=== PATIENT | female | born 1945 | race Caucasian/White ===

== ENCOUNTER → 2016-08-29 | Outpatient (CLI) | payer OTHER ==
[~2016-08-29] MED LIST: ADVIN10/60 INH; ASPI81TA82 PO; CALC-354 PO; CHOND PO; CLB/200 PO; CYCL5TAB PO; GLUCOSAMIN PO; LEVO50TA6 PO; LOSA1TAB PO; OMEGCAP PO; PRED20TA PO; RIZA10TA18 PO; SIMV20TA2 PO; TRAM-10 PO; TRIA3AER NAE; VENL75CA73 PO; VITAMIN D COMPLEX PO; VITBC PO
== END | disposition home or self-care (01) ==
LOC: C.RDSM 14:45
PROVIDERS: ATTEND Orthopaedic Surgery Sports Medicine
DX: M25.561 Pain in right knee (principal)

== ENCOUNTER → 2016-11-08 | Day surgery (SDC) | payer OTHER ==
[2016-11-02 08:50] VITALS: Ht 180.3 cm; Wt 90.9 kg
[~2016-11-08] VITALS: Ht 180.3 cm; Wt 90.9 kg
[~2016-11-08] MED LIST changes: -ADVIN10/60 INH; -CYCL5TAB PO; +IOPAMIDOL INJ 61% 15 ML VIAL ONE; +LIDOCAINE HCL 1% MPF 5 ML VIAL ONE; -PRED20TA PO; -SIMV20TA2 PO; +SODIUM CHLORIDE 0.9% INJ 10 ML VIAL ONE; -TRAM-10 PO; -TRIA3AER NAE
[2016-11-08 13:28] VITALS: TEMP 36.8
--- NOTE | 2016-11-08 14:25 | History & Physical Bridge - SC ---
H&P Re-Evaluation Bridge Note: I have examined the patient, reviewed the History & Physical and in the interval since the performance of the History & Physical I have noted the following changes of clinical significance: No changes noted
[2016-11-08 14:50] VITALS: BP 117/66; PULSE 84; O2SAT 96
--- NOTE | 2016-11-08 14:53 | Discharge Instructions ---
Discharge Instructions Date of Service Nov 08, 2016. Visit Reason for Visit: Lumbar Radiculopathy Discharge Discharge Diagnosis / Problem: leg pain Discharge Goals Goal(s): Decrease discomfort, Improve function Medications Stopped Medications Name(s): asa 81mg daily, last dose 11/04/16 Activity Recommendations Activity Limitations: resume your previous activity Anesthesia . Post Anesthesia Instructions: If you have had General Anesthesia or IV Sedation: * Do not drive today. * Resume driving when surgeon permits. * Do not make important decisions or sign legal documents today. * Call surgeon for: 1. Temperature elevations greater than 101 degrees F. 2. Uncontrollable pain. 3. Excessive bleeding. 4. Persistent nausea and vomiting. 5. Medication intolerance (nausea, vomiting or rash). * For nausea and vomiting use only clear liquids such as: tea, soda, bouillon until nausea subsides, then gradually increase diet as tolerated. * If you have any concerns or questions, call your surgeon's office. If physician is unavailable and it is an emergency, call 911 or go to the nearest emergency room. . Diet Recommendations Recommended Home Diet: resume previous diet Procedures Procedures Performed: Lumbar Epidural Steroid Injection Pending Studies Studies pending at discharge: no Medical Emergencies . Who to Call and When: Medical Emergencies: If at any time you feel your situation is an emergency, please call 911 immediately. . Non-Emergent Contact Non-Emergency issues call your: Specialist . . "Provider Documentation" section prepared by Bruce Burnett. .
--- NOTE | 2016-11-08 16:23 | [facility] Operative Report ---
Operative Report Date of Service Nov 08, 2016. Operative Report DICTATED BY: Bruce Burnett M.D. DATE OF SURGERY: 11/08/16. DATE OF OPERATION: 11/08/2016 PREOPERATIVE DIAGNOSIS: L3-4 herniated nucleus pulposus with a right L4 radiculopathy. POSTOPERATIVE DIAGNOSIS: Same. PROCEDURE: Right L3-4 paramedian intralaminar epidural steroid injection under fluoroscopic guidance. INDICATIONS: The patient is a 71-year-old white female who presents today for an epidural injection to decrease discomfort and improve function as she has failed conservative physical therapy and medications. She has classic pain radiating down the L4 dermatomal distribution of her right leg. CONSENT: Verbal and written consent was obtained from the patient. Risks and benefits were reviewed. Risks include but are not limited to epidural hematoma, allergic reaction, and dural puncture. The patient wishes to proceed. PROCEDURE: The patient was taken back to the special procedures room of [facility] where she was maintained in a prone position. Backside was cleansed with Betadine x3 and a dry sterile dressing was applied. Fluoroscope was used to identify the L5-S1 intralaminar space and overlying skin was anesthetized with 4 mL of lidocaine 1% with a 25 gauge 1.5-inch needle. A 22-gauge 3-1/2 inch Tuohy needle was then directed down towards the intralaminar space and was advanced under lateral fluoroscopic guidance and loss of resistance was noted and Isovue-300 contrast 1 mL was injected in which demonstrated epidural uptake pattern with spread that was confirmed with both AP and lateral views. She then underwent injection after negative aspiration of 40 mg of Depo-Medrol and 4 mL of preservative free sodium chloride. Injection was well tolerated. DISPOSITION: 1. The patient is taken out into the discharge recovery area where she will be discharged home once discharge criteria have been met. 2. Follow up in the [facility] office in 2-4 weeks. I attest to the content of the Intraoperative Record and any orders documented therein. Any exceptions are noted below. I attest to the content of the Intraoperative Record and any orders documented therein. Any exceptions are noted below.
== END | disposition home or self-care (01) ==
LOC: X.SURG 13:19
PROVIDERS: ATTEND Physical Medicine & Rehabilitation
DX: M51.16 Intervertebral disc disorders with radiculopathy, lumbar region (principal)

== ENCOUNTER → 2016-11-29 | Outpatient (CLI) | payer OTHER ==
[~2016-11-29] MED LIST changes: -IOPAMIDOL INJ 61% 15 ML VIAL ONE; -LIDOCAINE HCL 1% MPF 5 ML VIAL ONE; -SODIUM CHLORIDE 0.9% INJ 10 ML VIAL ONE
--- NOTE | 2016-11-29 09:39 | DIAGNOSTIC IMAGING REPORT ---
MRI OF LUMBAR SPINE WITHOUT IV CONTRAST CLINICAL HISTORY: Chronic low back pain. Right lower extremity radiculopathy. COMPARISON STUDY: MRI of lumbar spine dated 05/18/2015. TECHNIQUE: MRI of lumbar spine is performed utilizing various T1 and T2 weighted sequences in the axial, sagittal, and coronal planes. IV contrast was not administered for this examination. FINDINGS: Lumbar spine: Marrow signal intensity is heterogeneous. Vertebral body height and alignment are maintained throughout the lumbar spine. There is straightening of the lumbar lordosis. Mild dextrocurvature centered at L3. Small anterior osteophytes are seen throughout. The transverse and spinous processes appear intact. There is no evidence of spondylolysis. No destructive bony lesion is seen. Intervertebral discs: There is degenerative disc desiccation seen at all lumbar levels. Moderate to advanced loss of height is present at L4-L5. Moderate loss of height is seen at L1-L2 and L2-L3. Mild loss of height is seen at the remaining lumbar levels. Spinal cord: The visualized spinal cord is normal in morphology and signal intensity. The conus medullaris terminates at the level of L1. The nerve roots of the cauda equina are normal in morphology. L1-L2: There is a small posterior disc bulge. The central canal and neural foramina are patent. L2-L3: There is broad-based posterior disc bulge and annular fissure. This causes mild bilateral subarticular stenosis. The central canal and neural foramina are patent. Facet arthropathy is of no consequence. L3-L4: There is a disc protrusion eccentric to the right with a distracted disc fragment. The disc fragment is best seen on axial image #15 and measures up to 9 mm. This impinges on the transiting right-sided nerve roots. Facet arthropathy causes mild to moderate right neural foraminal stenosis. There is only minimal acquired compromise of the central canal at this level. There is no significant central canal stenosis at this level. L4-L5: There is a posterior disc bulge as well as mild hypertrophy of the ligamentum flavum. There is no significant central canal stenosis. There is bilateral subarticular stenosis, with possible impingement on the exiting right L4 nerve root. Facet arthropathy causes mild bilateral neural foraminal stenosis. L5-S1: Facet arthropathy is of no consequence. The central canal and neural foramina are patent. Sacrum: Visualized sacrum is normal in morphology and signal intensity. Soft tissues: There is fatty atrophy of the paraspinous and iliopsoas musculature. Parapelvic cysts are noted in the left kidney. There is no evidence of retroperitoneal lymphadenopathy. A large cyst is partially imaged in the liver. IMPRESSION: 1. There is a right lateral disc protrusion at L3-L4 with a distracted disc fragment. This impinges on the transiting right-sided nerve roots. 2. There is a posterior disc bulge at L4-L5. This may impinge on the exiting right L4 nerve root. 3. There is no significant acquired compromise of the central canal. 4. Degenerative change and scoliosis at additional levels as above. See discussion for detailed level by level analysis. 5. Marrow signal intensity is heterogeneous. No destructive bony lesion is clearly seen. Dictated: 11/29/2016 9:06 AM Transcribed: 11/29/2016 9:38 AM DAPHNE_Abel Electronically signed by: Jose Varela M.D. 11/29/2016 10:09 AM Dictated Date/Time: 11/29/2016 9:06 AM
== END | disposition home or self-care (01) ==
LOC: C.MRI 08:04
PROVIDERS: ATTEND Physical Medicine & Rehabilitation
DX: M51.16 Intervertebral disc disorders with radiculopathy, lumbar region (principal)

== ENCOUNTER → 2017-06-12 | Outpatient (CLI) | payer OTHER | END | disposition home or self-care (01) | LOC: C.RDSM 17:04 | PROVIDERS: ATTEND Orthopaedic Surgery Sports Medicine | DX: S89.91XA Unspecified injury of right lower leg, initial encounter (principal); X58.XXXA Exposure to other specified factors, initial encounter ==

== ENCOUNTER 2023-06-25 07:22 | Inpatient (IN) ==
--- OUTSIDE RECORDS SUMMARY | 2023-06-25 07:29 | External Medical Summary | Continuity of Care Document ---
Author Name Unknown Organization [place] [address] [address] [place] [address] Address [address] [place] [id number] Care Team Providers Care Community Health Advisor Name Role Phone Kamala Reyes Primary Care Physician [phone] [id number] Date(s): 05/22/23 - 05/22/23 [facility] [address] [facility] [address] [facility] Medicine [address] [address] Encounter Diagnosis Knee pain, left(Discharge Diagnosis) - 05/22/23 Discharge Disposition: Home or Self Care Attending Physician: MD Adelina, Wesley A Allergies, Adverse Reactions, Alerts No Known Allergies Medications amoxicillin 500 mg oral capsule Start: 07/12/22 16:45:00 EDT, 4 cap, PO, As indicated, Disp# 12 cap, Refills: 3, one hour before dental and other procedures as directed, Pharmacy: [facility] Start Date: 07/12/22 Status: Ordered B-Complex 50 oral tablet Start: 10/01/12 8:40:00, 1 tab, PO, Daily Start Date: 10/01/12 Status: Ordered Caltrate 600 + D oral tablet Start: 10/01/12 8:42:00, 1 tab, PO, bid Start Date: 10/01/12 Status: Ordered celecoxib 200 mg oral capsule Start: 08/25/22 11:37:00 EDT, See Instructions, Disp# 90 cap, Refills: 2, TAKE 1 CAPSULE BY MOUTH DAILY NEEDED FOR PAIN, Pharmacy: [facility] ([facility] ) Start Date: 08/25/22 Status: Ordered diclofenac 1% topical gel Start: 10/02/18 14:50:36 EDT, See Instructions, Disp# 100 g, Refills: 0, APPLY TOPICALLY 4 TIMES DAILY NEEDED FOR PAIN. NOT TO EXCEED 16 GRAMS DAILY ON A SINGLE JOINT OF LOWER EXTREMITIES. NOT TO EXCEED 32 GRAM, Pharmacy: [facility] Start Date: 10/02/18 Status: Ordered Effexor 75 mg oral tablet Start: 10/01/12 8:41:00, 0.5 tab, PO, bid Start Date: 10/01/12 Status: Ordered Euflexxa 10 mg/mL intra-articular solution Start: 09/04/19 13:24:00 EDT, 20 mg =, intra-articular, q7days, Disp# 2 mL, Refills: 0, Left knee OA Start Date: 09/04/19 Status: Ordered glucosamine-chondroitin oral kit Start: 10/01/12 8:40:00 Start Date: 10/01/12 Status: Ordered Levothroid 50 mcg (0.05 mg) oral tablet Start: 10/01/12 8:42:00, 1 tab, PO, Daily Start Date: 10/01/12 Status: Ordered losartan 25 mg oral tablet Start: 10/01/12 8:40:00, 1 tab, PO, Daily Start Date: 10/01/12 Status: Ordered PreserVision Start: 03/12/18 11:03:00 EST Start Date: 03/12/18 Status: Ordered Mental Status 05/22/23 Barriers to Learning one year None evide nt Mandatory Health Literacy Documentation Yes Health Literacy Communication Barriers N ever Primary Language Gambian Problem List Condition Confirmation Course Effective Dates Status H ealth Status Informant Anemia Confirmed Active Pes anserine bursitis Confirmed Active Occipital neuralgia Confirmed Active Herniated nucleus pulposus, L3-4 right Confirmed Active Effusion of olecranon bursa Confirmed Active Foot pain, right Confirmed Active Foot pain, left Confirmed Active Gastroparesis Confirmed Active Right hand pain Confirmed Active Hiatal hernia Confirmed Active S/P total knee replacement Confirmed Active Intervertebral disc disorder Confirmed Active Knee pain, left Confirmed Active Knee pain, right Confirmed Active Lumbar pain Confirmed Active Strain of lumbar paraspinous muscle Confirmed Active Right lumbar radiculopathy Confirmed Active Neck pain Confirmed Active Neck pain Confirmed Active Osteoarthritis of knee Confirmed Active 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 Weight monitoring Confirmed Active Wrist injury 1 Confirmed Active 1left Diagnosis Diagnosis Type Effective Dates Health Status Cl inical Service Informant Knee pain, left Discharge Diagnosis 05/22/23 Procedures Procedure Date Related Diagnosis Body Site Status knee surgery 02/15/09 Completed Discectomy 1999 Completed hand surgery 1997 Completed Hysterectomy 1979 Completed Tonsillectomy 1956 Completed Social History Social History Type Response Smoking Status Never smoked cigaret jaime Sex Female Ortho Outpt Note * MD Adelina, Wesley A: MODIFY MD Adelina, Wesley A: MODIFY Event Display: Ortho Outpt Note Authored Date: [id number] Name:RAJIV HALL Patient Number:[id number] :1945 Date of Service:05/22/2023 CHIEF COMPLAINT: Left knee pain HPI: [id number] Mark presents today forevaluation of left knee pain. She completed her most recent round ofEuflexxa in August 2019 with the round before that completed in 2014. She had significant relief from Euflexxa with return of pain within the last 2-3 months. She is interested in cortisone injection today. She is also s/p right TKA completed April 02, 2018 and doing well. PHYSICAL EXAM: Focusing on the patient'sleftlower extremity: 2+ DP pulse, bilaterally Sensation to light touch is intact, bilaterally Motor to the gastroc soleus, tibialis anterior, and EHL is 5/5, bilaterally Able to perform straight leg raise, bilaterally -joint line tenderness. -Valdez's Ligamentous examination exhibits: Stable Guille 0 mm anterior translation and firm endpoint Posterior drawer stable Varus stress at 0 and 30 stable Valgus stresshas pseudolaxity at0 and 30 less than 1 mm -Effusion Right knee Range of motion 0 to 125 Leftknee Range of motionfew degrees of hyperextension to 125 +Tenderness to palpation Medial patellar facet DIAGNOSTIC REVIEW: I obtained and personally interpreted OA series including bilateral hips to ankles, bilateral AP standing, Bilateral 45 degree flexion PA views, andleftknee lateral and sunrise views which showprogression of medial joint space narrowing, sclerosis bone on bone,and marginal osteophytes.Pat ient has2 alignment on left. Incidental finding of cemented right total knee components IMPRESSION: Left knee OA Chronic PLAN: After a lengthy discussion with the patient today regarding my above clinical findings, I am pleased with how well they are doing. - RICE. - They may use anti-inflammatories alternating with Tylenol as needed for pain. - In addition due to their significant amount of pain today, they were offered a cortisone injection. The risks of the injections were discussed and included but not limited to: Inflection, bleeding,nerve damage, continued pain, possible need for repeat injections, altered glucose levels, and permanent skin changes at the site of injection. They would like to proceed. They will keep track of howmuch pain relief they obtain and for how long. They will ice tonight and over the next several daysand understands it may be more painful tomorrow due to a steroid flare. - Discussed she is eligible for repeat MONGE injections given her positive response. She would like toproceed with MONGE injections after insurance approval. - Follow-up for MONGE injections after insurance approval. The patient understood all my instructions and explanations; all their questions were satisfactorily addressed. PROCEDURE: After obtaining verbal consent, performing a time-out, identifying theleftknee as the correct knee for intra-articular cortisone injection, the anterolateral portal area was palpated and marked. Kali Hicks, my nurse was present to verify the procedure and site.This area was prepped with Betadine, followed by ethyl chloride spray and alcohol wipe. Then, a combination of 2 mL o f 1% lidocaine plain plus4 mL of 0.25%Bupivacaine plain plus 1mL of 40 mg of Depo-Medrol wereeasily injected. The patient noted immediate pain relief. The area was cleaned and dried and a Band-Aid was placed on the top. The patient will follow all of my above-noted instructions. ATTESTATION: I, Rita Mcpherson, scribing forand in the presence of, Wesley Sahu, on this date,05/22/2023 11:36:26. I, Dr. Sahu, saw and examined the patient with Rita Mcpherson acting as my scribe. I reviewed the note and agree with the documented findings and the plan of care I developed. Electronic Signature on File Electronically Reviewed/Signed by: Rita Mcpherson Author Signature Dt/Tm:05/22/2023 11:57 AM Electronically Reviewed/Signed by: Wesley Sahu MD Cosigner Signature Dt/Tm: 05/22/2023 01:09 PM [facility] Measurement Psychologist Department of Orthopaedics and Rehabilitation [facility] [address], [place] [address] [place] Patient Care team information Care Team Personnel Name: MD Eric, Kamala Olivia Position: Referring DIRECT Member Role: Primary Care Provider Address: Address: [address] [place] [address] [place] Care Team Related Persons Name: ENIO YEPEZ Address: home [address], [place] [phone] Name: NADJA YEPEZ Address: [place], [place] [phone]
--- OUTSIDE RECORDS SUMMARY | 2023-06-25 07:29 | External Medical Summary | Continuity of Care Document ---
Author Name Unknown Organization [facility] [address] [address] Address [address] [place] [phone] Care Team Providers Care Inspector Floor Sub Assembly Name Role Phone Kamala Reyes Corwin Primary Care Physician [phone] [id number] Date(s): 06/06/23 - 06/06/23 [facility] 0 [address] [facility] [address] [facility] [address] [id number] Encounter Diagnosis Left knee DJD(Discharge Diagnosis) - 06/06/23 Discharge Disposition: Home or Self Care Attending Physician: JUAN C Zavala [place] Allergies, Adverse Reactions, Alerts No Known Allergies Assessment and Plan Extracted from: Title:Clinical Document Author:JUAN C Zavala, Simeon son Date:06/06/23 OUTPATIENT NOTE Name: RAJIV HALL Patient Number:[id number] : 1945 Date of Service: 06/06/2023 CHIEF COMPLAINT: Euflexxa 1 of 3 HISTORY OF PRESENT ILLNESS: Patient is here today for left knee gel injection. She has received these before. She had her right knee replaced by Dr. Sahu in 2018. She had a great outcome from that. She gets good relief from the Euflexxa injections. She did have a cortisone injection 05/22/2023. They have no major questions or concerns today. They are ready to proceed with their injection. ROS: Denies swelling, erythema, warmth PHYSICAL EXAM: General: Pt is well nourished, seated on the exam table AA&O, in NAD, calm and cooperative during exam Knee Exam: Pt ambulates without assisted device with a non-antalgic gait Skin is intact with no effusion, erythema, ecchymosis or warmth Motor function grossly in tact No signs of lymphatic or vascular insufficiency IMPRESSION/ PLAN: Left knee osteoarthritis, 1 of 3 Euflexxa injection The patient received their gel injection today. They tolerated the procedure well. Pt was encouraged to ice, rest, and use OTC anti-inflammatories as needed for her pain. They were instructed to keep their knee moving today to avoid stiffness. They will follow up in 1 week. All of their questions and concerns were answered today. PROCEDURE: After explaining the risks and benefits of the procedure, verbal consent was obtained and the patient was placed in the seated position. The injection site was confirmed by Kali Hicks LPN. After performing a time-out, identifying the left knee as the correct knee for intra-articular gel injection, the anterolateral portal area was palpated and marked. This area was prepped with Betadine, followed by ethyl chloride spray and alcohol wipe. Then, a 2 mL prepackaged syringe of Euflexxa was easily injected. The area was cleaned and dried and a Band-Aid was placed on the top. The patient will follow all my above-noted instructions. Medications amoxicillin 500 mg oral capsule Start: 07/12/22 16:45:00 EDT, 4 cap, PO, As indicated, Disp# 12 cap, Refills: 3, one hour before dental and other procedures as directed, Pharmacy: [facility] Start Date: 07/12/22 Status: Ordered B-Complex [...] BY MOUTH DAILY NEEDED FOR PAIN, Pharmacy: [facility] ([facility] ) Start Date: 08/25/22 Status: Ordered diclofenac 1% topical gel Start: 10/02/18 14:50:36 EDT, See Instructions, Disp# 100 g, Refills: 0, APPLY TOPICALLY 4 TIMES DAILY NEEDED FOR PAIN. NOT TO EXCEED 16 GRAMS DAILY ON A SINGLE JOINT OF LOWER EXTREMITIES. NOT TO EXCEED 32 GRAM, Pharmacy: [facility] Start Date: 10/02/18 Status: Ordered Effexor [...] Start Date: 03/12/18 Status: Ordered Mental Status 06/06/23 Barriers to Learning one year None evide nt Mandatory Health Literacy Documentation Yes Health Literacy Communication Barriers N ever Primary Language Tuvaluan Problem List Condition Confirmation Course Effective Dates [...] Dates Health Status Cl inical Service Informant Left knee DJD Discharge Diagnosis 06/06/23 Procedures Procedure Date Related Diagnosis Body Site Status knee surgery 02/15/09 Completed Discectomy 1999 Completed hand surgery 1997 Completed Hysterectomy 1979 Completed Tonsillectomy 1956 Completed Social History Social History Type Response Smoking Status Never smoked cigaret jaime Sex Female Outpatient Note * JUAN C Zavala, Montse: PERFORM Event Display: .Outpt Note Authored Date: [id number] OUTPATIENT NOTE Name: RAJIV HALL Patient Number:[id number] : 1945 Date of Service: 06/06/2023 CHIEF COMPLAINT: Euflexxa 1 of 3 HISTORY OF PRESENT ILLNESS: Patient is here today for left knee gel injection. She has received these before. She had her right knee replaced by Dr. Sahu in 2018. She had a great outcome from that. She gets good relief from the Euflexxa injections. She did have a cortisone injection 05/22/2023. They have no major questions or concerns today. They are ready to proceed with their injection. ROS: Denies swelling, erythema, warmth PHYSICAL EXAM: General: Pt is well nourished, seated on the exam table AA&O, in NAD, calm and cooperative during exam Knee Exam: Pt ambulates without assisted device with a non-antalgic gait Skin is intact with no effusion, erythema, ecchymosis or warmth Motor function grossly in tact No signs of lymphatic or vascular insufficiency IMPRESSION/ PLAN: Left knee osteoarthritis, 1 of 3 Euflexxa injection The patient received their gel injection today. They tolerated the procedure well. Pt was encouraged to ice, rest, and use OTC anti-inflammatories as needed for her pain. They were instructed to keeptheir knee moving today to avoid stiffness. They will follow up in 1 week. All of their questions and concerns were answered today. PROCEDURE: After explaining the risks and benefits of the procedure, verbal consent was obtained and the patient was placed in the seated position. The injection site was confirmed by Kali Hicks LPN. After performing a time- out, identifying the left knee as the correct knee for intra-articular gel injection, the anterolateral portal area was palpated and marked. This area was prepped with Betadine, followed by ethyl chloride spray and alcohol wipe. Then, a 2 mL prepackaged syringe of Euflexxa was easily injected. The area was cleaned and dried and a Band-Aid was placed on the top. The patient will follow all my above-noted instructions. Electronic Signature on File Electronically Reviewed/Signed by: Montse Zavala PA-C Author Signature Dt/Tm:06/06/2023 10:34 AM Physician Scenic Artist, Dept. of Orthopaedics and Sports Medicine [facility] - [address], [address] [place] [address] Electronically Reviewed/Signed by: Wesley Sahu MD Cosigner Signature Dt/Tm: 06/06/2023 06:01 PM [facility] Reed Fixer Department of Orthopaedics and Rehabilitation [facility] [address], [place] [address] [place] Patient Care team information Care Team Personnel Name: MD Eric, Kamala Olivia Position: Referring DIRECT Member Role: Primary Care Provider Address: Address: [address] [place] [address] [place] Care Team Related Persons Name: ENIO YEPEZ Address: home [address] [place], [place] [phone] Name: NADJA YEPEZ Address: [place], [place] [phone]
--- OUTSIDE RECORDS SUMMARY | 2023-06-25 07:29 | External Medical Summary | Continuity of Care Document ---
Author Name Unknown Organization [facility] [address] [id number] Address [address] [place] [id number] Care Team Providers Care Chief Scientist Name Role Phone Kamala Reyes Corwin Primary Care Physician [phone] Encounter [facility] [id number] Date(s): 06/14/23 - 06/14/[address] [facility] [address] [facility] [address] [facility] Sports Medicine [address] [id number] Encounter Diagnosis Left knee DJD(Discharge Diagnosis) - 06/14/23 Discharge Disposition: Home or Self Care Attending Physician: JUAN C Zavala [place] Allergies, Adverse Reactions, Alerts No Known Allergies Assessment and Plan Extracted from: Title:Clinical Document Author:JUAN C Zavala, Simeon son Date:06/14/23 OUTPATIENT NOTE Name: RAJIV HALL Patient Number:1 [id number] : 1945 Date of Service: 06/14/2023 CHIEF COMPLAINT: Euflexxa 2 of 3 HISTORY OF PRESENT ILLNESS: Patient is here today for left knee gel injection. She has received these before. She had her right knee replaced by Dr. Sahu in 2018. She had a great outcome from that. She gets good relief from the Euflexxa injections. She has gotten some minor relief after her first injection. They have no major questions or concerns [...] vascular insufficiency IMPRESSION/ PLAN: Left knee osteoarthritis, 2of 3 Euflexxa injection The patient received their [...] dental and other procedures as directed, Pharmacy: [facility] Start Date: 07/12/22 Status: Ordered B-Complex [...] BY MOUTH DAILY NEEDED FOR PAIN, Pharmacy: [facility] ([facility] ) Start Date: 08/25/22 Status: Ordered diclofenac 1% topical gel Start: 10/02/18 14:50:36 EDT, See Instructions, Disp# 100 g, Refills: 0, APPLY TOPICALLY 4 TIMES DAILY NEEDED FOR PAIN. NOT TO EXCEED 16 GRAMS DAILY ON A SINGLE JOINT OF LOWER EXTREMITIES. NOT TO EXCEED 32 GRAM, Pharmacy: [facility] Start Date: 10/02/18 Status: Ordered [...] Start Date: 03/12/18 Status: Ordered Mental Status 06/14/23 Barriers to Learning one year None evide nt Mandatory Health Literacy Documentation Yes Health Literacy Communication Barriers N ever Primary Language Korean Problem List Condition Confirmation Course Effective Dates [...] Service Informant Left knee DJD Discharge Diagnosis 06/14/23 Procedures Procedure Date Related Diagnosis Body Site Status knee surgery 02/15/09 Completed Discectomy 1999 Completed hand surgery 1997 Completed Hysterectomy 1979 Completed Tonsillectomy 1956 Completed Social History Social History Type Response Smoking Status Never smoked cigaret jaime Sex Female Outpatient Note * JUAN C Zavala, Montse: PERFORM Event Display: .Outpt Note Authored Date: [id number] OUTPATIENT NOTE Name: RAJIV HALL Patient Number:[id number] : 1945 Date of Service: 06/14/2023 CHIEF COMPLAINT: Euflexxa 2 of 3 HISTORY OF PRESENT ILLNESS: Patient is here today for left knee gel injection. She has received these before. She had her right knee replaced by Dr. Sahu in 2018. She had a great outcome from that. She gets good relief from the Euflexxa injections. She has gotten some minor relief after her first injection. They have no major questions or concerns [...] vascular insufficiency IMPRESSION/ PLAN: Left knee osteoarthritis, 2of 3 Euflexxa injection The patient received their [...] Reviewed/Signed by: Montse Zavala PA-C Author Signature Dt/Tm:06/14/2023 02:53 PM Physician Production Sanitizer, Dept. of Orthopaedics and Sports Medicine [facility] - [address], [address] [place] [address] Electronically Reviewed/Signed by: MD Kassidy Maravillaigner Signature Dt/Tm: 06/14/2023 03:02 PM [facility] Grants Administrator Department of Orthopaedics and Rehabilitation [facility] [address], [place] [address] MK Patient Care team information Care Team Personnel Name: MD Reyes Manisha N Position: Referring DIRECT Member Role: Primary Care Provider Address: Address: [address] [place] [address] [place] Care Team Related Persons Name: ENIO YEPEZ Address: home [address] [place], [place] [phone] Name: NADJA YEPEZ Address: [place], [place] [phone]
--- OUTSIDE RECORDS SUMMARY | 2023-06-25 07:29 | External Medical Summary | Continuity of Care Document ---
Author Name Unknown Organization [facility] [address] [address] Address [address] [place] [id number] Care Team Providers Care Extension Edger Name Role Phone Kamala Reyes Corwin Primary Care Physician [phone] [facility] [id number] Date(s): 06/20/23 - 06/20/23 [facility] [address] [facility] [address] [facility] Sports Medicine [address] [id number] Encounter Diagnosis Left knee DJD(Discharge Diagnosis) - 06/20/23 Discharge Disposition: Home or Self Care Attending Physician: JUAN C Zavala [place] Allergies, Adverse Reactions, Alerts No Known Allergies Assessment and Plan Extracted from: Title:Clinical Document Author:JUAN C Zavala, Simeon son Date:06/20/23 OUTPATIENT NOTE Name: RAJIV HALL Patient Number:1 [id number] : 1945 Date of Service: 06/20/2023 CHIEF COMPLAINT: Euflexxa 3 of 3 HISTORY OF PRESENT ILLNESS: Patient is here today for left knee gel injection. She has received these before. She had her right knee replaced by Dr. Sahu in 2018. She had a great outcome from that. She gets good relief from the Euflexxa injections. She has gotten great relief after her last two injections. Says she has 0/10 pain. They have no major questions or concerns [...] vascular insufficiency IMPRESSION/ PLAN: Left knee osteoarthritis, 3 of 3 Euflexxa injection The patient received their gel injection today. They tolerated the procedure well. Pt was encouraged to ice, rest, and use OTC anti-inflammatories as needed for her pain. They were instructed to keep their knee moving today to avoid stiffness. They will follow up PRN. All of their questions and concerns were [...] BY MOUTH DAILY NEEDED FOR PAIN, Pharmacy: [facility] ([facility] ) Start Date: 08/25/22 Status: Ordered diclofenac 1% topical gel Start: 10/02/18 14:50:36 EDT, See Instructions, Disp# 100 g, Refills: 0, APPLY TOPICALLY 4 TIMES DAILY NEEDED FOR PAIN. NOT TO EXCEED 16 GRAMS DAILY ON A SINGLE JOINT OF LOWER EXTREMITIES. NOT TO EXCEED 32 GRAM, Pharmacy: [facility] Start Date: 10/02/18 Status: Ordered [...] Start Date: 03/12/18 Status: Ordered Mental Status 06/20/23 Barriers to Learning one year None evide nt Mandatory Health Literacy Documentation Yes Health Literacy Communication Barriers N ever Primary Language Tajik Problem List Condition Confirmation Course Effective Dates [...] Service Informant Left knee DJD Discharge Diagnosis 06/20/23 Procedures Procedure Date Related Diagnosis Body Site Status knee surgery 02/15/09 Completed Discectomy 1999 Completed hand surgery 1997 Completed Hysterectomy 1979 Completed Tonsillectomy 1956 Completed Social History Social History Type Response Smoking Status Never smoked cigaret jaime Sex Female Outpatient Note * JUAN C Zavala Madison: PERFORM Event Display: .Outpt Note Authored Date: [id number] OUTPATIENT NOTE Name: RAJIV HALL Patient Number:1 [id number] : 1945 Date of Service: 06/20/2023 CHIEF COMPLAINT: Euflexxa 3 of 3 HISTORY OF PRESENT ILLNESS: Patient is here today for left knee gel injection. She has received these before. She had her right knee replaced by Dr. Sahu in 2018. She had a great outcome from that. She gets good relief from the Euflexxa injections. She has gotten great relief after her last two injections. Says she has 0/10 pain. They have no major questions or concerns [...] vascular insufficiency IMPRESSION/ PLAN: Left knee osteoarthritis, 3 of 3 Euflexxa injection The patient received their gel injection today. They tolerated the procedure well. Pt was encouraged to ice, rest, and use OTC anti-inflammatories as needed for her pain. They were instructed to keeptheir knee moving today to avoid stiffness. They will follow up PRN. All of their questions and concerns were [...] Reviewed/Signed by: Montse Zavala PA-C Author Signature Dt/Tm:06/20/2023 10:34 AM Physician Casing Inspector, Dept. of Orthopaedics and Sports Medicine [facility] [id number] [facility], [address] [place] [address] Electronically Reviewed/Signed by: Wesley Sahu MD Cosigner Signature Dt/Tm: 06/20/2023 04:47 PM [facility] Liability Claims Adjuster Department of Orthopaedics and Rehabilitation [facility] [address], [place] [address] MK Patient Care team information Care Team Personnel Name: MD Eric, Kamala Olivia Position: Referring DIRECT Member Role: Primary Care Provider Address: Address: [address] [place] [address] [place] Care Team Related Persons Name: ENIO YEPEZ Address: home [address] [place], [place] [phone] Name: NADJA YEPEZ Address: [place], [place] [id number]
[2023-06-25] MEDS: ONDANSETRON INJ 2 MG/ML 2 ML VIAL IV STA (07:46)
[2023-06-25] MEDS: FAMOTIDINE 20MG IV PUSH 20 MG/5 ML SYR IV STA (07:46)
--- NOTE | 2023-06-25 07:46 | Emergency Department Note ---
Impression & Plan Acute upper abdominal pain, Nausea, SBO (small bowel obstruction), Abdominal distension, Hypomagnesemia, Tachycardia ED Provider Note NAME: RAJIV HALL AGE: 78 SEX: F : 1945 ARRIVES VIA: Walk-In INFORMANT: [Patient] ED PROVIDER(S): [Jose Xiong MD] CHIEF COMPLAINT: Abdominal pain HISTORY OF PRESENT ILLNESS: The patient is a 78-year-old female who states that she has had about 7-1/2 hours of symptoms. Around midnight, she began having epigastric abdominal pain with nausea. She has had diarrhea. She feels bloated. There has been no fever, no cough or congestion. No urinary complaints. No blood in the stool. Patient has had a hiatal hernia surgery and she states as a result, she cannot vomit. She feels like she would feel better if she could vomit. The patient felt fine yesterday. She has never had symptoms like this before. She was never told that she had pancreatitis or gallstones. PMHx/PSHx/Social Hx: See Below PHYSICAL EXAM: GENERAL: Patient is in no acute distress. HEENT: No acute trauma, normocephalic atraumatic, mucous membranes moist, no nasal congestion. NECK: No stridor, no adenopathy, no meningismus, trachea is midline. LUNGS: Clear to auscultation bilaterally when listening anterior, no wheeze, no rhonchi, breath sounds equal. HEART: Mildly tachycardic, regular rhythm, no murmurs. ABDOMEN: Soft, nontender, no peritonitis. There was some tympany with percussion and some mild abdominal distention. EXTREMITIES: No cyanosis, full range of motion of all the joints without pain or difficulty. Mild bilateral pedal edema. NEUROLOGIC: Oriented x 3, no acute motor or sensory deficits, no focal weakness. SKIN: No jaundice, no diaphoresis. DIFFERENTIAL DIAGNOSIS: Bowel obstruction, pancreatitis, biliary colic, gastritis, ulcer, diverticulitis, viral or foodborne illness, dehydration, among others. EMERGENCY DEPARTMENT PROCEDURES: MEDICAL DECISION MAKING: There is no leukocytosis or concerning anemia. There is a normal platelet count. No renal failure. Magnesium low at 1.6. No concerning liver enzyme elevation. No evidence for pancreatitis. ECG shows a sinus tachycardia, no ischemia or dysrhythmia. Cardiac enzyme testing x 1 is not consistent with acute cardiac injury. Urinalysis does not show findings of infection. Chest film did not show pneumonia or free air. Abdominal and pelvis CT shows some bowel distention and a potential partial small bowel obstruction. No acute surgical process by CT imaging. On exam, patient was tachycardic. She did not have peritonitis. She was not febrile. Patient received 1.5 L of IV saline for hydration. She was given IV Zofran for nausea, IV morphine for pain. She received IV magnesium for the lower magnesium value. She was given IV Pepcid. The patient would be best served with a hospitalization. She certainly may have an early partial small bowel obstruction as the cause for her presentation. Further observation/care is indicated. I spoke with the patient and case management, the on-call hospitalist was consulted. Prior/Outside records/notes reviewed: None ECG per my interpretation: Indication was abdominal pain. The ECG shows a sinus tachycardia with a rate of 113. There is no ST elevation, no PVCs. The QTc is 452. Continuous Cardiac Monitoring per my interpretation: An order was placed for continuous cardiac monitoring. The monitor shows a rate of 132 with sinus tachycardia. Imaging/x-ray results per my interpretation: Chest x-ray does not show mediastinal widening, pneumonia or free air. Chronic Medical/Social conditions affecting care: Advanced age. Care/Management discussed with: Case management, the on-call hospitalist. Level of care consideration(s): After review of the information above and other included data: --I feel the patient can be managed safely as an outpatient DISPOSITION: Admission Past Med/Surg History Medical History IBS (irritable bowel syndrome) History of IBS UNDER CONTROL Asthma MILD-NO INHALERS GERD (gastroesophageal reflux disease) UNDER CONTROL Anxiety and depression Migraine headache HX Hypothyroidism HTN (hypertension) Esophageal hernia hx of Swallowing difficulty POST OP ESOPHAGEAL HERNIA REPAIR ESOPHAGEAL SWELLING-NO REASON GIVEN PT Chronic back pain LUMBAR AREA Osteoarthritis Anemia HX Surgical History History of hysterectomy History of appendectomy History of thyroid surgery partial removal of thyroid lobe - 1977 History of arthroscopy of right knee Hx of hand surgery LEFT REPAIR TENDONS Hx of esophageal hernia repair Intubated with glidescope on 2nd attempt. 7.0 ETT at 18cm. History of back surgery THORACIC FUSION Family History Brother Family history of diabetes mellitus Social History Smoking Status: Never smoker Second Hand Exposure: No; Do You Dip or Chew Tobacco: No; Hx Alcohol Use: No Hx Substance Use: No Preferred Language: [place] Communication Ability: Effective Visual Impairment: No Limitations Can Striper Required: No Beliefs That Will Affect Care: None Current Living Situation: Alone current occupational status: retired Feels Safe at Home: Yes Assistive Devices: Contacts Allergies Allergies Allergy/AdvReac Type Severity Reaction Status Date / Time No Known Drug Allergies Allergy Unknown NONE Verified 06/25/23 10:02 Home Meds Home Medications Medication Instructions Recorded Confirmed acetaminophen 500 mg tablet 500 mg PO Q6H PRN Pain 03/05/18 06/25/23 (Tylenol Extra Strength) calcium carbonate 600 mg-vitamin 1 tab PO BID 03/05/18 06/25/23 D3 5 mcg (200 unit) capsule (Calcium 600 + D(3)) [id number] C-Mn 500 2 tab PO BID 03/05/18 06/25/23 mg-400 mg capsule (Glucosamine Chondroitin Maximum Strength) losartan 50 mg tablet 50 mg PO QAM 03/05/18 06/25/23 magnesium 250 mg tablet 250 mg PO QAM 03/05/18 06/25/23 multivitamin 1 tab PO QAM 03/05/18 06/25/23 rizatriptan 10 mg tablet 10 mg PO UD PRN Migraine Headache 03/05/18 06/25/23 vitamin B complex 1 cap PO QAM 03/05/18 06/25/23 vitamins A,C,O-urlc-vvxjky 2,148 1 tab PO QAM 03/05/18 06/25/23 mcg-113 mg-45 mg-17.4 mg tablet (PreserVision AREDS) cholecalciferol (vitamin D3) 25 25 mcg PO QAM 05/09/21 06/25/23 mcg (1,000 unit) tablet (Vitamin D3) lactobacillus combination no.4 3 3,000 mmu cells PO QAM 05/09/21 06/25/23 billion cell capsule (Probiotic) celecoxib 200 mg capsule 200 mg PO QAM PRN Pain 06/25/23 06/25/23 levothyroxine 25 mcg tablet 25 mcg PO QAM 06/25/23 06/25/23 rosuvastatin 5 mg tablet 5 mg PO HS 06/25/23 06/25/23 venlafaxine 75 mg capsule,extended 75 mg PO QAM 06/25/23 06/25/23 release 24 hr Previous Rx's Medication Instructions Recorded ascorbic acid (vitamin C) 250 mg 250 mg PO BID #28 tabs 04/04/18 tablet (Vitamin C) Results & Data (ED) Vital Signs Vital Signs - 24 hr 06/25/23 07:23 06/25/23 07:42 06/25/23 08:13 Temperature 36.3 C L Temperature Source Temporal Artery Scan Pulse Rate 132 H 113 H 107 H Pulse Rate from SpO2 Sensor Pulse Rhythm Regular Respiratory Rate 22 22 Respiratory Effort / Characteristics Non-Labored Spontaneous Respiratory Depth Normal Respiratory Pattern Regular Blood Pressure 132/77 Blood Pressure Mean 95 Pulse Oximetry 97 99 Oxygen Delivery Method Room Air Room Air Sepsis Recent Fever Within 48 Hours No Sepsis New/Unexplained Change in Mental Status N/A Sepsis Action Taken by Nursing No Action Required 06/25/23 08:30 06/25/23 09:00 06/25/23 09:30 Temperature Temperature Source Pulse Rate 116 H 114 H 113 H Pulse Rate from SpO2 Sensor 116 H 114 H 104 H Pulse Rhythm Respiratory Rate 24 20 29 H Respiratory Effort / Characteristics Respiratory Depth Respiratory Pattern Blood Pressure 147/83 H 122/75 147/86 H Blood Pressure Mean 104 90 106 Pulse Oximetry 95 99 97 Oxygen Delivery Method Sepsis Recent Fever Within 48 Hours Sepsis New/Unexplained Change in Mental Status Sepsis Action Taken by Nursing 06/25/23 10:00 06/25/23 10:30 Temperature Temperature Source Pulse Rate 119 H 111 H Pulse Rate from SpO2 Sensor 119 H 110 H Pulse Rhythm Respiratory Rate 22 19 Respiratory Effort / Characteristics Respiratory Depth Respiratory Pattern Blood Pressure 171/77 H 107/70 Blood Pressure Mean 108 82 Pulse Oximetry 98 96 Oxygen Delivery Method Sepsis Recent Fever Within 48 Hours Sepsis New/Unexplained Change in Mental Status Sepsis Action Taken by Long Term Medications Current Medication List: was personally reviewed by me Laboratory Data Attestation: I reviewed the patient's lab results. 06/25/23 07:42 06/25/23 07:42 Lab Results 06/25/23 06/25/23 Range/Units 07:42 09:20 WBC 7.66 (4.8-10.8) K/ul RBC 5.05 (4.20-5.40) M/uL Hgb 14.7 (12.0-16.0) g/dl Hct 44.8 (37.0-47.0) % MCV 88.7 (80.0-100.0) fL MCH 29.1 (25.0-34.0) pg MCHC 32.8 (32.0-36.0) g/dL RDW Std Deviation 44.3 (36.4-46.3) fL RDW Coeff of Pito 13.7 (11.5-14.5) % Plt Count 188 (130-400) K/uL MPV 10.7 (9.4-12.4) fL Immature Gran % (Auto) 0.3 % Neut % (Auto) 92.1 % Lymph % (Auto) 2.2 % [place] % (Auto) 4.4 % Eos % (Auto) 0.7 % Baso % (Auto) 0.3 % Neut # (Auto) 7.06 H (1.40-6.50) K/uL Lymph # (Auto) 0.17 L (1.20-3.40) K/uL [place] # (Auto) 0.34 (0.11-0.59) K/uL Eos # (Auto) 0.05 (0.00-0.50) K/uL Baso # (Auto) 0.02 (0.00-0.20) K/uL Immature Gran # (Auto) 0.02 (0.01-0.20) K/uL RBC Morphology Unremarkable Sodium 140 (136-145) mmol/L Potassium 3.8 (3.5-5.1) mmol/L Chloride 107 (98-107) mmol/L Carbon Dioxide 24 (21-32) mmol/L Anion Gap 9 (3-11) BUN 33 H (6-23) mg/dl Creatinine 0.96 (0.6-1.2) mg/dl Est Cr Clr Drug Dosing 64.0 ml/min Est GFR ( Amer) 66.1 ml/min Est GFR (Non-Af Amer) 57.0 ml/min BUN/Creatinine Ratio 34.4 H (10-20) Glucose 179 H (70-99(Fasting)) mg/dl Calcium 8.9 (8.6-10.3) mg/dl Magnesium 1.6 L (1.7-2.4) mg/dl Total Bilirubin 0.6 (0.2-1.0) mg/dl AST 26 (13-39) U/L ALT 21 (7-52) U/L Alkaline Phosphatase 59 (34-104) U/L Troponin I High Sens 4.4 (0-14) pg/ml Total Protein 7.1 (6.0-8.3) gm/dl Albumin 4.3 (3.4-5.0) gm/dl Globulin 2.8 (2.5-4.0) gm/dl Albumin/Globulin Ratio 1.5 (0.9-2) Lipase 19 (11-82) U/L Urine Color Yellow Urine Appearance Clear (Clear) Urine pH 5.0 (4.5-7.5) Ur Specific [place] 1.034 H (1.000-1.030) Urine Protein Negative (Negative) Urine Glucose (UA) Negative (Negative) Urine Ketones Negative (Negative) Urine Blood Negative (Negative) Urine Nitrite Negative (Negative) Urine Bilirubin Negative (Negative) Urine Urobilinogen Negative (Negative) Ur Leukocyte Esterase Trace H (Negative) Urine WBC (Auto) 1-5 (0-5) /hpf Urine RBC (Auto) 0-4 (0-4) /hpf U Hyaline Cast (Auto) 0 (0-5) /lpf U Epithel Cells (Auto) 20-30 H (0-5) /lpf Urine Bacteria (Auto) Negative (Negative) Administered Medications Discontinued Medications Sodium Chloride (Nss) 500 mls @ 999 mls/hr IV .Q31M STA Stop: 06/25/23 08:04 Last Infusion: 06/25/23 08:23 Dose: Infused Documented By: Admin: 06/25/23 07:49 Dose: 999 mls/hr Documented By: ASAEL Famotidine (Pepcid 20mg Iv Push) 20 mg in 5 mls @ 2.5 mls/min IV NOW STA Stop: 06/25/23 07:42 Last Admin: 06/25/23 07:46 Dose: 2.5 mls/min Documented By: ASAEL Magnesium Sulfate/Dextrose (Magnesium Sulfate / D5w) 1 gm in 100 mls @ 100 mls/hr IV NOW STA Stop: 06/25/23 09:58 Last Infusion: 06/25/23 10:45 Dose: Infused Documented By: Admin: 06/25/23 09:17 Dose: 100 mls/hr Documented By: MED Sodium Chloride (Nss) 1,000 mls @ 999 mls/hr IV .Q1H1M ONE Stop: 06/25/23 10:01 Last Infusion: 06/25/23 10:45 Dose: Infused Documented By: Admin: 06/25/23 09:17 Dose: 999 mls/hr Documented By: MED Ioversol (Optiray 320 500ml) 94 ml IV ONCE ONE Stop: 06/25/23 09:06 Last Admin: 06/25/23 09:06 Dose: 94 ml Documented By: DOMONIQUE Morphine Sulfate (Morphine Sulfate 4 Mg/Ml 1 Ml Carp\Vial) 4 mg IV NOW STA Stop: 06/25/23 07:35 Last Admin: 06/25/23 09:17 Dose: Not Given Documented By: MED Ondansetron HCl (Ondansetron Inj 2 Mg/Ml 2 Ml Vial) 4 mg IV NOW STA Stop: 06/25/23 07:35 Last Admin: 06/25/23 07:46 Dose: 4 mg Documented By: ASAEL Imaging Data Radiologist's Impression: Abdomen/Pelvis CT 06/25/23 07:34 CT OF THE ABDOMEN AND PELVIS WITH CONTRAST CLINICAL HISTORY: Epigastric pain. COMPARISON STUDY: CT of the abdomen and pelvis October 28, 2012.] On ultrasound March 01, 2016. TECHNIQUE: Following IV administration of 94 mL of Optiray, axial images of the abdomen and pelvis were obtained from the lung bases to the proximal femurs. Images were reviewed in the axial, sagittal, and coronal planes. IV contrast was administered without complication. Automated exposure control was utilized for the study. A dose lowering technique was utilized adhering to the principles of ALARA. CT DOSE: 1298.52 mGy.cm FINDINGS: Lung bases are unremarkable. No pneumatosis, free air or portal venous gas is present. A moderate sized hiatal hernia is noted. Gastric cardia is above the diaphragm. There are postoperative findings suggestive of a Efraín wrap which is likely at or just above the diaphragm. Moderate ingested contents within the stomach are present. 7.5 cm hepatic cyst is present. Spleen, adrenal glands and kidneys are unremarkable. Nodularity of the left adrenal gland is unchanged. There are left renal parapelvic cysts. There is no hydronephrosis. Extensive sigmoid diverticulosis is present without evidence for acute diverticulitis. The appendix is not visualized. Major vasculature is patent. The proximal to mid small bowel is mildly dilated fluid-filled. No transition point is identified. Right colon is mildly fluid-filled. IMPRESSION: 1. Moderate sized hiatal hernia. Postoperative findings suggestive of fundoplication. The wrap appears to be at or just above the diaphragm. Moderate ingested contents within the stomach. 2. Mildly dilated fluid-filled proximal to mid small bowel without transition point. The findings may reflect an enteritis. A partial small bowel obstruction is considered less likely but could appear similar. 3. Extensive sigmoid diverticulosis. No evidence for acute diverticulitis. ACT 112: Negative or not required by law. Electronically signed by: Delvis Downs M.D. 06/25/2023 9:31 AM Chest X-Ray 06/25/23 07:34 SINGLE VIEW CHEST CLINICAL HISTORY: Generalized abdominal pain FINDINGS: An AP, portable, upright chest radiograph is compared to chest x-ray and chest CT dated 01/18/2012. The heart is mildly enlarged noting atherosclerotic calcification of the thoracic aorta. The pulmonary vasculature is noncongested. Chronic interstitial thickening is similar to previous. There is bibasilar scarring/atelectasis. The lungs and pleural spaces are otherwise clear. No pneumothorax is seen. The skeletal structures are osteopenic. The bony thorax is grossly intact. Fusion hardware is seen in the lower cervical spine. IMPRESSION: No active disease in the chest. ACT 112: Negative or not required by law. Electronically signed by: Jose Varela M.D. 06/25/2023 8:11 AM Discharge Plan Visit Data Chief Complaint: Abdominal Pain Stated Complaint: SICK TO STOMACH,NAUSEA ED Provider: Jose Xiong Discharge Problem: Acute upper abdominal pain, Nausea, SBO (small bowel obstruction), Abdominal distension, Hypomagnesemia, Tachycardia Patient Disposition: Admitted As Inpatient Condition: Fair Discharge Instructions Interventions: ED Discharge Assessment Last Done: 06/25/23 11:34
[2023-06-25] MEDS: SODIUM CHLORIDE 0.9% 500 ML IV STA (07:49)
--- NOTE | 2023-06-25 08:12 | XRay Report ---
SINGLE VIEW CHEST CLINICAL HISTORY: Generalized abdominal pain FINDINGS: An AP, portable, upright chest radiograph is compared to chest x-ray and chest CT dated 12/30. The heart is mildly enlarged noting atherosclerotic calcification of the thoracic aorta. The pulmonary vasculature is noncongested. Chronic interstitial thickening is similar to previous. There is bibasilar scarring/atelectasis. The lungs and pleural spaces are otherwise clear. No pneumothorax is seen. The skeletal structures are osteopenic. The bony thorax is grossly intact. Fusion hardware i s seen in the lower cervical spine. IMPRESSION: No active disease in the chest. ACT 112: Negative or not required by law. Electronically signed by: Jose Varela M.D. 06/25/2023 8:11 AM
[2023-06-25 08:23] LABS: Hematocrit (blood only) 44.8 % (37.0-47.0); Hemoglobin 14.7 g/dl (12.0-16.0); Mean Corpuscular Hemoglobin 29.1 pg (25.0-34.0); Mean Corpuscular Hgb Conc 32.8 g/dL (32.0-36.0); Mean Corpuscular Volume 88.7 fL (80.0-100.0); Mean Platelet Volume 10.7 fL (9.4-12.4); Platelet Count 188 K/uL (130-400); RDW Coefficient of Variation 13.7 % (11.5-14.5); RDW Standard Deviation 44.3 fL (36.4-46.3); Red Blood Count 5.05 M/uL (4.20-5.40); White Blood Count 7.66 K/ul (4.8-10.8)
[2023-06-25 08:35] LABS: Albumin Level 4.3 gm/dl (3.4-5.0); Bilirubin,Total 0.6 mg/dl (0.2-1.0); Calcium 8.9 mg/dl (8.6-10.3); Magnesium 1.6 mg/dl (1.7-2.4); Potassium 3.8 mmol/L (3.5-5.1)
[2023-06-25 08:42] LABS: Albumin Globulin Ratio 1.5 (0.9-2); BUN Creatinine Ratio 34.4 (10-20); Est GFR (African American) 66.1 ml/min; Globulin 2.8 gm/dl (2.5-4.0); Total Protein 7.1 gm/dl (6.0-8.3)
[2023-06-25 08:47] LABS: Troponin I High Sensitivity 4.4 pg/ml (0-14)
[2023-06-25 08:50] LABS: Basophils # (auto) 0.02 K/uL (0.00-0.20); Basophils % (auto) 0.3 %; Eosinophils # (auto) 0.05 K/uL (0.00-0.50); Eosinophils % (auto) 0.7 %; Immature Granulocytes # (auto) 0.02 K/uL (0.01-0.20); Immature Granulocytes % (auto) 0.3 %; Lymphocytes # (auto) 0.17 K/uL (1.20-3.40); Lymphocytes % (auto) 2.2 %; Monocytes # (auto) 0.34 K/uL (0.11-0.59); Monocytes % (auto) 4.4 %; Neutrophils # (auto) 7.06 K/uL (1.40-6.50); Neutrophils % (auto) 92.1 %; RBC Morphology Unremarkable
[2023-06-25] MEDS: OPTIRAY 320 500ml IV ONE (09:06)
[2023-06-25] MEDS: MoRPHine SULFATE 4 MG/ML 1 ML CARP\\VIAL IV STA (09:17)
[2023-06-25] MEDS: MAGNESIUM SULFATE / D5W 1 GM/100 ML BAG IV STA (09:17)
[2023-06-25] MEDS: SODIUM CHLORIDE 0.9% 1,000 ML IV ONE (09:17)
--- NOTE | 2023-06-25 09:32 | CT Scan Report ---
CT OF THE ABDOMEN AND PELVIS WITH CONTRAST CLINICAL HISTORY: Epigastric pain. COMPARISON STUDY: CT of the abdomen and pelvis October 28, 2012.] On ultrasound March 01, 2016. TECHNIQUE: Following IV administration of 94 mL of Optiray, axial images of the abdomen and pelvis we re obtained from the lung bases to the proximal femurs. Images were reviewed in the axial, sagittal, and coronal planes. IV contrast was administered without complication. Automated exposure control wa s utilized for the study. A dose lowering technique was utilized adhering to the principles of ALARA . CT DOSE: 1298.52 mGy.cm FINDINGS: Lung bases are unremarkable. No pneumatosis, free air or portal venous gas is present. A mo derate sized hiatal hernia is noted. Gastric cardia is above the diaphragm. There are postoperative f indings suggestive of a Efraín wrap which is likely at or just above the diaphragm. Moderate ingested contents within the stomach are present. 7.5 cm hepatic cyst is present. Spleen, adrenal glands and kidneys are unremarkable. Nodularity of the left adrenal gland is unchanged. There are left renal par apelvic cysts. There is no hydronephrosis. Extensive sigmoid diverticulosis is present without eviden ce for acute diverticulitis. The appendix is not visualized. Major vasculature is patent. The proxima l to mid small bowel is mildly dilated fluid-filled. No transition point is identified. Right colon i s mildly fluid-filled. IMPRESSION: 1. Moderate sized hiatal hernia. Postoperative findings suggestive of fundoplication. The wrap appear s to be at or just above the diaphragm. Moderate ingested contents within the stomach. 2. Mildly dilated fluid-filled proximal to mid small bowel without transition point. The findings may reflect an enteritis. A partial small bowel obstruction is considered less likely but could appear s imilar. 3. Extensive sigmoid diverticulosis. No evidence for acute diverticulitis. ACT 112: Negative or not required by law. Electronically signed by: Delvis Downs M.D. 06/25/2023 9:31 AM
[2023-06-25 10:17] LABS: Appearance Urine Clear (Clear); Bacteria Urine Automated Negative (Negative); Bilirubin Urine Negative (Negative); Blood Urine Negative (Negative); Cast Urine Automated 0 /lpf (0-5); Color Urine Yellow; Epithelial Cell Urine Auto 20-30 /lpf (0-5); Glucose Urine UA Negative (Negative); Ketones Urine Negative (Negative); Leukocyte Esterase Urine Trace (Negative); Nitrite Urine Negative (Negative); Protein Urine Negative (Negative); RBC Urine Automated 0-4 /hpf (0-4); Specific Gravity Urine 1.034 (1.000-1.030); Urobilinogen Urine Negative (Negative)
--- NOTE | 2023-06-25 10:26 | History & Physical Report ---
Date of Service June 25, 2023 Assessment & Plan (1) Abdominal pain: (2) Nausea: (3) Dehydration: (4) HTN (hypertension): (5) IBS (irritable bowel syndrome): (6) Hx of esophageal hernia repair: (7) Obesity (BMI 30.0-34.9): Plan This is a 78-year-old female who has a significant past medical history of HTN, hyperlipidemia, hypothyroidism, IBS, depression, history of paraesophageal hernia status post Efraín fundoplication, history of migraine who presents to ED secondary to abdominal pain and nausea x 12 hours. Abdominal pain Nausea admit to med tele 2/2 tachycardia abd pain possibly 2/2 partial SBO vs enteritis consult general surgery for consideration for partial SBO, discussed with Saad, no indication for NGT at this time, they will eval patient obtain stool studies if able to r/o norovirus vs other enteritis keep NPO for now, may add chips depending on surgical eval IVF LR @ 100 cc/hr prn zofran, IV tylenol pt wishes to avoid narcotics at this time, if pain becomes to severe will re address repeat KUB in a.m, obtain lactic acid Sinus tachycardia pt reports HR typically runs elevated Epic reviewed appears 80s-90s, possibly secondary to pain vs dehydration she does not meet criteria for SIRS/Sepsis but will continue to monitor on tele continue IVF Dehydration Hypomagnesemia continue IVF, replace lytes Hyperglycemia bsg 178 on admission, no prior hx of t2dm obtain a1c in a.m. will repeat accucheck, no indication for insulin at this time HTN chronic, stable hold losartan for now as BP on softer side HLD chronic stable on crestor as OP, will hold for now Hx of paraesophageal hernia s/p shirley by Dr. Harrington Obesity bmi 30.8 DVT ppx: SQ Lovenox Dispo: med tele FULL CODE PCP: Kamala Reyes Pt was seen and examined in collaboration with Dr. Pizarro, please see addendum A total of 63 minutes was spent coordinating, documenting, and providing care for this patient excluding time spent in the performance of separately billed services. This included personally viewing all current laboratories and imaging studies, medication reconciliation, outpatient chart review, and discussion with specialists. History of Present Illness Chief Complaint: Abdominal pain and nausea x 12 hours. Primary Care Provider: Kamala Reyes MD This is a 78-year-old female who has a significant past medical history of HTN, hyperlipidemia, hypothyroidism, IBS, depression, history of paraesophageal hernia status post Efraín fundoplication, history of migraine who presents to ED secondary to abdominal pain and nausea x 12 hours. She was in her normal state of health yesterday. She does have history of IBS mixed with constipation and diarrhea. She states that she felt like she was having a flare over the last couple days. At midnight she abruptly developed abdominal pain located in the epigastric and left upper quadrant and right upper quadrant regions. Pain was constant and continued to get more severe. It was also associated with nausea, but she was unable to vomit due to history of Shirley fundoplication. She denied any chills, sweats and denies any documented fever. She also admits to a few episodes of loose diarrhea. She states this is not uncommon for her given her IBS. She denies any sick contacts. She denies any change in diet or possible food contamination. She denies any lightheadedness, dizziness, chest pain, shortness breath, cough, URI symptoms, melena, hematochezia, dysuria, increased urgency or frequency with urination. She did not take any of her medications this morning. She denies feeling similar symptoms in the past. She does have prior history of 3 abdominal surgeries including a partial hysterectomy, appendectomy and a shirley fundoplication. In ED patient remained hemodynamically stable although she was tachycardic. Her CBC and CMP was generally unremarkable except for mild dehydration and elevated glucose at 176. Her magnesium was also mildly low at 1.6 she did receive IV fluids, IV Zofran and IV magnesium supplementation. She was offered IV morphine, but declined this as, "I do not want to put more things in my body." CT scan of abdomen pelvis was performed which revealed moderate ingested contents within the stomach, mildly dilated fluid-filled proximal to mid small bowel without transition point which may reflect an enteritis versus partial small bowel obstruction. Allergies Allergy/AdvReac Type Severity Reaction Status Date / Time No Known Drug Allergies Allergy Unknown NONE Verified 06/25/23 10:02 Home Medications Medication Instructions Recorded Confirmed Type acetaminophen 500 mg tablet 500 mg PO Q6H PRN Pain 03/05/18 06/25/23 History (Tylenol Extra Strength) calcium carbonate 600 mg-vitamin 1 tab PO BID 03/05/18 06/25/23 History D3 5 mcg (200 unit) capsule (Calcium 600 + D(3)) [id number] C-Mn 500 2 tab PO BID 03/05/18 06/25/23 History mg-400 mg capsule (Glucosamine Chondroitin Maximum Strength) losartan 50 mg tablet 50 mg PO QAM 03/05/18 06/25/23 History magnesium 250 mg tablet 250 mg PO QAM 03/05/18 06/25/23 History multivitamin 1 tab PO QAM 03/05/18 06/25/23 History rizatriptan 10 mg tablet 10 mg PO UD PRN Migraine Headache 03/05/18 06/25/23 History vitamin B complex 1 cap PO QAM 03/05/18 06/25/23 History vitamins A,C,M-xlto-sezwvn 2,148 1 tab PO QAM 03/05/18 06/25/23 History mcg-113 mg-45 mg-17.4 mg tablet (PreserVision AREDS) ascorbic acid (vitamin C) 250 mg 250 mg PO BID #28 tabs 04/04/18 06/25/23 Rx tablet (Vitamin C) cholecalciferol (vitamin D3) 25 25 mcg PO QAM 05/09/21 06/25/23 History mcg (1,000 unit) tablet (Vitamin D3) lactobacillus combination no.4 3 3,000 mmu cells PO QAM 05/09/21 06/25/23 History billion cell capsule (Probiotic) celecoxib 200 mg capsule 200 mg PO QAM PRN Pain 06/25/23 06/25/23 History levothyroxine 25 mcg tablet 25 mcg PO QAM 06/25/23 06/25/23 History rosuvastatin 5 mg tablet 5 mg PO HS 06/25/23 06/25/23 History venlafaxine 75 mg capsule,extended 75 mg PO QAM 06/25/23 06/25/23 History release 24 hr Past Med/Surg History Medical History IBS (irritable bowel syndrome) History of IBS UNDER CONTROL Asthma MILD-NO INHALERS GERD (gastroesophageal reflux disease) UNDER CONTROL Anxiety and depression Migraine headache HX Hypothyroidism HTN (hypertension) Esophageal hernia hx of Swallowing difficulty POST OP ESOPHAGEAL HERNIA REPAIR ESOPHAGEAL SWELLING-NO REASON GIVEN PT Chronic back pain LUMBAR AREA Osteoarthritis Anemia HX Surgical History History of hysterectomy History of appendectomy History of thyroid surgery partial removal of thyroid lobe - 1977 History of arthroscopy of right knee Hx of hand surgery LEFT REPAIR TENDONS Hx of esophageal hernia repair Intubated with glidescope on 2nd attempt. 7.0 ETT at 18cm. History of back surgery THORACIC FUSION Family History Brother Family history of diabetes mellitus Social History Smoking Status: Never smoker Second Hand Exposure: No; Do You Dip or Chew Tobacco: No; Hx Alcohol Use: No Hx Substance Use: No Preferred Language: [place] Islander Communication Ability: Effective Visual Impairment: No Limitations Operations Architect Required: No Beliefs That Will Affect Care: None Current Living Situation: Other current occupational status: retired Other Information That Helps Us Care for You: No Feels Safe at Home: Yes Safety Concerns: Feels Safe At This Time Assistive Devices: Glasses Review of Systems Review of Systems: All systems reviewed & are unremarkable except as noted in HPI & below Physical Exam Physical Exam: Constitutional: WD/WN, vitals as above, NAD, sitting up in bed, pleasant, conversing easily Head: Normocephalic, Atraumatic Eyes: PERRL, conjunctivae normal, anicteric sclerae ENMT: external ear and nose normal, oropharynx normal Neck: trachea midline, no thyromegaly normal visual inspection Respiratory: normal respiratory effort, lungs clear to auscultation, no wheeze, rales, rhonchi. Normal insp/exp effort, no accessory muscle use Cardiovascular: Tachycardic rate, regular rhythm, trace pretibial edema, no murmur vessels: no JVD or carotid bruit Chest: normal inspection of chest Abdomen: Distended abdomen, hypoactive to absent bowel sounds, soft, nontender to palpation Musculoskeletal: no cyanosis or clubbing, extremities motor strength 5/5 Skin: no rashes, warm and dry normal turgor Neurologic: PERRL, EOMI, accommodation nl, no face palsy, no dysarthria CN's II-XI intact bilaterally and moves all extremities Psychiatric: A+Ox3, euthymic affect Lymphatic: no cervical or axillary lymphadenopathy : deferred Results & Data Results & Data Vital Signs (Past 12 Hours) Vital Signs Temp Pulse Resp BP Pulse Ox O2 Del Method 06/25/23 09:30 113 H 29 H 147/86 H 97 06/25/23 09:00 114 H 20 122/75 99 06/25/23 08:30 116 H 24 147/83 H 95 06/25/23 08:13 107 H 06/25/23 07:42 113 H 22 99 Room Air 06/25/23 07:23 36.3 C L 132 H 22 132/77 97 Room Air Laboratory Results I have independently reviewed and interpreted patient's admitting labs including CBC, CMP, lipase, mag and troponin. Diagnostic Findings Abdomen/Pelvis CT 06/25/23 07:34 CT OF THE ABDOMEN AND PELVIS WITH CONTRAST CLINICAL HISTORY: Epigastric pain. COMPARISON STUDY: CT of the abdomen and pelvis October 28, 2012.] On ultrasound March 01, 2016. TECHNIQUE: Following IV administration of 94 mL of Optiray, axial images of the abdomen and pelvis were obtained from the lung bases to the proximal femurs. Images were reviewed in the axial, sagittal, and coronal planes. IV contrast was administered without complication. Automated exposure control was utilized for the study. A dose lowering technique was utilized adhering to the principles of ALARA. CT DOSE: 1298.52 mGy.cm FINDINGS: Lung bases are unremarkable. No pneumatosis, free air or portal venous gas is present. A moderate sized hiatal hernia is noted. Gastric cardia is above the diaphragm. There are postoperative findings suggestive of a Efraín wrap which is likely at or just above the diaphragm. Moderate ingested contents within the stomach are present. 7.5 cm hepatic cyst is present. Spleen, adrenal glands and kidneys are unremarkable. Nodularity of the left adrenal gland is unchanged. There are left renal parapelvic cysts. There is no hydronephrosis. Extensive sigmoid diverticulosis is present without evidence for acute diverticulitis. The appendix is not visualized. Major vasculature is patent. The proximal to mid small bowel is mildly dilated fluid-filled. No transition point is identified. Right colon is mildly fluid-filled. IMPRESSION: 1. Moderate sized hiatal hernia. Postoperative findings suggestive of fundoplication. The wrap appears to be at or just above the diaphragm. Moderate ingested contents within the stomach. 2. Mildly dilated fluid-filled proximal to mid small bowel without transition point. The findings may reflect an enteritis. A partial small bowel obstruction is considered less likely but could appear similar. 3. Extensive sigmoid diverticulosis. No evidence for acute diverticulitis. ACT 112: Negative or not required by law. Electronically signed by: Delvis Downs M.D. 06/25/2023 9:31 AM Chest X-Ray 06/25/23 07:34 SINGLE VIEW CHEST CLINICAL HISTORY: Generalized abdominal pain FINDINGS: An AP, portable, upright chest radiograph is compared to chest x-ray and chest CT dated 01/18/2012. The heart is mildly enlarged noting atherosclerotic calcification of the thoracic aorta. The pulmonary vasculature is noncongested. Chronic interstitial thickening is similar to previous. There is bibasilar scarring/atelectasis. The lungs and pleural spaces are otherwise clear. No pneumothorax is seen. The skeletal structures are osteopenic. The bony thorax is grossly intact. Fusion hardware is seen in the lower cervical spine. IMPRESSION: No active disease in the chest. ACT 112: Negative or not required by law. Electronically signed by: Jose Varela M.D. 06/25/2023 8:11 AM Medications Administered Medication List Discontinued Medications Sodium Chloride (Nss) 500 mls @ 999 mls/hr IV .Q31M STA Stop: 06/25/23 08:04 Last Infusion: 06/25/23 08:23 Dose: Infused Documented By: Admin: 06/25/23 07:49 Dose: 999 mls/hr Documented By: ASAEL Famotidine (Pepcid 20mg Iv Push) 20 mg in 5 mls @ 2.5 mls/min IV NOW STA Stop: 06/25/23 07:42 Last Admin: 06/25/23 07:46 Dose: 2.5 mls/min Documented By: ASAEL Magnesium Sulfate/Dextrose (Magnesium Sulfate / D5w) 1 gm in 100 mls @ 100 mls/hr IV NOW STA Stop: 06/25/23 09:58 Last Admin: 06/25/23 09:17 Dose: 100 mls/hr Documented By: MED Sodium Chloride (Nss) 1,000 mls @ 999 mls/hr IV .Q1H1M ONE Stop: 06/25/23 10:01 Last Admin: 06/25/23 09:17 Dose: 999 mls/hr Documented By: MED Ioversol (Optiray 320 500ml) 94 ml IV ONCE ONE Stop: 06/25/23 09:06 Last Admin: 06/25/23 09:06 Dose: 94 ml Documented By: DOMONIQUE Morphine Sulfate (Morphine Sulfate 4 Mg/Ml 1 Ml Carp\\Vial) 4 mg IV NOW STA Stop: 06/25/23 07:35 Last Admin: 06/25/23 09:17 Dose: Not Given Documented By: MDE Ondansetron HCl (Ondansetron Inj 2 Mg/Ml 2 Ml Vial) 4 mg IV NOW STA Stop: 06/25/23 07:35 Last Admin: 06/25/23 07:46 Dose: 4 mg Documented By: ASAEL ECG Rate (beats per minute): 113 Rhythm: sinus tachycardia Additional Comments: I have independently reviewed and interpreted patient's admitting EKG which revealed: Sinus tachycardia, 113 bpm, QTc 452 MS, no ST or T wave change COVID-19 Results Results COVID-19 Adm Lab Results: RBC 5.05 M/uL (4.20-5.40) 06/25/23 WBC 7.66 K/ul (4.8-10.8) 06/25/23 Hgb 14.7 g/dl (12.0-16.0) 06/25/23 Hct 44.8 % (37.0-47.0) 06/25/23 Plt Count 188 K/uL (130-400) 06/25/23 Neutrophils (%) (Auto) 92.1 % 06/25/23 Lymphocytes (%) (Auto) 2.2 % 06/25/23 Monocytes # (Auto) 0.34 K/uL (0.11-0.59) 06/25/23 Eosinophils # (Auto) 0.05 K/uL (0.00-0.50) 06/25/23 Immature Granulocyte % (Auto) 0.3 % 06/25/23 Neutrophils # (Auto) 7.06 K/uL (1.40-6.50) H 06/25/23 Lymphocytes # (Auto) 0.17 K/uL (1.20-3.40) L 06/25/23 Monocytes # (Auto) 0.34 K/uL (0.11-0.59) 06/25/23 Eosinophils # (Auto) 0.05 K/uL (0.00-0.50) 06/25/23 Basophils # (Auto) 0.02 K/uL (0.00-0.20) 06/25/23 Immature Granulocyte # (Auto) 0.02 K/uL (0.01-0.20) 4 Red Blood Cell Morphology Unremarkable 06/25/23 K 3.8 mmol/L (3.5-5.1) 06/25/23 Cl 107 mmol/L (98-107) 06/25/23 CO2 24 mmol/L (21-32) 06/25/23 Anion Gap 9 (3-11) 06/25/23 BUN 33 mg/dl (6-23) H 06/25/23 Creatinine 0.96 mg/dl (0.6-1.2) 06/25/23 BUN/Creatinine Ratio 34.4 (10-20) H 06/25/23 Glucose Level 179 mg/dl (70-99(Fasting)) H 06/25/23 Ca 8.9 mg/dl (8.6-10.3) 06/25/23 Total Bilirubin 0.6 mg/dl (0.2-1.0) 06/25/23 AST/SGOT 26 U/L (13-39) 06/25/23 ALT/SGPT 21 U/L (7-52) 06/25/23 Alkaline Phosphatase 59 U/L (34-104) 06/25/23 Total Protein 7.1 gm/dl (6.0-8.3) 06/25/23 Albumin 4.3 gm/dl (3.4-5.0) 06/25/23 Globulin 2.8 gm/dl (2.5-4.0) 06/25/23 Albumin/Globulin Ratio 1.5 (0.9-2) 06/25/23 Chest X-Ray 06/25/23 Code Status & VTE Plan Code Status FULL CODE Supervising Physician Co-Signing Physician Notes 78-year-old lady with past medical history of hysterectomy, HTN, HLD, IBS, paraesophageal hernia status post Efraín fundoplication, migraine presented to the ED secondary to acute abdominal pain associated with nausea and dry heaves. Denies any febrile illness or viral illness or headache or dizziness. Denies any pain or burning with passing urine. Has normal bowel or gas since abdominal pain has a started yesterday. At presentation, imaging revealed small bowel obstruction. Lipase WNL, troponin WNL, EKG with sinus tachycardia likely secondary to acute distress. SBO: General surgery consult, n.p.o., IV fluid, monitor replete electrolytes, NG tube if with vomiting. Continue other home medications as able. Patient is n.p.o. now due to acute SBO. Patient does report improving abdominal pain at bedside exam. On examination: GENERAL: Alert and oriented x3. NAD, on RA. HEENT: No pallor, no icterus. Pupils equal, round and reactive to light. Oral mucosa moist. NECK: No JVD, no neck masses. HEART: S1 and S2 heard. Regular rate and rhythm. Tachycardia No murmur, no gallop. RESPIRATORY SYSTEM: Normal AP diameter. No accessory muscle use. No wheezing, no crackles. ABDOMEN: Soft, bowel sounds present, nontender, + distention. lower belly discomfort on deep palpation. CENTRAL NERVOUS SYSTEM: No facial droop. Speech is clear. Obeys simple c ommands. Moves extremities. EXTREMITIES: trace ble edema, no erythema seen. I have seen and examined the patient and have discussed the case with the provider above. I agree with the assessment and plan as stated.
[2023-06-25] MEDS: LACTATED RINGER'S 1,000 ML IV SCH (12:25)
[2023-06-25] MEDS: ONDANSETRON INJ 2 MG/ML 2 ML VIAL IV PRN (12:28)
--- NOTE | 2023-06-25 13:45 | Electrocardiogram Report ---
Test Reason : Blood Pressure : / mmHG Vent. Rate : 113 BPM Atrial Rate : 113 BPM P-R Int : 154 ms QRS Dur : 090 ms QT Int : 330 ms P-R-T Axes : 024 033 074 degrees QTc Int : 452 ms Sinus tachycardia Otherwise normal ECG When compared with ECG of 06-NOV-2011 07:54, T wave amplitude has decreased in Lateral leads Confirmed by Heriberto Diane ([id number]) on 06/25/2023 1:44:34 PM Referred By: REFERRED SELF Confirmed By:Heriberto Diane
[2023-06-25] MEDS: ACETAMINOPHEN 1,000 MG/100 ML VIAL IV PRN (14:06)
--- NOTE | 2023-06-25 14:48 | Surgery Consultation ---
Date of Consultation June 25, 2023 Assessment & Plan (1) Nausea vomiting and diarrhea: Patient is a pleasant 78 yo female with PMH of HTN, Hypothyroidism, osteoarthritis , anemia , asthma , IBS, GERD, anxiety, depression, back pain, that presented to the [facility] ER today with complaint of abdominal , pain, nausea, diarrhea, dry heaves, and chills that started yesterday evening. She reports an abdominal surgical history of appendectomy, hysterectomy and hiatal hernia repair which prevents her from vomiting. She was at a neighbors [employer] yesterday and thinks that she ate more food than she usually does at one sitting and afterwards began having symptoms shortly after. She denies blood thinners and last ate around 1600 yesterday. On exam patient is resting in bed, in no acute distress, abdomen is soft , TTP , non rigid. Pt reports she has been having diarrhea and last had BM 20minutes ago. CT scan is showing: Enteritis vs, SBO IMPRESSION: 1. Moderate sized hiatal hernia. Postoperative findings suggestive of fundoplication. The wrap appears to be at or just above the diaphragm. Moderate ingested contents within the stomach. 2. Mildly dilated fluid-filled proximal to mid small bowel without transition point. The findings may reflect an enteritis. A partial small bowel obstruction is considered less likely but could appear similar. 3. Extensive sigmoid diverticulosis. No evidence for acute diverticulitis. Keep NPO for now Do not feel a NG tube is necessary at this time IV Fluids for hydration IV antiemetic PRN IV analgesic PRN Patient is admitted to medicine , general surgery will continue to follow along while in house. Pt seen and examined with Dr. Morton Supervising Physician Co-Signing Physician Notes Pnt seen and examined, labs and imaging personally reviewed, agree with above. Presented with nausea, diarrhea, and abd pain. Can't vomit due to prior efraín. Started yesterday, got worse. Still having diarrhea, but nausea and pain improving somewhat. No sick contacts, was at [employer] and ate more than normal. AF, tachy but normotensive, no distress. abd soft, nt, mildly distended, multiple scars, no hernia. labs unremarkable. CT personally reviewed and interpreted, dilated stomach and portions of small bowel, air and stool in colon. No transition point. Likely gastroenteririts, unlikely sbo surgery will follow, no surgery indicated, likely can advance diet tomorrow if improving. If further concern would recommend repeat CT w/ oral and iv contrast. History of Present Illness Reason for Consultation: PSBO vs enteritis Attending Physician: Robina Pizarro MD History of Present Illness Patient is a pleasant 78 yo female with PMH of HTN, Hypothyroidism, osteoarthritis , anemia , asthma , IBS, GERD, anxiety, depression, back pain, that presented to the [facility] ER today with complaint of abdominal , pain, nausea, diarrhea, dry heaves, and chills that started yesterday evening. She reports an abdominal surgical history of appendectomy, hysterectomy and hiatal hernia repair which prevents her from vomiting. She was at a neighbors [employer] yesterday and thinks that she ate more food than she usually does at one sitting and afterwards began having symptoms shortly after. She denies blood thinners and last ate around 1600 yesterday. Allergies Allergy/AdvReac Type Severity Reaction Status Date / Time No Known Drug Allergies Allergy Unknown NONE Verified 06/25/23 10:02 Home Medications Medication Instructions Recorded Confirmed Type acetaminophen 500 mg tablet 500 mg PO Q6H PRN Pain 03/05/18 06/25/23 History (Tylenol Extra Strength) calcium carbonate 600 mg-vitamin 1 tab PO BID 03/05/18 06/25/23 History D3 5 mcg (200 unit) capsule (Calcium 600 + D(3)) aihpnrhoiuz-kniroktjp-jov C-Mn 500 2 tab PO BID 03/05/18 06/25/23 History mg-400 mg capsule (Glucosamine Chondroitin Maximum Strength) losartan 50 mg tablet 50 mg PO QAM 03/05/18 06/25/23 History magnesium 250 mg tablet 250 mg PO QAM 03/05/18 06/25/23 History multivitamin 1 tab PO QAM 03/05/18 06/25/23 History rizatriptan 10 mg tablet 10 mg PO UD PRN Migraine Headache 03/05/18 06/25/23 History vitamin B complex 1 cap PO QAM 03/05/18 06/25/23 History vitamins A,C,Q-gawn-czszet 2,148 1 tab PO QAM 03/05/18 06/25/23 History mcg-113 mg-45 mg-17.4 mg tablet (PreserVision AREDS) ascorbic acid (vitamin C) 250 mg 250 mg PO BID #28 tabs 04/04/18 06/25/23 Rx tablet (Vitamin C) cholecalciferol (vitamin D3) 25 25 mcg PO QAM 05/09/21 06/25/23 History mcg (1,000 unit) tablet (Vitamin D3) lactobacillus combination no.4 3 3,000 mmu cells PO QAM 05/09/21 06/25/23 History billion cell capsule (Probiotic) celecoxib 200 mg capsule 200 mg PO QAM PRN Pain 06/25/23 06/25/23 History levothyroxine 25 mcg tablet 25 mcg PO QAM 06/25/23 06/25/23 History rosuvastatin 5 mg tablet 5 mg PO HS 06/25/23 06/25/23 History venlafaxine 75 mg capsule,extended 75 mg PO QAM 06/25/23 06/25/23 History release 24 hr Patient History Medical History (Updated 06/25/23 @ 15:13 by Deangelo Morton DO, FACS) Nausea vomiting and diarrhea IBS (irritable bowel syndrome) History of IBS UNDER CONTROL Asthma MILD-NO INHALERS GERD (gastroesophageal reflux disease) UNDER CONTROL Anxiety and depression Migraine headache HX Hypothyroidism HTN (hypertension) Esophageal hernia hx of Swallowing difficulty POST OP ESOPHAGEAL HERNIA REPAIR ESOPHAGEAL SWELLING-NO REASON GIVEN PT Chronic back pain LUMBAR AREA Osteoarthritis Anemia HX Surgical History History of hysterectomy History of appendectomy History of thyroid surgery partial removal of thyroid lobe - 1977 History of arthroscopy of right knee Hx of hand surgery LEFT REPAIR TENDONS Hx of esophageal hernia repair Intubated with glidescope on 2nd attempt. 7.0 ETT at 18cm. 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 Beliefs That Will Affect Care: None Current Living Situation: Other current occupational status: retired Other Information That Helps Us Care for You: No Feels Safe at Home: Yes Safety Concerns: Feels Safe At This Time Assistive Devices: Glasses Review of Systems Constitutional: + chills; no fever Respiratory: no dyspnea Cardiovascular: no chest pain Gastrointestinal: + abdominal pain, + bloating, + nausea a nd + diarrhea/loose stools; no vomiting Integumentary: no rash Neurologic: no memory loss Physical Exam Physical Exam: alert oriented Constitutional: cooperative and comfortable; no acute distress Respiratory: normal respiratory effort and able to speak in complete sentences; no respiratory distress Cardiovascular: Rate/Rhythm: + tachycardic Gastrointestinal (Abdomen): Percussion/Palpation: + abdomen tender and abdomen soft; abdomen not rigid Musculoskeletal: no cyanosis or clubbing, extremities motor strength 5/5 Skin: no rashes, warm and dry Neurologic: awake; not confused Results & Data Vital Signs (Past 12 Hours) Vital Signs Temp Pulse Pulse Resp BP BP Pulse Ox 06/25/23 13:51 119 H 16 132/72 97 06/25/23 12:13 117 H 06/25/23 10:30 111 H 19 107/70 96 06/25/23 10:00 119 H 22 171/77 H 98 06/25/23 09:30 113 H 29 H 147/86 H 97 06/25/23 09:00 114 H 20 122/75 99 06/25/23 08:30 116 H 24 147/83 H 95 06/25/23 08:13 107 H 06/25/23 07:42 113 H 22 99 06/25/23 07:23 97.3 F L 132 H 22 132/77 97 O2 Del Method 06/25/23 13:51 Room Air 06/25/23 12:13 06/25/23 10:30 06/25/23 10:00 06/25/23 09:30 06/25/23 09:00 06/25/23 08:30 06/25/23 08:13 06/25/23 07:42 Room Air 06/25/23 07:23 Room Air Diagnostic Findings [place], [place] [phone] CT Scan Report Patient: RAJIV HALL Admit Date: 06/25/23 MR#: [id number] Address1: [address] [place] [address] Acct ID:[id number] Address2: [address] Date: 1945 [facility] Zip: [place] [address] Age: 78 Location: ED Sex: F Room/Bed: Att Phy: Diagnosis: SICK TO STOMACH,NAUSEA Tia Phy: Kamala Reyes MD Service Date: 06/25/23 [facility] Phy: Interpreting Phy: Delvis Downs MDAdmit Phy: Ordering Phy: Jose Xiong M.D. cc: ~ CT OF THE ABDOMEN AND PELVIS WITH CONTRAST CLINICAL HISTORY: Epigastric pain. COMPARISON STUDY: CT of the abdomen and pelvis October 28, 2012.] On ultrasound March 01, 2016. TECHNIQUE: Following IV administration of 94 mL of Optiray, axial images of the abdomen and pelvis were obtained from the lung bases to the proximal femurs. Images were reviewed in the axial, sagittal, and coronal planes. IV contrast was administered without complication. Automated exposure control was utilized for the study. A dose lowering technique was utilized adhering to the principles of ALARA. CT DOSE: 1298.52 mGy.cm FINDINGS: Lung bases are unremarkable. No pneumatosis, free air or portal venous gas is present. A moderate sized hiatal hernia is noted. Gastric cardia is above the diaphragm. There are postoperative findings suggestive of a Efraín wrap which is likely at or just above the diaphragm. Moderate ingested contents within the stomach are present. 7.5 cm hepatic cyst is present. Spleen, adrenal glands and kidneys are unremarkable. Nodularity of the left adrenal gland is unchanged. There are left renal parapelvic cysts. There is no hydronephrosis. Extensive sigmoid diverticulosis is present without evidence for acute diverticulitis. The appendix is not visualized. Major vasculature is patent. The proximal to mid small bowel is mildly dilated fluid-filled. No transition point is identified. Right colon is mildly fluid-filled. IMPRESSION: 1. Moderate sized hiatal hernia. Postoperative findings suggestive of fundoplication. The wrap appears to be at or just above the diaphragm. Moderate ingested contents within the stomach. 2. Mildly dilated fluid-filled proximal to mid small bowel without transition point. The findings may reflect an enteritis. A partial small bowel obstruction is considered less likely but could appear similar. 3. Extensive sigmoid diverticulosis. No evidence for acute diverticulitis. ACT 112: Negative or not required by law. Electronically signed by: Delvis Downs M.D. 06/25/2023 9:31 AM Dictated: 06/25/23 0918 Transcribed: 06/25/23923 Results Complete Blood Count Results: RBC 5.05 M/uL (4.20-5.40) 06/25/23 WBC 7.66 K/ul (4.8-10.8) 06/25/23 Hgb 14.7 g/dl (12.0-16.0) 06/25/23 Hct 44.8 % (37.0-47.0) 06/25/23 Plt Count 188 K/uL (130-400) 06/25/23 Results BMP Results: Sodium 140 mmol/L (136-145) 06/25/23 Potassium 3.8 mmol/L (3.5-5.1) 06/25/23 Chloride 107 mmol/L (98-107) 06/25/23 Carbon Dioxide 24 mmol/L (21-32) 06/25/23 Anion Gap 9 (3-11) 06/25/23 BUN 33 mg/dl (6-23) H 06/25/23 Creatinine 0.96 mg/dl (0.6-1.2) 06/25/23 Glucose 179 mg/dl (70-99(Fasting)) H 06/25/23 PG Care Time/CCT Total # of Minutes Spent Total Time Spent with Patient: Total time spent is greater than 50% in coordination of care (as documented) at patient's floor/unit and/or counseling patient: Coding Level of Care Code 08527 INT INP/OBS CARE 1/40MIN Diagnoses Nausea vomiting and diarrhea R11.2; R19.7
[2023-06-25 15:13] LABS: Adenovirus F 40/41 PCR Not Detected (NotDetected); Astrovirus PCR Not Detected (NotDetected); Campylobacter PCR Not Detected (NotDetected); Cryptosporidium PCR Not Detected (NotDetected); Cyclospora cayetanensis PCR Not Detected (NotDetected); Entamoeba histolytica PCR Not Detected (NotDetected); Enteroaggregative E.coli(EAEC) Not Detected (NotDetected); Enteropathogenic E.coli (EPEC) Not Detected (NotDetected); Enterotoxigenic E.coli (ETEC) Not Detected (NotDetected); Giardia lamblia PCR Not Detected (NotDetected); Plesiomonas shigelloides PCR Not Detected (NotDetected); Rotavirus A PCR Not Detected (NotDetected); Salmonella PCR Not Detected (NotDetected); Sapovirus PCR Not Detected (NotDetected); Shiga-like Toxin E.coli (STEC) Not Detected (NotDetected); Shigella/Enteroinvasive E.coli Not Detected (NotDetected); Vibrio cholerae PCR Not Detected (NotDetected); Vibrio species PCR Not Detected (NotDetected); Yersinia enterocolitica PCR Not Detected (NotDetected)
[2023-06-25 15:29] LABS: Norovirus GI/GII PCR DETECTED (NotDetected)
[2023-06-25] MEDS: MAGNESIUM SULFATE / D5W 1 GM/100 ML BAG IV ONE (15:53)
[2023-06-25] MEDS: POTASSIUM CHLORIDE / WTR 10 MEQ/100 ML PLCT IV SCH (15:53)
[2023-06-25] MEDS: ENOXAPARIN INJ 40 MG/0.4 ML SYR SQ SCH (20:03)
[2023-06-26 04:11] LABS: Albumin Globulin Ratio 1.5 (0.9-2); Albumin Level 3.7 gm/dl (3.4-5.0); BUN Creatinine Ratio 20.2 (10-20); Basophils # (auto) 0.01 K/uL (0.00-0.20); Basophils % (auto) 0.2 %; Bilirubin,Total 0.5 mg/dl (0.2-1.0); Calcium 8.3 mg/dl (8.6-10.3); Creatinine Clr Calc Pharmacy 65.4 ml/min; Eosinophils # (auto) 0.01 K/uL (0.00-0.50); Eosinophils % (auto) 0.2 %; Est GFR (African American) 67.8 ml/min; Est GFR (Non-African American) 58.5 ml/min; Globulin 2.5 gm/dl (2.5-4.0); Hematocrit (blood only) 38.2 % (37.0-47.0); Hemoglobin 12.9 g/dl (12.0-16.0); Immature Granulocytes # (auto) 0.02 K/uL (0.01-0.20); Immature Granulocytes % (auto) 0.4 %; Lymphocytes # (auto) 0.45 K/uL (1.20-3.40); Lymphocytes % (auto) 9.3 %; Magnesium 1.9 mg/dl (1.7-2.4); Mean Corpuscular Hemoglobin 29.7 pg (25.0-34.0); Mean Corpuscular Hgb Conc 33.8 g/dL (32.0-36.0); Mean Corpuscular Volume 87.8 fL (80.0-100.0); Mean Platelet Volume 10.7 fL (9.4-12.4); Monocytes # (auto) 0.33 K/uL (0.11-0.59); Monocytes % (auto) 6.8 %; Neutrophils # (auto) 4.03 K/uL (1.40-6.50); Neutrophils % (auto) 83.1 %; Platelet Count 158 K/uL (130-400); Potassium 3.3 mmol/L (3.5-5.1); RDW Coefficient of Variation 14.1 % (11.5-14.5); RDW Standard Deviation 45.6 fL (36.4-46.3); Red Blood Count 4.35 M/uL (4.20-5.40); Total Protein 6.2 gm/dl (6.0-8.3); White Blood Count 4.85 K/ul (4.8-10.8)
[2023-06-26 07:03] LABS: Estimated Average Glucose 120 mg/dl; Hemoglobin A1C 5.8 % (4.5-5.6)
[2023-06-26] MEDS: VENLAFAXINE HCL XR 75 MG CAPXR PO SCH (08:25)
[2023-06-26] MEDS: POTASSIUM CHLORIDE CRTAB 20 MEQ TABCR PO ONE (08:29)
[2023-06-26] MEDS: NSS + 20MEQ KCL 20 MEQ/1,000 ML BAG IV SCH (08:32)
[2023-06-26] MEDS: LOSARTAN POTASSIUM 50 MG TAB PO SCH (09:40)
[2023-06-26] MEDS: ADVANCED PROBIOTIC 650 MG CAPSULE PO SCH (09:40)
--- NOTE | 2023-06-26 10:37 | XRay Report ---
KUB CLINICAL HISTORY: Partial small bowel obstruction. COMPARISON STUDY: CT of the pelvis June 25, 2023. FINDINGS: Several loops of mildly dilated small bowel measure up to 4.2 cm in caliber. Small bowel di latation dictation is similar to prior CT. No urinary calculi are identified. No evidence for free ai r and supine exam. IMPRESSION: No significant change in mild small bowel dilatation. This may reflect a partial small b owel obstruction. ACT 112: Negative or not required by law. Electronically signed by: Delvis Downs M.D. 06/26/2023 10:35 AM
[2023-06-26] MEDS: MULTIVITAMIN TAB PO SCH (10:56)
--- NOTE | 2023-06-26 12:16 | Hospitalist Progress Note ---
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 She is being managed for the following: Abdominal pain Nausea Likely norovirus related enteritis Patient was tachycardic/with abdominal pain/nausea and no bowel movement for several hours prior to presentation. Admitting CTAP suggestive of mild small bowel obstruction. Later on patient had multiple loose stool, norovirus came back positive in the stool PCR, patient was updated. Now patient with no abdominal pain, moving bowels, no the loose stool is forming up per patient. Clinically patient is not SBO. Advance diet as tolerated. Nausea control. Can DC IV fluid today. Sinus tachycardia: Likely secondary to acute distress at presentation. Now improving. Continue telemetry. Electrolyte abnormalities: Monitor and replete. Prediabetes: A1c of 5.8, lifestyle modification encouraged. Repeat A1c in 3 months. No prior history of diabetes. Hypertension: Chronic, stable. Continue home losartan. HLD: Continue home Crestor. History of paraesophageal hernia: Status post Efraín fundoplication. Obesity: BMI above 30, lifestyle modification encouraged DVT ppx: SQ Lovenox Dispo: med tele FULL CODE PCP: Kamala Reyes Admission and Anticipated Discharge Date Admission Date: June 25, 2023 Subjective Patient was seen and examined at bedside. Patient was lying in bed, on room air, NAD, resting comfortably. Patient reports several loose bowel movements yesterday, 2 so far today which are now forming up. Patient reports significant improvement in her abdominal pain, will start clear liquid diet and advance as tolerated. Patient denies any febrile episodes or headache or dizziness. Physical Exam Physical Exam: GENERAL: Alert and oriented x3. NAD, on RA. HEENT: No pallor, no icterus. Pupils equal, round and reactive to light. Oral mucosa moist. NECK: No JVD, no neck masses. HEART: S1 and S2 heard. Regular rate and rhythm. Tachycardia No murmur, no gallop. RESPIRATORY SYSTEM: Normal AP diameter. No accessory muscle use. No wheezing, no crackles. ABDOMEN: Soft, bowel sounds present, nontender, no distention. lower belly discomfort on deep palpation - none today. CENTRAL NERVOUS SYSTEM: No facial droop. Speech is clear. Obeys simple commands. Moves extremities. EXTREMITIES: trace ble edema, no erythema seen. Results & Data Results & Data Vital Signs (Past 12 Hours) Vital Signs Temp Pulse Pulse Resp BP Pulse Ox O2 Del Method 06/26/23 11:40 36.7 C 90 18 144/73 H 96 Room Air 06/26/23 08:02 36.8 C 95 H 18 153/80 H 95 Room Air 06/26/23 08:00 Room Air 06/26/23 06:57 82 06/26/23 02:38 36.9 C 95 H 16 137/69 96 Room Air 06/26/23 02:18 125 H
[2023-06-26] MEDS: CHOLECALCIFEROL 25 MCG (1000 UNITS) TAB PO SCH (12:34)
[2023-06-26] MEDS: ALUMINUM/MAGNESIUM SUSP 30 ML UDC PO PRN (19:38)
[2023-06-26] MEDS: ROSUVASTATIN CALCIUM 5 MG TAB PO SCH (19:40)
[2023-06-27 04:37] LABS: BUN Creatinine Ratio 14.1 (10-20); Calcium 8.2 mg/dl (8.6-10.3); Creatinine Clr Calc Pharmacy 78.9 ml/min; Est GFR (Non-African American) 73.3 ml/min; Magnesium 1.8 mg/dl (1.7-2.4); Phosphorus 2.4 mg/dl (2.5-4.9); Potassium 3.6 mmol/L (3.5-5.1)
[2023-06-27] MEDS: LEVOTHYROXINE SODIUM 25 MCG TABLET PO SCH (06:02)
[2023-06-27] MEDS: POT PHOSPHATE MONOBASIC W/ SOD TAB PO SCH (08:59)
[2023-06-27] MEDS: SIMETHICONE 80 MG CHEW PO PRN (11:02)
--- NOTE | 2023-06-27 11:54 | Hospitalist Progress Note ---
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 She is being managed for the following: Abdominal pain Nausea Likely norovirus related enteritis Patient was tachycardic/with abdominal pain/nausea and no bowel movement for several hours prior to presentation. Admitting CTAP suggestive of mild small bowel obstruction. Later on patient had multiple loose stool, norovirus came back positive in the stool PCR, patient was updated. Patient with episode of abdominal pain and explosive loose stool last evening. She is having excessive belching. Will try simethicone as needed. She is tolerating diet. Clinically patient is not SBO. Patient is going to eat lunch, possible discharge later this afternoon or tomorrow. Sinus tachycardia: Likely secondary to acute distress at presentation. Now improving. Continue telemetry. Electrolyte abnormalities with hypokalemia and hypophosphatemia: Monitor and replete. Prediabetes: A1c of 5.8, lifestyle modification encouraged. Repeat A1c in 3 months. No prior history of diabetes. Hypertension: Chronic, stable. Continue home losartan. HLD: Continue home Crestor. History of paraesophageal hernia: Status post Efraín fundoplication. Obesity: BMI above 30, lifestyle modification encouraged DVT ppx: SQ Lovenox Dispo: med tele FULL CODE PCP: Kamala Reyes Patient was seen and examined in collaboration with, Dr. Pizarro, please see addendum. A total of 45 minutes was spent coordinating, documenting, and providing care for this patient excluding time spent in the performance of separately billed services. This included personally viewing all current laboratories and imaging studies, medication reconciliation, outpatient chart review, and discussion with specialists. Admission and Anticipated Discharge Date Admission Date: June 25, 2023 Supervising Physician Co-Signing Physician Notes Patient was seen and examined at bedside as a follow-up of likely norovirus related enteritis. Patient reports resolution of her belly pain, has been tolerating advancement of diet, moving bowels okay now. Patient denies any new complaints, and would like to go home today. On examination: No abdominal pain, on room air, NAD, heart and lungs exam WNL. I have seen and examined the patient and have discussed the case with the provider above. I agree with the assessment and plan as stated. Subjective Patient was seen and examined at bedside in room 250. She tolerated a low fiber breakfast. She was doing really well yesterday until late last evening when she had a, "explosive episode of diarrhea." This caused her to experience some cramping. She does have history of IBS. Her nurse discussed with her about possibility of IBS flaring in setting of norovirus and she provided her with educational handout. Patient states that she feels a 75% better. She would like to see how she tolerates lunch before deciding if she feels able to be discharged home today. She denies fever, chills, sweats, lightheadedness, dizziness, chest pain, shortness breath, nausea, vomiting. She is having excessive belching. Review of Systems Review of Systems: All systems reviewed & are unremarkable except as noted in HPI & below Physical Exam Physical Exam: Gen: WD/WN, NAD, A&O x3 HEENT: Normocephalic, atraumatic, conjunctivae moist, sclerae anicteric, mucous membranes moist. Lung: Clear to Auscultation bilaterally, no wheezes/rales/rhonchi Heart: Regular rate, regular rhythm, no murmurs, rubs, or gallops Abdomen: Soft, NT, ND +BS x 4 Extremities: No edema Skin: Warm, no rash, negative turgor. Results & Data Results & Data Vital Signs (Past 12 Hours) Vital Signs Temp Pulse Pulse Resp BP Pulse Ox O2 Del Method 06/27/23 11:06 36.9 C 100 H 18 155/76 H 94 Room Air 06/27/23 08:00 Room Air 06/27/23 07:32 36.7 C 84 18 142/64 H 94 Room Air 06/27/23 07:00 100 H Laboratory Results [facility] 06/27/23 03:34 Sodium 140 Potassium 3.6 Chloride 111 H Carbon Dioxide 24 BUN 11 Creatinine 0.78 Glucose 96 Calcium 8.2 L Medications Administered Current Inpatient Medications Al Hydrox/Mg Hydrox/Simethicone (Aluminum/Magnesium Susp 30 Ml Udc) 15 ml PO Q4H PRN PRN Reason: Dyspepsia Stop: 07/25/23 11:32 Last Admin: 06/26/23 19:38 Dose: 15 ml Enoxaparin Sodium (Enoxaparin Inj 40 Mg/0.4 Ml Syr) 40 mg SQ HS [facility] Stop: 07/25/23 20:59 Last Admin: 06/26/23 19:39 Dose: 40 mg Acetaminophen (Ofirmev) 1,000 mg in 100 mls @ 400 mls/hr IV Q8H PRN PRN Reason: Pain or Fever Stop: 06/28/23 11:32 Last Infusion: 06/25/23 20:26 Dose: Infused Lactobacillus Acidophilus (Advanced Probiotic 1250 Mg Capsule) 2 cap PO QAM [facility] Stop: 07/26/23 08:59 Last Admin: 06/27/23 08:00 Dose: 2 cap Levothyroxine Sodium (Levothyroxine Sodium 25 Mcg Tablet) [facility] Stop: 07/27/23 06:29 Last Admin: 06/27/23 06:02 Dose: 25 mcg Losartan Potassium (Losartan Potassium 50 Mg Tab) [facility] [place]: 07/26/23 08:59 Last Admin: 06/27/23 08:00 Dose: 50 mg Multivitamins (Multivitamin Tab) 1 tab PO QAM [facility] Stop: 07/26/23 08:59 Last Admin: 06/27/23 08:00 Dose: 1 tab Ondansetron HCl (Ondansetron Inj 2 Mg/Ml 2 Ml Vial) 4 mg IV Q6H PRN PRN Reason: Nausea Stop: 07/25/23 11:32 Last Admin: 06/26/23 19:39 Dose: 4 mg Potassium Phosphate (Pot Phosphate Monobasic W/ Sod Tab) 2 tab PO QID [facility] Stop: 06/28/23 13:01 Last Admin: 06/27/23 08:59 Dose: 2 tab Rosuvastatin Calcium (Rosuvastatin Calcium 5 Mg Tab) 5 mg PO HS [facility] Stop: 07/26/23 20:59 Last Admin: 06/26/23 19:40 Dose: 5 mg Simethicone (Simethicone 80 Mg Chew) 80 mg PO Q6H PRN PRN Reason: Flatulence Stop: 07/27/23 09:38 Last Admin: 06/27/23 11:02 Dose: 80 mg Venlafaxine HCl (Venlafaxine Hcl Xr 75 Mg Capxr) 75 mg PO [facility] Stop: 07/26/23 08:59 Last Admin: 06/27/23 08:00 Dose: 75 mg Vitamin D (Cholecalciferol 25 Mcg (1000 Units) Tab) 25 [facility]cg [facility] [place]: 07/26/23 08:59 Last Admin: 06/27/23 08:00 Dose: 25 mcg
--- NOTE | 2023-06-27 14:19 | Discharge Summary ---
Discharge Summary Date of Service June 27, 2023 Notes For Next Care Provider Pt admitted to hospital for nausea, abdominal pain and diarrhea. Initial concern was for partial SBO; however stool studies returned and pt found to have norovirus. Treated conservatively, with IV Hydration, bowel rest. She did require potassium supplementation. Pt dx with PRE DM on admission, a1c 5.8. Recommend outpatient follow up. Medication Changes From Visit Simethicone 80mg every 6 hours as needed for gas or belching. Continue all other medications as prescribed. Admission HPI Per Admitting Provider This is a 78-year-old female who has a significant past medical history of HTN, hyperlipidemia, hypothyroidism, IBS, depression, history of paraesophageal abi ia status post Efraín fundoplication, history of migraine who presents to ED secondary to abdominal pain and nausea x 12 hours. She was in her normal state of health yesterday. She does have history of IBS mixed with constipation and diarrhea. She states that she felt like she was having a flare over the last couple days. At midnight she abruptly developed abdominal pain located in the epigastric and left upper quadrant and right upper quadrant regions. Pain was constant and continued to get more severe. It was also associated with nausea, but she was unable to vomit due to history of Shirley fundoplication. She denied any chills, sweats and denies any documented fever. She also admits to a few episodes of loose diarrhea. She states this is not uncommon for her given her IBS. She denies any sick contacts. She denies any change in diet or possible food contamination. She denies any lightheadedness, dizziness, chest pain, shortness breath, cough, URI symptoms, melena, hematochezia, dysuria, increased urgency or frequency with urination. She did not take any of her medications this morning. She denies feeling similar symptoms in the past. She does have prior history of 3 abdominal surgeries including a partial hysterectomy, appendectomy and a shirley fundoplication. In ED patient remained hemodynamically stable although she was tachycardic. Her CBC and CMP was gener ally unremarkable except for mild dehydration and elevated glucose at 176. Her magnesium was also mildly low at 1.6 she did receive IV fluids, IV Zofran and IV magnesium supplementation. She was offered IV morphine, but declined this as, "I do not want to put more things in my body." CT scan of abdomen pelvis was performed which revealed moderate ingested contents within the stomach, mildly dilated fluid-filled proximal to mid small bowel without transition point which may reflect an enteritis versus partial small bowel obstruction. Admission Exam Per Admitting Provider Constitutional: WD/WN, vitals as above, NAD, sitting up in bed, pleasant, conversing easily Head: Normocephalic, Atraumatic Eyes: PERRL, conjunctivae normal, anicteric sclerae ENMT: external ear and nose normal, oropharynx normal Neck: trachea midline, no thyromegaly normal visual inspection Respiratory: normal respiratory effort, lungs clear to auscultation, no wheeze, rales, rhonchi. Normal insp/exp effort, no accessory muscle use Cardiovascular: Tachycardic rate, regular rhythm, trace pretibial edema, no mur mur vessels: no JVD or carotid bruit Chest: normal inspection of chest Abdomen: Distended abdomen, hypoactive to absent bowel sounds, soft, nontender to palpation Musculoskeletal: no cyanosis or clubbing, extremities motor strength 5/5 Skin: no rashes, warm and dry normal turgor Neurologic: PERRL, EOMI, accommodation nl, no face palsy, no dysarthria CN's II-XI intact bilaterally and moves all extremities Psychiatric: A+Ox3, euthymic affect Lymphatic: no cervical or axillary lymphadenopathy : deferred Principal Dx & Hospital Course #1 = Principal Diagnosis (1) Abdominal pain: (2) Nausea: (3) Dehydration: (4) HTN (hypertension): (5) IBS (irritable bowel syndrome): (6) Hx of esophageal hernia repair: (7) Obesity (BMI 30.0-34.9): Plan This is a 78-year-old female who has a significant past medical history of HTN, hyperlipidemia, hypothyroidism, IBS, depression, history of paraesophageal hernia status post Efraín fundoplication, history of migraine who 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 She is being managed for the following: Abdominal pain Nausea Likely norovirus related enteritis Patient was tachycardic/with abdominal pain/nausea and no bowel movement for several hours prior to presentation. Admitting CTAP suggestive of mild small bowel obstruction. Later on patient had multiple loose stool, norovirus came back positive in the stool PCR, patient was updated. Patient with episode of abdominal pain and explosive loose stool last evening. She is having excessive belching. Will try simethicone as needed. She is tolerating diet. Clinically patient is not SBO. Pt tolerating diet, utilizing simethicone prn with relief, medically stable for d/c this afternoon Sinus tachycardia: Likely secondary to acute distress at presentation. Now improving. Continue telemetry. Electrolyte abnormalities with hypokalemia and hypophosphatemia: Monitor and replete. Prediabetes: A1c of 5.8, lifestyle modification encouraged. Repeat A1c in 3 months. No prior history of diabetes. Hypertension: Chronic, stable. Continue home losartan. HLD: Continue home Crestor. History of paraesophageal hernia: Status post Efraín fundoplication. Obesity: BMI above 30, lifestyle modification encouraged DVT ppx: SQ Lovenox Dispo: med tele FULL CODE PCP: Kamala Reyes Patient was seen and examined in collaboration with, Dr. Pizarro, please see addendum. A total of 45 minutes was spent coordinating, documenting, and providing care for this patient excluding time spent in the performance of separately billed services. This included personally viewing all current laboratories and imaging studies, medication reconciliation, outpatient chart review, and discussion with specialists. Discharge Exam Gen: WD/WN, NAD, A&O x3 HEENT: Normocephalic, atraumatic, conjunctivae moist, sclerae anicteric, mucous membranes moist. Lung: Clear to Auscultation bilaterally, no wheezes/rales/rhonchi Heart: Regular rate, regular rhythm, no murmurs, rubs, or gallops Abdomen: Soft, NT, ND +BS x 4 Extremities: No edema Skin: Warm, no rash, negative turgor. Updated Medication List Medication Instructions Recorded Confirmed Type acetaminophen 500 mg tablet 500 mg PO Q6H PRN Pain 03/05/18 06/25/23 History (Tylenol Extra Strength) calcium carbonate 600 mg-vitamin 1 tab PO BID 03/05/18 06/25/23 History D3 5 mcg (200 unit) capsule (Calcium 600 + D(3)) [id number] C-Mn 500 2 tab PO BID 03/05/18 06/25/23 History mg-400 mg capsule (Glucosamine Chondroitin Maximum Strength) losartan 50 mg tablet 50 mg PO QAM 03/05/18 06/25/23 History magnesium 250 mg tablet 250 mg PO QAM 03/05/18 06/25/23 History multivitamin 1 tab PO QAM 03/05/18 06/25/23 History rizatriptan 10 mg tablet 10 mg PO UD PRN Migraine Headache 03/05/18 06/25/23 History vitamin B complex 1 cap PO QAM 03/05/18 06/25/23 History vitamins A,C,Y-oixy-btuahy 2,148 1 tab PO QAM 03/05/18 06/25/23 History mcg-113 mg-45 mg-17.4 mg tablet (PreserVision AREDS) ascorbic acid (vitamin C) 250 mg 250 mg PO BID #28 tabs 04/04/18 06/25/23 Rx tablet (Vitamin C) cholecalciferol (vitamin D3) 25 25 mcg PO QAM 05/09/21 06/25/23 History mcg (1,000 unit) tablet (Vitamin D3) lactobacillus combination no.4 3 3,000 mmu cells PO QAM 05/09/21 06/25/23 History billion cell capsule (Probiotic) celecoxib 200 mg capsule 200 mg PO QAM PRN Pain 06/25/23 06/25/23 History levothyroxine 25 mcg tablet 25 mcg PO QAM 06/25/23 06/25/23 History rosuvastatin 5 mg tablet 5 mg PO HS 06/25/23 06/25/23 History venlafaxine 75 mg capsule,extended 75 mg PO QAM 06/25/23 06/25/23 History release 24 hr simethicone 80 mg chewable tablet 80 mg PO Q6H PRN abdominal 06/27/23 Rx (Gas Relief (simethicone)) distention #14 tabs Hospital Stay Data Consultations 06/25/23 10:29 ED Decision to Admit Stat 06/25/23 10:45 Consult General Surgery Routine Diagnostic Imagining Performed Abdomen/Pelvis CT 06/25/23 07:34 CT OF THE ABDOMEN AND PELVIS WITH CONTRAST CLINICAL HISTORY: Epigastric pain. COMPARISON STUDY: CT of the abdomen and pelvis October 28, 2012.] On ultrasound March 01, 2016. TECHNIQUE: Following IV administration of 94 mL of Optiray, axial images of the abdomen and pelvis were obtained from the lung bases to the proximal femurs. Images were reviewed in the axial, sagittal, and coronal planes. IV contrast was administered without complication. Automated exposure control was utilized for the study. A dose lowering technique was utilized adhering to the principles of ALARA. CT DOSE: 1298.52 mGy.cm FINDINGS: Lung bases are unremarkable. No pneumatosis, free air or portal venous gas is present. A moderate sized hiatal hernia is noted. Gastric cardia is above the diaphragm. There are postoperative findings suggestive of a Efraín wrap which is likely at or just above the diaphragm. Moderate ingested contents within the stomach are present. 7.5 cm hepatic cyst is present. Spleen, adrenal glands and kidneys are unremarkable. Nodularity of the left adrenal gland is unchanged. There are left renal parapelvic cysts. There is no hydronephrosis. Extensive sigmoid diverticulosis is present without evidence for acute diverticulitis. The appendix is not visualized. Major vasculature is patent. The proximal to mid small bowel is mildly dilated fluid-filled. No transition point is identified. Right colon is mildly fluid-filled. IMPRESSION: 1. Moderate sized hiatal hernia. Postoperative findings suggestive of fundo plication. The wrap appears to be at or just above the diaphragm. Moderate ingested contents within the stomach. 2. Mildly dilated fluid-filled proximal to mid small bowel without transition point. The findings may reflect an enteritis. A partial small bowel obstruction is considered less likely but could appear similar. 3. Extensive sigmoid diverticulosis. No evidence for acute diverticulitis. ACT 112: Negative or not required by law. Electronically signed by: Delvis Downs M.D. 06/25/2023 9:31 AM Chest X-Ray 06/25/23 07:34 SINGLE VIEW CHEST CLINICAL HISTORY: Generalized abdominal pain FINDINGS: An AP, portable, upright chest radiograph is compared to chest x-ray and chest CT dated 01/18/2012. The heart is mildly enlarged noting atheroscl erotic calcification of the thoracic aorta. The pulmonary vasculature is noncongested. Chronic interstitial thickening is similar to previous. There is bibasilar scarring/atelectasis. The lungs and pleural spaces are otherwise clear. No pneumothorax is seen. The skeletal structures are osteopenic. The bony thorax is grossly intact. Fusion hardware is seen in the lower cervical spine. IMPRESSION: No active disease in the chest. ACT 112: Negative or not required by law. Electronically signed by: Jose Varela M.D. 06/25/2023 8:11 AM KUB X-Ray 06/26/23 07:00 KUB CLINICAL HISTORY: Partial small bowel obstruction. COMPARISON STUDY: CT of the pelvis June 25, 2023. FINDINGS: Several loops of mildly dilated small bowel measure up to 4.2 cm in caliber. Small bowel dilatation dictation is similar to prior CT. No urinary calculi are identified. No evidence for free air and supine exam. IMPRESSION: No significant change in mild small bowel dilatation. This may reflect a partial small bowel obstruction. ACT 112: Negative or not required by law. Electronically signed by: Delvis Downs M.D. 06/26/2023 10:35 AM Pending Results Patient Have Any Pending Studies at Discharge: No Discharge Instructions Given to Patient (Per Discharging Provider) MEDICATION CHANGES: Simethicone (Mylicon) 80mg every 6 hours as needed for gas or belching. Continue all other medications as prescribed. SUMMARY OF TEST RESULTS: You were admitted to hospital secondary to nausea and abdominal pain. You were found to have norovirus. You were treated conservatively with bowel rest and IV fluids. PENDING TEST RESULTS: None RECOMMENDATIONS FOR FOLLOW-UP: Please follow up with Primary Care Provider as scheduled. Continue to advance diet slowly as tolerated. Stay well hydrated. Continue all other medications. Please practice good hand hygiene with soap and water. Norovirus is not eliminated by disinfectant, cleaning agents or Alcohol. You should disinfect contaminated services with a diluted bleach solution. OTHER INSTRUCTIONS: Seek medical attention if you have: * temperature above 101 * chest pain or trouble breathing * abdominal pain, nausea, vomiting * diarrhea, dark stools or bloody stools * any unanswered questions or concerns Call 911 if symptoms are severe. Please take good care of yourself. It has been a pleasure taking care of you. Please take care of yourself. If you have any questions regarding your recent hospitalization please contact [facility] and request [email or web address] Erazo @ [phone]. Cora Segura PA-C Total Time Total Time Spent Total Time Spent (In Minutes): 45 minutes Supervising Physician Co-Signing Physician Notes Patient was seen and examined at bedside as a follow-up of likely norovirus related enteritis. Patient reports resolution of her belly pain, has been tolerating advancement of diet, moving bowels okay now. Patient denies any new complaints, and would like to go home today. On examination: No abdominal pain, on room air, NAD, heart and lungs exam WNL. I have seen and examined the patient and have discussed the case with the provider above. I agree with the assessment and plan as stated.
== END 2023-06-27 14:48 | disposition home or self-care (01) | DRG 392 ==
LOC: ED 07:22 → EDINP 10:31 → 2N 11:34 → 2W 18:46

== ENCOUNTER 2023-10-27 07:11 | Inpatient (IN) ==
--- OUTSIDE RECORDS SUMMARY | 2023-10-27 07:18 | External Medical Summary | Summary of Care ---
Author Name Unknown Organization [facility] Address [address] [place] [address] Phone [phone] Care Team Providers Care Crew Caller Name Role Phone Kamala Reyes MD Primary Care Provider + Reason for Visit * Reason Comments Follow Up Encounter Details Date Type Department Care Team (Late st Contact Info) Description 09/06/2023 10:20 AM EDT Office Visit Gastroenterology, [facility] [address] [place] [id number] Harshal Watkins MD [address] [facility] [place] [address] Chronic constipation* Allergies Active Allergy Reactions Criticality Noted Date Comments Dust Mite Extract 05/11/2021 Other Reaction(s): sneezing Solidago (Michele Abdullahi) 01/09/2022 Sneezing,clear nose running, itchy eyes documented as of this encounter (statuses as of 09/06/2023) Medications Medication Sig Dispensed Refills Start Date End Date Status OMEGA III EPA+DHA 1000 MG PO CAPS Take by mouth . 0 Active VITAMIN B COMPLEX PO TABS 1 tab by mouth daily 0 Active CALTRATE 600+D 600-400 MG-UNIT PO TABS 1 tablet by mouth twice daily 0 04/12/2011 Active Ascorbic Acid 250 MG TABS Take 1 Tablet by mouth in the morning and 1 Tablet before bedtime. 0 Active Multiple Vitamins-Minerals (EYE VITAMINS) Capsule Take 1 Cap by mouth daily. 0 08/12/2018 Active Probiotic Product (PROBIOTIC ACIDOPHILUS BIOBEADS) Capsule Take 1 Cap by mouth 2 times a day. 0 Active Vitamin D3 (CHOLECALCIFEROL) 400 UNIT Tablet Take 1 Tablet by mouth in the morning. 0 Active Diclofenac Sodium 1 % gelIndications:Gener alized OA Apply 2 g topically to affected area 4 times a day. As needed 100 g 1 07/21/2019 Active Zoster Vac Recomb Adjuvanted 50 MCG/0.5ML Intramuscular Suspension Reconstituted (SHINGRIX)Indication s:Need for shingles vaccine Inject 0.5 mL into a large muscle now and repeat dose in 60 to 180 days 1 Each 1 01/29/2020 Active Additional Information Patient not taking.Reported on 07/03/2023 Rizatriptan Benzoate 10 MG Oral Tablet Disintegrating (Maxalt-JEWELRY CASTING MODEL MAKER)Indicati ons:Migraine Place one pill on tongue and let dissolve at onset of headache, may repeat every 2 hours up to 2 times Up to 3 pills in 24 hours 20 Tab 3 11/02/2020 Active Multivitamin Adult Oral Tablet Take by mouth . 0 Active Magnesium 100 MG Oral Tablet Take 1 Tablet by mouth in the morning. 0 Active Celecoxib 100 MG Oral Capsule (CeleBREX)Indication s:Neck pain Take 1 Capsule by mouth in the morning. for pain. 30 Capsule 5 09/14/2022 Active Rosuvastatin Calcium 5 MG Oral Tablet (Crestor)Indications :Hyperlipidemia with target LDL less than 100 TAKE 1 TABLET BY MOUTH IN THE MORNING 90 Tablet 3 10/18/2022 Active Levothyroxine Sodium 25 MCG Oral Tablet (Levoxyl)Indications :Hypothyroidism TAKE 1 TABLET BY MOUTH DAILY AT LEAST 1/2 HOUR BEFORE BREAKFAST OR OTHER MEDS 90 Tablet 3 11/20/2022 Active Celecoxib 200 MG Oral Capsule (CeleBREX) Start: 08/25/22 11:37:00 EDT, See Instructions, Disp# 90 cap, Refills: 2, TAKE 1 CAPSULE BY MOUTH DAILY NEEDED FOR PAIN, [facility]acy: [facility] ([facility] 0 11/15/2021 Active Losartan Potassium 50 MG Oral Tablet (Cozaar)Indications: HTN, goal below 130/80 Take 1 Tablet by mouth in the morning. 90 Tablet 3 02/02/2023 Active buPROPion HCl ER (XL) 150 MG Oral Tablet Extended Release 24 Hour (Wellbutrin XL)Indications:Major depressive disorder with single episode, in partial remission (HCC) Take 1 Tablet by mouth in the morning. 30 Tablet 5 07/03/2023 Active Additional Information Patient not taking.Reported on 09/06/2023 Venlafaxine HCl ER 75 MG Oral Capsule Extended Release 24 Hour (Effexor XR)Indications:Anxie ty,Recurrent major depressive disorder, in partial remission (HCC) TAKE 1 CAPSULE BY MOUTH DAILY 90 Capsule 3 09/06/2023 Active Motegrity 2 MG Oral Tablet (Prucalopride Succinate) Take 1 Tablet by mouth in the morning. 90 Tablet 0 09/06/2023 4 Active Linzess 290 MCG Oral Capsule (linaCLOtide) Take 1 Capsule by mouth daily before breakfast. 90 Capsule 0 09/06/2023 4 Active documented as of this encounter (statuses as of 09/06/2023) Active Problems Problem Noted Date Diagnosed Date Melanoma in situ of left shoulder 07/03/2023 Hx of melanoma of skin 08/06/2022 Overview: Melanoma History: Location: Left shoulder Year: 01/2022 Depth: in situ Treatment: WLE Staging: Stage 0 - [id number] - Melanoma in situ Recurrent major depressive disorder, in partial remission 01/29/2020 Irritable bowel syndrome with constipation 10/15 Hypothyroidism due to acquired atrophy of thyroi d 02/04/2019 PUD (peptic ulcer disease) 10/21/2018 Motility disorder of intestine 01/25/2012 ADVANCE DIRECTIVE INFORMATION 01/11/2012 Overview: Yes, patient instructed to provide copy of Advance Directive for provider to review and to be scanned into Electronic Medical Record Hernia, paraesophageal 01/11/2012 Iron deficiency anemia 11/10/2011 Overview: ICD-10 update of inactive term Hypertrophy of nasal turbinates 04/13/2006 Overview: Dr. Romero Deviated nasal septum 04/13/2006 Overview: Dr. Romero Reflux esophagitis Anemia HTN, goal below 140/90 documented as of this encounter (statuses as of 09/06/2023) Resolved Problems Problem Noted Date Diagnosed Date Resolved Date Hypertensive kidney disease with stage 3a chronic kidney disease 08/09/2020 09/13/2021 Overview: Per CKD protocol Stage 3a chronic kidney disease 08/03/2020 09/13/2021 Hypertensive kidney disease with chronic kidney disease stage III 09/12/2018 08/12/2020 Overview: Per CKD protocol Kidney disease, chronic, sta ge III (GFR 30-59 ml/min) 04/08/2018 10/09/2018 Overview: Per CKD protocol #1 HTN, goal below 130/80 01/25/201207/07 Other diseases of nasal cavi ty and sinuses(478.19) 04/13/2006 02/04/2019 Overview: Dr. Romero snoring 04/13/2006 02/04/2019 Overview: Dr. Romero Allergic rhinitis 04/13/2006 02/04/2019 Overview: Dr. Romero Hypothyroidism 09/26/2016 documented as of this encounter (statuses as of 09/06/2023) Immunizations Name Administration Dates Next Due COVID-19 mRNA, LNP-s, No Pre serve, 2-Dose Series (Moderna) 07/03/2020,06/01/2020 COVID-19, MRNA-LNP, 23-24, P F, 50 MCG/0.5 mL, 12 YRS AND ABOVE, IM (MODERNA-Spikevax) 04/18/2023 COVID-19, mRNA, LNP-s, PF, B ooster, 100mcg/0.5mg (Moderna) 08/26/2021,02/24/2021 Covid-19, Mrna, Lnp-s, Pf, B ivalent, 50 Mcg, IM, 12 yrs and above (Moderna) 03/15/2022 Pneumococcal Conjugate Vacc, 13 Valent (Prevnar) 03/16/2015 Pneumococcal Polysaccharide PPV23 (Pneumovax) 03/20/2011,09/28/2004 Season Influenza, Quad, PF, Adjuvanted, 65+ Yrs, IM (FLUAD) 03/21/2023,03/17/2022,02/11/2020 Seasonal Influenza, PF, 6 M & above, IM , (FluLaval or Fluzone) 03/01/2018,03/21/2017 Seasonal Influenza, Quadriva lent Hd (Fluzone Hd) 02/15/2021 Seasonal Influenza, Quadriva lent, No Preserve, IM 02/24/2016,02/05/2015 02/06/2016 Seasonal Influenza, Split, I IV3, With Preserve, Inj 02/25/2014,01/24/2013,01/25/2012,06/2010,01/14/2010 Seasonal Influenza, Trivalen t, Adjuvanted, 65+ yrs 02/04/2019 TDAP (age 10 and older)(Boostrix) 07/07/2013 TDAP (age 11 and older)(Adacel) 04/04/2003 Varicella Zoster Vaccine (Adult) 03/21/2013 Zoster Vaccine Recombinant (Shingrix) 01/28/2021 ,08/04/2020 documented as of this encounter Social History Tobacco Use Types Packs/Day Years Used Date Smoking Tobacco: Never Smokeless Tobacco: Never Alcohol Use Standard Drinks/Week Comments No 0 (1 standard drink = 0.6 oz pur e alcohol) PHQ-2 Answer Date Recorded PHQ Adult Total Score 0 09/14/2022 Hunger Vital Sign Answer Date Recorded Within the past 12 months, y ou worried that your food would run out before you got the money to buy more. Never true 09/15/19 23 Within the past 12 months, t he food you bought just didn't last and you didn't have money to get more. Never true 09/14/2022 Sex and Gender Information Value Date Recorded Sex Assigned at Female 08/12/2018 1:08 PM EDT Gender Identity Not on file Sexual Orientation Not on file Job Start Date Occupation Industry Not on file Not on file Not on file documented as of this encounter Last Filed Vital Signs Vital Sign Reading Time Taken Comments Blood Pressure 139/62 09/06/2023 10:46 AM EDT Pulse 46 09/06/2023 10:46 AM EDT Temperature 36.5 C (97.7 F) 09/06/2023 10:46 AM E DT Respiratory Rate - - Oxygen Saturation - - Inhaled Oxygen Concentration - - Weight 95.5 kg (210 lb 8 oz) 09/06/2023 10:46 AM EDT Height - - Body Mass Index 30.2 07/03/2023 11:01 AM EST documented in this encounter Progress Notes * Harshal Watkins MD - 09/06/2023 11:10 AM EDT DATE OF SERVICE: 09/06/2023 REFERRING PHYSICIAN: Kamala Reyes MD CC: Follow up post Norovirus infection HPI: 78 year old female patient with below medical comorbids, referred to the GI clinic for follow up. Recently was admitted with Norovirus enteritis, CT showed ?partial SBO however I think this is just related to her enteritis. Currently she has severe constipation requiring Miralax TID and Colace. Shepreviously tried Amitiza and Linzess without good response. Prior Endoscopic work up: reviewed, colonoscopy recently with few small polyps and diverticulosis. Past Medical History: Diagnosis Date Acute appendicitis 04/30/2006 Allergic rhinitis 04/13/2006 Dr. 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 Romero Endometriosis of other specified sites lg cyst hysterectomy partial Fractured rib 05/2021 right HTN, goal below 140/90 Hypertrophy of nasal turbinates 04/13/2006 Dr. Romero Hypertrophy of tonsils and adenoids removed as a child Hypothyroidism Migraine Other diseases of nasal cavity and sinuses(478.19) 04/13/2006 Dr. Romero Recurrent major depressive disorder, in partial remission (HCC) 01/29/2020 Reflux esophagitis snoring 04/13/2006 Dr. Romero Stage 3a chronic kidney disease (HCC) 08/03/2020 Family History Problem Relation Age of Onset Musculo-skeletal Disorder Mother back pain fall Genitourinary Disorder Mother renal failure No Past Hx Father Heart Disorder Father SD Lung Disorder Father smoker copd No Past Hx Brother Diabetes Brother Other (htn) Brother Other (mac deg) Brother Breast Cancer No significant family history Past Surgical History: Procedure Laterality Date CERV DISC ARTHROPLAST,REMOVE,ADDL INTERSPCE 2001 [facility] COLONOSCOPY, DIAGNOSTIC (RECTUM) 02/15/2011 diverticulosis COLONOSCOPY, DIAGNOSTIC (RECTUM) 09/04/2018 serrated adenomatous polyp, diverticulosis, melanosis, repeat 2 yrs/COLONOSCOPY FLEXIBLE PROXIMAL DIAGNOSTIC performed by Harshal Watkins MD at END[facility]COPY [facility] COLONOSCOPY, DIAGNOSTIC (RECTUM) 06/12/2022 serrated adenomatous polyps, diverticulosis, repeat 2 yrs / COLONOSCOPY FLEXIBLE PROXIMAL DIAGNOSTIC performed by Harshal Watkins MD at ENDOSCOPY [facility] EGD, FLEXIBLE, DIAGNOSTIC 07/10/2014 prior fundoplication, tortuous esophagus/ESOPHAGOGASTRODUODENOSCOPY (EGD), FLEXIBLE, TRANSORAL, DIAGNOSTIC performed by Meme Andrea MD at ENDOSCOPY [facility] EGD, FLEXIBLE, DIAGNOSTIC 09/04/2018 gastric irritation & ulceration, repeat 2 mo/ESOPHAGOGASTRODUODENOSCOPY (EGD), FLEXIBLE, TRANSORAL, DIAGNOSTIC performed by Harshal Watkins MD at ENDOSCOPY [facility] EGD, FLEXIBLE, DIAGNOSTIC 12/04/2018 normal/ESOPHAGOGASTRODUODENOSCOPY (EGD), FLEXIBLE, TRANSORAL, DIAGNOSTIC performed by Harshal Watkins MD at ENDOSCOPY [facility] EGD, FLEXIBLE, W/BIOPSY 07/18/2010 bxs show no inflammation ESOPHAGOGASTRIC FUNDOPLASTY 01/17/2012 Laparoscopic Efraín fundoplication repair of paraesophageal 01/17/12 Dr. Harrington at [facility] INFORMATION 05/13/2010 excision of lesion right eye: Dr. Alvarez KNEE ARTHROSCOPY/ARTHROPLASTY 2009 rt knee PARTIAL REMOVAL OF THYROID LOBE 1978 REMOVAL OF APPENDIX 2007 REMOVAL OF PELVIC STRUCTURES partial hyster THROAT SURGERY PROCEDURE NEC as a child TOTAL ABD HYSTERECTOMY W/WO REMOVAL OF TUBE(S) partial hysterectomy at age 41 TRAUMA AVF EXTREMITIES left hand severe injury nerve/ tendon Social History Tobacco Use Smoking status: Never Smokeless tobacco: Never Vaping Use Vaping Use: Never used Substance Use Topics Alcohol use: No Drug use: No Review of patient's allergies indicates: Allergen Reactions Dust Mite Extract Other Reaction(s): sneezing Solidago (Michele Abdullahi) Sneezing,clear nose running, itchy eyes Current Outpatient Medications Medication Sig Dispense Refill OMEGA III EPA+DHA 1000 MG PO CAPS Take by mouth . VITAMIN B COMPLEX PO TABS 1 tab by mouth daily CALTRATE 600+D 600-400 MG-UNIT PO TABS 1 tablet by mouth twice daily Ascorbic Acid 250 MG TABS Take 1 Tablet by mouth in the morning and 1 Tablet before bedtime. Multiple Vitamins-Minerals (EYE VITAMINS) Capsule Take 1 Cap by mouth daily. Probiotic Product (PROBIOTIC ACIDOPHILUS BIOBEADS) Capsule Take 1 Cap by mouth 2 times a day. Vitamin D3 (CHOLECALCIFEROL) 400 UNIT Tablet Take 1 Tablet by mouth in the morning. Diclofenac Sodium 1 % gel Apply 2 g topically to affected area 4 times a day. As needed 100 g 1 Rizatriptan Benzoate 10 MG Oral Tablet Disintegrating (Maxalt-JEWELRY CASTING MODEL MAKER) Place one pill on tongue and letdissolve at onset of headache, may repeat every 2 hours up to 2 times Up to 3 pills in 24 hours 20 Tab 3 Multivitamin Adult Oral Tablet Take by mouth . Magnesium 100 MG Oral Tablet Take 1 Tablet by mouth in the morning. Rosuvastatin Calcium 5 MG Oral Tablet (Crestor) TAKE 1 TABLET BY MOUTH IN THE MORNING 90 Tablet 3 Levothyroxine Sodium 25 MCG Oral Tablet (Levoxyl) TAKE 1 TABLET BY MOUTH DAILY AT LEAST 1/2 HOUR BEFORE BREAKFAST OR OTHER MEDS 90 Tablet 3 Losartan Potassium 50 MG Oral Tablet (Cozaar) Take 1 Tablet by mouth in the morning. 90 Tablet 3 Venlafaxine HCl ER 75 MG Oral Capsule Extended Release 24 Hour (Effexor XR) TAKE 1 CAPSULE BY MOUTHDAILY 90 Capsule 3 Motegrity 2 MG Oral Tablet (Prucalopride Succinate) Take 1 Tablet by mouth in the morning. 90 Tablet 0 Linzess 290 MCG Oral Capsule (linaCLOtide) Take 1 Capsule by mouth daily before breakfast. 90 Capsule 0 Zoster Vac Recomb Adjuvanted 50 MCG/0.5ML Intramuscular Suspension Reconstituted (SHINGRIX) Inject 0.5 mL into a large muscle now and repeat dose in 60 to 180 days (Patient not taking: Reported on 07/03/2023) 1 Each 1 Celecoxib 100 MG Oral Capsule (CeleBREX) Take 1 Capsule by mouth in the morning. for pain. (Patientnot taking: Reported on 09/06/2023) 30 Capsule 5 Celecoxib 200 MG Oral Capsule (CeleBREX) Start: 08/25/22 11:37:00 EDT, See Instructions, Disp# 90 cap, Refills: 2, TAKE 1 CAPSULE BY MOUTH DAILY NEEDED FOR PAIN, Pharmacy: [facility] ([facility] ) (Patient not taking: Reported on 09/06/2023) buPROPion HCl ER (XL) 150 MG Oral Tablet Extended Release 24 Hour (Wellbutrin XL) Take 1 Tablet by mouth in the morning. (Patient not taking: Reported on 09/06/2023) 30 Tablet 5 No current facility-administered medications for this visit. REVIEW OF SYSTEMS: GENERAL: No fever, chills or fatigue. SKIN: No new skin rashe or itching. Eyes: No changes in vision, no redness. ENT: No sore throat or hoarseness of voice, no tinnitus. CARDIO: No chest pain, shortness of breath or palpitations. RESP: No cough, sputum, hemoptysis or exertional dyspnea. GI: Refer to HPI EXAM: BP 139/62 (BP Site: Right Arm, BP Position: Sitting, BP Cuff Size: Regular) | Pulse 46 | Temp 36.5 C (97.7 F) | Wt 95.5 kg (210 lb 8 oz) | BMI 30.20 kg/m | BSA 2.17 m GENERAL: No acute distress. SKIN: Warm, intact, no rash, or spider angiomata. HEART: Regular rate & rhythm, no murmurs and no gallops. LUNGS: Clear to auscultation bilaterally, no respiratory distress, no wheeze. ABDOMEN: Normal bowel sounds, non distended, soft, nontender, no rebound or guarding, EXTREMITIES: No cyanosis, clubbing or edema, no palmar erythema. NEURO: A&Ox 3. Sensory/Motor grossly normal. No localized deficit. DIAGNOSTIC TEST (Labs and Imaging): reviewed ASSESSMENT AND PLAN: Chronic constipation (Primary) Other orders - Motegrity 2 MG Oral Tablet (Prucalopride Succinate); Take 1 Tablet by mouth in the morning. - Linzess 290 MCG Oral Capsule (linaCLOtide); Take 1 Capsule by mouth daily before breakfast. RTC in 6 months. I spent a total of 30 min on 09/06/23 in review of patient's record and previously obtained information, in person and appropriate medical visit, discussion and education of plan with patient and/or caregiver, placing of orders for tests/referrals/procedures as medically necessary, and documentation of pertinent clinical information in the patient's medical records for their visit today. Harshal Watkins M.D Attending Physician [facility] Gastroenterology documented in this encounter Nursing Notes * Cathie Martinez LPN - 09/06/2023 10:48 AM EDT Chief Complaint Patient presents with Follow Up documented in this encounter Plan of Treatment Upcoming Encounters Date Type Department Care Team (Late st Contact Info) Description 10/30/2023 8:40 AM EDT Office Visit General Internal Medicine [facility] [address] [place] [id number] Kamala Reyes MD [address] [place] [id number] 12/27/2023 10:00 AM EDT Office Visit Gastroenterology, [facility] [address] [address] Harshal Watkins MD [address] [place] [id number] 01/10/2024 10:00 AM EDT Office Visit Gastroenterology, [facility] [address] [address] Harshal Watkins MD [address] [place] [id number] 01/14/2024 9:00 AM EDT Office Visit Dermatology [facility] [address] [place] [address] Joey Andres MD [address] [place] [id number] Scheduled Procedures Name Priority Associated Diagnoses Date/Ti me COLONOSCOPY FLEXIBLE PROXIMAL DIAGNOSTIC Recall History of colon polyps Health Maintenance Due Date Last Done Comments DTaP,Tdap,and Td Vaccines (3 - Td or Tdap) 07/08/2023 07/07/2013, 04/04/2003 TSH 09/15/2023 09/14/2022, 08/28, 01/27/2020, Additional history exists Colonoscopy 06/12/2024 06/12/2022, 05/31, 09/04/2018, Additional history exists GFR 07/02/2024 07/03/2023, 08/28, 09/09/2021, Additional history exists DXA Scan 10/30/2024 10/30/2022, 06/2022, 09/09/2018, Additional history exists Albumin/Creatinine Ratio 09/14/2025 09/14/2022, 11/2014 Pneumococcal Vaccine: 65+ Years Completed 03/16/2015, 03/20/2011, 09/28/2004 Zoster Vaccines Completed 01/28/2021, 10/2020, 03/21/2013 RETIRED - COLONOSCOPY-EVERY 2 YRS AGES 18-100 Discontinued 06/12/2022, 06/12/2022, 09/04/2018, Additional history exists Influenza Vaccine (FLU shot) Completed 03/21/2023, 03/17/2022, 02/15/2021, Additional history exists COVID-19 Vaccine Completed 04/18/2023, , 08/26/2021, Additional history exists GARDASIL-HPV IMMUNIZATION SERIES Aged Out No longer eligible based on patient's age to complete this topic Hepatitis B Aged Out No longer eligi ble based on patient's age to complete this topic MENINGOCOCCAL (MENACTRA/MENVEO) Aged Out No longer eligible based on patient's age to complete this topic documented as of this encounter Medical Devices Not on filedocumented as of this encounter Visit Diagnoses Diagnosis Chronic constipation- Primary Unspecified constipation documented in this encounter Care Teams Crew Caller Relationship Specialty Start Date End Date Kamala Reyes MD [address] [place] [address] PCP - General 08/11/09 documented as of this encounter"
--- OUTSIDE RECORDS SUMMARY | 2023-10-27 07:18 | External Medical Summary | Continuity of Care Document ---
Author Name Unknown Organization [facility] [address] [id number] Address [address] [place] [id number] Care Team Providers Care Throat Cutter Name Role Phone Kamala Reyes Primary Care Physician [phone] Encounter [facility] [id number] Date(s): 08/22/23 - 08/22/23 [facility] [address] [facility] Sports Medicine [address] [place], [place] [id number] Encounter Diagnosis Right foot pain(Discharge Diagnosis) - 08/22/23 Hammertoe of right foot(Discharge Diagnosis) - 08/22/23 Discharge Disposition: Home or Self Care Attending Physician: NORAH Granda Christina L Referring Physician: MD Reyes Manisha N Allergies, Adverse Reactions, Alerts No Known Allergies Assessment and Plan Extracted from: Title:Orthopaedics Office Visit Note Author:America Rothman DPM, Christina L Date:08/22/23 1.Right foot pain Discussed x-ray findings with patient and diagnosis of hammertoe deformity. Discussed conservative treatment of the right foot which would consist of use of a Budin splint for the right second toe and continued use of supportive shoe gearand custom orthotics. If this does not improve patient's discomfort can considerhammertoe repair by arthrodesis of proximal interphalangeal joint with percutaneous K wire fixation,second metatarsal shortening osteotomy with fixation. Defer surgical intervention at this time per patient request. She wants to try the Budin splint and is very excited by this. Additionally recommend continued self-care of debridement of callus by skyler shore and connie pierce. Patient had no further questions or concerns. Follow-up in 3 to 4 months. 25-minute initial visit, 5-minute chart review,6-minute x-ray review,14 minutes [id number] 2.Hammertoe of right foot Medications amoxicillin 500 mg oral capsule Start: 07/12/22 16:45:00 EDT, 4 cap, PO, As indicated, Disp# 12 cap, Refills: 3, one hour before dental and other procedures as directed, Pharmacy: [facility] Start Date: 07/12/22 Status: Ordered B-Complex 50 [...] NEEDED FOR PAIN, [facility] Start Date: 08/25/22 Status: Ordered diclofenac 1% topical gel Start: 10/02/18 14:50:36 EDT, See Instructions, Disp# 100 g, Refills: 0, APPLY TOPICALLY 4 TIMES DAILY NEEDED FOR PAIN. NOT TO EXCEED 16 GRAMS DAILY ON A SINGLE JOINT OF LOWER EXTREMITIES. NOT TO EXCEED 32 GRAM, Pharmacy: [facility] Start Date: 10/02/18 Status: Ordered Effexor [...] Start Date: 03/12/18 Status: Ordered Mental Status 08/22/23 Barriers to Learning one year None evide nt Mandatory Health Literacy Documentation Yes Health Literacy Communication Barriers N ever Primary Language Croatian Problem List Condition Confirmation Course Effective Dates Status H ealth Status Informant Anemia Confirmed Active Pes anserine bursitis Confirmed Active Occipital neuralgia Confirmed Active Herniated nucleus pulposus, L3-4 right Confirmed Active Effusion of olecranon bursa Confirmed Active Foot pain, right Confirmed Active Right foot pain Confirmed Active Foot pain, left Confirmed Active Gastroparesis Confirmed Active Hammertoe of right foot Confirmed Active Right hand pain Confirmed Active [...] Dates Health Status Cl inical Service Informant Right foot pain Discharge Diagnosis 08/22/23 Hammertoe of right foot Discharge Diagnosis 08/22/23 Procedures Procedure Date Related Diagnosis Body Site Status knee surgery 02/15/09 Completed Discectomy 1999 Completed hand surgery 1997 Completed Hysterectomy 1979 Completed Tonsillectomy 1956 Completed Social History Social History Type Response Smoking Status Never smoked cigaret jaime Sex Female Ortho Outpt Note * NORAH Granda, Peg Dillon: PERFORM Event Display: Ortho Outpt Note Authored Date: [id number] Primary Care Provider MD Eric, Kamala Olivia Chief Complaint right foot hammertoe pain, can only wear sneakers History of Present Illness Patient is a very pleasant 78-year-old female presenting todayfor an initial evaluationof a hammertoe of the right foot. Patient notes she can only wear sneakers. The pain indiscomfort of the hammertoe has been ongoing for several weeksand is pushing on the shoe and the toe will feel discomfort. Bare feet improves the pain shoes will worsen the pain. 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 PCPDr. Kamala Reyes Past medical historyhypothyroidismhypertension Medicationsreviewed Allergiesnone Past surgical historyright total knee arthroplasty Social historyno pertinent positives Family historyno pertinent positives Review of Systems No pertinent positives Physical Exam Problem focused right foot: Dorsalis pedis pulse palpable2 out of 4, posterior tibial pulse palpable 1 out of 4,capillary refill time less than 3 seconds,skin turgor is good to all digits of the right foot pedal hair is present. Gross sensation is intact all digits of the right foot. Right second digitwith semirigid hammertoe deformitycontracture present at proximal interphalangeal joint,there is a callus present on the dorsal aspect of the jointthat patient self treats with pumice stone/emery board use and as well as gel protective toe cap. There is some tenderness at the plantar aspect of the second metatarsal head but not severe in naturemajority of pain is pres ent at the contracture at the proximal interphalangeal joint. Very mildarthritic change of the right great toe almost none presentpatient has no pain of right great toe. X-ray dictation 3 views right foot: 3 views of the right footshow mild arthritic change at right first metatarsal phalangeal joint. Mild arthritic change right second metatarsal phalangeal joint. Moderate arthritic change at right second proximal interphalangeal joint. Lateral view of the right foot shows moderate midfoot arthritismost significant at navicular cuneiform jointobliterated sinus tarsi and inferior calcaneal heel spur. I personally performed the interpretation of 3 views of the right foot. Problem focused left foot: Pedal pulses intact sensation intact. 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 Also wears custom orthotics from [facility]. Assessment/Plan 1.Right foot pain Discussed x-ray findings with patient and diagnosis of hammertoe deformity. Discussed conservative treatment of the right foot which would consist of use of a Budin splint for the right second toe and continued use of supportive shoe gearand custom orthotics. If this does not improve patient's discomfort can considerhammertoe repair by arthrodesis of proximal interphalangeal joint with percutaneous K wire fixation,second metatarsal shortening osteotomy with fixation. Defer surgical intervention at this time per patient request. She wants to try the Budin splint and is very excited by this. Additionally recommend continued self-care of debridement of callus by skyler shore and connie pierce. Patient had no further questions or concerns. Follow-up in 3 to 4 months. 25-minute initial visit, 5-minute chart review,6-minute x-ray review,14 minutes [id number] 2.Hammertoe of right foot Problem List/Past Medical History Ongoing Anemia Effusion of olecranon bursa Foot pain, left Foot pain, right Gastroparesis Shwetha's deformity of right heel. Hammertoe of right foot Herniated nucleus pulposus, L3-4 right Hiatal hernia Intervertebral disc disorder Knee pain, left Knee pain, right Lumbar pain Lumbar spinal stenosis Neck pain Neck pain Neuritis of right sural nerve Occipital neuralgia Osteoarthritis of knee Pes anserine bursitis Right foot pain Right hand pain Right lumbar radiculopathy Rotator cuff strain S/P orthopedic surgery, follow-up exam| Status: Inactive S/P total knee replacement Strain of left trapezius muscle Strain of lumbar paraspinous muscle Strain of rhomboid muscle Weight monitoring Wrist injury Historical Right knee DJD Procedure/Surgical History knee surgery| Service Date: 02/15/2009Discectomy| Service Date: 1999hand surgery| Service Date: 1997Hysterectomy| Service Date: 1979Tonsillectomy| Service Date: 1956 Medications amoxicillin(amoxicillin 500 mg oral capsule), 2000 mg= 4 cap, PO, As indicated, 3 refills calcium and vitamin D combination(Caltrate 600 + D oral tablet), 1 tab, PO, bid celecoxib(celecoxib 200 mg oral capsule), See Instructions, 2 refills chondroitin-glucosamine(glucosamine-chondroitin oral kit) diclofenac topical(diclofenac 1% topical gel), See Instructions levothyroxine(Levothroid 50 mcg (0.05 mg) oral tablet), 50 mcg= 1 tab, PO, Daily losartan(losartan 25 mg oral tablet), 25 mg= 1 tab, PO, Daily multivitamin(B-Complex 50 oral tablet), 1 tab, PO, Daily multivitamin with minerals(PreserVision) sodium hyaluronate(Euflexxa 10 mg/mL intra-articular solution), 20 mg, intra- articular, q7days venlafaxine(Effexor 75 mg oral tablet), 0.5 tab, PO, bid Allergies NKA Social History Smoking Status Never smoked cigarettes Family History Heart disease: Father. Stroke: Mother. Health Status Family Member(s) Recommendations Health Maintenance Pending(in the next year) OverDue Adult Influenza Vaccine due10/27/22and every 1year Due Body Mass Index due08/11/23and every 366day Adult COVID-19 Vaccination due08/22/23Unknown Frequency Adult Social Determinants of Health Screening due08/22/23Unknown Frequency Adult Tdap/Td Vaccine due08/22/23Unknown Frequency Hepatitis C Screening due08/22/23One-time only Medicare Annual Wellness Visit due08/22/23and every 1year Pneumococcal Vaccine Older Adults due08/22/23One-time only Shingles Vaccine due08/22/23One-time only Satisfied(in the past 1 year) There are no satisfied recommendations within the defined date range Electronic Signature on File CC: Kamala Reyes MD [address] [place] [address] * Electronically Reviewed/Signed by: Peg Granda DPM Author Signature Dt/Tm:08/22/2023 09:27 AM Division of Sports Medicine CLR Patient Care team information Care Team Personnel Name: MD Eric, Kamala Olivia Position: Referring DIRECT Member Role: Primary Care Provider Address: Address: [address] [place] [address] [place] Care Team Related Persons Name: ENIO YEPEZ Address: home [address] [place] [phone] Name: NADJA YEPEZ Address: [place], [place] [id number]"
--- OUTSIDE RECORDS SUMMARY | 2023-10-27 07:18 | External Medical Summary | Summary of Care ---
Author Name Unknown Organization [facility] Address [address] [place] [address] Phone [phone] Care Team Providers Care Field Sales Representative Name Role Phone Kamala Reyes MD Primary Care Provider + Encounter Details Date Type Department Care Team (Late st Contact Info) Description 10/22/2023 Orders Only Outcomes Research Department [address] [place], [place] [id number] Sherry Wick CHRA [employer] [facility] Other*[id number] Allergies Active Allergy Reactions Criticality Noted Date Comments Dust Mite Extract 05/11/2021 Other Reaction(s): sneezing Solidago (Michele Abdullahi) 01/09/2022 Sneezing,clear nose running, itchy eyes documented as of this encounter (statuses as of 10/22/2023) Medications Medication Sig Dispensed Refills Start Date End Date Status OMEGA III EPA+DHA 1000 MG PO CAPS Take by mouth . Active VITAMIN B COMPLEX PO TABS 1 tab by mouth daily Active CALTRATE 600+D 600-400 MG-UNIT PO TABS 1 tablet by mouth twice daily 04/12/2011 Active Ascorbic Acid 250 MG TABS Take 1 Tablet by mouth in the morning and 1 Tablet before bedtime. Active Multiple Vitamins-Minerals (EYE VITAMINS) Capsule Take 1 Cap by mouth daily. 08/12/2018 Active Probiotic Product (PROBIOTIC ACIDOPHILUS BIOBEADS) Capsule Take 1 Cap by mouth 2 times a day. Active Vitamin D3 (CHOLECALCIFEROL) 400 UNIT Tablet Take 1 Tablet by mouth in the morning. Active Diclofenac Sodium 1 % gelIndications:Gener alized [...] Rizatriptan Benzoate 10 MG Oral Tablet Disintegrating (Maxalt-DIRECTOR OF EVENT SALES)Indicati ons:Migraine Place one pill on tongue and let dissolve at onset of headache, may repeat every 2 hours up to 2 times Up to 3 pills in 24 hours 20 Tab 3 11/02/2020 Active Multivitamin Adult Oral Tablet Take by mouth . Active Magnesium 100 MG Oral Tablet Take 1 Tablet by mouth in the morning. Active Celecoxib 100 MG Oral Capsule (CeleBREX)Indication [...] NEEDED FOR PAIN, [facility] 11/15/2021 Active Losartan Potassium 50 MG Oral [...] by mouth in the morning. 90 Tablet 09/06/2023 4 Active Linzess 290 MCG Oral Capsule (linaCLOtide) Take 1 Capsule by mouth daily before breakfast. 90 Capsule 09/06/2023 4 Active Lactulose 10 GM/15ML Oral Solution (Constulose) Take 30 mL by mouth in the morning and 30 mL before bedtime. 5400 mL 09/14/2023 4 Active documented as of this encounter (statuses as of 10/22/2023) Active Problems Problem Noted Date Diagnosed Date Melanoma in situ of left shoulder 07/03/2023 Hx of melanoma of skin 08/06/2022 Overview: Melanoma History: Location: Left shoulder Year: 01/2022 Depth: in situ Treatment: WLE Staging: Stage 0 - [id number] - Melanoma in situ Recurrent major depressive [...] as of this encounter (statuses as of 10/22/2023) Resolved Problems Problem Noted Date Diagnosed Date [...] as of this encounter (statuses as of 10/22/2023) Immunizations Name Administration Dates Next Due COVID-19 [...] Influenza, Split, I IV3, With Preserve, Inj 02/25/2014,01/24/2013,01/25/2012,10/0 06/2010,01/14/2010 Seasonal Influenza, Trivalen t, Adjuvanted, 65+ yrs 02/04/2019 TDAP (age 10 and older)(Boostrix) 07/07/2013 TDAP, Age 7 and older, IM (Adacel) 04/04/2003 Varicella Zoster Vaccine (Adult) 03/21/2013 Zoster [...] Information Value Date Recorded Sex Assigned at Not on file Gender Identity Not on file Sexual Orientation Not on file Job Start Date Occupation Industry Not on file Not on file Not on file documented as of this encounter Plan of Treatment Upcoming Encounters Date Type Department Care Team (Late st Contact Info) Description 10/30/2023 8:40 AM EDT Office Visit General Internal Medicine [facility] [address] [place], [place] [address] Kamala Reyes MD [address] [place], [place] [address] 01/10/2024 10:00 AM EDT Office Visit Gastroenterology, [facility] [address] [place] [address] Harshal Watkins MD [address] [place] [address] 01/14/2024 9:00 AM EDT Office Visit Dermatology [facility] [address] [facility] [place] [address] Joey Andres MD [address] [facility] [place] [address] Scheduled Orders Name Type Priority Associated Diagnoses Orde r Schedule MYCODE SUBSEQUENT ADULT Lab Routine [employer] Research Other*[id number] Every 6 Months for 2 Occurrences starting 10/22/2023 until 11/10/2024 Scheduled Procedures Name Priority Associated Diagnoses Date/Ti me COLONOSCOPY FLEXIBLE PROXIMAL DIAGNOSTIC Recall History of colon polyps Health Maintenance Due Date Last Done Comments DTaP,Tdap,and Td Vaccines (3 - Td or Tdap) 07/08/2023 07/07/2013, 04/04/2003 COVID-19 Vaccine ( season) 2023 04/18/2023, 03/15/2022, 08/26/2021, Additional history exists Depression Monitoring 09/15/2023 09/14/2022 TSH 09/15/2023 09/14/2022, 08/28, 01/27/2020, Additional history [...] Influenza Vaccine (FLU shot) Completed 03/21/2023, 03/17/2022, 02/21/2022, Additional history exists GARDASIL-HPV IMMUNIZATION SERIES Aged [...] as of this encounter Visit Diagnoses Diagnosis [employer] Research Other*[id number] documented in this encounter Care Teams Field Sales Representative Relationship Specialty Start Date End Date Kamala Reyes MD [address] [place] [address] PCP - General 08/11/09 documented as of this encounter
--- OUTSIDE RECORDS SUMMARY | 2023-10-27 07:18 | External Medical Summary | Summary of Care ---
Author Name Unknown Organization [facility] Address [address] [place] [address] Phone [phone] Care Team Providers Care Deputy Brand Inspector Name Role Phone Kamala Reyes MD Primary Care Provider + Reason for Visit * Reason Onset Date Comments Medication Refill 10/22/2023 Encounter Details Date Type Department Care Team (Late st Contact Info) Description 10/22/2023 Refill General Internal Medicine [facility] [place] [address] [facility] [place] [address] Kamala Reyes MD [address] [place] [address] Anxiety; Recurrent major depressive disorder, in partial remission (HCC) Allergies Active Allergy Reactions Criticality Noted Date [...] the morning. Active Diclofenac Sodium 1 % gelIndications:Gene ralized OA Apply 2 g topically to affected area 4 times a day. As needed 100 g 1 07/21/2019 Active Zoster Vac Recomb Adjuvanted 50 MCG/0.5ML Intramuscular Suspension Reconstituted (SHINGRIX)Indicatio ns:Need for shingles vaccine Inject 0.5 mL into a large muscle now and repeat dose in 60 to 180 days 1 Each 1 01/29/2020 Active Additional Information Patient not taking.Reported on 07/03/2023 Rizatriptan Benzoate 10 MG Oral Tablet Disintegrating (Maxalt-DOOR PERSON)Indicat ions:Migraine Place one pill on tongue and let dissolve at onset of headache, may repeat every 2 hours up to 2 times Up to 3 pills in 24 hours 20 Tab 3 11/02/2020 Active Multivitamin Adult Oral Tablet Take by mouth . Active Magnesium 100 MG Oral Tablet Take 1 Tablet by mouth in the morning. Active Celecoxib 100 MG Oral Capsule (CeleBREX)Indicatio ns:Neck pain Take 1 Capsule by mouth in the morning. for pain. 30 Capsule 5 09/14/2022 Active Rosuvastatin Calcium 5 MG Oral Tablet (Crestor)Indication s:Hyperlipidemia with target LDL less than 100 TAKE 1 TABLET BY MOUTH IN THE MORNING 90 Tablet 3 10/18/2022 Active Levothyroxine Sodium 25 MCG Oral Tablet (Levoxyl)Indication s:Hypothyroidism TAKE 1 TABLET BY MOUTH DAILY AT LEAST 1/2 HOUR BEFORE BREAKFAST OR OTHER MEDS 90 Tablet 3 11/20/2022 Active Celecoxib 200 MG Oral Capsule (CeleBREX) Start: 08/25/22 11:37:00 EDT, See Instructions, Disp# 90 cap, Refills: 2, TAKE 1 CAPSULE BY MOUTH DAILY NEEDED FOR PAIN, [facility] 11/15/2021 Active Losartan Potassium 50 MG Oral Tablet (Cozaar)Indications :HTN, goal below 130/80 Take 1 Tablet by mouth in the morning. 90 Tablet 3 02/02/2023 Active buPROPion HCl ER (XL) 150 MG Oral Tablet Extended Release 24 Hour (Wellbutrin XL)Indications:Tala r depressive disorder with single episode, in partial remission (HCC) Take 1 Tablet by mouth in the morning. 30 Tablet 5 07/03/2023 Active Additional Information Patient not taking.Reported on 09/06/2023 Venlafaxine HCl ER 75 MG Oral Capsule Extended Release 24 Hour (Effexor XR)Indications:Anxi ety,Recurrent major depressive disorder, in partial remission (HCC) [...] before bedtime. 5400 mL 09/14/2023 4 Active Venlafaxine HCl ER 75 MG Oral Capsule Extended Release 24 Hour (Effexor XR)Indications:Anxi ety,Recurrent major depressive disorder, in partial remission (HCC) Take 1 Capsule by mouth in the morning. 10 Capsule 10/22/2023 4 Discontinu ed(Medicat ion List Clean Up) documented as of this encounter (statuses as of 10/22/2023) Active Problems Problem Noted Date Diagnosed Date Melanoma in situ of left shoulder 07/03/2023 Hx of melanoma of skin 08/06/2022 Overview: Melanoma History: Location: Left shoulder Year: 01/2022 Depth: in situ Treatment: WLE Staging: Stage 0 - [id number] - Melanoma in situ Recurrent major depressive [...] on file documented as of this encounter Miscellaneous Notes * Telephone Encounter - Roro Lewis [facility] - 10/22/2023 2:18 PM EDTNo prescriptions requested or ordered in this encounter * Telephone Encounter - Roro Lewis [facility] - 10/22/2023 2:06 PM EDT Short supply sent to [address] as requested to hold patient until Mail Order is received. Removed short supply order from med list once verified rx was sent/received at the pharmacy to not have duplicates on med list. Thanks, Roro Lewis, PharmD Clinical Pharmacist [facility] ([facility] [phone] 10/22/2023 2:06 PM * Telephone Encounter - Ana Jimenes [facility] - 10/22/2023 10:04 AM EDT Pt out of medication. Pt calling to request short supply for Venlafaxine HCl ER 75 MG Oral Capsule Extended Release 24 Hour until mail order arrives. Please review and approve if appropriate. Pending Prescriptions: Disp Refills Venlafaxine HCl ER 75 MG Oral Capsule Ext*90 Cap*3 Sig: Take 1 Capsule by mouth in the morning. Last Visit: 07/03/2023 (in office), Visit date not found (telemedicine) 10/30/2023 Thank you, Ana Jimenes CPhT Ict Developer II [facility] ([facility]) 10/22/2023,10:05 AM documented in this encounter Plan of Treatment Upcoming Encounters Date Type Department Care Team (Late st Contact Info) Description 10/30/2023 8:40 AM EDT Office Visit General Internal Medicine [facility] [address] [facility] [place] [address] Kamala Reyes MD [address] [facility] [place] [address] 01/10/2024 10:00 AM EDT Office Visit Gastroenterology, [facility] [address] [place] [address] Harshal Watkins MD [address] [facility] [place] [address] 01/14/2024 9:00 AM EDT Office Visit Dermatology [facility] [address] [facility] [place] [address] Joey Andres MD [address] [facility] [place] [address] Scheduled Procedures Name Priority Associated Diagnoses Date/Ti [...] as of this encounter Visit Diagnoses Diagnosis Anxiety Anxiety state, unspecified Recurrent major depressive disorder, in partial remission (HCC) documented in this encounter Care Teams Deputy Brand Inspector Relationship Specialty Start Date End Date Kamala Reyes MD [address] [place] [address] PCP - General 08/11/09 documented as of this encounter
--- OUTSIDE RECORDS SUMMARY | 2023-10-27 07:18 | External Medical Summary | Summary of Care ---
Author Name Unknown Organization [facility] Address [address] [place] [address] Phone [phone] Care Team Providers Care Lead Machinist Name Role Phone Kamala Reyes MD Primary Care Provider + Reason for Visit * Reason Onset Date Comments Advice 09/28/2023 Encounter Details Date Type Department Care Team (Late st Contact Info) Description 09/28/2023 [facility] [address] Leanne Odonnell CRNP [address] [place] [address] Advice Allergies Active Allergy Reactions Criticality Noted Date Comments Dust Mite Extract 05/11/2021 Other Reaction(s): sneezing Solidago (Michele Abdullahi) 01/09/2022 Sneezing,clear nose running, itchy eyes documented as of this encounter (statuses as of 10/02/2023) Medications Medication Sig Dispensed Refills Start Date [...] Rizatriptan Benzoate 10 MG Oral Tablet Disintegrating (Maxalt-COMPUTER INSTALLER)Indicati ons:Migraine Place one pill on tongue and [...] NEEDED FOR PAIN, [facility]acy: [facility] ([facility] ) 11/15/2021 Active Losartan Potassium [...] as of this encounter (statuses as of 10/02/2023) Active Problems Problem Noted Date Diagnosed Date Melanoma in situ of left shoulder 07/03/2023 Hx of melanoma of skin 08/06/2022 Overview: Melanoma History: Location: Left shoulder Year: 01/2022 Depth: in situ Treatment: WLE Staging: Stage 0 - [id number] - Melanoma in situ Recurrent major depressive [...] as of this encounter (statuses as of 10/02/2023) Resolved Problems Problem Noted Date Diagnosed Date [...] as of this encounter (statuses as of 10/02/2023) Immunizations Name Administration Dates Next Due COVID-19 [...] encounter Miscellaneous Notes * Telephone Encounter - Faustino Maria OSA - 10/02/2023 9:26 AM EDT LMOM 10/02/23 * Telephone Encounter - Faustino Maria OSA - 10/01/2023 12:55 PM EDT LMOM 10/01/23 * Telephone Encounter - Darius Zuluaga OSA - 09/28/2023 12:01 PM EDT No Appointments Available Patient declined appointments?: No What Visit Type is needed? Acute If Acute Visit Type is needed, were surrounding clinics offered to patient (Yes/No)? Yes Was patient offered appointments with other available providers (Yes/No)? NO- no appointments available. See Call Details? (Yes or No): Yes PT scheduled on [facility] for video visit - pt received a message stating that video was canceled andcould not access this appointment. Attempted to find in person appointment no appointments available. Pt was also told to go to an urgent care near her. * Telephone Encounter - Hyacinth Monaco LPN - 09/28/2023 11:25 AM EDT Patient had telemed visit with [facility]. Resent links to patient. Called patient and phone number continuously rang, no VM. When patient calls back please have them reschedule. documented in this encounter Plan of Treatment Upcoming Encounters Date Type Department Care Team (Late st Contact Info) Description 10/30/2023 8:40 AM EDT Office Visit General Internal Medicine [facility] [address] [place] [address] Kamala Reyes MD [address] [place] [address] 01/10/2024 10:00 AM EDT Office Visit Gastroenterology, [facility] [address] [place] [address] Harshal Watkins MD [address] [place] [address] 01/14/2024 9:00 AM EDT Office Visit [facility]ermatology [facility] [address] [facility] [address] Joey Andres MD [address] [facility] [address] Scheduled Procedures Name Priority Associated Diagnoses Date/Ti me COLONOSCOPY FLEXIBLE PROXIMAL DIAGNOSTIC Recall History of colon polyps Health Maintenance Due Date Last Done Comments DTaP,Tdap,and Td Vaccines (3 - Td or Tdap) 07/08/2023 07/07/2013, 04/04/2003 COVID-19 Vaccine (2022- season) 2023 04/18/2023, 03/15/2022, 08/26/2021, Additional history exists TSH 09/15/2023 09/14/2022, 08/28, 01/27/2020, Additional history exists Colonoscopy 06/12/2024 06/12/2022, 05/31, 09/04/2018, Additional history exists GFR 07/02/2024 07/03/2023, 08/28, 09/09/2021, Additional history exists DXA Scan 10/30/2024 10/30/2022, 06/2022, 09/09/2018, Additional history exists Albumin/Creatinine Ratio 09/14/2025 09/14/2022, 11/2014 Pneumococcal Vaccine: 65+ Years Completed 03/16/2015, 03/20/2011, 09/28/2004 Zoster Vaccines Completed 01/28/2021, 0410/2020, 03/21/2013 RETIRED - COLONOSCOPY-EVERY 2 YRS AGES 18-100 Discontinued 06/12/2022, 06/12/2022, 09/04/2018, Additional history exists Influenza Vaccine (FLU shot) Completed 03/21/2023, 03/17/2022, 02/15/2021, Additional history exists GARDASIL-HPV IMMUNIZATION SERIES Aged [...] Not on filedocumented as of this encounter Care Teams Lead Machinist Relationship Specialty Start Date End Date Kamala Reyes MD [address] [place] [address] PCP - General 08/11/09 documented as of this encounter
--- OUTSIDE RECORDS SUMMARY | 2023-10-27 07:18 | External Medical Summary | Summary of Care ---
Author Name Unknown Organization [facility] Address [address] [place] [address] Phone [phone] Care Team Providers Care Bulk Coolers Installer Name Role Phone Kamala Reyes MD Primary Care Provider + Reason for Visit * Reason Onset Date Comments Advice 09/28/2023 Encounter Details Date Type Department Care Team (Late st Contact Info) Description [facility] [address] Leanne Odonnell CRNP [address] [place] [address] Advice Allergies Active Allergy Reactions Criticality Noted Date Comments Dust Mite Extract 05/11/2021 Other Reaction(s): sneezing Solidago (Michele Abdullahi) 01/09/2022 Sneezing,clear nose running, itchy eyes documented as of this encounter (statuses as of 10/01/2023) Medications Medication Sig Dispensed Refills Start Date [...] Rizatriptan Benzoate 10 MG Oral Tablet Disintegrating (Maxalt-COMMERCIAL REPRESENTATIVE)Indicati ons:Migraine Place one pill on tongue and [...] NEEDED FOR PAIN, [facility]acy: [facility] ([facility] ) 11/15/2021 Active Losartan Potassium [...] as of this encounter (statuses as of 10/01/2023) Active Problems Problem Noted Date Diagnosed Date Melanoma in situ of left shoulder 07/03/2023 Hx of melanoma of skin 08/06/2022 Overview: Melanoma History: Location: Left shoulder Year: 01/2022 Depth: in situ Treatment: WLE Staging: Stage 0 - [id number] - Melanoma in situ Recurrent major depressive [...] as of this encounter (statuses as of 10/01/2023) Resolved Problems Problem Noted Date Diagnosed Date [...] as of this encounter (statuses as of 10/01/2023) Immunizations Name Administration Dates Next Due COVID-19 [...] (Yes or No): Yes PT scheduled on [facility] [employer] for video visit - pt received a message stating that video was canceled andcould not access this appointment. Attempted to find in person appointment no appointments available. Pt was also told to go to an urgent care near her. * Telephone Encounter - Hyacinth Monaco LPN - 09/28/2023 11:25 AM EDT Patient had telemed visit with [facility]. Resent links to patient. Called patient and phone number continuously rang, no VM. When patient calls back please have them reschedule. documented in this encounter Plan of Treatment Upcoming Encounters Date Type Department Care Team (Late st Contact Info) Description 10/30/2023 8:40 AM EDT Office Visit General Internal Medicine [facility] [address] [place] [address] Kamala Reyes MD [address] [place] [address] 01/10/2024 10:00 AM EDT Office Visit Gastroenterology, [facility] [address] [address] Harshal Watkins MD [address] [address] 01/14/2024 9:00 AM EDT Office Visit Dermatology [facility] [place] [address] [facility] [place] [address] Joey Andres MD [address] [place] [address] Scheduled Procedures Name Priority Associated Diagnoses Date/Ti [...] 03/16/2015, 03/20/2011, 09/28/2004 Zoster Vaccines Completed 01/28/2021, 040 10/2020, 03/21/2013 RETIRED - COLONOSCOPY-EVERY 2 YRS [...] filedocumented as of this encounter Care Teams Bulk Coolers Installer Relationship Specialty Start Date End Date Kamala Reyes MD [address] [place] [address] [place] [address] PCP - General 08/11/09 documented as of this encounter
--- OUTSIDE RECORDS SUMMARY | 2023-10-27 07:18 | External Medical Summary | Summary of Care ---
Author Name Unknown Organization [facility] Address [address] [place] [address] Phone [phone] Care Team Providers Care Metal Treater Name Role Phone Kamala Reyes MD Primary Care Provider + Reason for Visit * Reason Onset Date Comments Advice 09/28/2023 Encounter Details Date Type Department Care Team (Late st Contact Info) Description 09/28/2023 [facility] [place] [address] Leanne Odonnell CRNP [address] [place] [address] Advice Allergies Active Allergy Reactions [...] Rizatriptan Benzoate 10 MG Oral Tablet Disintegrating (Maxalt-SKIN DRIER)Indicati ons:Migraine Place one pill on tongue and [...] NEEDED FOR PAIN, [facility]: [facility] ([facility] ) 11/15/2021 Active Losartan Potassium [...] situ Treatment: WLE Staging: Stage 0 - [id number] - Melanoma in situ Recurrent major depressive [...] Encounter - Faustino Maria OSA - 10/02/2023 3:38 PM EDT 2 contact attempts made - unable to reach - Letter Sent * Telephone Encounter - Faustino Maria OSA [...] (Yes or No): Yes PT scheduled on [facility] for video visit - pt received a message stating that video was canceled andcould not access this appointment. Attempted to find in person appointment no appointments available. Pt was also told to go to an urgent care near her. * Telephone Encounter - Hyacinth Monaco LPN - 09/28/2023 11:25 AM EDT Patient had telemed visit with [facility]. Resent links to patient. Called patient and phone number continuously rang, no VM. When patient calls back please have them reschedule. documented in this encounter Plan of Treatment Upcoming Encounters Date Type Department Care Team (Late st Contact Info) Description 10/30/2023 8:40 AM EDT Office Visit General Internal Medicine [facility] [address] [facility] [place] [address] Kamala Reyes MD [address] [facility] [place] [address] 01/10/2024 10:00 AM EDT Office Visit Gastroenterology, [facility] [address] [place] [address] Harshal Watkins MD [address] [address] 01/14/2024 9:00 AM EDT Office Visit Dermatology [facility] [address] [facility] [place] [address] Joey Andres MD [address] [facility] [place] [address] Scheduled Procedures Name Priority Associated Diagnoses Date/Ti [...] 03/16/2015, 03/20/2011, 09/28/2004 Zoster Vaccines Completed 01/28/2021, 04/0 10/2020, 03/21/2013 RETIRED - COLONOSCOPY-EVERY 2 YRS [...] filedocumented as of this encounter Care Teams Metal Treater Relationship Specialty Start Date End Date Kamala Reyes MD [address] [facility] [place] [address] PCP - General 08/11/09 documented as of this encounter
--- OUTSIDE RECORDS SUMMARY | 2023-10-27 07:18 | External Medical Summary | Summary of Care ---
Author Name Unknown Organization [facility] Address [address] [place] [address] Phone [phone] Care Team Providers Care Linter Drier Operator Name Role Phone Jaya Reyes MD Primary Care Provider + Reason for Visit * Reason Comments eRx-Medication Refill Encounter Details Date Type Department Care Team (Late st Contact Info) Description 09/05/2023 Refill General Internal Medicine [facility] [address] [place] [address] Jaya Reyes MD [address] [place] [address] Anxiety; Recurrent major depressive disorder, in partial [...] 1 tablet by mouth twice daily 0 1 Active Ascorbic Acid 250 MG TABS Take 1 Tablet by mouth in the morning and 1 Tablet before bedtime. 0 Active Multiple Vitamins-Minerals (EYE VITAMINS) Capsule Take 1 Cap by mouth daily. 0 04/15/201 9 Active Probiotic Product (PROBIOTIC ACIDOPHILUS BIOBEADS) Capsule Take 1 Cap by mouth 2 times a day. 0 Active Vitamin D3 (CHOLECALCIFEROL) 400 UNIT Tablet Take 1 Tablet by mouth in the morning. 0 Active Diclofenac Sodium 1 % gelIndications:Gene ralized OA Apply 2 g topically to affected area 4 times a day. As needed 100 g 1 0 Active Zoster Vac Recomb Adjuvanted 50 MCG/0.5ML Intramuscular Suspension Reconstituted (SHINGRIX)Indicatio ns:Need for shingles vaccine Inject 0.5 mL into a large muscle now and repeat dose in 60 to 180 days 1 Each 1 0 Active Additional Information Patient not taking.Reported on 07/03/2023 Rizatriptan Benzoate 10 MG Oral Tablet Disintegrating (Maxalt-HR ADVISOR)Indicat ions:Migraine Place one pill on tongue and let dissolve at onset of headache, may repeat every 2 hours up to 2 times Up to 3 pills in 24 hours 20 Tab 3 1 Active Multivitamin Adult Oral Tablet Take by mouth . 0 Active Magnesium 100 MG Oral Tablet Take 1 Tablet by mouth in the morning. 0 Active Celecoxib 100 MG Oral Capsule (CeleBREX)Indicatio ns:Neck pain Take 1 Capsule by mouth in the morning. for pain. 30 Capsule 5 3 Active Rosuvastatin Calcium 5 MG Oral Tablet (Crestor)Indication s:Hyperlipidemia with target LDL less than 100 TAKE 1 TABLET BY MOUTH IN THE MORNING 90 Tablet 3 3 Active Levothyroxine Sodium 25 MCG Oral Tablet (Levoxyl)Indication s:Hypothyroidism TAKE 1 TABLET BY MOUTH DAILY AT LEAST 1/2 HOUR BEFORE BREAKFAST OR OTHER MEDS 90 Tablet 3 3 Active Celecoxib 200 MG Oral Capsule (CeleBREX) Start: 08/25/22 11:37:00 EDT, See Instructions, Disp# 90 cap, Refills: 2, TAKE 1 CAPSULE BY MOUTH DAILY NEEDED FOR PAIN, [facility]: [facility] ) 0 2 Active Losartan Potassium 50 MG Oral Tablet (Cozaar)Indications :HTN, goal below 130/80 Take 1 Tablet by mouth in the morning. 90 Tablet 3 3 Active buPROPion HCl ER (XL) 150 MG Oral Tablet Extended Release 24 Hour (Wellbutrin XL)Indications:Tala r depressive disorder with single episode, in partial remission (HCC) Take 1 Tablet by mouth in the morning. 30 Tablet 5 4 Active Venlafaxine HCl ER 75 MG Oral Capsule Extended Release 24 Hour (Effexor XR)Indications:Anxi ety,Recurrent major depressive disorder, in partial remission (HCC) TAKE 1 CAPSULE BY MOUTH DAILY 90 Capsule 3 4 Active Venlafaxine HCl ER 75 MG Oral Capsule Extended Release 24 Hour (Effexor XR)Indications:Anxi ety,Recurrent major depressive disorder, in partial remission (HCC) TAKE 1 CAPSULE BY MOUTH DAILY 90 Capsule 2 3 09/06/19 24 Discontinued documented as of this encounter (statuses as of 09/06/2023) Active Problems Problem Noted Date Diagnosed Date Melanoma in situ of left shoulder 07/03/2023 Hx of melanoma of skin 08/06/2022 Overview: Melanoma History: Location: Left shoulder Year: 01/2022 Depth: in situ Treatment: WLE Staging: Stage 0 - [id number] - Melanoma in situ Recurrent major depressive [...] encounter Miscellaneous Notes * Telephone Encounter - Mir Cooper [facility] - 09/06/2023 9:31 AM EDTSigned Prescriptions: Disp Refills Venlafaxine HCl ER 75 MG Oral Capsule Exte*90 Cap*3 Sig: TAKE 1 CAPSULE BY MOUTH DAILYAuthorizing Provider: JAYA REYES User: MIR COOPER-- documented in this encounter Plan of Treatment Upcoming Encounters Date Type Department Care Team (Late st Contact Info) Description 10/30/2023 8:40 AM EDT Office Visit General Internal Medicine [facility] [address] [place] [address] Jaya Reyes MD [address] [facility] [place] [address] 12/27/2023 10:00 AM EDT Office Visit Gastroenterology, [facility] [address] [place] [address] Harshal Watkins MD [address] [facility] [place] [address] 01/14/2024 9:00 AM EDT Office Visit Dermatology [facility] [address] [place] [address] Joey Andres MD [address] [facility] [place] [address] Scheduled Procedures Name Priority Associated Diagnoses Date/Ti [...] (HCC) documented in this encounter Care Teams Linter Drier Operator Relationship Specialty Start Date End Date Jaya Reyes MD [address] [place] [address] PCP - General 08/11/09 documented as of this encounter
[2023-10-27] MEDS: SODIUM CHLORIDE 0.9% 1,000 ML IV STA (07:43)
[2023-10-27] MEDS: ONDANSETRON INJ 2 MG/ML 2 ML VIAL IV STA (07:43)
[2023-10-27] MEDS: HYDROmorphone INJ 0.5 MG/0.5 ML SYR IV PRN (08:05)
[2023-10-27 08:10] LABS: Basophils # (auto) 0.05 K/uL (0.00-0.20); Basophils % (auto) 0.5 %; Eosinophils # (auto) 0.12 K/uL (0.00-0.50); Eosinophils % (auto) 1.3 %; Hematocrit (blood only) 40.5 % (37.0-47.0); Hemoglobin 13.8 g/dl (12.0-16.0); Immature Granulocytes # (auto) 0.02 K/uL (0.01-0.20); Immature Granulocytes % (auto) 0.2 %; Lymphocytes # (auto) 1.62 K/uL (1.20-3.40); Mean Corpuscular Hemoglobin 30.3 pg (25.0-34.0); Mean Corpuscular Hgb Conc 34.1 g/dL (32.0-36.0); Mean Platelet Volume 10.6 fL (9.4-12.4); Monocytes # (auto) 0.66 K/uL (0.11-0.59); Monocytes % (auto) 6.9 %; Neutrophils # (auto) 7.07 K/uL (1.40-6.50); Neutrophils % (auto) 74.1 %; Platelet Count 211 K/uL (130-400); RDW Coefficient of Variation 13.3 % (11.5-14.5); Red Blood Count 4.55 M/uL (4.20-5.40); White Blood Count 9.54 K/ul (4.8-10.8)
--- NOTE | 2023-10-27 08:21 | Emergency Department Note ---
Impression & Plan Abdominal pain, lower, Nausea & vomiting ED Provider Note NAME: RAJIV HALL AGE: 78 SEX: Female INFORMANT: Patient ED PROVIDER(S): Adan Chino MD CHIEF COMPLAINT: Abdominal pain PLAN: Disposition: Admitted Outpatient prescription management: none Referral: None MEDICAL DECISION MAKING: Patient presented because of lower abdominal pain. She noted irregular bowel issues for some time and her last normal bowel movement was the day before yesterday. She was quite uncomfortable. She did feel somewhat better after Zofran. Patient was examined. She was tender in the lower aspect of her abdomen. Patient had blood work obtained. Imaging was ordered. She was treated symptomatically with IV Dilaudid. Patient was doing better on reassessment. She was sent for CT imaging. She has a partial colonic obstruction with diverticulitis. She was treated with IV Cipro and Flagyl. I did discuss the case with GI, Dr. Perez. He recommended conservative management with the antibiotics and MiraLAX. Discussed further management in the hospital with the patient and she was in agreement. Consultation was made with the [facility] service. Patient was evaluated in the ER and medical management. Care/management discussed with: manager technology Level of care consideration(s): After review of the information above and other included data, I feel the patient requires escalation of care to admission Triage Nursing notes: reviewed and agree them. Vital Signs: reviewed and remarkable for no significant abnormalities Additional History obtained from: none Chronic Medical/Social Conditions affecting care: Hypertension, GERD Prior/ Outside/ External records reviewed: none Differential Diagnosis: Obstruction, impaction, constipation, renal colic, UTI, appendicitis, diverticulitis, mesenteric ischemia, aortic pathology, infections, inflammatory bowel disease, PUD, biliary pathology, as well as other pathologies. Diagnostics, independently interpreted by me: ECG: none Cardiac Monitoring: Cardiac monitoring ordered by me: The patient was placed on continuous cardiac monitoring and observed. It revealed a normal sinus rhythm at 90 beats per minute without ectopy or evidence of dysrhythmia. Medical decision rules: none Imaging studies: CT reveals possible colonic obstruction and diverticulitis. I refer you to the EMR for further details. HPI: 78 year old Female arrives for evaluation of lower abdominal pain and constipation. This started last night with regards to the pain. She now notes that a 10 out of 10. It is lower abdomen. No upper abdominal pain. The patient also notes the following associated symptoms, nausea and vomiting. Patient notes having her last bowel movement was somewhat firm 2 days ago. She has had intermittent issues with constipation over the last several months. Last night after her symptoms seem to worsen she tried an enema, manual disimpaction, and MiraLAX without relief.. The patient has found no relieving factors. Current pain is rated as 10/10. Pt denies LOC, headache, fevers, chills, diaphoresis, visual changes, neck pain, chest pain, breathing difficulties, back pain, melena, hematochezia, urinary symptoms, numbness, weakness, lymphadenopathy, rash, or other complaints. . PAST MEDICAL HISTORY: See Below, hypertension PAST SURGICAL HISTORY: See Below, appendectomy SOCIAL HISTORY: See Below, non-smoker HOME MEDICATIONS: See Below ALLERGIES: See Below VITALS: See Below PHYSICAL EXAMINATION: GENERAL: Awake, alert, uncomfortable-appearing, in no distress HENT: Normocephalic, atraumatic. Oropharynx unremarkable. EYES: Normal conjunctiva. Sclera non-icteric. NECK: Inspection normal. Non-tender. Supple. No nuchal rigidity. FROM. No masses. RESPIRATORY: Clear to auscultation. No wheezes. No rales. Normal respiratory effort. CARDIAC: Normal rate. Normal rhythm. No murmurs. No rubs. Extremities warm and well perfused. Pulses equal. No JVD. GI: Soft, mild-distended. Four-quadrant tenderness to palpation. No rebound but mild guarding. No masses. RECTAL: Deferred. MUSCULOSKELETAL: Atraumatic. Chest examination reveals no tenderness. The back is symmetrical on inspection without obvious abnormality. There is no CVA tenderness to palpation. No joint edema. LOWER EXTREMITIES: Calves are equal size bilaterally and non-tender. No edema. No discoloration. NEURO: Normal sensorium. No sensory or motor deficits noted. SKIN: No rash or jaundice noted. PROCEDURES: none CRITICAL CARE: none OBSERVATION NOTE: none Past Med/Surg History Problem List Abdominal pain Constipation Nausea & vomiting (Acute) Abdominal pain, lower (Acute) Obesity (BMI 30.0-34.9) IBS (irritable bowel syndrome) Dehydration Nausea Abdominal pain Lumbar back pain with radiculopathy affecting right lower extremity (Acute) Encounter for pre-operative examination S/P total knee arthroplasty Acute blood loss anemia Osteoarthritis (Chronic) Chronic back pain (Chronic) LUMBAR AREA Esophageal hernia hx of GERD (gastroesophageal reflux disease) (Chronic) UNDER CONTROL Anxiety and depression (Chronic) Migraine headache (Chronic) HX Hypothyroidism (Chronic) HTN (hypertension) (Chronic) Medical History Norovirus Nausea vomiting and diarrhea Tachycardia Hypomagnesemia Abdominal distension SBO (small bowel obstruction) Nausea Acute upper abdominal pain History of IBS UNDER CONTROL Asthma MILD-NO INHALERS Anemia HX Surgical History History of Efraín fundoplication Family History Brother Family history of diabetes mellitus Social History Smoking Status: Never smoker Second Hand Exposure: No; Do You Dip or Chew Tobacco: No; Hx Alcohol Use: No Hx Substance Use: No Preferred Language: Moldovan Communication Ability: Effective Visual Impairment: No Limitations Personal Coach Required: No Beliefs That Will Affect Care: None Current Living Situation: Other current occupational status: retired Feels Safe at Home: Yes Assistive Devices: Glasses Allergies Allergies Allergy/AdvReac Type Severity Reaction Status Date / Time No Known Drug Allergies Allergy Unknown NONE Verified 06/25/23 10:02 Home Meds Home Medications Medication Instructions Recorded Confirmed acetaminophen 500 mg tablet 500 mg PO Q6H PRN Pain 03/05/18 10/27/23 (Tylenol Extra Strength) calcium carbonate 600 mg-vitamin 1 tab PO BID 03/05/18 10/27/23 D3 5 mcg (200 unit) capsule (Calcium 600 + D(3)) [id number] C-Mn 500 2 tab PO BID 03/05/18 10/27/23 mg-400 mg capsule (Glucosamine Chondroitin Maximum Strength) losartan 50 mg tablet 50 mg PO QAM 03/05/18 10/27/23 magnesium 250 mg tablet 250 mg PO QAM 03/05/18 10/27/23 multivitamin 1 tab PO QAM 03/05/18 10/27/23 rizatriptan 10 mg tablet 10 mg PO UD PRN Migraine Headache 03/05/18 10/27/23 vitamin B complex 1 cap PO QAM 03/05/18 10/27/23 vitamins A,C,I-gewe-apgqep 2,148 1 tab PO QAM 03/05/18 10/27/23 mcg-113 mg-45 mg-17.4 mg tablet (PreserVision AREDS) cholecalciferol (vitamin D3) 25 25 mcg PO QAM 05/09/21 10/27/23 mcg (1,000 unit) tablet (Vitamin D3) lactobacillus combination no.4 3 3,000 mmu cells PO QAM 05/09/21 10/27/23 billion cell capsule (Probiotic) celecoxib 200 mg capsule 200 mg PO QAM PRN Pain 06/25/23 10/27/23 levothyroxine 25 mcg tablet 25 mcg PO QAM 06/25/23 10/27/23 rosuvastatin 5 mg tablet 5 mg PO HS 06/25/23 10/27/23 venlafaxine 75 mg capsule,extended 75 mg PO QAM 06/25/23 10/27/23 release 24 hr Previous Rx's Medication Instructions Recorded ascorbic acid (vitamin C) 250 mg 250 mg PO BID #28 tabs 04/04/18 tablet (Vitamin C) simethicone 80 mg chewable tablet 80 mg PO Q6H PRN abdominal 06/27/23 (Gas Relief (simethicone)) distention #14 tabs Results & Data (ED) Vital Signs Vital Signs - 24 hr 10/27/23 07:20 10/27/23 07:26 10/27/23 07:39 Temperature 36.6 C Temperature Source Oral Pulse Rate 87 83 98 H Pulse Rate [Apical] Pulse Rate from SpO2 Sensor Pulse Rhythm Regular Pulse Rhythm [Apical] Pulse Strength [Apical] Respiratory Rate 24 26 H Respiratory Effort / Characteristics Respiratory Depth Respiratory Pattern Blood Pressure 132/91 Blood Pressure [Right Arm] Blood Pressure Mean 104 Blood Pressure Mean [Right Arm] Blood Pressure Position [Right Arm] Pulse Oximetry 97 97 Oxygen Delivery Method Room Air Oxygen Flow Rate Sepsis Recent Fever Within 48 Hours No Sepsis New/Unexplained Change in Mental Status No Sepsis Action Taken by Nursing No Action Required 10/27/23 09:13 10/27/23 11:00 10/27/23 11:00 Temperature Temperature Source Pulse Rate Pulse Rate [Apical] 73 93 H Pulse Rate from SpO2 Sensor Pulse Rhythm Pulse Rhythm [Apical] Pulse Strength [Apical] Respiratory Rate 18 18 Respiratory Effort / Characteristics Non-Labored Non-Labored Respiratory Depth Normal Normal Respiratory Pattern Blood Pressure 151/77 H Blood Pressure [Right Arm] 155/84 H 151/77 H Blood Pressure Mean 95 Blood Pressure Mean [Right Arm] 107 101 Blood Pressure Position [Right Arm] Sitting Pulse Oximetry 97 98 Oxygen Delivery Method Nasal Cannula Room Air Oxygen Flow Rate 2 Sepsis Recent Fever Within 48 Hours Sepsis New/Unexplained Change in Mental Status Sepsis Action Taken by Nursing 10/27/23 11:00 10/27/23 11:00 10/27/23 11:15 Temperature Temperature Source Pulse Rate 99 H Pulse Rate [Apical] Pulse Rate from SpO2 Sensor 99 H Pulse Rhythm Pulse Rhythm [Apical] Pulse Strength [Apical] Respiratory Rate 18 Respiratory Effort / Characteristics Respiratory Depth Respiratory Pattern Blood Pressure 151/77 H 151/77 H Blood Pressure [Right Arm] Blood Pressure Mean 95 95 Blood Pressure Mean [Right Arm] Blood Pressure Position [Right Arm] Pulse Oximetry 97 Oxygen Delivery Method Oxygen Flow Rate Sepsis Recent Fever Within 48 Hours Sepsis New/Unexplained Change in Mental Status Sepsis Action Taken by Nursing 10/27/23 11:30 10/27/23 11:36 10/27/23 11:48 Temperature Temperature Source Pulse Rate 90 88 Pulse Rate [Apical] Pulse Rate from SpO2 Sensor 90 86 Pulse Rhythm Pulse Rhythm [Apical] Pulse Strength [Apical] Respiratory Rate 14 13 Respiratory Effort / Characteristics Respiratory Depth Respiratory Pattern Blood Pressure 157/80 H Blood Pressure [Right Arm] Blood Pressure Mean 113 Blood Pressure Mean [Right Arm] Blood Pressure Position [Right Arm] Pulse Oximetry 97 97 Oxygen Delivery Method Oxygen Flow Rate Sepsis Recent Fever Within 48 Hours Sepsis New/Unexplained Change in Mental Status Sepsis Action Taken by Nursing 10/27/23 12:00 10/27/23 12:00 10/27/23 12:03 Temperature Temperature Source Pulse Rate 95 H Pulse Rate [Apical] Pulse Rate from SpO2 Sensor 95 H Pulse Rhythm Pulse Rhythm [Apical] Pulse Strength [Apical] Respiratory Rate 17 Respiratory Effort / Characteristics Respiratory Depth Respiratory Pattern Blood Pressure 139/80 139/80 Blood Pressure [Right Arm] Blood Pressure Mean 96 96 Blood Pressure Mean [Right Arm] Blood Pressure Position [Right Arm] Pulse Oximetry 95 Oxygen Delivery Method Oxygen Flow Rate Sepsis Recent Fever Within 48 Hours Sepsis New/Unexplained Change in Mental Status Sepsis Action Taken by Nursing 10/27/23 12:09 10/27/23 12:19 10/27/23 12:30 Temperature Temperature Source Pulse Rate 96 H 92 H Pulse Rate [Apical] 93 H Pulse Rate from SpO2 Sensor 92 H Pulse Rhythm Pulse Rhythm [Apical] Pulse Strength [Apical] Respiratory Rate 18 13 Respiratory Effort / Characteristics Non-Labored Respiratory Depth Normal Respiratory Pattern Blood Pressure Blood Pressure [Right Arm] 139/80 Blood Pressure Mean Blood Pressure Mean [Right Arm] 99 Blood Pressure Position [Right Arm] Pulse Oximetry 97 98 Oxygen Delivery Method Nasal Cannula Oxygen Flow Rate 2 Sepsis Recent Fever Within 48 Hours Sepsis New/Unexplained Change in Mental Status Sepsis Action Taken by Nursing 10/27/23 12:30 10/27/23 12:54 10/27/23 13:00 Temperature Temperature Source Pulse Rate 92 H Pulse Rate [Apical] Pulse Rate from SpO2 Sensor 92 H Pulse Rhythm Pulse Rhythm [Apical] Pulse Strength [Apical] Respiratory Rate 19 Respiratory Effort / Characteristics Respiratory Depth Respiratory Pattern Blood Pressure 134/77 132/76 Blood Pressure [Right Arm] Blood Pressure Mean 94 92 Blood Pressure Mean [Right Arm] Blood Pressure Position [Right Arm] Pulse Oximetry 98 Oxygen Delivery Method Oxygen Flow Rate Sepsis Recent Fever Within 48 Hours Sepsis New/Unexplained Change in Mental Status Sepsis Action Taken by Nursing 10/27/23 13:00 10/27/23 13:06 10/27/23 13:27 Temperature Temperature Source Pulse Rate 93 H 82 Pulse Rate [Apical] Pulse Rate from SpO2 Sensor 89 83 Pulse Rhythm Pulse Rhythm [Apical] Pulse Strength [Apical] Respiratory Rate 15 18 Respiratory Effort / Characteristics Respiratory Depth Respiratory Pattern Blood Pressure 132/76 Blood Pressure [Right Arm] Blood Pressure Mean 92 Blood Pressure Mean [Right Arm] Blood Pressure Position [Right Arm] Pulse Oximetry 99 99 Oxygen Delivery Method Oxygen Flow Rate Sepsis Recent Fever Within 48 Hours Sepsis New/Unexplained Change in Mental Status Sepsis Action Taken by Nursing 10/27/23 13:30 10/27/23 13:48 10/27/23 14:00 Temperature Temperature Source Pulse Rate 91 H Pulse Rate [Apical] Pulse Rate from SpO2 Sensor 87 Pulse Rhythm Pulse Rhythm [Apical] Pulse Strength [Apical] Respiratory Rate 16 Respiratory Effort / Characteristics Respiratory Depth Respiratory Pattern Blood Pressure 113/89 134/78 Blood Pressure [Right Arm] Blood Pressure Mean 98 96 Blood Pressure Mean [Right Arm] Blood Pressure Position [Right Arm] Pulse Oximetry 97 Oxygen Delivery Method Oxygen Flow Rate Sepsis Recent Fever Within 48 Hours Sepsis New/Unexplained Change in Mental Status Sepsis Action Taken by Nursing 10/27/23 14:00 10/27/23 14:00 10/27/23 15:01 Temperature Temperature Source Pulse Rate 93 H Pulse Rate [Apical] 97 H 94 H Pulse Rate from SpO2 Sensor 91 H Pulse Rhythm Pulse Rhythm [Apical] Regular Pulse Strength [Apical] Normal Respiratory Rate 13 18 16 Respiratory Effort / Characteristics Non-Labored Spontaneous Respiratory Depth Normal Normal Respiratory Pattern Regular Blood Pressure Blood Pressure [Right Arm] 134/78 106/90 Blood Pressure Mean Blood Pressure Mean [Right Arm] 96 95 Blood Pressure Position [Right Arm] Semi-fowlers Pulse Oximetry 96 99 97 Oxygen Delivery Method Nasal Cannula Room Air Oxygen Flow Rate 2 Sepsis Recent Fever Within 48 Hours Sepsis New/Unexplained Change in Mental Status Sepsis Action Taken by Nursing Laboratory Data 10/27/23 07:30 10/27/23 07:30 Lab Results 10/27/23 10/27/23 Range/Units 07:30 10:00 WBC 9.54 (4.8-10.8) K/ul RBC 4.55 (4.20-5.40) M/uL Hgb 13.8 (12.0-16.0) g/dl Hct 40.5 (37.0-47.0) % MCV 89.0 (80.0-100.0) fL MCH 30.3 (25.0-34.0) pg MCHC 34.1 (32.0-36.0) g/dL RDW Std Deviation 43.0 (36.4-46.3) fL RDW Coeff of Pito 13.3 (11.5-14.5) % Plt Count 211 (130-400) K/uL MPV 10.6 (9.4-12.4) fL Immature Gran % (Auto) 0.2 % Neut % (Auto) 74.1 % Lymph % (Auto) 17.0 % [place] % (Auto) 6.9 % Eos % (Auto) 1.3 % Baso % (Auto) 0.5 % Neut # (Auto) 7.07 H (1.40-6.50) K/uL Lymph # (Auto) 1.62 (1.20-3.40) K/uL [place] # (Auto) 0.66 H (0.11-0.59) K/uL Eos # (Auto) 0.12 (0.00-0.50) K/uL Baso # (Auto) 0.05 (0.00-0.20) K/uL Immature Gran # (Auto) 0.02 (0.01-0.20) K/uL Sodium 140 (136-145) mmol/L Potassium 3.9 (3.5-5.1) mmol/L Chloride 107 (98-107) mmol/L Carbon Dioxide 23 (21-32) mmol/L Anion Gap 10 (3-11) BUN 21 (6-23) mg/dl Creatinine 0.89 (0.6-1.2) mg/dl Est Cr Clr Drug Dosing 67.8 ml/min Est GFR ( Amer) 72.5 ml/min Est GFR (Non-Af Amer) 62.5 ml/min BUN/Creatinine Ratio 23.6 H (10-20) Glucose 155 H (70-99(Fasting)) mg/dl Lactate 1.5 (0.4-2.0) mmol/L Calcium 10.0 (8.6-10.3) mg/dl Total Bilirubin 0.8 (0.2-1.0) mg/dl AST 23 (13-39) U/L ALT 16 (7-52) U/L Alkaline Phosphatase 62 (34-104) U/L Troponin I High Sens 4.3 (0-14) pg/ml Total Protein 7.3 (6.0-8.3) gm/dl Albumin 4.2 (3.4-5.0) gm/dl Globulin 3.1 (2.5-4.0) gm/dl Albumin/Globulin Ratio 1.4 (0.9-2) Lipase 11 (11-82) U/L Urine Color Dark Yellow Urine Appearance Clear (Clear) Urine pH 5.0 (4.5-7.5) Ur Specific [place] 1.018 (1.000-1.030) Urine Protein Trace H (Negative) Urine Glucose (UA) Negative (Negative) Urine Ketones Trace H (Negative) Urine Blood Negative (Negative) Urine Nitrite Positive A (Negative) Urine Bilirubin 1+ H (Negative) Urine Urobilinogen Negative (Negative) Ur Leukocyte Esterase 1+ H (Negative) Urine WBC (Auto) 0-5 (0-5) /hpf Urine RBC (Auto) 0-2 (0-2) /hpf U Hyaline Cast (Auto) 0-2 (0-2) /lpf U Epithel Cells (Auto) 0-2 (0-2) /hpf Urine Bacteria (Auto) None Seen (None Seen) Administered Medications Hydromorphone HCl (Hydromorphone Inj 0.5 Mg/0.5 Ml Syr) 0.5 mg IV Q15M PRN PRN Reason: Pain Stop: 11/10/23 08:00 Last Admin: 10/27/23 11:49 Dose: 0.5 mg Documented By: Admin: 10/27/23 10:12 Dose: 0.5 mg Documented By: Admin: 10/27/23 08:49 Dose: 0.5 mg Documented By: Admin: 10/27/23 08:05 Dose: 0.5 mg Documented By: SANJAY Discontinued Medications Sodium Chloride (Nss) 1,000 mls @ 999 mls/hr IV .Q1H1M STA Stop: 10/27/23 08:36 Last Infusion: 10/27/23 08:45 Dose: Infused Documented By: Admin: 10/27/23 07:43 Dose: 999 mls/hr Documented By: SANJAY Ciprofloxacin (Cipro / D5w) 400 mg in 200 mls @ 100 mls/hr IV NOW STA; Protocol Stop: 10/27/23 11:59 Last Infusion: 10/27/23 12:16 Dose: Infused Documented By: Admin: 10/27/23 10:10 Dose: 100 mls/hr Documented By: SANJAY Metronidazole (Flagyl) 500 mg in 100 mls @ 100 mls/hr IV NOW STA; Protocol Stop: 10/27/23 10:59 Last Infusion: 10/27/23 11:13 Dose: Infused Documented By: Admin: 10/27/23 10:09 Dose: 100 mls/hr Documented By: SANJAY Ondansetron HCl (Ondansetron Inj 2 Mg/Ml 2 Ml Vial) 4 mg IV NOW STA Stop: 10/27/23 07:37 Last Admin: 10/27/23 07:43 Dose: 4 mg Documented By: SANJAY Imaging Data Radiologist's Impression: Abdomen/Pelvis CT 10/27/23 08:01 CT OF THE ABDOMEN AND PELVIS WITHOUT CONTRAST CLINICAL HISTORY: Severe lower abdominal pain and vomiting. COMPARISON STUDY: CT of the abdomen and pelvis June 25, 2023. TECHNIQUE: Axial images of the abdomen and pelvis were obtained without IV contrast. Images were reviewed in the axial, sagittal, and coronal planes. Automated exposure control was utilized for the study. A dose lowering technique was utilized adhering to the principles of ALARA. FINDINGS: Lung bases are unremarkable. There is a small hiatal hernia. No pneumatosis, free air or portal venous gas is present. Evaluation of the abdomen and pelvis is suboptimal on this exam. Water attenuation 7.6 cm right hepatic lobe lesion was shown to represent a cyst on prior CT. The spleen, right adrenal gland and pancreas are unremarkable. Left adrenal nodularity is unchanged. This is likely benign. There is no biliary or pancreatic ductal dilatation. There are left-sided renal parapelvic cysts. There is no hydronephrosis. The appendix is not visualized. The ascending colon and transverse colon are moderately distended and contains a large amount of poorly formed stool. There is extensive colonic diverticulosis. There is mild pericolonic stranding and sigmoid colon. There is no fluid collection is suggest abscess. There is mild circumferential wall thickening within the mid sigmoid colon on image 295. No definitive mucosal lesion is identified although sensitivity is diminished given CT technique. There is no lymphadenopathy. IMPRESSION: 1. Moderately distended ascending colon and transverse colon which contain a large amount of poorly formed stool. Colonic dilatation is likely due to stool however a partial colonic obstruction cannot be excluded. Circumferential wall thickening within the sigmoid colon likely due to underdistention or circular muscular hypertrophy. A nonemergent colonoscopy once symptoms resolved is recommended to exclude the possibility of an underlying mucosal lesion. 2. Extensive left colon diverticulosis with mild stranding adjacent to the descending colon and sigmoid colon. The findings could reflect a nonspecific colitis or diverticulitis. No free air or abscess. 3. No evidence for a small bowel obstruction. 4. Hiatal hernia. ACT 112: Positive. There are findings on this exam that require communication between the performing entity and the patient following Patient Test Result Information Act ([place] Act 112) guidelines. Electronically signed by: Delvis Downs M.D. 10/27/2023 8:50 AM Discharge Plan Visit Data Chief Complaint: Constipation Stated Complaint: FECAL IMPACTION ED Provider: Adan Chino Discharge Problem: Abdominal pain, lower, Nausea & vomiting Patient Disposition: Admitted As Inpatient Discharge Instructions Interventions: ED Discharge Assessment Last Done: 10/27/23 15:30 Forms Stand Alone Forms: [facility] [employer] Prescriptions Prescriptions: No Action losartan 50 mg Tablet 50 mg PO QAM rizatriptan 10 mg Tablet 10 mg PO UD PRN (Reason: Migraine Headache) vitamin B complex Capsule 1 cap PO QAM Rx Instructions: Unable to verify OTC meds at this date/time. [id number] C-Mn [Glucosamine Chondroitin MaxStr] 500-400 mg Capsule 2 tab PO BID Rx Instructions: Unable to verify OTC meds at this date/time. Calcium 600 + D(3) 600 mg calcium- 200 unit Capsule 1 tab PO BID Rx Instructions: Unable to verify OTC meds at this date/time. multivitamin Tablet 1 tab PO QAM Rx Instructions: Unable to verify OTC meds at this date/time. magnesium 250 mg Tablet 250 mg PO QAM Rx Instructions: Unable to verify OTC meds at this date/time. PreserVision AREDS 7,160-113-100 [id number] Tablet 1 tab PO QAM Rx Instructions: Unable to verify OTC meds at this date/time. acetaminophen [Tylenol Extra Strength] 500 mg Tablet 500 mg PO Q6H PRN (Reason: Pain) Rx Instructions: Unable to verify OTC meds at this date/time. ascorbic acid (vitamin C) [Vitamin C] 250 mg tablet 250 mg PO BID Qty: 28 0RF Rx Instructions: Unable to verify OTC meds at this date/time. cholecalciferol (vitamin D3) [Vitamin D3] 25 mcg (1,000 unit) Tablet 25 mcg PO QAM Rx Instructions: Unable to verify OTC meds at this date/time. Probiotic 3 billion cell Capsule 3,000 mmu cells PO QAM Rx Instructions: Unable to verify OTC meds at this date/time. celecoxib 200 mg capsule 200 mg PO QAM PRN (Reason: Pain) venlafaxine 75 mg capsule,extended release 24hr 75 mg PO QAM levothyroxine 25 mcg tablet 25 mcg PO QAM rosuvastatin 5 mg tablet 5 mg PO HS simethicone [Gas Relief (simethicone)] 80 mg Tablet,Chewable 80 mg PO Q6H PRN (Reason: abdominal distention) Qty: 14 0RF Rx Instructions: Unable to verify OTC meds at this date/time. Referrals Referrals: Kamala Reyes MD [Primary Care Provider] - Discharge Problem: Nausea & vomiting Qualifiers: Vomiting type: unspecified Qualified Code(s): R11.2 - Nausea with vomiting, unspecified
[2023-10-27 08:23] LABS: Albumin Globulin Ratio 1.4 (0.9-2); Albumin Level 4.2 gm/dl (3.4-5.0); BUN Creatinine Ratio 23.6 (10-20); Bilirubin,Total 0.8 mg/dl (0.2-1.0); Creatinine Clr Calc Pharmacy 67.8 ml/min; Est GFR (African American) 72.5 ml/min; Est GFR (Non-African American) 62.5 ml/min; Globulin 3.1 gm/dl (2.5-4.0); Potassium 3.9 mmol/L (3.5-5.1); Total Protein 7.3 gm/dl (6.0-8.3)
[2023-10-27 08:28] LABS: Troponin I High Sensitivity 4.3 pg/ml (0-14)
--- NOTE | 2023-10-27 08:52 | CT Scan Report ---
CT OF THE ABDOMEN AND PELVIS WITHOUT CONTRAST CLINICAL HISTORY: Severe lower abdominal pain and vomiting. COMPARISON STUDY: CT of the abdomen and pelvis June 25, 2023. TECHNIQUE: Axial images of the abdomen and pelvis were obtained without IV contrast. Images were revi ewed in the axial, sagittal, and coronal planes. Automated exposure control was utilized for the kevin dy. A dose lowering technique was utilized adhering to the principles of ALARA. FINDINGS: Lung bases are unremarkable. There is a small hiatal hernia. No pneumatosis, free air or po rtal venous gas is present. Evaluation of the abdomen and pelvis is suboptimal on this exam. Water at tenuation 7.6 cm right hepatic lobe lesion was shown to represent a cyst on prior CT. The spleen, rig ht adrenal gland and pancreas are unremarkable. Left adrenal nodularity is unchanged. This is likely benign. There is no biliary or pancreatic ductal dilatation. There are left-sided renal parapelvic cy sts. There is no hydronephrosis. The appendix is not visualized. The ascending colon and transverse c olon are moderately distended and contains a large amount of poorly formed stool. There is extensive colonic diverticulosis. There is mild pericolonic stranding and sigmoid colon. There is no fluid adolph ection is suggest abscess. There is mild circumferential wall thickening within the mid sigmoid colon on image 295. No definitive mucosal lesion is identified although sensitivity is diminished given CT technique. There is no lymphadenopathy. IMPRESSION: 1. Moderately distended ascending colon and transverse colon which contain a large amount of poorly f ormed stool. Colonic dilatation is likely due to stool however a partial colonic obstruction cannot b e excluded. Circumferential wall thickening within the sigmoid colon likely due to underdistention or circular muscular hypertrophy. A nonemergent colonoscopy once symptoms resolved is recommended to ex clude the possibility of an underlying mucosal lesion. 2. Extensive left colon diverticulosis with mild stranding adjacent to the descending colon and sigmo id colon. The findings could reflect a nonspecific colitis or diverticulitis. No free air or abscess. 3. No evidence for a small bowel obstruction. 4. Hiatal hernia. ACT 112: Positive. There are findings on this exam that require communication between the performing entity and the patient following Patient Test Result Information Act ([place] Act 112) guidelines. Electronically signed by: Delvis Downs M.D. 10/27/2023 8:50 AM
[2023-10-27] MEDS: metroNIDAZOLE 500 MG/100 ML BAG IV STA (10:09)
[2023-10-27] MEDS: CIPROFLOXACIN / D5W 400 MG/200 ML BAG IV STA (10:10)
[2023-10-27 10:31] LABS: Appearance Urine Clear (Clear); Bacteria Urine Automated None Seen (None Seen); Bilirubin Urine 1+ (Negative); Blood Urine Negative (Negative); Cast Urine Automated 0-2 /lpf (0-2); Color Urine Dark Yellow; Epithelial Cell Urine Auto 0-2 /hpf (0-2); Glucose Urine UA Negative (Negative); Ketones Urine Trace (Negative); Leukocyte Esterase Urine 1+ (Negative); Nitrite Urine Positive (Negative); Protein Urine Trace (Negative); RBC Urine Automated 0-2 /hpf (0-2); Specific Gravity Urine 1.018 (1.000-1.030); Urobilinogen Urine Negative (Negative); WBC Urine Automated 0-5 /hpf (0-5)
--- NOTE | 2023-10-27 13:27 | History & Physical Report ---
Date of Service October 27, 2023 Assessment & Plan (1) Constipation: (2) Abdominal pain: (3) Nausea & vomiting: Plan Anita Kincaid is a 78y/o F with PMHx of HTN, hyperlipidemia, hypothyroidism, IBS, depression, history of paraesophageal hernia s/p Efraín fundoplication, history of migraines and other problems listed below who presented to the ED for evaluation 2/2 abdominal pain, N/V and constipation. CT A/P 1. Moderately distended ascending colon and transverse colon which contain a large amount of poorly formed stool. Colonic dilatation is likely due to stool however a partial colonic obstruction cannot be excluded. Circumferential wall thickening within the sigmoid colon likely due to underdistention or circular muscular hypertrophy. A nonemergent colonoscopy once symptoms resolved is recommended to exclude the possibility of an underlying mucosal lesion. 2. Extensive left colon diverticulosis with mild stranding adjacent to the descending colon and sigmoid colon. The findings could reflect a nonspecific colitis or diverticulitis. No free air or abscess. 3. No evidence for a small bowel obstruction. 4. Hiatal hernia. Constipation with N/V/abd pain possible mild colitis vs acute left sided diverticulitis- Constipation ongoing issue since norovirus infection in May. States he was denied lubiprostone by insurance despite being recommended by his GI doctor. On multiple laxatives at home including suppository and enema, used last night due to worsening symptoms. Currently abd pain much better after iv dilaudid in ED along with IV zofran. CT A/P with large amount of poorly formed stool in ascending colon and transverse colon, unable to rule out partial colonic obstruction along with possible mild non specific colitis or diverticulitis in descending colon and sigmoid colon, no SBO. Will continue cipro/flagyl given in ED, clear liquid diet, advance as tolerated, iv toradol prn---if that doesn't help, iv dilaudid prn; iv zofran prn. Will start on bowel regimen with lactulose bid along with miralax and senokot- prn milk of magnesia if still no BM. Consider GI eval if still with persistent symptoms despite above treatment. Follows with Roselyn HOLMAN. She will need colonoscopy when acute episode resolves. Last colonoscopy was 3 years ago. HTN- BP stable, continue home losartan Hypothyroid- continue synthroid DVT Prophylaxis: sc lovenox Dispo: Place in observation. Admit to inpatient tomorrow if she is not discharged as she is Medicare. Full code PCP: Kamala Reyes Patient seen in collaboration with Dr. Stephenson. Please see addendum. I spent a total of 60 minutes coordinating, documenting, and providing care for this patient excluding time spent in the performance of separately billed services. This included personally reviewing all current laboratories and ariadna ging studies, medical reconciliation, outpatient chart review and discussion with specialists. This chart was completed in part utilizing Speech Voice Recognition Software. Grammatical errors, random word insertions, pronoun errors, and incomplete sentences are an occasional consequence of this system due to software limitations, ambient noise, and hardware issues. Any formal questions or concern s about the content, text, or information contained within the body of this dictation should be directly addressed to the provider for clarification. History of Present Illness Chief Complaint: Abdominal Pain, N/V & Constipation Primary Care Provider: Kamala Reyes MD Anita Kincaid is a 78y/o F with PMHx of HTN, hyperlipidemia, hypothyroidism, IBS, depression, history of paraesophageal hernia s/p Efraín fundoplication, history of migraines and other problems listed below who presented to the ED for evaluation 2/2 abdominal pain, N/V and constipation. History obtained from the patient and associated chart review. Patient seen at bedside with Dr. Stephenson. Patient mentions issues with bowel movements since she had norovirus back in May. States she has been battling with either constipation or diarrhea since being diagnosed with norovirus, but is now complaining of constipation that has become rather bothersome. Has been attempting to use laxatives, manual disimpaction with a lubricated rubber glove and fleet enemas at home with little to no improvement. She takes daily stool softeners, which haven't worked either. She has also tried Milk of Magnesia and that didn't work. Has not had a recent colonoscopy, has seen Dr. Watkins for these concerns previously. Patient has also seen Dr. Andrea for these concerns. She expresses frustration with not being able to figure out what is exactly causing her GI complaints. Patient has been experiencing some abdominal pain since last evening. Mentions her abdomen feels rather distended, which is not usual for her. No fevers, but does endorse some chills. Has vomited 2x since last night, denies any heartburn. No history of bowel obstructions per patient. States she has been eating just fine, watches her diet closely and hydrates appropriately. Has been trying to avoid foods that are "triggers" for her abdominal issues; currently on a FODMAP diet. Endorsing pain relief s/p administration of IV Dilaudid in the ED. States her abdomen feels like "a hard lump." Was on 2L supplemental oxygen via [place] in the ED 2/2 increased RR as a result of increasing pain. Currently 99% SpO2 on RA, denies any SOB or chest pain at this time. States she has not felt short of breath since being in the ED and does not use any supplement oxygen therapy at home. She has had capsule studies performed in the past, some bleeding was noted but patient could not confirm where the bleeding was found with her intestines. Patient informed that a colonoscopy was not indicated in the past. Allergies Allergy/AdvReac Type Severity Reaction Status Date / Time No Known Drug Allergies Allergy Unknown NONE Verified 06/25/23 10:02 Home Medications Medication Instructions Recorded Confirmed Type acetaminophen 500 mg tablet 500 mg PO Q6H PRN Pain 03/05/18 10/27/23 History (Tylenol Extra Strength) calcium carbonate 600 mg-vitamin 1 tab PO BID 03/05/18 10/27/23 History D3 5 mcg (200 unit) capsule (Calcium 600 + D(3)) [id number] C-Mn 500 2 tab PO BID 03/05/18 10/27/23 History mg-400 mg capsule (Glucosamine Chondroitin Maximum Strength) losartan 50 mg tablet 50 mg PO QAM 03/05/18 10/27/23 History magnesium 250 mg tablet 250 mg PO QAM 03/05/18 10/27/23 History multivitamin 1 tab PO QAM 03/05/18 10/27/23 History rizatriptan 10 mg tablet 10 mg PO UD PRN Migraine Headache 03/05/18 10/27/23 History vitamin B complex 1 cap PO QAM 03/05/18 10/27/23 History vitamins A,C,Q-mijq-costww 2,148 1 tab PO QAM 03/05/18 10/27/23 History mcg-113 mg-45 mg-17.4 mg tablet (PreserVision AREDS) ascorbic acid (vitamin C) 250 mg 250 mg PO BID #28 tabs 04/04/18 10/27/23 Rx tablet (Vitamin C) cholecalciferol (vitamin D3) 25 25 mcg PO QAM 05/09/21 10/27/23 History mcg (1,000 unit) tablet (Vitamin D3) lactobacillus combination no.4 3 3,000 mmu cells PO QAM 05/09/21 10/27/23 History billion cell capsule (Probiotic) celecoxib 200 mg capsule 200 mg PO QAM PRN Pain 06/25/23 10/27/23 History levothyroxine 25 mcg tablet 25 mcg PO QAM 06/25/23 10/27/23 History rosuvastatin 5 mg tablet 5 mg PO HS 06/25/23 10/27/23 History venlafaxine 75 mg capsule,extended 75 mg PO QAM 06/25/23 10/27/23 History release 24 hr simethicone 80 mg chewable tablet 80 mg PO Q6H PRN abdominal 06/27/23 10/27/23 Rx (Gas Relief (simethicone)) distention #14 tabs Past Med/Surg History Problem List Abdominal pain Constipation Nausea & vomiting (Acute) Abdominal pain, lower (Acute) Obesity (BMI 30.0-34.9) IBS (irritable bowel syndrome) Dehydration Nausea Abdominal pain Lumbar back pain with radiculopathy affecting right lower extremity (Acute) Encounter for pre-operative examination S/P total knee arthroplasty Acute blood loss anemia Osteoarthritis (Chronic) Chronic back pain (Chronic) LUMBAR AREA Esophageal hernia hx of GERD (gastroesophageal reflux disease) (Chronic) UNDER CONTROL Anxiety and depression (Chronic) Migraine headache (Chronic) HX Hypothyroidism (Chronic) HTN (hypertension) (Chronic) Medical History Norovirus Nausea vomiting and diarrhea Tachycardia Hypomagnesemia Abdominal distension SBO (small bowel obstruction) Nausea Acute upper abdominal pain History of IBS UNDER CONTROL Asthma MILD-NO INHALERS Anemia HX Surgical History History of Efraín fundoplication Family History Brother Family history of diabetes mellitus Social History Smoking Status: Never smoker Second Hand Exposure: No; Do You Dip or Chew Tobacco: No; Hx Alcohol Use: No Hx Substance Use: No Preferred Language: Welsh Communication Ability: Effective Visual Impairment: No Limitations Director Furniture Required: No Beliefs That Will Affect Care: None Current Living Situation: Other current occupational status: retired Feels Safe at Home: Yes Assistive Devices: Glasses Review of Systems Review of Systems: At least ten systems reviewed and negative, except as noted in the HPI. Physical Exam Physical Exam: General: Lying comfortably in bed, not in acute distress, on room air HEENT: EOMI, KARI, MMM Chest: Clear breath sounds bilaterally, no wheezes or crackles CVS: Regular rate and rhythm, normal heart sounds, no murmur Abdomen: Soft, non tender, distended, normal bowel sounds Neuro: Awake, alert, oriented, conversing well, non focal Extremities: No edema Psych: Calm, cooperative Results & Data Results & Data Vital Signs (Past 12 Hours) Vital Signs Temp Pulse Pulse Resp BP BP Pulse Ox 10/27/23 12:19 93 H 18 139/80 97 10/27/23 12:09 96 H 10/27/23 11:00 93 H 18 151/77 H 98 10/27/23 09:13 73 18 155/84 H 97 10/27/23 07:39 98 H 26 H 97 10/27/23 07:26 83 10/27/23 07:20 36.6 C 87 24 132/91 97 O2 Del Method O2 Flow Rate 10/27/23 12:19 Nasal Cannula 2 10/27/23 12:09 10/27/23 11:00 Room Air 10/27/23 09:13 Nasal Cannula 2 10/27/23 07:39 Room Air 10/27/23 07:26 10/27/23 07:20 Laboratory Results Short CBC 10/27/23 Range/Units 07:30 WBC 9.54 (4.8-10.8) K/ul Hgb 13.8 (12.0-16.0) g/dl Hct 40.5 (37.0-47.0) % Plt Count 211 (130-400) K/uL BMP 10/27/23 07:30 Sodium 140 Potassium 3.9 Chloride 107 Carbon Dioxide 23 BUN 21 Creatinine 0.89 Glucose 155 H Calcium 10.0 Liver Function 10/27/23 Range/Units 07:30 Total Bilirubin 0.8 (0.2-1.0) mg/dl AST 23 (13-39) U/L ALT 16 (7-52) U/L Alkaline Phosphatase 62 (34-104) U/L Albumin 4.2 (3.4-5.0) gm/dl Urine 10/27/23 Range/Units 10:00 Urine Color Dark Yellow Urine Appearance Clear (Clear) Urine pH 5.0 (4.5-7.5) Ur Specific [place] 1.018 (1.000-1.030) Urine Protein Trace H (Negative) Urine Glucose (UA) Negative (Negative) Diagnostic Findings Abdomen/Pelvis CT 10/27/23 08:01 CT OF THE ABDOMEN AND PELVIS WITHOUT CONTRAST CLINICAL HISTORY: Severe lower abdominal pain and vomiting. COMPARISON STUDY: CT of the abdomen and pelvis June 25, 2023. TECHNIQUE: Axial images of the abdomen and pelvis were obtained without IV contrast. Images were reviewed in the axial, sagittal, and coronal planes. Automated exposure control was utilized for the study. A dose lowering technique was utilized adhering to the principles of ALARA. FINDINGS: Lung bases are unremarkable. There is a small hiatal hernia. No pneumatosis, free air or portal venous gas is present. Evaluation of the abdomen and pelvis is suboptimal on this exam. Water attenuation 7.6 cm right hepatic lobe lesion was shown to represent a cyst on prior CT. The spleen, right adrenal gland and pancreas are unremarkable. Left adrenal nodularity is unchanged. This is likely benign. There is no biliary or pancreatic ductal dilatation. There are left-sided renal parapelvic cysts. There is no hydronephrosis. The appendix is not visualized. The ascending colon and transverse colon are moderately distended and contains a large amount of poorly formed stool. There is extensive colonic diverticulosis. There is mild pericolonic stranding and sigmoid colon. There is no fluid collection is suggest abscess. There is mild circumferential wall thickening within the mid sigmoid colon on image 295. No definitive mucosal lesion is identified although sensitivity is diminished given CT technique. There is no lymphadenopathy. IMPRESSION: 1. Moderately distended ascending colon and transverse colon which contain a large amount of poorly formed stool. Colonic dilatation is likely due to stool however a partial colonic obstruction cannot be excluded. Circumferential wall thickening within the sigmoid colon likely due to underdistention or circular muscular hypertrophy. A nonemergent colonoscopy once symptoms resolved is recommended to exclude the possibility of an underlying mucosal lesion. 2. Extensive left colon diverticulosis with mild stranding adjacent to the descending colon and sigmoid colon. The findings could reflect a nonspecific colitis or diverticulitis. No free air or abscess. 3. No evidence for a small bowel obstruction. 4. Hiatal hernia. ACT 112: Positive. There are findings on this exam that require communication between the performing entity and the patient following Patient Test Result Information Act ([place] Act 112) guidelines. Electronically signed by: Delvis Downs M.D. 10/27/2023 8:50 AM Medications Administered Hydromorphone HCl (Hydromorphone Inj 0.5 Mg/0.5 Ml Syr) 0.5 mg IV Q15M PRN PRN Reason: Pain Stop: 11/10/23 08:00 Last Admin: 10/27/23 11:49 Dose: 0.5 mg Documented By: Admin: 10/27/23 10:12 Dose: 0.5 mg Documented By: Admin: 10/27/23 08:49 Dose: 0.5 mg Documented By: Admin: 10/27/23 08:05 Dose: 0.5 mg Documented By: SANJAY Discontinued Medications Sodium Chloride (Nss) 1,000 mls @ 999 mls/hr IV .Q1H1M STA Stop: 10/27/23 08:36 Last Infusion: 10/27/23 08:45 Dose: Infused Documented By: Admin: 10/27/23 07:43 Dose: 999 mls/hr Documented By: SANJAY Ciprofloxacin (Cipro / D5w) 400 mg in 200 mls @ 100 mls/hr IV NOW STA; Protocol Stop: 10/27/23 11:59 Last Infusion: 10/27/23 12:16 Dose: Infused Documented By: Admin: 10/27/23 10:10 Dose: 100 mls/hr Documented By: SANJAY Metronidazole (Flagyl) 500 mg in 100 mls @ 100 mls/hr IV NOW STA; Protocol Stop: 10/27/23 10:59 Last Infusion: 10/27/23 11:13 Dose: Infused Documented By: Admin: 10/27/23 10:09 Dose: 100 mls/hr Documented By: SANJAY Ondansetron HCl (Ondansetron Inj 2 Mg/Ml 2 Ml Vial) 4 mg IV NOW STA Stop: 10/27/23 07:37 Last Admin: 10/27/23 07:43 Dose: 4 mg Documented By: SANJAY Code Status & VTE Plan Code Status FULL CODE Supervising Physician Co-Signing Physician Notes Patient was seen and examined with Roslyn IRIZARRY at bedside. Chart reviewed. Case discussed with Roslyn IRIZARRY and agree with the documentation above and I have made appropriate changes wherever necessary. (1) Constipation Constipation type: unspecified constipation type Qualified Code(s): K59.00 - Constipation, unspecified (2) Abdominal pain Abdominal location: unspecified location Qualified Code(s): R10.9 - Unspecified abdominal pain (3) Nausea & vomiting Vomiting type: unspecified Qualified Code(s): R11.2 - Nausea with vomiting, unspecified
[2023-10-27] MEDS ORDERED: RIZATRIPTAN BENZOATE 10 MG TAB PO PRN (16:15)
[2023-10-27] MEDS ORDERED: ONDANSETRON INJ 2 MG/ML 2 ML VIAL IV PRN (16:15)
[2023-10-27] MEDS ORDERED: KETOROLAC TROMETHAMINE 15 MG/ML VIAL IV PRN (16:15)
[2023-10-27] MEDS ORDERED: HYDROmorphone INJ 0.5 MG/0.5 ML SYR IV PRN (16:15)
[2023-10-27] MEDS ORDERED: ACETAMINOPHEN 325 MG TAB PO PRN (16:15)
[2023-10-27] MEDS ORDERED: MAGNESIUM HYDROXIDE SUSP 30 ML UDC PO PRN (16:15)
[2023-10-27] MEDS ORDERED: SIMETHICONE 80 MG CHEW PO PRN (16:15)
[2023-10-27] MEDS ORDERED: CeleBREX 200 MG CAP PO PRN (16:15)
[2023-10-27] MEDS: ACETAMINOPHEN 325 MG TAB PO STA (16:30)
[2023-10-27] MEDS: MAGNESIUM HYDROXIDE SUSP 30 ML UDC PO ONE (16:48)
[2023-10-27] MEDS: LACTULOSE SYRUP 20 GM/30 ML UDC PO SCH (16:48)
[2023-10-27] MEDS: metroNIDAZOLE 500 MG TAB PO SCH (16:48)
--- NOTE | 2023-10-27 18:14 | Electrocardiogram Report ---
Test Reason : Blood Pressure : / mmHG Vent. Rate : 079 BPM Atrial Rate : 079 BPM P-R Int : 174 ms QRS Dur : 096 ms QT Int : 390 ms P-R-T Axes : 066 037 057 degrees QTc Int : 447 ms Normal sinus rhythm Nonspecific ST abnormality When compared with ECG of 25-JUN-2023 07:34, No significant change was found Confirmed by Himanshu Akers ([id number]) on 10/27/2023 6:14:19 PM Referred By: Confirmed By:Himanshu Akers
[2023-10-27] MEDS: CIPROFLOXACIN 500 MG TAB PO SCH (20:21)
[2023-10-27] MEDS: ROSUVASTATIN CALCIUM 5 MG TAB PO SCH (20:22)
[2023-10-27] MEDS: POLYETHYLENE (MIRALAX) 17 GM PACK PO SCH (20:28)
[2023-10-28] MEDS: LEVOTHYROXINE SODIUM 25 MCG TABLET PO SCH (05:30)
[2023-10-28 07:38] LABS: BUN Creatinine Ratio 19.3 (10-20); Calcium 8.5 mg/dl (8.6-10.3); Creatinine Clr Calc Pharmacy 72.2 ml/min; Est GFR (African American) 78.8 ml/min; Magnesium 1.9 mg/dl (1.7-2.4); Phosphorus 2.6 mg/dl (2.5-4.9); Potassium 3.9 mmol/L (3.5-5.1)
[2023-10-28 07:45] LABS: Hematocrit (blood only) 35.6 % (37.0-47.0); Hemoglobin 11.7 g/dl (12.0-16.0); Mean Corpuscular Hemoglobin 29.5 pg (25.0-34.0); Mean Corpuscular Hgb Conc 32.9 g/dL (32.0-36.0); Mean Corpuscular Volume 89.9 fL (80.0-100.0); Mean Platelet Volume 10.6 fL (9.4-12.4); Platelet Count 162 K/uL (130-400); RDW Coefficient of Variation 13.4 % (11.5-14.5); Red Blood Count 3.96 M/uL (4.20-5.40); White Blood Count 7.27 K/ul (4.8-10.8)
[2023-10-28 08:21] LABS: Thyroid Stimulating Hormone 0.624 uIu/ml (0.300-4.500)
[2023-10-28] MEDS: CEROVITE ADV FORMULA TAB PO SCH (08:27)
[2023-10-28] MEDS: DOCUSATE SODIUM/SENNA 50/8.6MG TAB PO SCH (08:27)
[2023-10-28] MEDS: LOSARTAN POTASSIUM 50 MG TAB PO SCH (08:27)
[2023-10-28] MEDS: VENLAFAXINE HCL XR 75 MG CAPXR PO SCH (08:27)
[2023-10-28] MEDS: ENOXAPARIN INJ 40 MG/0.4 ML SYR SQ SCH (08:28)
--- NOTE | 2023-10-28 08:36 | XRay Report ---
KUB CLINICAL HISTORY: ff up severe constipation, r/o obstruction COMPARISON STUDY: CT of the abdomen and pelvis October 27, 2023. FINDINGS: There is a moderate amount stool within the colon and rectum. Several mildly dilated loops of small bowel are present. No evidence for free air supine exam. IMPRESSION: 1. Moderate amount of stool within the colon and rectum. 2. Several mildly dilated loops of small bowel. Although not strongly suggestive, a partial small bow el obstruction cannot be excluded. ACT 112: Negative or not required by law. Electronically signed by: Delvis Downs M.D. 10/28/2023 8:33 AM
--- NOTE | 2023-10-28 11:12 | Surgery Consultation ---
Date of Consultation October 28, 2023 Assessment & Plan (1) Constipation: (2) Abdominal pain: Plan 78-year-old woman with constipation issues and possible mild diverticulitis. Since starting the bowel regimen in the hospital, she has evacuated a significant amount of stool from her colon. She feels much better. There are no surgical indications at this time. She will require colonoscopy in the outpatient setting. We will sign off. Please call with questions or concerns. History of Present Illness Reason for Consultation: possible partial colon obstruction Requesting Physician: Chad Estevez MD Attending Physician: Chad Estevez MD History of Present Illness 78-year-old woman presents with constipation. She states she has had this since she had norovirus a few months ago. She will go through periods of severe constipation. She has been using MiraLAX, stool softeners, suppositories. She noted significant distention and pain and came to the emergency department. CT scan demonstrates a colon full of stool with diverticulosis and possible mild diverticulitis. There is question of some thickening in the sigmoid colon. Since she has been in the hospital, she has been treated with lactulose and a bowel regimen. She has had multiple stools since that time. She is feeling much better today.. She denies fevers or chills. Her last colonoscopy was 3 years ago. She has had polyps in the past. Allergies Allergy/AdvReac Type Severity Reaction Status Date / Time No Known Drug Allergies Allergy Unknown NONE Verified 06/25/23 10:02 Home Medications Medication Instructions Recorded Confirmed Type acetaminophen 500 mg tablet 500 mg PO Q6H PRN Pain 03/05/18 10/27/23 History (Tylenol Extra Strength) calcium carbonate 600 mg-vitamin 1 tab PO BID 03/05/18 10/27/23 History D3 5 mcg (200 unit) capsule (Calcium 600 + D(3)) [id number] C-Mn 500 2 tab PO BID 03/05/18 10/27/23 History mg-400 mg capsule (Glucosamine Chondroitin Maximum Strength) losartan 50 mg tablet 50 mg PO QAM 03/05/18 10/27/23 History magnesium 250 mg tablet 250 mg PO QAM 03/05/18 10/27/23 History multivitamin 1 tab PO QAM 03/05/18 10/27/23 History rizatriptan 10 mg tablet 10 mg PO UD PRN Migraine Headache 03/05/18 10/27/23 History vitamin B complex 1 cap PO QAM 03/05/18 10/27/23 History vitamins A,C,A-lxsj-sbilsv 2,148 1 tab PO QAM 03/05/18 10/27/23 History mcg-113 mg-45 mg-17.4 mg tablet (PreserVision AREDS) ascorbic acid (vitamin C) 250 mg 250 mg PO BID #28 tabs 04/04/18 10/27/23 Rx tablet (Vitamin C) cholecalciferol (vitamin D3) 25 25 mcg PO QAM 05/09/21 10/27/23 History mcg (1,000 unit) tablet (Vitamin D3) lactobacillus combination no.4 3 3,000 mmu cells PO QAM 05/09/21 10/27/23 History billion cell capsule (Probiotic) celecoxib 200 mg capsule 200 mg PO QAM PRN Pain 06/25/23 10/27/23 History levothyroxine 25 mcg tablet 25 mcg PO QAM 06/25/23 10/27/23 History rosuvastatin 5 mg tablet 5 mg PO HS 06/25/23 10/27/23 History venlafaxine 75 mg capsule,extended 75 mg PO QAM 06/25/23 10/27/23 History release 24 hr simethicone 80 mg chewable tablet 80 mg PO Q6H PRN abdominal 06/27/23 10/27/23 Rx (Gas Relief (simethicone)) distention #14 tabs Patient History Medical History Norovirus Nausea vomiting and diarrhea Tachycardia Hypomagnesemia Abdominal distension SBO (small bowel obstruction) Nausea Acute upper abdominal pain History of IBS UNDER CONTROL Asthma MILD-NO INHALERS Anemia HX Surgical History History of Efraín fundoplication Family History Brother Family history of diabetes mellitus Social History Smoking Status: Never smoker Second Hand Exposure: No; Do You Dip or Chew Tobacco: No; Hx Alcohol Use: No Hx Substance Use: No Preferred Language: Frisian Communication Ability: Effective Visual Impairment: No Limitations 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 Beliefs That Will Affect Care: None Current Living Situation: Other Current Living Situation Comment: roommate/friend, Don current occupational status: retired Other Information That Helps Us Care for You: No Feels Safe at Home: Yes Safety Concerns: Feels Safe At This Time Assistive Devices: Contacts Review of Systems Review of Systems: All systems reviewed & are unremarkable except as noted in HPI & below Physical Exam Constitutional: WD/WN, vitals as above Eyes: PERRL, conjunctivae normal, anicteric sclerae Neck: trachea midline, no thyromegaly Respiratory: normal respiratory effort; no respiratory distress Cardiovascular: Rate/Rhythm: regular rate and regular rhythm Gastrointestinal (Abdomen): Inspection/Auscultation: abdomen normal to inspection; abdomen not distended Percussion/Palpation: abdomen soft; abdomen nontender, no guarding and abdomen not rigid Skin: no rashes, warm and dry Psychiatric: A+Ox3, euthymic affect Results & Data Vital Signs (Past 12 Hours) Vital Signs Temp Resp BP Pulse Ox O2 Del Method 10/28/23 07:31 36.9 C 18 138/73 95 Room Air Laboratory Results 10/28/23 Range/Units 06:38 WBC 7.27 (4.8-10.8) K/ul RBC 3.96 L (4.20-5.40) M/uL Hgb 11.7 L (12.0-16.0) g/dl Hct 35.6 L (37.0-47.0) % MCV 89.9 (80.0-100.0) fL MCH 29.5 (25.0-34.0) pg MCHC 32.9 (32.0-36.0) g/dL RDW Std Deviation 44.0 (36.4-46.3) fL RDW Coeff of Pito 13.4 (11.5-14.5) % Plt Count 162 (130-400) K/uL MPV 10.6 (9.4-12.4) fL Sodium 140 (136-145) mmol/L Potassium 3.9 (3.5-5.1) mmol/L Chloride 107 (98-107) mmol/L Carbon Dioxide 29 (21-32) mmol/L Anion Gap 4 (3-11) BUN 16 (6-23) mg/dl Creatinine 0.83 (0.6-1.2) mg/dl Est Cr Clr Drug Dosing 72.2 ml/min Est GFR ( Amer) 78.8 ml/min Est GFR (Non-Af Amer) 68.0 ml/min BUN/Creatinine Ratio 19.3 (10-20) Glucose 101 H (70-99(Fasting)) mg/dl Calcium 8.5 L (8.6-10.3) mg/dl Phosphorus 2.6 (2.5-4.9) mg/dl Magnesium 1.9 (1.7-2.4) mg/dl TSH 0.624 (0.300-4.500) uIu/ml Diagnostic Findings CT OF THE ABDOMEN AND PELVIS WITHOUT CONTRAST CLINICAL HISTORY: Severe lower abdominal pain and vomiting. COMPARISON STUDY: CT of the abdomen and pelvis June 25, 2023. TECHNIQUE: Axial images of the abdomen and pelvis were obtained without IV contrast. Images were reviewed in the axial, sagittal, and coronal planes. Automated exposure control was utilized for the study. A dose lowering technique was utilized adhering to the principles of ALARA. FINDINGS: Lung bases are unremarkable. There is a small hiatal hernia. No pneumatosis, free air or portal venous gas is present. Evaluation of the abdomen and pelvis is suboptimal on this exam. Water attenuation 7.6 cm right hepatic lobe lesion was shown to represent a cyst on prior CT. The spleen, right adrenal gland and pancreas are unremarkable. Left adrenal nodularity is unchanged. This is likely benign. There is no biliary or pancreatic ductal dilatation. There are left-sided renal parapelvic cysts. There is no hydronephrosis. The appendix is not visualized. The ascending colon and transverse colon are moderately distended and contains a large amount of poorly formed stool. There is extensive colonic diverticulosis. There is mild pericolonic stranding and sigmoid colon. There is no fluid collection is suggest abscess. There is mild circumferential wall thickening within the mid sigmoid colon on image 295. No definitive mucosal lesion is identified although sensitivity is diminished given CT technique. There is no lymphadenopathy. IMPRESSION: 1. Moderately distended ascending colon and transverse colon which contain a large amount of poorly formed stool. Colonic dilatation is likely due to stool however a partial colonic obstruction cannot be excluded. Circumferential wall thickening within the sigmoid colon likely due to underdistention or circular muscular hypertrophy. A nonemergent colonoscopy once symptoms resolved is recommended to exclude the possibility of an underlying mucosal lesion. 2. Extensive left colon diverticulosis with mild stranding adjacent to the descending colon and sigmoid colon. The findings could reflect a nonspecific colitis or diverticulitis. No free air or abscess. 3. No evidence for a small bowel obstruction. 4. Hiatal hernia. ACT 112: Positive. There are findings on this exam that require communication between the performing entity and the patient following Patient Test Result Information Act ([place] Act 112) guidelines. (1) Constipation Constipation type: unspecified constipation type Qualified Code(s): K59.00 - Constipation, unspecified (2) Abdominal pain Abdominal location: unspecified location Qualified Code(s): R10.9 - Unspecified abdominal pain
--- NOTE | 2023-10-28 14:57 | Hospitalist Progress Note ---
Date of Service October 28, 2023 Assessment & Plan (1) Constipation: (2) Abdominal pain: (3) Nausea & vomiting: Plan per admitting service notes with addendum: Anita Kincaid is a 78y/o F with PMHx of HTN, hyperlipidemia, hypothyroidism, IBS, depression, history of paraesophageal hernia s/p Efraín fundoplication, history of migraines and other problems listed below who presented to the ED for evaluation 2/2 abdominal pain, N/V and constipation. CT A/P 1. Moderately distended ascending colon and transverse colon which contain a large amount of poorly formed stool. Colonic dilatation is likely due to stool however a partial colonic obstruction cannot be excluded. Circumferential wall thickening within the sigmoid colon likely due to underdistention or circular muscular hypertrophy. A nonemergent colonoscopy once symptoms resolved is recommended to exclude the possibility of an underlying mucosal lesion. 2. Extensive left colon diverticulosis with mild stranding adjacent to the descending colon and sigmoid colon. The findings could reflect a nonspecific colitis or diverticulitis. No free air or abscess. 3. No evidence for a small bowel obstruction. 4. Hiatal hernia. Constipation with N/V/abd pain possible mild colitis vs acute left sided diverticulitis- Constipation ongoing issue since norovirus infection in May. States he was denied lubiprostone by insurance despite being recommended by his GI doctor. On multiple laxatives at home including suppository and enema, used last night due to worsening symptoms. Currently abd pain much better after iv dilaudid in ED along with IV zofran. CT A/P with large amount of poorly formed stool in ascending colon and transverse colon, unable to rule out partial colonic obstruction along with possible mild non specific colitis or diverticulitis in descending colon and sigmoid colon, no SBO. Will continue cipro/flagyl given in ED, clear liquid diet, advance as tolerated, iv toradol prn---if that doesn't help, iv dilaudid prn; iv zofran prn. Will start on bowel regimen with lactulose bid along with miralax and senokot- prn milk of magnesia if still no BM. Consider GI eval if still with persistent symptoms despite above treatment. Follows with Roselyn HOLMAN. She will need colonoscopy when acute episode resolves. Last colonoscopy was 3 years ago. 10/27 Positive BMs Repeat KUB: Moderate stool burden, possible partial small bowel obstruction Continue lactulose, MiraLAX Advance diet General surgery consulted HTN- BP stable, continue home losartan Hypothyroid- continue synthroid DVT Prophylaxis: sc lovenox Dispo: Place in observation. Admit to inpatient tomorrow if she is not discharged as she is Medicare. Full code PCP: Kamala Reyes plan of care discussed with patient in detail and at length all questions answered she is understanding, agreeable, comfortable with the plan of care Admission and Anticipated Discharge Date Admission Date: October 27, 2023 Subjective Follow-up for constipation, etc. Seen resting in bed side chair, comfortable, not in distress States she feels much better today overall Positive BMs last night No nausea or vomiting today No fevers or chills No other new symptoms Review of Systems Review of Systems: all noted and negative except for above Physical Exam Physical Exam: General- oriented x 3, not in distress, speaks in sentences with no effort or accessory muscle use Eyes- anicteric Neck- no JVD Lungs- clear breath sounds bilaterally, no rales/wheezes Heart- normal rate, regular rhythm; no murmurs Abdomen- normal bowel sounds, nondistended, soft, nontender Extremities- no pretibial edema, no calf tenderness Neuro- alert, oriented x 3; no gross focal neurologic deficits Skin- warm & dry Results & Data Results & Data Vital Signs (Past 12 Hours) Vital Signs Temp Resp BP Pulse Ox O2 Del Method 10/28/23 07:31 36.9 C 18 138/73 95 Room Air all noted and reviewed including below (1) Constipation Constipation type: unspecified constipation type Qualified Code(s): K59.00 - Constipation, unspecified (2) Abdominal pain Abdominal location: unspecified location Qualified Code(s): R10.9 - Unspecified abdominal pain (3) Nausea & vomiting Vomiting type: unspecified Qualified Code(s): R11.2 - Nausea with vomiting, unspecified
[2023-10-29] MEDS: ADVANCED PROBIOTIC 625 MG CAPSULE PO SCH (08:12)
[2023-10-29 08:36] LABS: Basophils # (auto) 0.03 K/uL (0.00-0.20); Basophils % (auto) 0.7 %; Eosinophils # (auto) 0.06 K/uL (0.00-0.50); Eosinophils % (auto) 1.3 %; Hematocrit (blood only) 39.3 % (37.0-47.0); Immature Granulocytes # (auto) 0.01 K/uL (0.01-0.20); Immature Granulocytes % (auto) 0.2 %; Lymphocytes # (auto) 0.98 K/uL (1.20-3.40); Lymphocytes % (auto) 21.4 %; Mean Corpuscular Hgb Conc 33.1 g/dL (32.0-36.0); Mean Corpuscular Volume 90.8 fL (80.0-100.0); Mean Platelet Volume 10.4 fL (9.4-12.4); Monocytes # (auto) 0.38 K/uL (0.11-0.59); Monocytes % (auto) 8.3 %; Neutrophils # (auto) 3.13 K/uL (1.40-6.50); Neutrophils % (auto) 68.1 %; Platelet Count 199 K/uL (130-400); RDW Coefficient of Variation 13.2 % (11.5-14.5); Red Blood Count 4.33 M/uL (4.20-5.40); White Blood Count 4.59 K/ul (4.8-10.8)
[2023-10-29 11:20] LABS: Potassium 4.2 mmol/L (3.5-5.1)
[2023-10-29 11:26] LABS: BUN Creatinine Ratio 12.2 (10-20); Creatinine Clr Calc Pharmacy 66.6 ml/min; Est GFR (African American) 71.5 ml/min; Est GFR (Non-African American) 61.7 ml/min
--- NOTE | 2023-10-29 11:31 | Hospitalist Progress Note ---
Date of Service October 29, 2023 Assessment & Plan (1) Constipation: (2) Abdominal pain: (3) Nausea & vomiting: Plan per admitting service notes with addendum: Anita Kincaid is a 78y/o F with PMHx of HTN, hyperlipidemia, hypothyroidism, IBS, depression, history of paraesophageal hernia s/p Efraín fundoplication, history of migraines and other problems listed below who presented to the ED for evaluation 2/2 abdominal pain, N/V and constipation. Severe constipation Acute diverticulitis Sigmoid Colon wall thickening CT A/P 1. Moderately distended ascending colon and transverse colon which contain a large amount of poorly formed stool. Colonic dilatation is likely due to stool however a partial colonic obstruction cannot be excluded. Circumferential wall thickening within the sigmoid colon likely due to underdistention or circular muscular hypertrophy. A nonemergent colonoscopy once symptoms resolved is recommended to exclude the possibility of an underlying mucosal lesion. 2. Extensive left colon diverticulosis with mild stranding adjacent to the descending colon and sigmoid colon. The findings could reflect a nonspecific colitis or diverticulitis. No free air or abscess. 3. No evidence for a small bowel obstruction. 4. Hiatal hernia. Constipation with N/V/abd pain possible mild colitis vs acute left sided diverticulitis- Constipation ongoing issue since norovirus infection in May. States he was denied lubiprostone by insurance despite being recommended by his GI doctor. On multiple laxatives at home including suppository and enema, used last night due to worsening symptoms. Currently abd pain much better after iv dilaudid in ED along with IV zofran. CT A/P with large amount of poorly formed stool in ascending colon and transverse colon, unable to rule out partial colonic obstruction along with possible mild non specific colitis or diverticulitis in descending colon and sigmoid colon, no SBO. Will continue cipro/flagyl given in ED, clear liquid diet, advance as tolerated, iv toradol prn---if that doesn't help, iv dilaudid prn; iv zofran prn. Will start on bowel regimen with lactulose bid along with miralax and senokot- prn milk of magnesia if still no BM. Consider GI eval if still with persistent symptoms despite above treatment. Follows with Roselyn HOLMAN. She will need colonoscopy when acute episode resolves. Last colonoscopy was 3 years ago. 10/27 Positive BMs Repeat KUB: Moderate stool burden, possible partial small bowel obstruction Continue lactulose, MiraLAX Advance diet General surgery consulted 10/28 Clinically improved overall Abdominal pain resolved Positive good bowel movements, no bleeding Discharge on: Lactulose 20 g daily Ciprofloxacin plus Flagyl p.o. x 8 more days to complete 10-day course Probiotics hold year-round PCP follow-up in 1 week Please refer to GI in 2 weeks to arrange for colonoscopy HTN- BP stable, continue home losartan Hypothyroid- continue synthroid DVT Prophylaxis: sc lovenox Dispo DC home PCP in 1 week GI in 2 weeks Admission and Anticipated Discharge Date Admission Date: October 28, 2023 Subjective Follow-up for constipation, etc. Seen sitting up in bedside chair, comfortable, not in distress, in good spirits States she feels much better overall Having good bowel movements, last 1 twice this morning No abdominal pain, nausea vomiting, fevers or chills No other new symptoms Review of Systems Review of Systems: all noted and negative except for above Physical Exam Physical Exam: General- oriented x 3, not in distress, speaks in sentences with no effort or accessory muscle use Eyes- anicteric Neck- no JVD Lungs- clear breath sounds bilaterally, no rales/wheezes Heart- normal rate, regular rhythm; no murmurs Abdomen- normal bowel sounds, nondistended, soft, nontender Extremities- no pretibial edema, no calf tenderness Neuro- alert, oriented x 3; no gross focal neurologic deficits Skin- warm & dry Results & Data Results & Data Vital Signs (Past 12 Hours) Vital Signs Temp Pulse Resp BP Pulse Ox O2 Del Method 10/29/23 07:12 36.6 C 89 16 153/83 H 94 Room Air all noted and reviewed including below (1) Constipation Constipation type: unspecified constipation type Qualified Code(s): K59.00 - Constipation, unspecified (2) Abdominal pain Abdominal location: unspecified location Qualified Code(s): R10.9 - Unspecified abdominal pain (3) Nausea & vomiting Vomiting type: unspecified Qualified Code(s): R11.2 - Nausea with vomiting, unspecified
--- NOTE | 2023-10-29 11:48 | Discharge Summary ---
Discharge Summary Date of Service October 29, 2023 Principal Dx & Hospital Course #1 = Principal Diagnosis (1) Constipation: (2) Abdominal pain: (3) Nausea & vomiting: Plan per admitting service notes with addendum: Anita Kincaid is a 78y/o F with PMHx of HTN, hyperlipidemia, hypothyroidism, IBS, depression, history of paraesophageal hernia s/p Efraín fundoplication, history of migraines and other problems listed below who presented to the ED for evaluation 2/2 abdominal pain, N/V and constipation. Severe constipation Acute diverticulitis Sigmoid Colon wall thickening CT A/P Lung bases are unremarkable. There is a small hiatal hernia. No pneumatosis, free air or portal venous gas is present. Evaluation of the abdomen and pelvis is suboptimal on this exam. Water attenuation 7.6 cm right hepatic lobe lesion was shown to represent a cyst on prior CT. The spleen, right adrenal gland and pancreas are unremarkable. Left adrenal nodularity is unchanged. This is likely benign. There is no biliary or pancreatic ductal dilatation. There are left- sided renal parapelvic cysts. There is no hydronephrosis. The appendix is not visualized. The ascending colon and transverse colon are moderately distended and contains a large amount of poorly formed stool. There is extensive colonic diverticulosis. There is mild pericolonic stranding and sigmoid colon. There is no fluid collection is suggest abscess. There is mild circumferential wall thickening within the mid sigmoid colon on image 295. No definitive mucosal lesion is identified although sensitivity is diminished given CT technique. There is no lymphadenopathy. 1. Moderately distended ascending colon and transverse colon which contain a large amount of poorly formed stool. Colonic dilatation is likely due to stool however a partial colonic obstruction cannot be excluded. Circumferential wall thickening within the sigmoid colon likely due to underdistention or circular muscular hypertrophy. A nonemergent colonoscopy once symptoms resolved is recommended to exclude the possibility of an underlying mucosal lesion. 2. Extensive left colon diverticulosis with mild stranding adjacent to the descending colon and sigmoid colon. The findings could reflect a nonspecific colitis or diverticulitis. No free air or abscess. 3. No evidence for a small bowel obstruction. 4. Hiatal hernia. 10/27 Positive BMs Repeat KUB: Moderate stool burden, possible partial small bowel obstruction given lactulose, MiraLAX clear liquids General surgery consulted- no surgical intervention 10/28 Clinically improved overall Abdominal pain resolved Positive good bowel movements, no bleeding Discharge on: Lactulose 20 g daily Ciprofloxacin plus Flagyl p.o. x 8 more days to complete 10-day course Probiotics hold year-round PCP follow-up in 1 week Please refer to GI in 2 weeks to arrange for colonoscopy HTN- BP stable, continue home losartan Hypothyroid- continue synthroid DVT Prophylaxis: sc lovenox Dispo DC home PCP in 1 week GI in 2 weeks Notes For Next Care Provider Please refer patient to GI in 1 to 2 weeks to arrange for colonoscopy. Medication Changes From Visit Ciprofloxacin, Flagyl-antibiotics for acute diverticulitis Lactulose-stool softener Senokot S-stool softener Admission HPI Per Admitting Provider Anita Kincaid is a 78y/o F with PMHx of HTN, hyperlipidemia, hypothyroidism, IBS, depression, history of paraesophageal hernia s/p Efraín fundoplication, history of migraines and other problems listed below who presented to the ED for evaluation 2/2 abdominal pain, N/V and constipation. History obtained from the patient and associated chart review. Patient seen at bedside with Dr. Stephenson. Patient mentions issues with bowel movements since she had norovirus back in May. States she has been battling with either constipation or diarrhea since being diagnosed with norovirus, but is now complaining of constipation that has become rather bothersome. Has been attempting to use laxatives, manual disimpaction with a lubricated rubber glove and fleet enemas at home with little to no improvement. She takes daily stool softeners, which haven't worked either. She has also tried Milk of Magnesia and that didn't work. Has not had a recent colonoscopy, has seen Dr. Watkins for these concerns previously. Patient has also seen Dr. Andrea for these concerns. She expresses frustration with not being able to figure out what is exactly causing her GI complaints. Patient has been experiencing some abdominal pain since last evening. Mentions her abdomen feels rather distended, which is not usual for her. No fevers, but does endorse some chills. Has vomited 2x since last night, denies any heartburn. No history of bowel obstructions per patient. States she has been eating just fine, watches her diet closely and hydrates appropriately. Has been trying to avoid foods that are "triggers" for her abdominal issues; currently on a FODMAP diet. Endorsing pain relief s/p administration of IV Dilaudid in the ED. States her abdomen feels like "a hard lump." Was on 2L supplemental oxygen via [place] in the ED 2/2 increased RR as a result of increasing pain. Currently 99% SpO2 on RA, denies any SOB or chest pain at this time. States she has not felt short of breath since being in the ED and does not use any supplement oxygen therapy at home. She has had capsule studies performed in the past, some bleeding was noted but patient could not confirm where the bleeding was found with her intestines. Patient informed that a colonoscopy was not indicated in the past. Admission Exam Per Admitting Provider General: Lying comfortably in bed, not in acute distress, on room air HEENT: EOMI, KARI, MMM Chest: Clear breath sounds bilaterally, no wheezes or crackles CVS: Regular rate and rhythm, normal heart sounds, no murmur Abdomen: Soft, non tender, distended, normal bowel sounds Neuro: Awake, alert, oriented, conversing well, non focal Extremities: No edema Psych: Calm, cooperative Discharge Exam General- oriented x 3, not in distress, speaks in sentences with no effort or accessory muscle use Eyes- anicteric Neck- no JVD Lungs- clear breath sounds bilaterally, no rales/wheezes Heart- normal rate, regular rhythm; no murmurs Abdomen- normal bowel sounds, nondistended, soft, nontender Extremities- no pretibial edema, no calf tenderness Neuro- alert, oriented x 3; no gross focal neurologic deficits Skin- warm & dry Updated Medication List Medication Instructions Recorded Confirmed Type acetaminophen 500 mg tablet 500 mg PO Q6H PRN Pain 03/05/18 10/27/23 History (Tylenol Extra Strength) calcium carbonate 600 mg-vitamin 1 tab PO BID 03/05/18 10/27/23 History D3 5 mcg (200 unit) capsule (Calcium 600 + D(3)) [id number] C-Mn 500 2 tab PO BID 03/05/18 10/27/23 History mg-400 mg capsule (Glucosamine Chondroitin Maximum Strength) losartan 50 mg tablet 50 mg PO QAM 03/05/18 10/27/23 History magnesium 250 mg tablet 250 mg PO QAM 03/05/18 10/27/23 History multivitamin 1 tab PO QAM 03/05/18 10/27/23 History rizatriptan 10 mg tablet 10 mg PO UD PRN Migraine Headache 03/05/18 10/27/23 History vitamin B complex 1 cap PO QAM 03/05/18 10/27/23 History vitamins A,C,G-rxtv-wsimjo 2,148 1 tab PO QAM 03/05/18 10/27/23 History mcg-113 mg-45 mg-17.4 mg tablet (PreserVision AREDS) ascorbic acid (vitamin C) 250 mg 250 mg PO BID #28 tabs 04/04/18 10/27/23 Rx tablet (Vitamin C) cholecalciferol (vitamin D3) 25 25 mcg PO QAM 05/09/21 10/27/23 History mcg (1,000 unit) tablet (Vitamin D3) lactobacillus combination no.4 3 3,000 mmu cells PO QAM 05/09/21 10/27/23 History billion cell capsule (Probiotic) celecoxib 200 mg capsule 200 mg PO QAM PRN Pain 06/25/23 10/27/23 History levothyroxine 25 mcg tablet 25 mcg PO QAM 06/25/23 10/27/23 History rosuvastatin 5 mg tablet 5 mg PO HS 06/25/23 10/27/23 History venlafaxine 75 mg capsule,extended 75 mg PO QAM 06/25/23 10/27/23 History release 24 hr simethicone 80 mg chewable tablet 80 mg PO Q6H PRN abdominal 06/27/23 10/27/23 Rx (Gas Relief (simethicone)) distention #14 tabs ciprofloxacin HCl 500 mg tablet 500 mg PO BID 8 days #16 tabs 10/29/23 Rx lactulose 20 gram/30 mL oral 20 g (30 mL) PO DAILY #1,200 mL 10/29/23 Rx solution metronidazole 500 mg tablet 500 mg PO TID 8 days #24 tabs 10/29/23 Rx sennosides 8.6 mg-docusate sodium 1 tab PO QAM 30 days #30 tabs 10/29/23 Rx 50 mg tablet (Senokot-S) Hospital Stay Data Consultations 10/27/23 13:11 ED Decision to Admit Stat 10/28/23 09:36 Consult General Surgery Routine Diagnostic Imagining Performed Laboratory Results WBC 4.59 K/ul (4.8-10.8) L 10/29/23 08:14 RBC 4.33 M/uL (4.20-5.40) 10/29/23 08:14 Hgb 13.0 g/dl (12.0-16.0) 10/29/23 08:14 Hct 39.3 % (37.0-47.0) 10/29/23 08:14 MCV 90.8 fL (80.0-100.0) 10/29/23 08:14 MCH 30.0 pg (25.0-34.0) 10/29/23 08:14 MCHC 33.1 g/dL (32.0-36.0) 10/29/23 08:14 RDW Std Deviation 44.0 fL (36.4-46.3) 10/29/23 08:14 RDW Coeff of Pito 13.2 % (11.5-14.5) 10/29/23 08:14 Plt Count 199 K/uL (130-400) 10/29/23 08:14 MPV 10.4 fL (9.4-12.4) 10/29/23 08:14 Immature Gran % (Auto) 0.2 % 10/29/23 08:14 Neut % (Auto) 68.1 % 10/29/23 08:14 Lymph % (Auto) 21.4 % 10/29/23 08:14 [place] % (Auto) 8.3 % 10/29/23 08:14 Eos % (Auto) 1.3 % 10/29/23 08:14 Baso % (Auto) 0.7 % 10/29/23 08:14 Neut # (Auto) 3.13 K/uL (1.40-6.50) 10/29/23 08:14 Lymph # (Auto) 0.98 K/uL (1.20-3.40) L 10/29/23 08:14 [place] # (Auto) 0.38 K/uL (0.11-0.59) 10/29/23 08:14 Eos # (Auto) 0.06 K/uL (0.00-0.50) 10/29/23 08:14 Baso # (Auto) 0.03 K/uL (0.00-0.20) 10/29/23 08:14 Immature Gran # (Auto) 0.01 K/uL (0.01-0.20) 10/29/23 08:14 Sodium 140 mmol/L (136-145) 10/29/23 08:14 Potassium 4.2 mmol/L (3.5-5.1) 10/29/23 08:14 Chloride 107 mmol/L (98-107) 10/29/23 08:14 Carbon Dioxide 27 mmol/L (21-32) 10/29/23 08:14 Anion Gap 6 (3-11) 10/29/23 08:14 BUN 11 mg/dl (6-23) 10/29/23 08:14 Creatinine 0.90 mg/dl (0.6-1.2) 10/29/23 08:14 Est Cr Clr Drug Dosing 66.6 ml/min 10/29/23 08:14 Est GFR ( Amer) 71.5 ml/min 10/29/23 08:14 Est GFR (Non-Af Amer) 61.7 ml/min 10/29/23 08:14 BUN/Creatinine Ratio 12.2 (10-20) 10/29/23 08:14 Glucose 185 mg/dl (70-99(Fasting)) H 10/29/23 08:14 Lactate 1.5 mmol/L (0.4-2.0) 10/27/23 07:30 Calcium 9.0 mg/dl (8.6-10.3) 10/29/23 08:14 Phosphorus 2.6 mg/dl (2.5-4.9) 10/28/23 06:38 Magnesium 1.9 mg/dl (1.7-2.4) 10/28/23 06:38 Total Bilirubin 0.8 mg/dl (0.2-1.0) 10/27/23 07:30 AST 23 U/L (13-39) 10/27/23 07:30 ALT 16 U/L (7-52) 10/27/23 07:30 Alkaline Phosphatase 62 U/L (34-104) 10/27/23 07:30 Troponin I High Sens 4.3 pg/ml (0-14) 10/27/23 07:30 Total Protein 7.3 gm/dl (6.0-8.3) 10/27/23 07:30 Albumin 4.2 gm/dl (3.4-5.0) 10/27/23 07:30 Globulin 3.1 gm/dl (2.5-4.0) 10/27/23 07:30 Albumin/Globulin Ratio 1.4 (0.9-2) 10/27/23 07:30 Lipase 11 U/L (11-82) 10/27/23 07:30 TSH 0.624 uIu/ml (0.300-4.500) 10/28/23 06:38 Urine Color Dark Yellow 10/27/23 10:00 Urine Appearance Clear (Clear) 10/27/23 10:00 Urine pH 5.0 (4.5-7.5) 10/27/23 10:00 Ur Specific [place] 1.018 (1.000-1.030) 10/27/23 10:00 Urine Protein Trace (Negative) H 10/27/23 10:00 Urine Glucose (UA) Negative (Negative) 10/27/23 10:00 Urine Ketones Trace (Negative) H 10/27/23 10:00 Urine Blood Negative (Negative) 10/27/23 10:00 Urine Nitrite Positive (Negative) A 10/27/23 10:00 Urine Bilirubin 1+ (Negative) H 10/27/23 10:00 Urine Urobilinogen Negative (Negative) 10/27/23 10:00 Ur Leukocyte Esterase 1+ (Negative) H 10/27/23 10:00 Urine WBC (Auto) 0-5 /hpf (0-5) 10/27/23 10:00 Urine RBC (Auto) 0-2 /hpf (0-2) 10/27/23 10:00 U Hyaline Cast (Auto) 0-2 /lpf (0-2) 10/27/23 10:00 U Epithel Cells (Auto) 0-2 /hpf (0-2) 10/27/23 10:00 Urine Bacteria (Auto) None Seen (None Seen) 10/27/23 10:00 Impressions Abdomen/Pelvis CT 10/27/23 08:01 CT OF THE ABDOMEN AND PELVIS WITHOUT CONTRAST CLINICAL HISTORY: Severe lower abdominal pain and vomiting. COMPARISON STUDY: CT of the abdomen and pelvis June 25, 2023. TECHNIQUE: Axial images of the abdomen and pelvis were obtained without IV contrast. Images were reviewed in the axial, sagittal, and coronal planes. Automated exposure control was utilized for the study. A dose lowering technique was utilized adhering to the principles of ALARA. FINDINGS: Lung bases are unremarkable. There is a small hiatal hernia. No pneumatosis, free air or portal venous gas is present. Evaluation of the abdomen and pelvis is suboptimal on this exam. Water attenuation 7.6 cm right hepatic lobe lesion was shown to represent a cyst on prior CT. The spleen, right adrenal gland and pancreas are unremarkable. Left adrenal nodularity is unchanged. This is likely benign. There is no biliary or pancreatic ductal dilatation. There are left-sided renal parapelvic cysts. There is no hydronephrosis. The appendix is not visualized. The ascending colon and transverse colon are moderately distended and contains a large amount of poorly formed stool. There is extensive colonic diverticulosis. There is mild pericolonic stranding and sigmoid colon. There is no fluid collection is suggest abscess. There is mild circumferential wall thickening within the mid sigmoid colon on image 295. No definitive mucosal lesion is identified although sensitivity is diminished given CT technique. There is no lymphadenopathy. IMPRESSION: 1. Moderately distended ascending colon and transverse colon which contain a large amount of poorly formed stool. Colonic dilatation is likely due to stool however a partial colonic obstruction cannot be excluded. Circumferential wall thickening within the sigmoid colon likely due to underdistention or circular muscular hypertrophy. A nonemergent colonoscopy once symptoms resolved is recommended to exclude the possibility of an underlying mucosal lesion. 2. Extensive left colon diverticulosis with mild stranding adjacent to the descending colon and sigmoid colon. The findings could reflect a nonspecific colitis or diverticulitis. No free air or abscess. 3. No evidence for a small bowel obstruction. 4. Hiatal hernia. ACT 112: Positive. There are findings on this exam that require communication between the performing entity and the patient following Patient Test Result Information Act ([place] Act 112) guidelines. Electronically signed by: Delvis Downs M.D. 10/27/2023 8:50 AM KUB X-Ray 10/28/23 07:47 KUB CLINICAL HISTORY: ff up severe constipation, r/o obstruction COMPARISON STUDY: CT of the abdomen and pelvis October 27, 2023. FINDINGS: There is a moderate amount stool within the colon and rectum. Several mildly dilated loops of small bowel are present. No evidence for free air supine exam. IMPRESSION: 1. Moderate amount of stool within the colon and rectum. 2. Several mildly dilated loops of small bowel. Although not strongly suggestive, a partial small bowel obstruction cannot be excluded. ACT 112: Negative or not required by law. Electronically signed by: Delvis Downs M.D. 10/28/2023 8:33 AM Pending Results Patient Have Any Pending Studies at Discharge: No Discharge Instructions Given to Patient (Per Discharging Provider) PLEASE REFER TO YOUR NEW MEDICATION LIST AND FOLLOW INSTRUCTIONS CAREFULLY. YOUR NEW MEDICATIONS INCLUDE: Ciprofloxacin, Flagyl-antibiotics for acute diverticulitis Lactulose-stool softener Senokot S-stool softener Please take a probiotic daily. Drink plenty of water. PLEASE CALL YOUR PRIMARY CARE PHYSICIAN OR RETURN TO THE ER IF WITH WORSENING OF SYMPTOMS, INCLUDING Abdominal pain, nausea vomiting, constipation, bloody or black stools, Fevers or chills, etc FOLLOW UP WITH PRIMARY CARE PHYSICIAN TOMORROW SCHEDULED. FOLLOW UP WITH GASTROENTEROLOGY IN 1-2 WEEKS. The clinic will be calling you soon for the appointment. Total Time Total Time Spent Total Time Spent (In Minutes): 45 minutes
== END 2023-10-29 12:32 | disposition home or self-care (01) | DRG 392 ==
LOC: ED 07:11 → 3E 07:11 → SUATTDRO 13:43 → 3E 15:30

== ENCOUNTER 2024-02-12 12:32 | Inpatient (IN) ==
[2024-02-12 13:37] LABS: Basophils # (auto) 0.04 K/uL (0.00-0.20); Basophils % (auto) 0.6 %; Eosinophils # (auto) 0.15 K/uL (0.00-0.50); Eosinophils % (auto) 2.1 %; Hematocrit (blood only) 39.6 % (37.0-47.0); Immature Granulocytes # (auto) 0.04 K/uL (0.01-0.20); Immature Granulocytes % (auto) 0.6 %; Lymphocytes # (auto) 1.27 K/uL (1.20-3.40); Lymphocytes % (auto) 17.6 %; Mean Corpuscular Hemoglobin 29.3 pg (25.0-34.0); Mean Corpuscular Hgb Conc 32.8 g/dL (32.0-36.0); Mean Corpuscular Volume 89.2 fL (80.0-100.0); Mean Platelet Volume 10.4 fL (9.4-12.4); Monocytes # (auto) 0.68 K/uL (0.11-0.59); Monocytes % (auto) 9.4 %; Neutrophils # (auto) 5.02 K/uL (1.40-6.50); Neutrophils % (auto) 69.7 %; Platelet Count 236 K/uL (130-400); RDW Coefficient of Variation 13.8 % (11.5-14.5); RDW Standard Deviation 44.8 fL (36.4-46.3); Red Blood Count 4.44 M/uL (4.20-5.40)
--- NOTE | 2024-02-12 13:50 | XRay Report ---
XR chest 1V portable CLINICAL HISTORY: Chest pain, nonspecific TECHNIQUE: Single frontal radiograph of the chest was obtained. Comparison: Comparison is made to chest radiograph 06/15/2023 FINDINGS: ACDF is seen. The cardiomediastinal silhouette is normal. The lungs are clear. No evidence of pleural effusion or pneumothorax. IMPRESSION: No acute chest disease. ACT 112: Negative or not required by law. Electronically signed by: Kojo Morales M.D. 02/12/2024 1:49 PM
[2024-02-12 13:54] LABS: Albumin Globulin Ratio 1.3 (0.9-2); Albumin Level 3.9 gm/dl (3.4-5.0); BUN Creatinine Ratio 20.9 (10-20); Bilirubin,Total 0.5 mg/dl (0.2-1.0); Calcium 9.3 mg/dl (8.6-10.3); Creatinine Clr Calc Pharmacy 53.3 ml/min; Globulin 2.9 gm/dl (2.5-4.0); Potassium 4.1 mmol/L (3.5-5.1); Total Protein 6.8 gm/dl (6.0-8.3)
[2024-02-12 13:56] LABS: Partial Thromboplastin Time 26 Seconds (21-31); Prothrombin Time 10.8 Seconds (9.0-12.0); Troponin I High Sensitivity 6.1 pg/ml (0-14)
--- NOTE | 2024-02-12 15:06 | Emergency Department Note ---
Impression & Plan Orthostasis, Balance disorder ED Provider Note NAME: RAJIV HALL AGE: 78 SEX: Female INFORMANT: Patient ED PROVIDER(S): Adan Chino MD CHIEF COMPLAINT: Dizzy spell, balance disturbance PLAN: Disposition: Admitted Outpatient prescription management: none Referral: None MEDICAL DECISION MAKING: Patient presented because of balance disturbance and orthostasis since the time of her colon surgery 2 weeks ago. Patient underwent evaluation and did have significant drop in blood pressure of almost 40 points with standing. She notes she keeps falling to the right side. She had no focal findings otherwise on physical examination. She did have mild tachycardia noted. Patient's ECG showed a sinus rhythm. I did attempt to get her records from her [facility] admission multiple times but was unsuccessful. I feel the patient would require MR imaging but I need to know what type of procedure she had and the point if she had any surgical clips placed. Patient and I discussed CT and CT angiography. I did do a CTA of the head and neck as well as of the chest to rule out PE, dissection, as well as any intracranial findings. Thankfully none of these were found. Given the balance disturbance and orthostasis further management in the hospital be necessary. Patient is at high risk for falling and injury. I discussed this with the patient and she is very much in agreement. Hopefully the records can be obtained and additional workup can be completed in a timely manner. [facility]. Patient was evaluated in the ER and admitted for further management Care/management discussed with: marketing sales manager Level of care consideration(s): After review of the information above and other included data, I feel the patient requires escalation of care to admission Triage Nursing notes: reviewed and agree them. Vital Signs: reviewed and remarkable for no significant abnormalities Additional History obtained from: none Chronic Medical/Social Conditions affecting care: Colon resection 2 weeks ago Prior/ Outside/ External records reviewed: I did attempt multiple times to contact [facility] for records but was unable to get through. Differential Diagnosis: Orthostasis, infection, dehydration, metabolic abnormality, hypo/hyperglycemia, electrolyte disturbance, anemia, hypoxia, cardiac sources, intracerebral event, toxicologic, neurologic, as well as other pathologies. Diagnostics, independently interpreted by me: ECG: Twelve-lead ECG reveals normal sinus rhythm at 97 beats per minute. No evidence of pericarditis, ischemia, ectopy, or dysrhythmia. Cardiac Monitoring: Cardiac monitoring ordered by me: The patient was placed on continuous cardiac monitoring and observed. It revealed a sinus tachycardic rhythm at 104 bpm. Occasional PVC noted. Medical decision rules: none Imaging studies: Head CT: A noncontrast CT scan of the head was performed and was negative for tumor, fracture, intracranial hemorrhage, or other acute pathology. I refer you to the EMR for further details. HPI: 78 year old Female arrives for evaluation of fluctuating blood pressures. This started 2 weeks ago and is persisting. The patient also notes the following associated symptoms, frequent falls to the right, headaches. The patient has taken no recent medications for relieving factors. Current pain is rated as 0/10. Patient underwent colon resection 2 weeks ago and since that time has had the issues. Patient states she had a workup with [facility] and nothing was found and was told that this was related to her positioning and surgery for 6 hours. Patient was given 1 dose of midodrine but no prescription was sent for the same. Pt denies LOC, fevers, chills, diaphoresis, visual changes, neck pain, chest pain, breathing difficulties, nausea, vomiting, abdominal pain, back pain, melena, hematochezia, urinary symptoms, numbness, weakness, lymphadenopathy, rash, or other complaints. PAST MEDICAL HISTORY: See Below, HTN PAST SURGICAL HISTORY: See Below, colon resected, appy, [facility] SOCIAL HISTORY: See Below, no smoking HOME MEDICATIONS: See Below ALLERGIES: See Below VITALS: See Below PHYSICAL EXAMINATION: GENERAL: Awake, alert, anxious-appearing, in no distress HENT: Normocephalic, atraumatic. Oropharynx unremarkable. EYES: Normal conjunctiva. Sclera non-icteric. NECK: Inspection normal. Non-tender. Supple. No nuchal rigidity. FROM. No masses. RESPIRATORY: Clear to auscultation. No wheezes. No rales. Normal respiratory effort. CARDIAC: Boarderline tachycardic rate. Normal rhythm. No murmurs. No rubs. Extremities warm and well perfused. Pulses equal. No JVD. GI: Soft, non-distended. No tenderness to palpation. No rebound or guarding. No masses. RECTAL: Deferred. MUSCULOSKELETAL: Atraumatic. Chest examination reveals no tenderness. The back is symmetrical on inspection without obvious abnormality. There is no CVA tenderness to palpation. No joint edema. LOWER EXTREMITIES: Calves are equal size bilaterally and non-tender. No edema. No discoloration. NEURO: Normal sensorium. No sensory or motor deficits noted. SKIN: No rash or jaundice noted. PROCEDURES: none CRITICAL CARE: none OBSERVATION NOTE: none Past Med/Surg History Problem List (Updated 02/12/24 @ 22:21 by Shaka Vazquez MD) Orthostatic hypotension Abdominal pain Constipation Nausea & vomiting (Acute) Abdominal pain, lower (Acute) Obesity (BMI 30.0-34.9) IBS (irritable bowel syndrome) Dehydration Nausea Abdominal pain Lumbar back pain with radiculopathy affecting right lower extremity (Acute) Encounter for pre-operative examination S/P total knee arthroplasty Acute blood loss anemia Osteoarthritis (Chronic) Chronic back pain (Chronic) LUMBAR AREA Esophageal hernia hx of GERD (gastroesophageal reflux disease) (Chronic) UNDER CONTROL Anxiety and depression (Chronic) Migraine headache (Chronic) HX Hypothyroidism (Chronic) HTN (hypertension) (Chronic) Medical History Norovirus Nausea vomiting and diarrhea Tachycardia Hypomagnesemia Abdominal distension SBO (small bowel obstruction) Nausea Acute upper abdominal pain History of IBS UNDER CONTROL Asthma MILD-NO INHALERS Anemia HX Surgical History History of Efraín fundoplication Family History Brother Family history of diabetes mellitus Social History Smoking Status: Never smoker Second Hand Exposure: No; Do You Dip or Chew Tobacco: No; Hx Alcohol Use: No Hx Substance Use: No Preferred Language: [place] Communication Ability: Effective Visual Impairment: No Limitations [employer] Storage Architect Required: No Beliefs That Will Affect Care: None Current Living Situation: Other Current Living Situation Comment: roommate/friend, Don current occupational status: retired Feels Safe at Home: Yes Assistive Devices: Contacts Allergies Allergies Allergy/AdvReac Type Severity Reaction Status Date / Time No Known Drug Allergies Allergy Unknown NONE Verified 06/25/23 10:02 Home Meds Home Medications Medication Instructions Recorded Confirmed acetaminophen 500 mg tablet 500 mg PO Q6H PRN Pain 11/06/18 10/15/24 (Tylenol Extra Strength) calcium 600 mg (as 1 tab PO BID 03/05/18 02/12/24 carbonate)-vitamin D3 5 mcg (200 unit) capsule (Calcium 600 + D(3)) [id number] C-Mn 500 2 tab PO BID 03/05/18 02/12/24 mg-400 mg capsule (Glucosamine Chondroitin Maximum Strength) losartan 50 mg tablet 50 mg PO QAM 03/05/18 02/12/24 magnesium 250 mg tablet 250 mg PO QAM 03/05/18 02/12/24 multivitamin 1 tab PO QAM 03/05/18 02/12/24 rizatriptan 10 mg tablet 10 mg PO UD PRN Migraine Headache 03/05/18 02/12/24 vitamin B complex 1 cap PO QAM 03/05/18 02/12/24 vitamins A,C,T-ufyk-tvbgsl 2,148 1 tab PO QAM 03/05/18 02/12/24 mcg-113 mg-45 mg-17.4 mg tablet (PreserVision AREDS) cholecalciferol (vitamin D3) 25 25 mcg PO QAM 05/09/21 02/12/24 mcg (1,000 unit) tablet (Vitamin D3) lactobacillus combination no.4 3 3,000 mmu cells PO QAM 05/09/21 02/12/24 billion cell capsule (Probiotic) celecoxib 200 mg capsule 200 mg PO QAM PRN Pain 06/25/23 02/12/24 levothyroxine 25 mcg tablet 25 mcg PO QAM 06/25/23 02/12/24 rosuvastatin 5 mg tablet 5 mg PO HS 06/25/23 02/12/24 venlafaxine 75 mg capsule,extended 75 mg PO QAM 06/25/23 02/12/24 release 24 hr Eliquis 1 tab PO BID 02/12/24 02/12/24 bupropion HCl 150 mg 24 hr tablet, 150 mg PO DAILY 02/12/24 02/12/24 extended release Previous Rx's Medication Instructions Recorded ascorbic acid (vitamin C) 250 mg 250 mg PO BID #28 tabs 04/04/18 tablet (Vitamin C) Results & Data (ED) Vital Signs Vital Signs - 24 hr 02/12/24 12:42 02/12/24 13:15 02/12/24 13:15 Temperature 36.8 C Temperature Source Temporal Artery Scan Pulse Rate - Lying Pulse Rate - Sitting Pulse Rate - Standing Pulse Rate 93 H 94 H Pulse Rate [Apical] 92 H Pulse Rate from SpO2 Sensor Pulse Strength [Apical] Normal Respiratory Rate 16 19 19 Respiratory Effort / Characteristics Non-Labored Spontaneous Non-Labored Spontaneous Respiratory Depth Normal Normal Respiratory Pattern Regular Blood Pressure - Lying Blood Pressure - Sitting Blood Pressure- Standing Blood Pressure 116/60 Blood Pressure [Left Arm] 131/85 Blood Pressure Mean 78 Blood Pressure Mean [Left Arm] 100 Pulse Oximetry 98 97 96 Oxygen Delivery Method Room Air Room Air Room Air Sepsis Recent Fever Within 48 Hours No Sepsis New/Unexplained Change in Mental Status N/A Sepsis Action Taken by Nursing No Action Required 02/12/24 14:08 02/12/24 15:22 02/12/24 17:36 Temperature Temperature Source Pulse Rate - Lying 93 H Pulse Rate - Sitting 104 H Pulse Rate - Standing 120 H Pulse Rate 93 H Pulse Rate [Apical] 100 H Pulse Rate from SpO2 Sensor Pulse Strength [Apical] Normal Respiratory Rate 18 Respiratory Effort / Characteristics Non-Labored Spontaneous Respiratory Depth Normal Respiratory Pattern Regular Blood Pressure - Lying 141/84 H Blood Pressure - Sitting 148/83 H Blood Pressure- Standing 109/86 Blood Pressure Blood Pressure [Left Arm] 138/89 Blood Pressure Mean Blood Pressure Mean [Left Arm] 105 Pulse Oximetry 97 Oxygen Delivery Method Room Air Sepsis Recent Fever Within 48 Hours Sepsis New/Unexplained Change in Mental Status Sepsis Action Taken by Nursing 02/12/24 19:01 02/12/24 19:01 02/12/24 19:01 Temperature Temperature Source Pulse Rate - Lying Pulse Rate - Sitting Pulse Rate - Standing Pulse Rate Pulse Rate [Apical] Pulse Rate from SpO2 Sensor Pulse Strength [Apical] Respiratory Rate Respiratory Effort / Characteristics Respiratory Depth Respiratory Pattern Blood Pressure - Lying Blood Pressure - Sitting Blood Pressure- Standing Blood Pressure 178/88 H 178/88 H 178/88 H Blood Pressure [Left Arm] Blood Pressure Mean 119 119 119 Blood Pressure Mean [Left Arm] Pulse Oximetry Oxygen Delivery Method Sepsis Recent Fever Within 48 Hours Sepsis New/Unexplained Change in Mental Status Sepsis Action Taken by Nursing 02/12/24 19:21 02/12/24 19:33 02/12/24 19:36 Temperature Temperature Source Pulse Rate - Lying Pulse Rate - Sitting Pulse Rate - Standing Pulse Rate 97 H 93 H Pulse Rate [Apical] 90 Pulse Rate from SpO2 Sensor 92 H Pulse Strength [Apical] Respiratory Rate 16 16 18 Respiratory Effort / Characteristics Respiratory Depth Respiratory Pattern Blood Pressure - Lying Blood Pressure - Sitting Blood Pressure- Standing Blood Pressure 119/87 Blood Pressure [Left Arm] 149/82 H Blood Pressure Mean 92 Blood Pressure Mean [Left Arm] 104 Pulse Oximetry 94 96 96 Oxygen Delivery Method Sepsis Recent Fever Within 48 Hours Sepsis New/Unexplained Change in Mental Status Sepsis Action Taken by Nursing 02/12/24 19:51 02/12/24 20:00 02/12/24 20:06 Temperature Temperature Source Pulse Rate - Lying Pulse Rate - Sitting Pulse Rate - Standing Pulse Rate 88 90 Pulse Rate [Apical] Pulse Rate from SpO2 Sensor 86 86 Pulse Strength [Apical] Respiratory Rate 20 17 Respiratory Effort / Characteristics Respiratory Depth Respiratory Pattern Blood Pressure - Lying Blood Pressure - Sitting Blood Pressure- Standing Blood Pressure 138/77 Blood Pressure [Left Arm] Blood Pressure Mean 96 Blood Pressure Mean [Left Arm] Pulse Oximetry 95 96 Oxygen Delivery Method Sepsis Recent Fever Within 48 Hours Sepsis New/Unexplained Change in Mental Status Sepsis Action Taken by Nursing 02/12/24 20:30 02/12/24 20:30 02/12/24 20:30 Temperature Temperature Source Pulse Rate - Lying Pulse Rate - Sitting Pulse Rate - Standing Pulse Rate 94 H Pulse Rate [Apical] Pulse Rate from SpO2 Sensor 75 Pulse Strength [Apical] Respiratory Rate 17 Respiratory Effort / Characteristics Respiratory Depth Respiratory Pattern Blood Pressure - Lying Blood Pressure - Sitting Blood Pressure- Standing Blood Pressure 132/83 132/83 Blood Pressure [Left Arm] Blood Pressure Mean 115 115 Blood Pressure Mean [Left Arm] Pulse Oximetry 95 Oxygen Delivery Method Sepsis Recent Fever Within 48 Hours Sepsis New/Unexplained Change in Mental Status Sepsis Action Taken by Nursing 02/12/24 20:54 02/12/24 21:01 02/12/24 21:01 Temperature Temperature Source Pulse Rate - Lying Pulse Rate - Sitting Pulse Rate - Standing Pulse Rate 98 H Pulse Rate [Apical] Pulse Rate from SpO2 Sensor Pulse Strength [Apical] Respiratory Rate 14 Respiratory Effort / Characteristics Respiratory Depth Respiratory Pattern Blood Pressure - Lying Blood Pressure - Sitting Blood Pressure- Standing Blood Pressure Blood Pressure [Left Arm] Blood Pressure Mean 60 60 Blood Pressure Mean [Left Arm] Pulse Oximetry Oxygen Delivery Method Sepsis Recent Fever Within 48 Hours Sepsis New/Unexplained Change in Mental Status Sepsis Action Taken by Nursing 02/12/24 21:03 02/12/24 21:07 02/12/24 21:09 Temperature Temperature Source Pulse Rate - Lying Pulse Rate - Sitting Pulse Rate - Standing Pulse Rate 95 H Pulse Rate [Apical] 102 H Pulse Rate from SpO2 Sensor 88 Pulse Strength [Apical] Respiratory Rate 17 16 Respiratory Effort / Characteristics Respiratory Depth Respiratory Pattern Blood Pressure - Lying Blood Pressure - Sitting Blood Pressure- Standing Blood Pressure 144/74 H Blood Pressure [Left Arm] 144/74 H Blood Pressure Mean 95 Blood Pressure Mean [Left Arm] 97 Pulse Oximetry 99 98 Oxygen Delivery Method Sepsis Recent Fever Within 48 Hours Sepsis New/Unexplained Change in Mental Status Sepsis Action Taken by Nursing 02/12/24 21:09 Temperature Temperature Source Pulse Rate - Lying Pulse Rate - Sitting Pulse Rate - Standing Pulse Rate Pulse Rate [Apical] Pulse Rate from SpO2 Sensor Pulse Strength [Apical] Respiratory Rate Respiratory Effort / Characteristics Respiratory Depth Respiratory Pattern Blood Pressure - Lying Blood Pressure - Sitting Blood Pressure- Standing Blood Pressure 144/74 H Blood Pressure [Left Arm] Blood Pressure Mean 95 Blood Pressure Mean [Left Arm] Pulse Oximetry Oxygen Delivery Method Sepsis Recent Fever Within 48 Hours Sepsis New/Unexplained Change in Mental Status Sepsis Action Taken by Nursing Laboratory Data 02/12/24 13:03 02/12/24 13:03 Lab Results 02/12/24 Range/Units 13:03 WBC 7.20 (4.8-10.8) K/ul RBC 4.44 (4.20-5.40) M/uL Hgb 13.0 (12.0-16.0) g/dl Hct 39.6 (37.0-47.0) % MCV 89.2 (80.0-100.0) fL MCH 29.3 (25.0-34.0) pg MCHC 32.8 (32.0-36.0) g/dL RDW Std Deviation 44.8 (36.4-46.3) fL RDW Coeff of Pito 13.8 (11.5-14.5) % Plt Count 236 (130-400) K/uL MPV 10.4 (9.4-12.4) fL Immature Gran % (Auto) 0.6 % Neut % (Auto) 69.7 % Lymph % (Auto) 17.6 % [place] % (Auto) 9.4 % Eos % (Auto) 2.1 % Baso % (Auto) 0.6 % Neut # (Auto) 5.02 (1.40-6.50) K/uL Lymph # (Auto) 1.27 (1.20-3.40) K/uL [place] # (Auto) 0.68 H (0.11-0.59) K/uL Eos # (Auto) 0.15 (0.00-0.50) K/uL Baso # (Auto) 0.04 (0.00-0.20) K/uL Immature Gran # (Auto) 0.04 (0.01-0.20) K/uL PT 10.8 (9.0-12.0) Seconds INR 1.0 (0.9-1.1) APTT 26 (21-31) Seconds PTT Ratio 1.0 Sodium 139 (136-145) mmol/L Potassium 4.1 (3.5-5.1) mmol/L Chloride 107 (98-107) mmol/L Carbon Dioxide 25 (21-32) mmol/L Anion Gap 7 (3-11) BUN 23 (6-23) mg/dl Creatinine 1.10 (0.6-1.2) mg/dl Est Cr Clr Drug Dosing 53.3 ml/min eGFR 51.75 BUN/Creatinine Ratio 20.9 H (10-20) Glucose 84 (70-99(Fasting)) mg/dl Calcium 9.3 (8.6-10.3) mg/dl Total Bilirubin 0.5 (0.2-1.0) mg/dl AST 18 (13-39) U/L ALT 14 (7-52) U/L Alkaline Phosphatase 62 (34-104) U/L Troponin I High Sens 6.1 (0-14) pg/ml Total Protein 6.8 (6.0-8.3) gm/dl Albumin 3.9 (3.4-5.0) gm/dl Globulin 2.9 (2.5-4.0) gm/dl Albumin/Globulin Ratio 1.3 (0.9-2) Administered Medications Discontinued Medications Ioversol (Optiray 320 125ml) 117 ml IV ONCE ONE Stop: 02/12/24 18:37 Last Admin: 02/12/24 18:37 Dose: 117 ml Documented By: [facility] Imaging Data Radiologist's Impression: Chest X-Ray 02/12/24 12:48 XR chest 1V portable CLINICAL HISTORY: Chest pain, nonspecific TECHNIQUE: Single frontal radiograph of the chest was obtained. Comparison: Comparison is made to chest radiograph 06/15/2023 FINDINGS: ACDF is seen. The cardiomediastinal silhouette is normal. The lungs are clear. No evidence of pleural effusion or pneumothorax. IMPRESSION: No acute chest disease. ACT 112: Negative or not required by law. Electronically signed by: Kojo Morales M.D. 02/12/2024 1:49 PM Head CTA 02/12/24 17:06 Exam(s): CTA HEAD W/WO Contrast IV Amt: 117 cc opti 320 EXAM: CT Angiography Head Without and With Intravenous Contrast CLINICAL HISTORY: Reason for exam: dizziness, balance disturbance. TECHNIQUE: Axial computed tomographic angiography images of the head without and with intravenous contrast. CTDI is 30.68 mGy and DLP is 512 mGy-cm. Automated exposure control was utilized for the study. A dose lowering technique was utilized adhering to the principles of ALARA. MIP reconstructed images were created and reviewed. CONTRAST: Patient received 117 cc opti 320 of IV contrast COMPARISON: No relevant prior studies available. FINDINGS: VASCULATURE: Right internal carotid artery: No acute findings. Intracranial segment is patent with no significant stenosis. No aneurysm. Right anterior cerebral artery: Unremarkable. No occlusion or significant stenosis. No aneurysm. Right middle cerebral artery: Unremarkable. No occlusion or significant stenosis. No aneurysm. 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 No occlusion or significant stenosis. No aneurysm. Right vertebral artery: Unremarkable as visualized. Left internal carotid artery: No acute findings. Intracranial segment is patent with no significant stenosis. No aneurysm. Left anterior cerebral artery: Unremarkable. No occlusion or significant stenosis. No aneurysm. Left middle cerebral artery: Unremarkable. No occlusion or significant stenosis. No aneurysm. Left posterior cerebral artery: Unremarkable. No occlusion or significant stenosis. No aneurysm. Left vertebral artery: Unremarkable as visualized. Basilar artery: Unremarkable. No occlusion or significant stenosis. No aneurysm. HEAD: Brain: Age-related parenchymal volume loss. Mild chronic small vessel ischemic change. Barfield-white matter differentiation maintained. No acute intracranial hemorrhage. No mass-effect or midline shift. Ventricles: Unremarkable. No ventriculomegaly. Bones/joints: No skull fracture. Soft tissues: Unremarkable. Sinuses: Unremarkable as visualized. No acute sinusitis. Mastoid air cells: Unremarkable as visualized. No mastoid effusion. IMPRESSION: Patent intracranial circulation. Electronically signed by: Thania Harmon M.D. 02/12/24 19:36 PM Neck CTA 02/12/24 17:06 Exam(s): CTA NECK With Contrast IV Amt: 117 cc opti 320 EXAM: CT Angiography Neck With Intravenous Contrast CLINICAL HISTORY: Reason for exam: dizziness, balance disturbance. TECHNIQUE: Routine carotid CT angiography protocol was performed with intravenous contrast. NASCET criteria using the distal ICAs for comparison were used for evaluation of stenoses. CTDI is 37.42 mGy and DLP is 156.1 mGy-cm. Automated exposure control was utilized for the study. A dose lowering technique was utilized adhering to the principles of ALARA. MIP reconstructed images were created and reviewed. CONTRAST: Patient received 117 cc opti 320 of IV contrast COMPARISON: None. FINDINGS: VASCULATURE: Right common carotid artery: Unremarkable. No occlusion or significant stenosis. No dissection. Right internal carotid artery: Unremarkable. Extracranial segment is patent with no occlusion or significant stenosis. No dissection. Right external carotid artery: Unremarkable. No occlusion. Right vertebral artery: Unremarkable. No occlusion or significant stenosis. No dissection. Left common carotid artery: Unremarkable. No occlusion or significant stenosis. No dissection. Left internal carotid artery: Unremarkable. Extracranial segment is patent with no occlusion or significant stenosis. No dissection. Left external carotid artery: Unremarkable. No occlusion. Left vertebral artery: Unremarkable. No occlusion or significant stenosis. No dissection. Aorta: Unremarkable as visualized. No intra-aortic arch branch anatomy. NECK: Bones/joints: Degenerative changes in the spine. ACDF C5-C7. No acute osseous findings. Soft tissues: Subcutaneous emphysema in the anterior chest wall. Thyroid: Subcentimeter thyroid nodules; no follow-up indicated based on size criteria. Lung apices: Clear. CAROTID STENOSIS REFERENCE USING NASCET CRITERIA: % ICA stenosis = (1 - narrowest ICA diameter/diameter of distal cervical ICA) x 100. Mild - <50% stenosis. Moderate - 50-69% stenosis. Severe - 70-94% stenosis. Near occlusion - 95-99% stenosis. Occluded - 100% stenosis. IMPRESSION: 1. No dissection, significant stenosis, or occlusion. 2. Subcutaneous emphysema in the anterior chest wall. Correlate for recent operative change or penetrating trauma to account for this finding. Electronically signed by: Thania Harmon M.D. 02/12/24 19:24 PM Chest CTA 02/12/24 17:18 Exam(s): CTA CHEST IV Amt: 117 ml opti 320 EXAM: CT Angiography Chest With Intravenous Contrast CLINICAL HISTORY: Reason for exam: hypotension, tachy, recent colon resection. ? pe. TECHNIQUE: Axial computed tomographic angiography images of the chest with intravenous contrast. CTDI is 16.44 mGy and DLP is 1147 mGy-cm. Automated exposure control was utilized for the study. A dose lowering technique was utilized adhering to the principles of ALARA. MIP reconstructed images were created and reviewed. COMPARISON: No relevant prior studies available. FINDINGS: Pulmonary arteries: Unremarkable. No evidence of pulmonary embolism. Aorta: No acute findings. No aortic aneurysm or dissection. Lungs: Unremarkable. No mass. No consolidation. Pleural space: Unremarkable. No significant effusion. No pneumothorax. Heart: Coronary artery atherosclerosis. No cardiomegaly or pericardial effusion. Mediastinum: Small hiatal hernia. Bones/joints: No acute fracture. No dislocation. Soft tissues: Subcutaneous emphysema anterior body wall related to recent abdominal surgery. Lymph nodes: Unremarkable. No enlarged lymph nodes. Liver: Benign right hepatic lobe cyst. Kidneys and ureters: Simple left kidney parapelvic cyst; no follow-up indicated. IMPRESSION: No evidence of pulmonary embolism. Electronically signed by: Thania Harmon M.D. 02/12/24 19:39 PM Discharge Plan Visit Data Chief Complaint: Cardiac Assessment Stated Complaint: BLOOD PRESSURE HYPOTENSION AND HYPERTENSION ED Provider: Adan Chino Discharge Problem: Orthostasis, Balance disorder Forms Stand Alone Forms: [facility] Prescriptions Prescriptions: No Action losartan 50 mg Tablet 50 mg PO QAM rizatriptan 10 mg Tablet 10 mg PO UD PRN (Reason: Migraine Headache) vitamin B complex Capsule 1 cap PO QAM Rx Instructions: Unable to verify OTC meds at this date/time. [id number]-[id number] C-Mn [Glucosamine Chondroitin MaxStr] 500-400 mg Capsule 2 tab PO BID Rx Instructions: Unable to verify OTC meds at this date/time. Calcium 600 + D(3) 600 mg calcium- 200 unit Capsule 1 tab PO BID Rx Instructions: Unable to verify OTC meds at this date/time. multivitamin Tablet 1 tab PO QAM Rx Instructions: Unable to verify OTC meds at this date/time. magnesium 250 mg Tablet 250 mg PO QAM Rx Instructions: Unable to verify OTC meds at this date/time. PreserVision AREDS 7,160-113-100 [id number] Tablet 1 tab PO QAM Rx Instructions: Unable to verify OTC meds at this date/time. acetaminophen [Tylenol Extra Strength] 500 mg Tablet 500 mg PO Q6H PRN (Reason: Pain) Rx Instructions: Unable to verify OTC meds at this date/time. ascorbic acid (vitamin C) [Vitamin C] 250 mg tablet 250 mg PO BID Qty: 28 0RF Rx Instructions: Unable to verify OTC meds at this date/time. cholecalciferol (vitamin D3) [Vitamin D3] 25 mcg (1,000 unit) Tablet 25 mcg PO QAM Rx Instructions: Unable to verify OTC meds at this date/time. Probiotic 3 billion cell Capsule 3,000 mmu cells PO QAM Rx Instructions: Unable to verify OTC meds at this date/time. celecoxib 200 mg capsule 200 mg PO QAM PRN (Reason: Pain) venlafaxine 75 mg capsule,extended release 24hr 75 mg PO QAM levothyroxine 25 mcg tablet 25 mcg PO QAM rosuvastatin 5 mg tablet 5 mg PO HS bupropion HCl 150 mg tablet extended release 24 hr 150 mg PO DAILY Eliquis 1 tab PO BID Rx Instructions: unsure of dose, no fill history available. Per pt she is to take for 2 weeks Referrals Referrals: Kamala Reyes MD [Primary Care Provider] -
--- NOTE | 2024-02-12 16:25 | Electrocardiogram Report ---
Test Reason : Blood Pressure : */* mmHG Vent. Rate : 97 BPM Atrial Rate : 97 BPM P-R Int : 144 ms QRS Dur : 82 ms QT Int : 338 ms P-R-T Axes : 49 14 30 degrees QTcB Int : 429 ms Normal sinus rhythm Normal ECG When compared with ECG of 27-Oct-2023 07:34, No significant change Confirmed by Jose Felix ([id number]) on 02/12/2024 4:24:45 PM Referred By: Confirmed By: Jose Felix
[2024-02-12] MEDS: OPTIRAY 320 125ml IV ONE (18:37)
--- NOTE | 2024-02-12 19:25 | CT Scan Report ---
Exam(s): CTA NECK With Contrast IV Amt: 117 cc opti 320 EXAM: CT Angiography Neck With Intravenous Contrast CLINICAL HISTORY: Reason for exam: dizziness, balance disturbance. TECHNIQUE: Routine carotid CT angiography protocol was performed with intravenous contrast. NASCET criteria using the distal ICAs for comparison were used for evaluation of stenoses. CTDI is 37.42 mGy and DLP is 156.1 mGy-cm. Automated exposure control was utilized for the study. A dose lowering technique was utilized adhering to the principles of ALARA. MIP reconstructed images were created and reviewed. CONTRAST: Patient received 117 cc opti 320 of IV contrast COMPARISON: None. FINDINGS: VASCULATURE: Right common carotid artery: Unremarkable. No occlusion or significant stenosis. No dissection. Right internal carotid artery: Unremarkable. Extracranial segment is patent with no occlusion or significant stenosis. No dissection. Right external carotid artery: Unremarkable. No occlusion. Right vertebral artery: Unremarkable. No occlusion or significant stenosis. No dissection. Left common carotid artery: Unremarkable. No occlusion or significant stenosis. No dissection. Left internal carotid artery: Unremarkable. Extracranial segment is patent with no occlusion or significant stenosis. No dissection. Left external carotid artery: Unremarkable. No occlusion. Left vertebral artery: Unremarkable. No occlusion or significant stenosis. No dissection. Aorta: Unremarkable as visualized. No intra-aortic arch branch anatomy. NECK: Bones/joints: Degenerative changes in the spine. ACDF C5-C7. No acute osseous findings. Soft tissues: Subcutaneous emphysema in the anterior chest wall. Thyroid: Subcentimeter thyroid nodules; no follow-up indicated based on size criteria. Lung apices: Clear. CAROTID STENOSIS REFERENCE USING NASCET CRITERIA: % ICA stenosis = (1 - narrowest ICA diameter/diameter of distal cervical ICA) x 100. Mild - <50% stenosis. Moderate - 50-69% stenosis. Severe - 70-94% stenosis. Near occlusion - 95-99% stenosis. Occluded - 100% stenosis. IMPRESSION: 1. No dissection, significant stenosis, or occlusion. 2. Subcutaneous emphysema in the anterior chest wall. Correlate for recent operative change or penetrating trauma to account for this finding. Electronically signed by: Thania Harmon M.D. 02/12/24 19:24 PM
--- NOTE | 2024-02-12 19:37 | CT Scan Report ---
Exam(s): CTA HEAD W/WO Contrast IV Amt: 117 cc opti 320 EXAM: CT Angiography Head Without and With Intravenous Contrast CLINICAL HISTORY: Reason for exam: dizziness, balance disturbance. TECHNIQUE: Axial computed tomographic angiography images of the head without and with intravenous contrast. CTDI is 30.68 mGy and DLP is 512 mGy-cm. Automated exposure control was utilized for the study. A dose lowering technique was utilized adhering to the principles of ALARA. MIP reconstructed images were created and reviewed. CONTRAST: Patient received 117 cc opti 320 of IV contrast COMPARISON: No relevant prior studies available. FINDINGS: VASCULATURE: Right internal carotid artery: No acute findings. Intracranial segment is patent with no significant stenosis. No aneurysm. Right anterior cerebral artery: Unremarkable. No occlusion or significant stenosis. No aneurysm. Right middle cerebral artery: Unremarkable. No occlusion or significant stenosis. No aneurysm. Right posterior cerebral artery: origin of the right CLOTH FEEDER. No occlusion or significant stenosis. No aneurysm. Right vertebral artery: Unremarkable as visualized. Left internal carotid artery: No acute findings. Intracranial segment is patent with no significant stenosis. No aneurysm. Left anterior cerebral artery: Unremarkable. No occlusion or significant stenosis. No aneurysm. Left middle cerebral artery: Unremarkable. No occlusion or significant stenosis. No aneurysm. Left posterior cerebral artery: Unremarkable. No occlusion or significant stenosis. No aneurysm. Left vertebral artery: Unremarkable as visualized. Basilar artery: Unremarkable. No occlusion or significant stenosis. No aneurysm. HEAD: Brain: Age-related parenchymal volume loss. Mild chronic small vessel ischemic change. Barfield-white matter differentiation maintained. No acute intracranial hemorrhage. No mass-effect or midline shift. Ventricles: Unremarkable. No ventriculomegaly. Bones/joints: No skull fracture. Soft tissues: Unremarkable. Sinuses: Unremarkable as visualized. No acute sinusitis. Mastoid air cells: Unremarkable as visualized. No mastoid effusion. IMPRESSION: Patent intracranial circulation. Electronically signed by: Thania Harmon M.D. 02/12/24 19:36 PM
--- NOTE | 2024-02-12 19:40 | CT Scan Report ---
Exam(s): CTA CHEST IV Amt: 117 ml opti 320 EXAM: CT Angiography Chest With Intravenous Contrast CLINICAL HISTORY: Reason for exam: hypotension, tachy, recent colon resection. ? pe. TECHNIQUE: Axial computed tomographic angiography images of the chest with intravenous contrast. CTDI is 16.44 mGy and DLP is 1147 mGy-cm. Automated exposure control was utilized for the study. A dose lowering technique was utilized adhering to the principles of ALARA. MIP reconstructed images were created and reviewed. COMPARISON: No relevant prior studies available. FINDINGS: Pulmonary arteries: Unremarkable. No evidence of pulmonary embolism. Aorta: No acute findings. No aortic aneurysm or dissection. Lungs: Unremarkable. No mass. No consolidation. Pleural space: Unremarkable. No significant effusion. No pneumothorax. Heart: Coronary artery atherosclerosis. No cardiomegaly or pericardial effusion. Mediastinum: Small hiatal hernia. Bones/joints: No acute fracture. No dislocation. Soft tissues: Subcutaneous emphysema anterior body wall related to recent abdominal surgery. Lymph nodes: Unremarkable. No enlarged lymph nodes. Liver: Benign right hepatic lobe cyst. Kidneys and ureters: Simple left kidney parapelvic cyst; no follow-up indicated. IMPRESSION: No evidence of pulmonary embolism. Electronically signed by: Thania Harmon M.D. 02/12/24 19:39 PM
--- OUTSIDE RECORDS SUMMARY | 2024-02-12 20:53 | External Medical Summary | Continuity of Care Document ---
Author Name Unknown Organization [facility] [address] [place] [id number] Care Team Providers Care Associate Software Developer Name Role Phone Kamala Reyes Primary Care Physician [phone] Encounter [facility] [id number] Date(s): 01/14/24 - 01/14/24 [facility] [address] [facility] [address], [address], [address] [place] [address] [phone] Encounter Diagnosis Body mass index [BMI] 28.0-28.9, adult(Discharge Diagnosis) - 01/14/24 Diverticulitis(Discharge Diagnosis) - 01/14/24 Discharge Disposition: Home or Self Care Attending Physician: MD Parris, Freddie White Referring Physician: MD Zully, Meme Allergies, Adverse Reactions, Alerts No Known Allergies Medications amoxicillin 500 mg oral capsule Start: 07/12/22 4:45:00 PM EDT, 4 cap, PO, As indicated, Disp# 12 cap, Refills: 3, one hour before dental and other procedures as directed, Pharmacy: [facility] Start Date: 07/12/22 Status: Ordered B-Complex 50 oral tablet Start: 10/01/12 8:40:00 AM EDT, 1 tab, PO, Daily Start Date: 10/01/12 Status: Ordered buPROPion 150 mg/24 hours (XL) oral tablet, extended release Start: 01/14/24 2:01:00 PM EDT, 1 tab, PO, Daily Start Date: 01/14/24 Status: Ordered celecoxib 200 mg oral capsule Start: 08/25/22 11:37:00 AM EDT, See Instructions, Disp# 90 cap, Refills: 2, TAKE 1 CAPSULE BY MOUTHDAILY NEEDED FOR PAIN, Pharmacy: [facility] ([facility] ) Start Date: 08/25/22 Status: Ordered Colace Start: 12/27/23 11:05:00 AM EDT, 100 mg =, PO, bid Start Date: 12/27/23 Status: Ordered diclofenac 1% topical gel Start: 10/02/18 2:50:36 PM EDT, See Instructions, Disp# 100 g, Refills: 0, APPLY TOPICALLY 4 TIMES DAILY NEEDED FOR PAIN. NOT TO EXCEED 16 GRAMS DAILY ON A SINGLE JOINT OF LOWER EXTREMITIES. NOT TO EXCEED 32 GRAM, Pharmacy: [facility] Start Date: 10/02/18 Status: Ordered Effexor 75 mg oral tablet Start: 10/01/12 8:41:00 AM EDT, 1 tab, PO, Daily Start Date: 10/01/12 Status: Ordered glucosamine-chondroitin oral kit Start: 10/01/12 8:40:00 AM EDT, 1,100 mg, PO, Daily Start Date: 10/01/12 Status: Ordered levothyroxine 25 mcg (0.025 mg) oral tablet Start: 01/14/24 1:56:00 PM EDT, 1 tab, PO, Daily Start Date: 01/14/24 Status: Ordered losartan 50 mg oral tablet Start: 01/14/24 1:57:00 PM EDT, 1 tab, PO, Daily Start Date: 01/14/24 Status: Ordered magnesium gluconate 250 mg oral tablet Start: 01/14/24 2:03:00 PM EDT, 1 tab, PO, Daily Start Date: 01/14/24 Status: Ordered MiraLax Start: 12/27/23 11:05:00 AM EDT, 2.5 caps, PO, bid Start Date: 12/27/23 Status: Ordered multivitamin Start: 01/14/24 2:02:00 PM EDT, 1 tab, PO, Daily Start Date: 01/14/24 Status: Ordered PreserVision Start: 03/12/18 11:03:00 AM EST Start Date: 03/12/18 Status: Ordered Probiotic Formula (Bacillus Coagulans) oral capsule Start: 01/14/24 2:03:00 PM EDT, 1 cap, PO, bid, 5 billion CFU's. Start Date: 01/14/24 Status: Ordered rosuvastatin 5 mg oral tablet Start: 01/14/24 2:01:00 PM EDT, 1 tab, PO, Daily Start Date: 01/14/24 Status: Ordered Vitamin C 500 mg oral capsule Start: 01/14/24 2:02:00 PM EDT, 1 cap, PO, Daily Start Date: 01/14/24 Status: Ordered Vitamin D3 50 mcg (2000 intl units) oral capsule Start: 01/14/24 2:02:00 PM EDT, 1 cap, PO, Daily Start Date: 01/14/24 Status: Ordered Problem List Condition Confirmation Course Effective Dates [...] pain Confirmed Active Hiatal hernia Confirmed Active Left hip pain Confirmed Active S/P total knee replacement Confirmed [...] Diagnosis Diagnosis Type Effective Dates Health Status Clinical Service Informant Body mass index [BMI] 28.0-28.9, adult Discharge Diagnosis 01/14/24 Non-Specified Diverticulitis Discharge Diagnosis 01/14/24 Non-Specified Procedures Procedure Date Related Diagnosis Body Site Status knee surgery 02/15/09 Completed Discectomy 1999 Completed hand surgery 1997 Completed Hysterectomy 1979 Completed Tonsillectomy 1956 Completed Vital Signs Most recent to oldest [Reference Range]: 1 Height 179 cm (01/14/24 1:50 PM) Patient Weight 91.8 kg (01/14/24 1:50 PM) Body Mass Index 28.65 kg/m2 (01/14/24 1:50 PM) Temperature [36.5-37.9 DegC] 37.1 DegC (01/14/24 1:50 PM) Heart Rate 124 bpm (01/14/24 1:50 PM) Blood Pressure 145/74mmHg (01/14/24 1:50 PM) Cuff Pulse Pressure 71 mmHg (01/14/24 1:50 PM) BP Location # 1 Left Arm (01/14/24 1:50 PM) Social History Social History Type Response Smoking Status Never smoked cigaret jaime Sex Female Sex Representation Female (finding) Patient Care team information Care Team Personnel Name: MD Eric, Kamala Olivia Position: Referring DIRECT Member Role: Primary Care Provider Address: [address] [place] [id number] [place] Care Team Related Persons Name: ENIO YEPEZ Name: ENRIQUE CURTIS
--- OUTSIDE RECORDS SUMMARY | 2024-02-12 20:53 | External Medical Summary | Continuity of Care Document ---
Author Name Unknown Organization [facility] Address [address] [place] [phone] Care Team Providers Care Research Laboratory Specialist Name Role Phone ReyesMannie callisha Cody Primary Care Physician [phone] Encounter [facility] [id number] Date(s): 01/31/24 - 02/06/[address] [phone] Encounter Diagnosis Diverticulitis(Discharge Diagnosis) - 01/31/24 Tachycardia(Discharge Diagnosis) - 02/04/24 Orthostatic hypotension(Discharge Diagnosis) - 02/04/24 Discharge Disposition: Home or Self Care Attending Physician: MD Nye Michael J Admitting Physician: MD Nye Michael J Allergies, Adverse Reactions, Alerts No Known Allergies Functional Status 02/06/24 Neurological Symptoms None ADLs Minimal assistance Facial Symmetry Symmetric Gait Unsteady Swallowing Difficulty None Level of Consciousness Neuro Alert Hallucinations Present None History of Fall in Last 3 Months Shirley N o Presence of Secondary Diagnosis Shirley Ye s Use of Ambulatory Aid Shirley None/bedrest /nurse assist IV/Heparin Lock Fall Risk Shirley Yes Gait/Transferring Fall Risk Shirley Normal /bedrest/immobile Mental Status Fall Risk Shirley Oriented t o own ability Shirley Fall Risk Score 35 Shirley Fall Risk Low Risk Speech Pattern Clear Medications amoxicillin 500 mg oral capsule Start: [...] CAPSULE BY MOUTHDAILY NEEDED FOR PAIN, Pharmacy: [facility] ) Start Date: 08/25/22 Status: Ordered diclofenac 1% topical gel Start: 10/02/18 2:50:36 PM EDT, See Instructions, Disp# 100 g, Refills: 0, APPLY TOPICALLY 4 TIMES DAILY NEEDED FOR PAIN. NOT TO EXCEED 16 GRAMS DAILY ON A SINGLE JOINT OF LOWER EXTREMITIES. NOT TO EXCEED 32 GRAM, Pharmacy: [facility] Start Date: 10/02/18 Status: Ordered Effexor 75 mg oral tablet Start: 10/01/12 8:41:00 AM EDT, 1 tab, PO, Daily Start Date: 10/01/12 Status: Ordered Eliquis 2.5 mg oral tablet Start: 02/06/24 9:53:00 AM EDT, 1 tab, PO, bid, Disp# 28 tab, Pharmacy: [facility] Start Date: 02/06/24 Stop Date: 02/20/24 Status: Ordered glucosamine-chondroitin oral kit Start: 10/01/12 [...] PO, Daily Start Date: 01/14/24 Status: Ordered meclizine 25 mg oral tablet Start: 02/06/24 9:45:00 AM EDT, 1 tab, PO, Daily, Disp# 10 tab, PRN: dizziness, Pharmacy: [facility] Start Date: 02/06/24 Status: Ordered miconazole 2% topical ointment Start: 02/06/24 9:38:00 AM EDT, 1 appl, topical, bid, Disp# 60 g, Apply to affected area to back twice daily x 14 days., Pharmacy: [facility] Start Date: 02/06/24 Status: Ordered miconazole 2% topical powder Start: 02/06/24 9:42:00 AM EDT, 1 appl, topical, bid, Disp# 85 g, Apply to affected area on abdomen twice daily x 14 days., Pharmacy: [facility] Start Date: 02/06/24 Status: Ordered multivitamin Start: 01/14/24 2:02:00 PM EDT, 1 tab, PO, Daily Start Date: 01/14/24 Status: Ordered oxyCODONE 5 mg oral tablet Start: 02/06/24 9:46:00 AM EDT, 2.5 mg =, PO, q6h, Disp# 10 tab, Refills: 0, PRN: pain - moderate (4-6), Pharmacy: [facility] Start Date: 02/06/24 Status: Ordered PreserVision Start: 03/12/18 11:03:00 AM EST Start Date: 03/12/18 Status: Ordered Probiotic Formula (Bacillus Coagulans) oral capsule Start: 01/14/24 2:03:00 PM EDT, 1 cap, PO, bid, 5 billion CFU's. Start Date: 01/14/24 Status: Ordered rosuvastatin 5 mg oral tablet Start: 01/14/24 2:01:00 PM EDT, 1 tab, PO, Daily Start Date: 01/14/24 Status: Ordered Tylenol 500 mg oral tablet Start: 02/06/24 8:45:00 AM EDT, 2 tab, PO, q6h, PRN: fever/mild pain (1-3) Start Date: 02/06/24 Status: Ordered Vitamin C 500 mg oral capsule Start: 01/14/24 2:02:00 PM EDT, 1 cap, PO, Daily Start Date: 01/14/24 Status: Ordered Vitamin D3 50 mcg (2000 intl units) oral capsule Start: 01/14/24 2:02:00 PM EDT, 1 cap, PO, Daily Start Date: 01/14/24 Status: Ordered Mental Status 02/01/24 Communication Barrier Present No Primary Language Finnish Problem List Condition Confirmation Course Effective Dates Status H ealth Status Informant Anemia Confirmed Active Anxiety Confirmed Active Pes anserine bursitis Confirmed Active [...] Active S/P total knee replacement Confirmed Active Hypertension Confirmed Active Intervertebral disc disorder Confirmed Active [...] Effective Dates Health Status Clinical Service Informant Diverticulitis Discharge Diagnosis 01/31/24 Non-Specified Orthostatic hypotension Discharge Diagnosis 02/04/24 Non-Specified Tachycardia Discharge Diagnosis 02/04/24 Non-Specified Procedures Procedure Date Related Diagnosis Body Site Status hand surgery 1997 Completed Hysterectomy 1979 Completed Tonsillectomy 1956 Completed ACDF Completed Efraín fundoplication Com pleted R TKA Completed Thyroidectomy Completed Results Laboratory List Name Date Cortisol Level 02/06/24 Basic Metabolic Panel 02/06/24 Complete Blood Count w Differential (CBC w Platelets and Diff) 02/06/24 Magnesium Level 02/06/24 Magnesium Level 02/06/24 Nephrology Panel 02/06/24 Complete Blood Count w Differential (CBC w Platelets and Diff) 02/05/24 Cortisol Level 02/05/24 Basic Metabolic Panel 02/05/24 Complete Blood Count w Differential (CBC w Platelets and Diff) 02/05/24 Magnesium Level 02/05/24 Cortisol Level 02/04/24 Added on Lab order 02/04/24 Hemoglobin A1C (HEMOGLOBIN, A1C) 02/03/24 NT-Pro BNP 02/03/24 T4, Free (T4, FREE) 02/03/24 Thyroid Stimulating Hormone (TSH) 4 Troponin T ( 5th Gen) 02/03/24 Lactic Acid Level 02/03/24 Phosphorus Level 02/03/24 Nephrology Panel 02/02/24 Added on Lab order 02/02/24 Blood Type (ABO/Rh) 01/31/24 Blood Type/Antibody Screen ( for possible transfusion) (Type and Screen (for possible transfusion)) 01/31/24 Nephrology Panel 01/31/24 Urine Analysis w/ Reflexed Microscopic. (UA w/ Reflexed Microscopic.) 01/31/24 Most recent to oldest [Reference Range]: 1 2 3 ABO/Rh O POSITIVE (01/31/24 9:22 AM) O POSITIVE (01/31/24 9:18 AM) Antibody Scr NEGATIVE (01/31/24 9:18 AM) Expires at 0600AM on 02/03/2024 (01/31/24 9:18 AM) # Units 0 (01/31/24 9:18 AM) R Number NRQ (01/31/24 9:18 AM) eGFR CKD-EPI [>60 mL/min/1.73 m2] 61 mL/min/1.73 m2 (02/06/24 5:50 AM) 63 mL/min/1.73 m2 (02/06/24 12:26 AM) 69 mL/min/1.73 m2 (02/05/24 11:03 AM) Estimated Average Glucose 117 mg/dL (02/03/24 11:10 PM) Troponin T ( 5th Gen) [<14 ng/L] 13 ng/L 1 (02/03/24 11:11 PM) Troponin T ( 5th Gen) Delta NOT CALCULATED (02/03/24 11:11 PM) Request of Physician TSH/T4 HbA1c BNP (02/04/24 12:49 AM) Neph panel Mg (02/02/24 8:48 PM) Action Taken YES (02/04/24 12:49 AM) Test NOT added because: 2 (02/02/24 8:48 PM) BNP, NT-Pro [<450 pg/mL] 975 pg/mL *HI* (02/03/24 11:10 PM) Estimated CrCl 61.77 mL/min (02/06/24 7:03 AM) 63.10 mL/min (02/06/24 2:04 AM) 68.23 mL/min (02/05/24 12:24 PM) MPV [9.0-12.2 fL] 10.1 fL (02/06/24 5:50 AM) 10.6 fL (02/05/24 7:35 PM) 10.7 fL (02/05/24 11:03 AM) Immature Gran% 0.7 % (02/06/24 5:50 AM) 0.5 % (02/05/24 7:35 PM) 0.5 % (02/05/24 11:03 AM) Neut% 66.9 % (02/06/24 5:50 AM) 67.7 % (02/05/24 7:35 PM) 67.0 % (02/05/24 11:03 AM) Lymph% 18.0 % (02/06/24 5:50 AM) 17.3 % (02/05/24 7:35 PM) 19.7 % (02/05/24 11:03 AM) Becker% 10.0 % (02/06/24 5:50 AM) 10.6 % (02/05/24 7:35 PM) 9.6 % (02/05/24 11:03 AM) Baso% 0.5 % (02/06/24 5:50 AM) 0.5 % (02/05/24 7:35 PM) 0.5 % (02/05/24 11:03 AM) Eos% 3.9 % (02/06/24 5:50 AM) 3.4 % (02/05/24 7:35 PM) 2.7 % (02/05/24 11:03 AM) Immat Gran, Abs [0-0.4 K/uL] 0.04 K/uL (02/06/24 5:50 AM) 0.03 K/uL (02/05/24 7:35 PM) 0.03 K/uL (02/05/24 11:03 AM) Neut, Abs [2.0-7.7 K/uL] 3.80 K/uL (02/06/24 5:50 AM) 4.33 K/uL (02/05/24 7:35 PM) 4.21 K/uL (02/05/24 11:03 AM) Lymph, Abs [1.0-3.4 K/uL] 1.02 K/uL (02/06/24 5:50 AM) 1.11 K/uL (02/05/24 7:35 PM) 1.24 K/uL (02/05/24 11:03 AM) Becker, Abs [0-1.0 K/uL] 0.57 K/uL (02/06/24 5:50 AM) 0.68 K/uL (02/05/24 7:35 PM) 0.60 K/uL (02/05/24 11:03 AM) Baso, Abs [0-0.1 K/uL] 0.03 K/uL (02/06/24 5:50 AM) 0.03 K/uL (02/05/24 7:35 PM) 0.03 K/uL (02/05/24 11:03 AM) Eos, Abs [0-0.5 K/uL] 0.22 K/uL (02/06/24 5:50 AM) 0.22 K/uL (02/05/24 7:35 PM) 0.17 K/uL (02/05/24 11:03 AM) Type of Diff: AUTO (02/06/24 5:50 AM) AUTO (02/05/24 7:35 PM) AUTO (02/05/24 11:03 AM) RDW [11.5-14.2 %] 13.9 % (02/06/24 5:50 AM) 13.6 % (02/05/24 7:35 PM) 13.6 % (02/05/24 11:03 AM) Component RED CELLS (01/31/24 9:18 AM) Squamous Epithelial Cells (u) FEW (01/31/24 9:20 AM) Mucous (u) FEW (01/31/24 9:20 AM) Anion Gap [5-14 mmol/L] 11 mmol/L (02/06/24 5:50 AM) 11 mmol/L (02/06/24 12:26 AM) 11 mmol/L (02/05/24 11:03 AM) Alb [3.5-5.2 g/dL] 3.6 g/dL (02/06/24 12:26 AM) 4.0 g/dL (02/02/24 10:59 PM) 4.3 g/dL (01/31/24 9:20 AM) Bact (u) [NONE-NONE] NONE (01/31/24 9:20 AM) Bili (u) [NEG] NEGATIVE 3 (01/31/24 9:20 AM) BUN [6-23 mg/dL] 13 mg/dL (02/06/24 5:50 AM) 14 mg/dL (02/06/24 12:26 AM) 12 mg/dL (02/05/24 11:03 AM) Ca [8.4-10.2 mg/dL] 9.6 mg/dL (02/06/24 5:50 AM) 9.2 mg/dL (02/06/24 12:26 AM) 9.6 mg/dL (02/05/24 11:03 AM) Cl- [98-107 mmol/L] 104 mmol/L (02/06/24 5:50 AM) 105 mmol/L (02/06/24 12:26 AM) 104 mmol/L (02/05/24 11:03 AM) HCO3 [22-29 mmol/L] 27 mmol/L (02/06/24 5:50 AM) 25 mmol/L (02/06/24 12:26 AM) 25 mmol/L (02/05/24 11:03 AM) Cortisol [2.3-19.4 ug/dL] 15.0 ug/dL 4 (02/06/24 5:50 AM) 11.8 ug/dL 5 (02/05/24 11:03 AM) 25.5 ug/dL 6 *HI* (02/04/24 6:33 AM) Cret [0.60-1.00 mg/dL] 0.95 mg/dL (02/06/24 5:50 AM) 0.93 mg/dL (02/06/24 12:26 AM) 0.86 mg/dL (02/05/24 11:03 AM) HbA1c [<5.7 %] 5.7 % 7 *HI* (02/03/24 11:10 PM) Glu [74-109 mg/dL] 109 mg/dL 8 (02/06/24 5:50 AM) 111 mg/dL 9 *HI* (02/06/24 12:26 AM) 85 mg/dL 10 (02/05/24 11:03 AM) Hct [35-44 %] 41.8 % (02/06/24 5:50 AM) 37.8 % (02/05/24 7:35 PM) 40.7 % (02/05/24 11:03 AM) Hgb [11.7-15.0 g/dL] 13.7 g/dL (02/06/24 5:50 AM) 12.8 g/dL (02/05/24 7:35 PM) 13.4 g/dL (02/05/24 11:03 AM) K [3.5-5.1 mmol/L] 4.2 mmol/L (02/06/24 5:50 AM) 3.9 mmol/L (02/06/24 12:26 AM) 3.9 mmol/L (02/05/24 11:03 AM) Ketones [NEG mg/dL] TRACE mg/dL *Abnormal* (01/31/24:20 AM) Lactate [0.5-2.2 mmol/L] 0.9 mmol/L (02/03/24 11:11 PM) Leuk Est [NEG] SMALL 11 *Abnormal* (01/31/24 9:20 AM) MCH [28-33 pg] 29.7 pg (02/06/24 5:50 AM) 29.6 pg (02/05/24 7:35 PM) 29.6 pg (02/05/24 11:03 AM) MCHC [32-36 g/dL] 32.8 g/dL (02/06/24 5:50 AM) 33.9 g/dL (02/05/24 7:35 PM) 32.9 g/dL (02/05/24 11:03 AM) MCV [81-96 fL] 90.5 fL (02/06/24 5:50 AM) 87.5 fL (02/05/24 7:35 PM) 89.8 fL (02/05/24 11:03 AM) Mg [1.6-2.6 mg/dL] 2.0 mg/dL (02/06/24 5:50 AM) 1.9 mg/dL (02/06/24 12:26 AM) 2.0 mg/dL (02/05/24 11:03 AM) Na [136-145 mmol/L] 142 mmol/L (02/06/24 5:50 AM) 141 mmol/L (02/06/24 12:26 AM) 140 mmol/L (02/05/24 11:03 AM) Nitrite (u) [NEG] NEGATIVE 12 (01/31/24 9:20 AM) PO4 [2.5-4.5 mg/dL] 3.3 mg/dL (02/06/24 12:26 AM) 3.5 mg/dL (02/03/24 11:11 PM) 1.4 mg/dL *LOW* (02/02/24 10:59 PM) Plts [150-350 K/uL] 208 K/uL (02/06/24 5:50 AM) 192 K/uL (02/05/24 7:35 PM) 215 K/uL (02/05/24 11:03 AM) RBC [3.90-5.00 M/uL] 4.62 M/uL (02/06/24 5:50 AM) 4.32 M/uL (02/05/24 7:35 PM) 4.53 M/uL (02/05/24 11:03 AM) Free T4 [0.9-1.7 ng/dL] 1.76 ng/dL *HI* (02/03/24 11:10 PM) TSH [0.30-4.20 uIU/mL] 0.30 uIU/mL (02/03/24 11:10 PM) Appear (u) SLIGHTLY CLOUDY (01/31/24 9:20 AM) Color (u) AGUSTÍN (01/31/24 9:20 AM) Glu (u) [NEG mg/dL] NEGATIVE mg/dL 13 (01/31/24 9:20 AM) Hgb (u) [NEG] NEGATIVE 14 (01/31/24 9:20 AM) pH (u) [5.0-8.0 unit] 6.0 unit (01/31/24 9:20 AM) Prot (u) [NEG mg/dL] 100 mg/dL *Abnormal* (01/31/24 9:20 AM) RBC (u) [0-4 /HPF] 0-4 /HPF (01/31/24 9:20 AM) Urobili [0.1-1.0 EU/dL] 0.1-1.0 EU/dL (01/31/24 9:20 AM) SG [1.005-1.030] 1.023 (01/31/24 9:20 AM) WBC (u) [0-4 /HPF] 5-9 /HPF (01/31/24 9:20 AM) WBC [4.0-10.4 K/uL] 5.68 K/uL (02/06/24 5:50 AM) 6.40 K/uL (02/05/24 7:35 PM) 6.28 K/uL (02/05/24 11:03 AM) 1Result Comment: To use the high-sensitivity cTnT assay, at least 2 blood samples should be drawnat time 0 and then at least 1h later. If the cTnT concentration at time 0 is greater than or equal to 53 ng/L in a patient whose clinicalpresentation is consistent with acute coronary syndrome, then there is a high likelihood that acutemyocardial injury is present. However, confirmation of acute myocardial injury still requires a second cTnT shelia drawn. Delta cut-offs for determining the presence of acute myocardial injury have beenvalidated at the 1-hour and 2-hour time points referenced here. A 1-hour delta troponin >5 ng/L indicates acute myocardial injury. A 2h delta troponin >7 ng/L indicates acute myocardial injury. Values below these are consistent with chronic myocardial injury. For patients where there is a high index of suspicion for acute coronary syndrome, repeating the tests at 1 or 2 hours, and calculating a new delta, may be indicated. If the second sample is collected in less than 60 minutes, no delta calculationwill be performed. Deltas for blood samples drawn more than 3 hours apart have not been validated and will not be reported. Please interpret with caution. 2Result Comment: DUPLICATE REQUEST 3Result Comment: POSSIBLE INTERFERING SUBSTANCE. ASCORBIC ACID DETECTED IN URINE. RESULTS MAY BEUNRELIABLE. 4Result Comment: Reference Range: MORNING (7AM-10AM) 6.20-19.4 UG/DL AFTERNOON (4PM-8PM) 2.30-11.9 UG/DL 5Result Comment: Reference Range: MORNING (7AM-10AM) 6.20-19.4 UG/DL AFTERNOON (4PM-8PM) 2.30-11.9 UG/DL 6Result Comment: Reference Range: MORNING (7AM-10AM) 6.20-19.4 UG/DL AFTERNOON (4PM-8PM) 2.30-11.9 UG/DL 7Result Comment: ADA Recommended [place] Reference Range: Normal: <5.7% Prediabetes: 5.7-6.4% Diabetes: >6.4% Hb A1c results in patients with severe anemia or recent RBC transfusion are unreliable and do not represent the patient glycemic control. 8Result Comment: ADA recommendation for FASTING Serum/Plasma Glucose: Normal: 70-100 mg/dL Prediabetes: 100-125 mg/dL Diabetes: 126 mg/dL or higher 9Result Comment: ADA recommendation for FASTING Serum/Plasma Glucose: Normal: 70-100 mg/dL Prediabetes: 100-125 mg/dL Diabetes: 126 mg/dL or higher 10Result Comment: ADA recommendation for FASTING Serum/Plasma Glucose: Normal: 70-100 mg/dL Prediabetes: 100-125 mg/dL Diabetes: 126 mg/dL or higher 11Result Comment: POSSIBLE INTERFERING SUBSTANCE. ASCORBIC ACID DETECTED IN URINE. RESULTS MAY BEUNRELIABLE. 12Result Comment: POSSIBLE INTERFERING SUBSTANCE. ASCORBIC ACID DETECTED IN URINE. RESULTS MAY BEUNRELIABLE. 13Result Comment: POSSIBLE INTERFERING SUBSTANCE. ASCORBIC ACID DETECTED IN URINE. RESULTS MAY BEUNRELIABLE. 14Result Comment: POSSIBLE INTERFERING SUBSTANCE. ASCORBIC ACID DETECTED IN URINE. RESULTS MAY BEUNRELIABLE. Radiology Reports * Exam Date Time Procedure Performing Provider Status 02/04/24 9:34 AM Echo TransTHORacic TTE Complete w/ Con Rubi Priest; Final Notes: (Echo TransTHORacic TTE Complete w/ Cont) Reason For Exam: Orthostatic hypotension, tachycardia Echo TransTHORacic TTE Complete w/ Cont Report Signatures Finalized by Dr. Kevin Sutton DO on 02/04/2024 11:59 AM [place] Act 112: No-No further action needed Summary 1. Failed 2D images were enhanced with Definity per lab protocol. 2. Normal left ventricular size and systolic function with no regional wall motion abnormalities. 3. Estimated Ejection Fraction 60-65%. 4. No left ventricular hypertrophy. 5. Normal diastolic function. 6. Normal right ventricular size and function. 7. No significant valvular abnormalities. 8. Insufficient TR for estimation of pulmonary artery systolic pressure. 9. No prior studies at [facility] for comparison. Patient Info Name: RAJIV HALL Age: 78 years : 1945 Gender: Female Ht: 180 cm Wt: 90 kg BSA: 2.14 m2 HR: 84 bpm BP: 127 / 81 mmHg Heart Rhythm: Indeterminate Technical Quality: Fair Exam Date: 02/04/2024 8:53 AM Exam Location: [address] [place] [address] Patient Status: Inpatient Staff Ordering Physician: Joycelyn Peraza Steam [employer] Supervisor: Rubi Lima Attending Physician: Freddie Nye Study Info CPT J3490 - 18120 - Indications R000 - Tachycardia, unspecified I951 - Orthostatic Hypotension Procedure(s) * A complete two-dimensional, color flow and Doppler transthoracic echocardiogram was performed. * Steam And Power Supervisor, Rubi Lima, provided education about ultrasound enhancing agent to the patient. * Failed 2D images were enhanced with Definity per lab protocol. Exam Type: Cardiac Basic Left Ventricle Normal left ventricular size and systolic function with no regional wall motion abnormalities. Estimated Ejection Fraction 60-65%. No left ventricular hypertrophy. Normal diastolic function. Right Ventricle Normal right ventricular size and function. Left Atrium Normal left atrial size. Right Atrium Normal right atrial size. Aortic Valve The aortic valve is trileaflet and unremarkable by two-dimensional, color flow and Doppler interrogation. Pulmonic Valve Unremarkable pulmonic valve. Mitral Valve Unremarkable mitral valve. Tricuspid Valve Unremarkable tricuspid valve. Insufficient TR for estimation of pulmonary artery systolic pressure. Pericardium/Pleural No significant pericardial effusion. Inferior Vena Cava Normal IVC size and inspiratory collapse. Aorta Normal aortic root. Left Ventricular Outflow Tract Name Value Normal LVOT Doppler LVOT Peak Velocity 0.93 m/s LVOT Peak Gradient 3 mmHg LVOT Mean Gradient 2 mmHg LVOT VTI 16.55 cm LVOT VTI/AV VTI Ratio 0.71 Pulmonic Valve Name Value Normal RVOT Doppler RVOT Peak Velocity 0.63 m/s RVOT Peak Gradient 2 mmHg PV Doppler PV Peak Gradient 3 mmHg Mitral Valve Name Value Normal MV Doppler MV PHT 54 ms MV Diastolic Function MV E Peak Velocity 0.57 m/s <=0.50 MV A Peak Velocity 0.76 m/s MV E/A 0.74 <=0.80 MV Decel Time 187 ms MV Annular TDI MV Septal s' Velocity 10.29 cm/s MV Septal e' Velocity 3.72 cm/s >=7.00 MV E/e' (Septal) 15.2 <=8.0 MV Lateral s' Velocity 6.41 cm/s MV Lateral e' Velocity 5.64 cm/s >=10.00 MV E/e' (Lateral) 10.03 <=8.00 MV e' Average 4.68 MV E/e' (Average) 12.61 <=14.00 Tricuspid Valve Name Value Normal Estimated PAP/RSVP RA Pressure 3 mmHg <=5 TV Diastolic Function TV E Peak Velocity 0.32 m/s TV A Peak Velocity 0.27 m/s TV E/A 1.20 0.80-2.00 TV Decel Time 134 ms >=120 TV Annular TDI TV Lateral Jennifer s' Velocity 17.3 cm/s 9.5-18.7 TV Lateral Jennifer e' Velocity 18.6 cm/s <7.8 TV E/e' 1.72 2.00-6.00 Aorta Name Value Normal Ascending Aorta Sinus of Valsalva Diameter 3.6 cm 2.7-3.3 Sinus of Valsalva Index 1.67 cm/m2 1.60-2.00 Venous Name Value Normal IVC/SVC IVC Diameter (Insp 2D) 0.2 cm IVC Diameter (Exp 2D) 1.4 cm <=2.1 IVC Diameter Percent Change (2D) 87 % >=50 Aortic Valve Name Value Normal AV Doppler AV Peak Velocity 1.25 m/s <2.00 AV Peak Gradient 6 mmHg AV Mean Gradient 3 mmHg <20 AV VTI 23.32 cm AV V1/V2 Ratio 0.75 Ventricles Name Value Normal LV Dimensions 2D/MM IVS Diastolic Thickness (2D) 0.7 cm 0.6-0.9 LVID Diastole (2D) 4.1 cm 3.3-5.1 LVIW Diastolic Thickness (2D) 0.8 cm 0.6-0.9 LVID Systole (2D) 3.3 cm 2.2-3.5 LV Mass (2D Cubed) 85.42 g 67.00-162.00 LV Mass Index (2D Cubed) 0.00 g/cm2 0.00-0.01 Relative Wall Thickness (2D) 0.37 LV Fractional Shortening/Ejection Fraction 2D/MM LV Fractional Shortening (2D) 21 % 27-45 LV Diastolic Volume (4C MOD) 133 ml LV Diastolic Volume (2C MOD) 111 ml LV Diastolic Volume (BP MOD) 121 ml 46-106 LV Diastolic Volume Index (BP MOD) 56.69 ml/m2 29.00-61.00 LV Systolic Volume (BP MOD) 44 ml 14-42 LV Systolic Volume Index (BP MOD) 20.65 ml/m2 8.00-24.00 LV EF (BP MOD) 64 % 58-69 LV SV (BP MOD) 77.05 ml LV End Diastolic Volume (BP A-L) 128.96 ml LV End Systolic Volume (BP A-L) 44.43 ml LV EF (BP A-L) 66 % RV Dimensions 2D/MM RV Basal Diastolic Dimension 3.1 cm 2.5-4.1 TAPSE 1.9 cm >=1.7 Atria Name Value Normal LA Dimensions LA Area (4C) 18.2 cm2 LA Length (4C) 4.9 cm LA Area (2C) 18.3 cm2 LA Length (2C) 5.0 cm LA Volume (4C A-L) 57.01 ml LA Volume (2C A-L) 56.44 ml LA Volume (BP A-L) 57 ml 22-52 LA Volume Index (BP A-L) 26.77 ml/m2 <=34.00 RA Dimensions RA Area (4C) 13.6 cm2 <=18.0 Final Signed by:DO Sutton Vincent A Signed (Electronic Signature):02/04/2024 8:53 a Vital Signs Most recent to oldest [Reference Range]: 1 2 3 Height 180 cm (01/31/24 9:36 AM) Patient Weight 89.9 kg (02/06/24 4:17 AM) 90.6 kg (02/05/24 3:02 AM) 90.1 kg (02/04/24 2:03 AM) Body Mass Index 28.24 kg/m2 (01/31/24 9:36 AM) Temperature [36.5-37.9 DegC] 36.2 DegC *LOW* (02/06/24 8:32 AM) 36.3 DegC *LOW* (02/06/24 4:19 AM) 36.4 DegC *LOW* (02/05/24 11:09 PM) Heart Rate 92 bpm (02/06/24 8:32 AM) 96 bpm (02/06/24 4:19 AM) 100 bpm (02/05/24 11:09 PM) Respiratory Rate 16 br/min (02/06/24 8:32 AM) 18 br/min (02/06/24 4:19 AM) 18 br/min (02/05/24 11:09 PM) Blood Pressure 136/83mmHg (02/06/24 8:32 AM) 161/90mmHg (02/06/24 4:19 AM) 130/91mmHg (02/05/24 11:09 PM) Mean Blood Pressure 93 mmHg (02/06/24 8:32 AM) 101 mmHg (02/06/24 4:19 AM) 95 mmHg (02/05/24 11:09 PM) Cuff Pulse Pressure 53 mmHg (02/06/24 8:32 AM) 71 mmHg (02/06/24 4:19 AM) 39 mmHg (02/05/24 11:09 PM) BP Location # 1 Left Arm (02/06/24 8:32 AM) Left Arm (02/06/24 4:19 AM) Right Arm (02/05/24 11:09 PM) Social History Social History Type Response Smoking Status Never smoked cigaret jaime Sex Female Sex Representation Female (finding) EKG study * Contributor_system, [email or web address]: VERIFY, PERFORM Event Display: EKG Authored Date: [id number] Please click on link to see image. * Contributor_system, [email or web address]: VERIFY, PERFORM Event Display: EKG Authored Date: [id number] Please click on link to see image. * Contributor_system, [email or web address]: VERIFY, PERFORM Event Display: EKG Authored Date: [id number] Please click on link to see image. Anes H&P * MD Jeremiah, Rell Andino: MODIFY MD Jeremiah, Rell Andino: MODIFY, PERFORM MD Jeremiah, Rell Andino: PERFORM, SIGN MD Jeremiah, Rell Andino: SIGN, VERIFY MD Jeremiah, Rell Andino: VERIFY Event Display: Anes H&P Authored Date: [id number] Patient: RAJIV HALL Age: 78 years Sex: Female : 1945 Associated Diagnoses: None Author: MD Jeremiah, Rell Andino Preoperative Information Pre-Operative Diagnosis: Diverticular stricture . Anesthiesia Preop Info: Procedure: robotic diagnostic laparoscopy, laparoscopic possible open low anterior resection, possible stoma, flexible sigmoidoscopy Date: 01/31/24 10:50 Surgeons: MD Parris, Freddie White Diagnosis: diverticular stricture . History of Present Illness Patient is a 78 year old female, 92kg, BMI 29, presents for the said above procedure. See below forpast medical history. COVID vaccinated + boosted Anesthesia History PONV: Denies. History of Motion Sickness: Denies. Patient Complications: Negative. Family History of Anesthesia Problems: Negative. Functional Capacity 7-10 METS = Good: Multiple flights of stairs. Symptoms: Denies SOB/CP. Medical History Cardiovascular: Hypertension: ARB, Well controlled (per pt), 145/74 on 01/14/24 PSH vital signs. Endocrine/Metabolic: Thyroid: S/P Surgical resection (total), Hypothyroidism, Stable dose of thyroid medication. Neurologic: Spinal Surgery: Cervical, Anterior, Fusion, Discectomy. Orthopedics: S/P: Right TKA. NPO: > 8hrs from solid food, > 2hrs from clear liquid ACCESS: _ PREVIOUS AIRWAY/ANESTHETICS: none on file MOST RECENT TTE/DORON: none on file STUDIES: none on file OXYGEN REQUIREMENT / VENTILATOR SETTINGS: No qualifying data available. LABS: none on file Medical History Past medical history obtained and reviewed from the pre-procedure screening form as noted above. Any significant interval changes are noted below: Yes. Health Status Allergies: Allergic Reactions (Selected) NKA. Medications: Medication List (Selected) Inpatient Medications Ordered Ancef: 2,000 mg, 50 mL, 100 mL/HR, IV, To OR BUPivacaine-epinephrine 0.25%-1:200,000 injectable solution: 60 mL, subQ, In OR Flagyl: 500 mg, 100 mL, 100 mL/HR, IV, To OR LMX 4 topical cream: 1 appl, topical, Pre Event, PRN: line insertion LR 1,000 mL: 30 mL/HR, IV Fluid, Stop: 03/31/24 4:59:00 EST dexAMETHasone: 4 mg, subQ, In OR Prescriptions Prescribed amoxicillin 500 mg oral capsule: 4 cap, PO, As indicated, one hour before dental and other procedures as directed, 12 cap, 3 Refill(s) celecoxib 200 mg oral capsule: See Instructions, TAKE 1 CAPSULE BY MOUTH DAILY NEEDED FOR PAIN, 90 cap, 2 Refill(s) diclofenac 1% topical gel: See Instructions, APPLY TOPICALLY 4 TIMES DAILY NEEDED FOR PAIN. NOT TO EXCEED 16 GRAMS DAILY ON A SINGLE JOINT OF LOWER EXTREMITIES. NOT TO EXCEED 32 GRAM, 100 g, 0 Refill(s) metroNIDAZOLE 500 mg oral tablet: See Instructions, 1 tab PO at 5, 6 and 11 p.m. the evening beforesurgery, 3 tab, 0 Refill(s) neomycin 500 mg oral tablet: See Instructions, 1 tab PO at 5, 6 and 11 p.m. the evening before surgery, 3 tab, 0 Refill(s) Documented Medications Documented B-Complex 50 oral tablet: 1 tab, PO, Daily Colace: 100 mg, PO, Daily Effexor 75 mg oral tablet: 1 tab, PO, Daily MiraLax: 2.5 caps, PO, bid PreserVision: Probiotic Formula (Bacillus Coagulans) oral capsule: 1 cap, PO, bid, 5 billion CFU's. Vitamin C 500 mg oral capsule: 1 cap, PO, Daily Vitamin D3 50 mcg (2000 intl units) oral capsule: 1 cap, PO, Daily buPROPion 150 mg/24 hours (XL) oral tablet, extended release: 1 tab, PO, Daily glucosamine-chondroitin oral kit: 1,100 mg, PO, Daily levothyroxine 25 mcg (0.025 mg) oral tablet: 1 tab, PO, Daily losartan 50 mg oral tablet: 1 tab, PO, Daily magnesium gluconate 250 mg oral tablet: 1 tab, PO, Daily multivitamin: 1 tab, PO, Daily rosuvastatin 5 mg oral tablet: 1 tab, PO, Daily. Histories Procedure History: hand surgery in 1997 at 53 Years. Hysterectomy ([id number]) in 1979 at 35 Years. Tonsillectomy ([id number]) in 7 at 12 Years. Efraín fundoplication ([id number]). R TKA ([id number]). Thyroidectomy ([id number]). ACDF ([id number]).. Physical Examination VS/Measurements: Vital Signs 01/31/2024 09:36 EDT Temperature 36.5 DegC Heart Rate 97 bpm Respiratory Rate 19 br/min Systolic Blood Pressure 154 mmHg Diastolic Blood Pressure 89 mmHg Cuff Pulse Pressure 65 mmHg SpO2 98 % . Airway: Mallampati classification: III (soft palate, base of uvula visible). Mouth: Within normal limits, Teeth ( Within normal limits ). Respiratory: Lungs are clear to auscultation. Cardiovascular: Normal rate. Anesthesiologist Assessment and Plan Problems: No active cardiac conditions, No previous anesthetic complications, No a/w concerns. ASA Classification: Class III. Anesthetic Plan: Anesthetic technique discussed: General anesthesia, Inhalation. Risks discussed: Nausea-vomiting, Headache, Sore throat, Dental injury, Eye injury, Allergic reaction, Serious complications, Nerve damage, Aspiration. Informed consent: Signed by patient. History, Physical Exam, Assessment and Plan Completed: 01/31/2024 10:55:00, MD Jeremiah, Rell Andino. Electronic Signature on File Electronically Reviewed/Signed by: Rell Daniels MD Author Signature Dt/Tm:01/31/2024 10:55 AM Department of Anesthesia [facility] Medicine Inpt Consult * DO Webster Meghan Anne: MODIFY, MODIFY DO Webster Meghan Anne: MODIFY MD Ayesha, Rigoberto: PERFORM, MODIFY MD Ayesha, Rigoberto: MODIFY Event Display: Medicine Inpt Consult Authored Date: Reason for Consultation tachycardia and symptomatic orthostasis. History of Present Illness Patient is a 78-year-old female with a history of hypertension, hyperlipidemia, IBS, Hx iron deficiency anemia, total thyroidectomy on 25 mcg Synthroid, lumbar radiculopathy s/p lumbar lesion who presented to the [facility] for sigmoid resection for diverticulitis c/b diverticular stricture. Patient is now s/p sigmoid resection on 01/30. Medicine was consulted for newfound 2 days of tachycardia and symptomatic orthostasis. Patient notes that she has been experiencing symptoms of lightheadedness with ambulation. Patientnotes no sensation of "spinning room"and denies any vision loss or darkening during these episodes. Patient notes that the symptoms have never occurred before. Patient notes that abdominal pain from surgery is minimal and well-controlled on current regiment of oxycodone 2.5/5 for moderate/severe pain. Pt notes that episodes are not position related. Pt notes that if she stands up slowly, these symptoms appear less severe. Symptoms resolve quickly after laying supine.Patient did note a short episode of headache that resolved on its own soon after laying supine after an orthostatic episode. Patient notes that at home her blood pressure is well-controlled with systolics in the 120s and diastolics in the 80s. Patient notes that her blood pressure medication has not changed in dosage over the last few years as well. On review of outside records it was noted that patient did have some measurements of elevated blood pressures with the systolics in the 140s and diastolics in the 70s in the outpatient setting, most recently noted in December 2023. Blood pressure goal noted on outside records was less than 140 over 90s. Patient notes that she does have a history of total thyroidectomy that was performed at [place] at that she was noted to have cysts. Patient notes that her primary care physician handles dosing of her Synthroid of which the dosage has not changed over the last few years. Patient denied any heat or cold intolerance. Patient denied any notable hair loss recently. Patient denied any sensation of chest pain, palpitations, orthopnea, lower extremity swelling in the past. Patient denied any coughing, shortness of breath, dyspnea. Yesterday patient was given 1 L fluid bolus after being found to be tachycardic and orthostatic on vitals. Nursing staff noted that subsequently patient was still orthostatic after 1 L of fluid. Patient denied any symptoms of dry mouth. Patient notes that she has been wearing her compression stockings both day and night. Patient denied any fever/chills, rhinorrhea, dysuria, increased urinary frequency. Patient denies any family history of adrenal insufficiency, hypothyroidism. Patient denies any use of tobacco, recreational drugs, alcohol. Review of Systems A 10-point review of systems was conducted with pertinent positives and negatives in HPI, otherwisenegative. Physical Exam Vitals & Measurements T:36.8C TMIN:36.4C TMAX:37.0C HR:107(Monitored) RR:18 BP:156/101 SpO2:96% Oxygen Therapy:Room Air Input and Output - Last 24 hours (Last 8 hours) Total In: 1051 (0) Total Out: 1400 (0) Total Balance: -349 (0) MED INTAKE:1051 (0) Urine Voided:1400 (0) Stool Count 1(0) General - well-appearing, resting comfortably in NAD HEENT - PERRLA, EOMI, MMM, no nystagmus CV - tachycardic, regular rhythm, no murmurs/rubs/gallops, no edema, cap refill~2s Resp - CTAB, normal work of breathing Abd - soft, nondistended, nontender; present bowel sounds Skin - incision sites clean dry and intact, ERIN drain showing serosanguinousoutput Neuro - alert &oriented, 5/5 strength, CN 2-11 intact, head impulse test negative, Assessment/Plan Patient is a 78-year-old female with a history of hypertension, hyperlipidemia, IBS, Hx iron deficiency anemia, total thyroidectomy on 25 mcg Synthroid, lumbar radiculopathy s/p lumbar lesion who presented to the [facility] for sigmoid resection for diverticulitis c/b diverticular stricture. Patient is now s/p sigmoid resection on 01/30. Pt's hospital stay has been complicated by worsening tachycardia and symptomatic orthostasis. Medicine was consulted for newfound 2 days of tachycardia and symptomatic orthostasis. #Orthostasis #Tachycardia #Supine Hypertension Differential diagnosis includes volume depletion, adrenal insufficiency, thyroid dysfunction, autonomic dysfunction. Patient is noted to be net -4.6 L clinically although accuracy of oral intake is questionable. Norecent weight. No signs of heart failure clinically. EKG showing sinus tachycardia. Patient will most likely tolerate more fluid resuscitation. Unclear if patient has type 2 diabetes as previous HbA1c was 5.8 in May 2023 per outside hospital records. Patient's supine hypertension is concerning for some component of autonomic dysfunction. We will first trial fluid resuscitation overnight and evaluate for other etiologies. Symptoms do not appear to be vertigo related. If autonomic dysfunction more likely, may consider evaluation for otheretiologies such as Parkinson's and syphilis. 1 L LR bolus over 5 hours, orthostatic vitals in AM - standing weights daily TSH/T4 level AM cortisol level rpt HbA1c TTE pending BNP level Continue compression stockings during the day when ambulatory and hold at night due to supine hypertension Can consider abdominal binder in future when allowable due to contraindication with recent colorectal surgery and BP trend Continue with losartan 50 mg daily, consider PM dosing for supine HTN Can give IV labetalol 10 mg for blood pressure greater than 180/100 or symptomatic hypertension Continue with fall precautions The patient was evaluated and discussed with Raine Fernandezo agrees with the findings, assessment, and plan as stated above, unless otherwise stated in an addendum below. Attestation I saw and evaluated the patient. I agree with the findings and the plan of care as documented in the resident's note. Keira Webster DO [facility] Medicine Problem List/Past Medical History Ongoing Anemia Anxiety Effusion of olecranon bursa Foot pain, left Foot pain, right Gastroparesis Shwetha's deformity of right heel. Hammertoe of right foot Herniated nucleus pulposus, L3-4 right Hiatal hernia Hypertension Intervertebral disc disorder Knee pain, left Knee pain, right Left hip pain Lumbar pain Lumbar spinal stenosis Neck pain Neck pain Neuritis of right sural nerve Occipital neuralgia Osteoarthritis of knee Pes anserine bursitis Right foot pain Right hand pain Right lumbar radiculopathy Rotator cuff strain S/P orthopedic surgery, follow-up exam| Status: Inactive S/P total knee replacement Strain of left trapezius muscle Strain of lumbar paraspinous muscle Strain of rhomboid muscle Weight monitoring Wrist injury Resolved Right knee DJD Procedure/Surgical History hand surgery| Service Date: 1997Hysterectomy| Service Date: 1979Tonsillectomy| Service Date: CDFThyroidectomyR TKANissen fundoplication Medications Inpatient acetaminophen(Tylenol), 1000 mg= 2 tab, PO, q6h, PRN buPROPion(buPROPion 24 hour extended release (XL)), 150 mg= 1 tab, PO, Daily heparin, 5000 unit= 1 mL, subQ, q8h labetalol, 10 mg= 2 mL, IV Push, q6h, PRN Lactated Ringers Injection(Lactated Ringers Bolus), 1000 mL, Bolus-IV, ONCE levothyroxine, 25 mcg= 1 tab, PO, Daily lidocaine topical(lidocaine 4% patch), 1 patch, transdermal, q24h losartan, 50 mg= 1 tab, PO, Daily magnesium oxide(Mag-Ox 400), 400 mg= 1 tab, PO, bid naloxone(Narcan), 0.04 mg= 0.1 mL, IV Push, As indicated, PRN ondansetron(Zofran), 4 mg= 2 mL, IV Push, q6h, PRN oxyCODONE, 2.5 mg= 0.5 tab, PO, q6h, PRN oxyCODONE, 5 mg= 1 tab, PO, q4h, PRN rosuvastatin, 5 mg= 1 tab, PO, Daily venlafaxine(Effexor), 75 mg= 1 cap, PO, Daily Home amoxicillin(amoxicillin 500 mg oral capsule), 2000 mg= 4 cap, PO, As indicated, 3 refills ascorbic acid(Vitamin C 500 mg oral capsule), 500 mg= 1 cap, PO, Daily bacillus coagulans-inulin(Probiotic Formula (Bacillus Coagulans) oral capsule), 1 cap, PO, bid buPROPion(buPROPion 150 mg/24 hours (XL) oral tablet, extended release), 150 mg= 1 tab, PO, Daily celecoxib(celecoxib 200 mg oral capsule), See Instructions, 2 refills cholecalciferol(Vitamin D3 50 mcg (2000 intl units) oral capsule), 50 mcg= 1 cap, PO, Daily chondroitin-glucosamine(glucosamine-chondroitin oral kit), 1,100 mg, PO, Daily diclofenac topical(diclofenac 1% topical gel), See Instructions docusate(Colace), 100 mg, PO, Daily levothyroxine(levothyroxine 25 mcg (0.025 mg) oral tablet), 25 mcg= 1 tab, PO, Daily losartan(losartan 50 mg oral tablet), 50 mg= 1 tab, PO, Daily magnesium gluconate(magnesium gluconate 250 mg oral tablet), 250 mg= 1 tab, PO, Daily metroNIDAZOLE(metroNIDAZOLE 500 mg oral tablet), See Instructions multivitamin, 1 tab, PO, Daily multivitamin(B-Complex 50 oral tablet), 1 tab, PO, Daily multivitamin with minerals(PreserVision) neomycin(neomycin 500 mg oral tablet), See Instructions polyethylene glycol 3350(MiraLax), 2.5 caps, PO, bid rosuvastatin(rosuvastatin 5 mg oral tablet), 5 mg= 1 tab, PO, Daily venlafaxine(Effexor 75 mg oral tablet), 75 mg= 1 tab, PO, Daily Allergies NKA Social History Smoking Status Never smoked cigarettes Family History Heart disease: Father. Stroke: Mother. Lab Results BMP: Date Na K Cl HC03 BUN Cret Glu Ca 02/03/2024 23:11 140 4.1 98 29 10 0.91 122 8.8 02/03/2024 13:52 139 4.1 101 27 9 0.83 112 9.1 02/02/2024 22:59 141 4.1 101 28 9 0.92 125 9.2 CBC: Date WBC Hgb Hct Plts Neut, Abs 02/03/2024 23:11 6.8 13.7 40.5 181 02/03/2024 18:41 0.0 0.0 0.0 0 02/03/2024 18:40 8.2 13.0 38.5 189 5.9 eGFR CKD-EPI:65 Lactate: 02/02 23:11 0.9 Urinalysis: Date: Nitrite Leukocyte Esterate WBC RBC 01/30 09:20 NEGATIVE SMALL 5-9 0-4 Electronic Signature on File Electronically Reviewed/Signed by: Rigoberto Hodge MD Author Signature Dt/Tm:02/04/2024 01:26 AM Resident Division of Internal Medicine Electronically Reviewed/Signed by: Rigoberto Hodge MD Cosigner Signature Dt/Tm: 02/04/2024 01:30 AM Resident Division of Internal Medicine Electronically Reviewed/Signed by: Keira Webster DO Cosigner Signature Dt/Tm: 02/06/2024 05:31 AM Division of Internal Medicine - Hospitalist BF .D/C Summary * VANCE Padilla David L: PERFORM Event Display: .D/C Summary Authored Date: [id number] [facility] For medical concerns, call: . Address: [address] [id number] (MOBILE) :1945 . Date of Admission:01/31/2024 Date of Discharge:02/06/2024 Physician:MD Parris, Freddie White Service:Colorectal Surgery Discharge Disposition: Primary Care Provider/Phone: MD REYES MANISHA N (BUSINESS) [phone] (FAX BUSINESS) Principal Diagnosis: Diverticulitis Other Diagnoses: Tachycardia Orthostatic hypotension Major Tests and Procedures: robotic-assisted LAR, flex sig, TAP blocks, drain 01/31/2024 Brief History of Present Illness: Rajiv Hall is a 78 yo F with PMH of IBS and anemia who [facility] patient evaluation due to diverticular stricture at the sigmoid colon. She previously had a colonoscopycompleted on 12/04/23 that showed sigmoid diverticular stricture. She also had a fluoro barium enema study 12/23 that demonstrated the stricture without evidence of obstruction. Around 3 and 5 monthsago she had severe abdominal pain that made her go to [facility] and was found to have partial bowel obstructions, likely secondary to the stricture. She otherwise denies pain. At baseline she has issues with constipation and takes Miralax daily with dulcolax as needed. She denies any blood in her bowel movements. She has no family history of colon cancer. Hospital Course: Pt was admitted on 01/31/24 for diagnostic laparoscopy, robotic splenic flexure mobilization, low anterior resection, flexible sigmoidoscopy and TAP block. There were nocomplications and the patient was transferred to the PACU in stable condition with a ERIN drain in the pelvis and afoley catheter. A diet of clearswas started immediately post-op and advanced to full liquid, then low residue on 02/02.Ricci catheter was removed on 02/01 and the patient voided independently.Bowel function returned on 02/01 as well. Due totachycardiaandpostural orthostasis,medicine wasconsulted.The patient wasfluid resuscitated and appeared toimproved well. Additionally,AM cortisol,TSH,and T4 were checked.Cortisolwas mildlyabnormal at25.5 TSH was 0.30 and T4 was 1.76.Medicine recommended repeatlabs in2 weeks outpatient. Unfortunately, the patient's symptoms recu rred 02/04.Echocardiogramresulted andshowed no significant abnormalities. 02/04 medicine performed DixHallpikemaneuver which was negative. 02/05patient found to have a rash around her lowertransverse abdominal incision.Patient asymptomatic, states it is not itchy. Later, as nurse was ap plying a Lidocaine patch to her lower back, RN noticed an extensive rash on her lower back and buttocks.PRNbenadrylordered.Patient was deemed stable for discharge on 02/05 ; ERIN drain was removedand the patientdischarged home with instructions for follow-up care and appointments. PDMP was reviewed. medicine recommended 2 weeks of miconazole cream and powder. 2 weeks follow upand 2 weeks of eliquis.Patient will follow up with PCP regarding TSH/T4 and Cortisol levels with recheck in 1-2 weeks Exam on Discharge: Vitals & Measurements: T:36.2C TMIN:36.2C TMAX:36.6C HR:92(Monitored) RR:16 BP:136/83 SpO2:100% Oxygen Therapy:Room Air WT:89.9kg General:Laying comfortably in bed, in no acute distress. HEENT:Normocephalic, mucous membranes moist CV:Regular rate and rhythm Pulm:Equal chest rise bilaterally, no apparent respiratory distress. Abd:Soft, non-tender, with no distension. Incisions C/D/I. ERIN discontinued. Extremities:Warm, well-perfused Neuro:Moving all extremities, no focal deficits, alert and appropriateSkin:Rash superior to suprapubic incision. Discharge Medications: 1.Multivitamin (B-Complex 50 oral tablet) 1 tab by mouth once daily. 2.Chondroitin-glucosamine (glucosamine-chondroitin oral kit) 1,100 mg by mouth once daily. 3.Venlafaxine (Effexor 75 mg oral tablet) 75 mg (1 tab) by mouth once daily. 4.Multivitamin with minerals (PreserVision) . 5.Diclofenac topical (diclofenac 1% topical gel) See Instructions . APPLY TOPICALLY 4 TIMES DAILY NEEDED FOR PAIN. NOT TO EXCEED 16 GRAMS DAILY ON A SINGLE JOINT OF LOWER EXTREMITIES. NOT TO EXCEED 32 GRAM. 6.Amoxicillin (amoxicillin 500 mg oral capsule) 2,000 mg (4 cap) by mouth As indicated. one hour before dental and other procedures as directed. 7.Celecoxib (celecoxib 200 mg oral capsule) See Instructions . TAKE 1 CAPSULE BY MOUTH DAILY NEEDED FOR PAIN. 8.Losartan (losartan 50 mg oral tablet) 50 mg (1 tab) by mouth once daily. 9.Levothyroxine (levothyroxine 25 mcg (0.025 mg) oral tablet) 25 mcg (1 tab) by mouth once daily. 10.BuPROPion (buPROPion 150 mg/24 hours (XL) oral tablet, extended release) 150 mg (1 tab) by mouthonce daily. 11.Ascorbic acid (Vitamin C 500 mg oral capsule) 500 mg (1 cap) by mouth once daily. 12.Cholecalciferol (Vitamin D3 50 mcg (2000 intl units) oral capsule) 50 mcg (1 cap) by mouth once daily. 13.Bacillus coagulans-inulin (Probiotic Formula (Bacillus Coagulans) oral capsule) 1 cap by mouth 2times daily. 5 billion CFU's.. 14.Multivitamin 1 tab by mouth once daily. 15.Rosuvastatin (rosuvastatin 5 mg oral tablet) 5 mg (1 tab) by mouth once daily. 16.Magnesium gluconate (magnesium gluconate 250 mg oral tablet) 250 mg (1 tab) by mouth once daily. 17.Acetaminophen (Tylenol 500 mg oral tablet) 1,000 mg (2 tab) by mouth every 6 hours, as needed for fever/mild pain (1-3). 18.Miconazole topical (miconazole 2% topical ointment) 1 appl topically 2 times daily. Apply to affected area to back twice daily x 14 days.. 19.Meclizine (meclizine 25 mg oral tablet) 25 mg (1 tab) by mouth once daily, as needed for dizziness. 20.OxyCODONE (oxyCODONE 5 mg oral tablet) 2.5 mg by mouth every 6 hours, as needed for pain - moderate (4-6). 21.Miconazole topical (miconazole 2% topical powder) 1 appl topically 2 times daily. Apply to affected area on abdomen twice daily x 14 days.. 22.Apixaban (Eliquis 2.5 mg oral tablet) 2.5 mg (1 tab) by mouth 2 times daily. Allergies and Sensitivities: NKA Tests Pending: None Other Appointments: Provider or Location Time Frame Details about visit Colorectal If you have not been contacted with this appointment information within two business days, please call Surgery Specialties Scheduling [phone]. Pleasefollow up with PCP regarding TSH/T4 with recheck in 1-2 weeks along with BP checks for having some orthostatic BP's in the hospital. Care Instructions: CARE INSTRUCTIONS: Managing pain:Pain medication may have been ordered for you to be comfortable during your recovery. Taper off of the prescription pain medication as pain decreases. If you have any questions regarding your pain management, please contact the colorectal office at [phone]. You may take prescribed pain medication You may take over the counter Tylenol (acetaminophen) or NSAIDs (ibuprofen, aleve) as directed Care of your incision:After washing your hands, cleanse surgical sites with mild soap and water. You may lightly cleanse your incision while bathing in shower. No tub baths or submerging incision. Do not apply any creams, lotions, ointments to surgical sites. It is normal to experience some numbness around the incision for some time after surgery. This may subside as the incision heals. If you have kindra in your incision, you will have a follow up appointment for removal. If you have lcvec-mifynz-czbep will come off naturally in about 7-10 days. If you have glue over surgical sites, it may take 2-3 weeks for this to peel off. You may have irregularity to your usual bowel movement habits. It may take several months to returnto a normal pattern. Pleasefollow up with PCP regarding TSH/T4 with recheck in 1-2 weeks along with BP checks for having some orthostatic BP's in the hospital. You will have a follow up colorectal clinic appointment. If you are not notified of this appointment in the next 3 days, please call the colorectal office at [phone]-Option 2 or [phone]-Option 4. DIET INSTRUCTIONS: You may not feel like eating regular portions right away. It is normal to have less of an appetite following surgery or hospitalization. In the beginning, try eating smaller meals several times per day. If you do not have much of an appetite, you can add protein and calories by drinking supplements such as Ensure, Boost, Castana Instant Breakfast, Special K, milkshakes, protein shakes Please follow a low residue diet (no fresh fruits, no fresh vegetables). Please drink lots of fluids (64 ounces per day) of clear liquids-water, sport drinks (Gatorade), lemonade, flavored water. This will help you keep hydrated and prevent constipation. Please limit caffeine. Do not drink alcohol or smoke tobacco products. ACTIVITY INSTRUCTIONS: You may resume your regular home activities as tolerated. If you had surgery: Do not expect your energy level to be the same as it was before surgery. Your body needs more energy to heal, and this may cause you to feel weak or need to take naps Please walk often, be out of bed and active daily. This will help prevent blood clots and pneumonia. You may climb stairs. No lifting greater than 10lbs for 6-8 weeks or until cleared in clinic. No driving until cleared in clinic or discussed with surgeon. . Advance Directive:Living will, Health Care Power of Health Assessment And Treatment Teacher I personally spent _ minutes in discharge planning. Electronic Signature on File Electronically Reviewed/Signed by: VANCE Fitzpatrick Author Signature Dt/Tm:02/06/2024 10:13 AM Division of Colorectal Surgery Electronically Reviewed/Signed by: Freddie Nye MD Cosigner Signature Dt/Tm: 02/06/2024 10:26AM Division of Colorectal Surgery DLB Discharge instructions * VANCE Padilla, Deangelo Dillon: DENIA Gale RN, [place]: MODIFY Event Display: Patient Discharge Instructions Authored Date: [id number] RAJIV HALL :1945 Visit Date:01/31/2024 Patient Discharge Instructions [facility] For medical concerns, call: . Date of Admission:01/31/2024 Date of Discharge:02/06/2024 Physician:MD Parris, Freddie White Service:Colorectal Surgery Discharge Disposition: . Advance Directive:Living will, Health Care Power of Health Assessment And Treatment Teacher Reason for Hospitalization Diverticulitis Your Diagnoses Diverticulitis Tachycardia Orthostatic hypotension My [employer] Patient Portal: [facility] [employer] makes it easy for you to manage your health information online. [employer] is a free service that provides you instant, secure access to your medical information anytime, anywhere. Sign in or set up your account today at [email or web address] Thank you for allowing us to assist you with your healthcare needs. If you need additional community resources, [email or web address] can help at https://www.pa211.org. 211 can assist you in connecting with social programs based on your unique needs and locations. 211 is an anonymous search that can help you locate resources for: Food, Housing, Transportation, Goods, Education and Healthcare. Medications Patient is enrolled in Rx-to-Go Program New medications will be delivered from [facility] to patient's room at discharge: Mon-Sun from 9AM-5 PM. Medications MUST be PICKED UP at [facility] if patient is discharged Mon-Sun after 5 PM or anytime on holidays. Please note, the [facility] closes at 8 PM on and 5:30 PM on Saturdays, Sundays, and holidays. What How Much When Instructions Next Dose New acetaminophen (Tylenol 500 mg oral tablet) 2 tab(s) by mouth Every 6 hours as needed for fever/mild pain (1-3) Use 1st for pain Last had on 02/01 New apixaban (Eliquis 2.5 mg oral tablet) 1 tab(s) by mouth 2 times daily Duration: 14 Days Pickup at [facility] 02/05 at 8pm New meclizine (meclizine 25 mg oral tablet) 1 tab(s) by mouth Once daily as needed for dizziness Pickup at [facility] Last had 02/04 New miconazole topical (miconazole 2% topical ointment) 1 michael topically 2 times daily Apply to affected area to back twice daily x 14 days. Pickup at [facility] 02/05 at 8pm New miconazole topical (miconazole 2% topical powder) 1 michael topically 2 times daily Apply to affected area on abdomen twice daily x 14 days. Pickup at [facility] 02/05 at 8pm New oxyCODONE (oxyCODONE 5 mg oral tablet) 2.5 Milligram by mouth Every 6 hours as needed for pain - moderate (4-6) Pickup at [facility] Use if tylenol not effective Last took on 02/03 Unchanged amoxicillin (amoxicillin 500 mg oral capsule) 4 cap by mouth As indicated one hour before dental and other procedures as directed Unchanged ascorbic acid (Vitamin C 500 mg oral capsule) 1 cap by mouth Once daily Resume at home Unchanged bacillus coagulans-inulin (Probiotic Formula (Bacillus Coagulans) oral capsule) 1 cap by mouth 2 times daily 5 billion CFU's. Resume at home Unchanged buPROPion (buPROPion 150 mg/ 24 hours (XL) oral tablet, extended release) 1 tab(s) by mouth Once daily 02/06 8am Unchanged celecoxib (celecoxib 200 mg oral capsule) See instructions TAKE 1 CAPSULE BY MOUTH DAILY NEEDED FOR PAIN HOLD UNTIL SEEN BACK IN CLINIC. do not take till seen for followup visit Unchanged cholecalciferol (Vitamin D3 50 mcg (2000 intl units) oral capsule) 1 cap by mouth Once daily Resume at ome Unchanged chondroitin-glucosamine (glucosamine-chondroitin oral kit) 1,100 mg by mouth Once daily Resume at home Unchanged diclofenac topical (diclofenac 1% topical gel) See instructions APPLY TOPICALLY 4 TIMES DAILY NEEDED FOR PAIN. NOT TO EXCEED 16 GRAMS DAILY ON A SINGLE JOINT OFLOWER EXTREMITIES. NOT TO EXCEED 32 GRAM Resume at home Unchanged levothyroxine (levothyroxine 25 mcg (0.025 mg) oral tablet) 1 tab(s) by mouth Once daily 02/06 at 6am Unchanged losartan (losartan 50 mg oral tablet) 1 tab(s) by mouth Once daily 02/06 at 8am Unchanged magnesium gluconate (magnesium gluconate 250 mg oral tablet) 1 tab(s) by mouth Once daily Resume at home Unchanged multivitamin 1 tab(s) by mouth Once daily Resume at home Unchanged multivitamin (B-Complex 50 oral tablet) 1 tab(s) by mouth Once daily Resume at home Unchanged multivitamin with minerals (PreserVision) Unchanged rosuvastatin (rosuvastatin 5 mg oral tablet) 1 tab(s) by mouth Once daily 02/05 at 8pm Unchanged venlafaxine (Effexor 75 mg oral tablet) 1 tab(s) by mouth Once daily 02/06 8am Pharmacy Information [facility] [place]: [address] [place] [address] AMARILIS Mcrae [phone] What How Much When Comments Stop Taking docusate (Colace) 100 Milligram by mouth Once daily Stop Taking metroNIDAZOLE (metroNIDAZOLE 500 mg oral tablet) See instructions 1 tab PO at 5, 6 and 11 p.m. the evening before surgery Stop Taking neomycin (neomycin 500 mg oral tablet) See instructions 1 tab PO at 5, 6 and 11 p.m. the evening before surgery Stop Taking polyethylene glycol 3350 (MiraLax) 2.5 caps by mouth 2 times daily Allergies NKA What to do next Instructions From Your Doctor CARE INSTRUCTIONS: Managing pain:Pain medication may have been ordered for you to be comfortable during your recovery. Taper off of the prescription pain medication as pain decreases. If you have any questions regarding your pain management, please contact the colorectal office at [phone]. You may take prescribed pain medication You may take over the counter Tylenol (acetaminophen) or NSAIDs (ibuprofen, aleve) as directed Care of your incision:After washing your hands, cleanse surgical sites with mild soap and water. You may lightly cleanse your incision while bathing in shower. No tub baths or submerging incision. Do not apply any creams, lotions, ointments to surgical sites. It is normal to experience some numbness around the incision for some time after surgery. This may subside as the incision heals. If you have kindra in your incision, you will have a follow up appointment for removal. If you have jioyj-lobsno-jwufo will come off naturally in about 7-10 days. If you have glue over surgical sites, it may take 2-3 weeks for this to peel off. You may have irregularity to your usual bowel movement habits. It may take several months to returnto a normal pattern. Pleasefollow up with PCP regarding TSH/T4 with recheck in 1-2 weeks along with BP checks for having some orthostatic BP's in the hospital. You will have a follow up colorectal clinic appointment. If you are not notified of this appointment in the next 3 days, please call the colorectal office at [phone]-Option 2 or [phone]-Option 4. You were offered a Hepatitis C screening test and you declined. Please follow up with your PCP. If you notice the following symptoms IF YOU NOTICE THE FOLLOWING SYMPTOMS: Fevers greater than 100.4 F, increasing pain, cramping, nausea, vomiting, diarrhea, constipation orother concerns Surgical sites: watch for any separation, increased drainage, redness, swelling, drainage of pus, heat at incision site For questions during the day (8am to 4pm), call the colorectal office at [phone] For urgent questions after office hours, please call [phone] and ask for the colorectal surgery resident communications billing analyst For emergencies, please call [phone] or go to the closest emergency department Contact the [facility] Careline at . If unable to contact your physician and you feel it is an emergency, go to the nearest Emergency Room or call [phone] Diet Instructions DIET INSTRUCTIONS: You may not feel like eating regular portions right away. It is normal to have less of an appetite following surgery or hospitalization. In the beginning, try eating smaller meals several times per day. If you do not have much of an appetite, you can add protein and calories by drinking supplements such as Ensure, Boost, [place]ana Instant Breakfast, Special K, milkshakes, protein shakes Please follow a low residue diet (no fresh fruits, no fresh vegetables). Please drink lots of fluids (64 ounces per day) of clear liquids-water, sport drinks (Gatorade), lemonade, flavored water. This will help you keep hydrated and prevent constipation. Please limit caffeine. Do not drink alcohol or smoke tobacco products. Activity Instructions ACTIVITY INSTRUCTIONS: You may resume your regular home activities as tolerated. If you had surgery: Do not expect your energy level to be the same as it was before surgery. Your body needs more energy to heal, and this may cause you to feel weak or need to take naps Please walk often, be out of bed and active daily. This will help prevent blood clots and pneumonia. You may climb stairs. No lifting greater than 10lbs for 6-8 weeks or until cleared in clinic. No driving until cleared in clinic or discussed with surgeon. Follow-Up Appointments Scheduled Follow-Up Appointments Pleasefollow up with PCP regarding TSH/T4 with recheck in 1-2 weeks along with BP checks for having some orthostatic BP's in the hospital. Someone Will Contact You Regarding These Appointments Provider or Location Time Frame Details about visit Colorectal If you have not been contacted with this appointment information within two business days, please call Surgery Specialties Scheduling [phone]. Tests Pending None Procedures Performed robotic-assisted LAR, flex sig, TAP blocks, drain 01/31/2024 Special Instructions Common Emergency Awareness Tips Call 911 immediately if: experiencing any of the warning signs and symptoms of stroke: B.E. F.A.S.T. Balance: is there trouble with walking or coordination Eyes: is there double vision or visual loss Face: Smile, do both sides of face move equally Arm: Raise arms, do both arms move equally Speech: Is speech slurred or inappropriate Time: Time is critical, call 911 immediately Heart Attack Signs Chest discomfort: Most heart attacks involve discomfort in the center of the chest and lasts more than a few minutes, or goes away and comes back. It can feel like uncomfortable pressure, squeezing, fullness or pain. Discomfort in upper body: Symptoms can include pain or discomfort in one or both arms, back, neck, jaw or stomach. Shortness of breath: With or without discomfort. Other signs: Breaking out in a cold sweat, nausea, or lightheaded. Remember, MINUTES DO MATTER. If you experience any of these heart attack warning signs, call 12-29- to get immediate medical attention! Education Materials Low-Fiber Eating Plan Fiber is found in fruits, vegetables, whole grains, and beans. Eating a diet low in fiber helps youpoop less often. A low-fiber eating plan may help your digestive system heal if: You have certain conditions, such as Crohn's disease, diverticulitis, or irritable bowel syndrome (IBS), and are having a flare-up. You have had radiation therapy on your pelvis or bowel. You have had surgery on your intestines. You have a new surgical opening in your abdomen called a colostomy or ileostomy. You have an intestine that has narrowed. Your health care provider will tell you how long to stay on this diet. You may find it helpful to work with a dietitian to plan your meals. What are tips for following this plan? Reading food labels Check the nutrition facts label on food products for the amount of dietary fiber. Choose foods that have less than 2 grams (g) of fiber per serving. General information Eat 56 small meals throughout the day instead of 3 large meals. Follow instructions from your provider about how much fiber you should have each day and for how long you should follow a low fiber diet. Most people on a low-fiber eating plan should eat less than 10 g of fiber a day. Your daily fiber goal is g. What foods should I eat? Fruits Soft-cooked or canned fruits without skin and seeds. Ripe banana. Applesauce. Fruit juice without pulp. Vegetables Well-cooked or canned vegetables without skin, seeds, or stems. Cooked potatoes without skins. Vegetable juice. Grains All bread and crackers made with white flour. Waffles, pancakes, and [place] toast. Bagels. Pretzels. Rose toast, zwieback, and matzoh. Cooked and dried cereals that do not have whole grains, added fiber, seeds, or dried fruit. [place]. Hot and cold cereals made with refined corn, rice, or oats. Plain pasta and noodles. White rice. Meats and other proteins Ground meat. Tender cuts of meat or poultry. Eggs. Fish, seafood, and shellfish. Smooth nut butters. Tofu. Dairy All milk products and drinks. Lactose-free milk, including rice, soy, and almond milk. Yogurt without fruit, nuts, chocolate, or granola mixed in. Sour cream. Cottage cheese. Cheese. Fats and oils [place] oil, canola oil, sunflower oil, flaxseed oil, avocado oil, and grapeseed oil. Mayonnaise. Cream cheese. Margarine. Butter. Beverages Decaf coffee. Fruit and vegetable juices. Smoothies in small amounts, with no pulp or skins, and with fruits from the recommended list. Sports drinks. Herbal tea. Water. Sweets and desserts Plain cakes. Cookies. Cream pies and pies made with recommended fruits. Pudding. Custard. Fruit gelatin. Sherbet. Ice pops. Ice cream without nuts. Hard candy. Honey. Jelly. Molasses. Syrups. Chocolate. Marshmallows. Gumdrops. Seasonings and condiments Ketchup. Mild mustard. Mild salad dressings. Plain gravies. Vinegar. Spices in moderation. Salt. Sugar. Other foods Bouillon. Broth. Cream and strained soups made from recommended foods. Casseroles made with recommended foods. The items listed above may not be all the foods and drinks you can have. Talk to a dietitian to learn more. What foods should I avoid? Fruits Raw or dried fruit. Berries. Fruit juice with pulp. Prune juice. Vegetables Potato skins. Raw or undercooked vegetables. All beans and gonzalez sprouts. Cooked greens. [place]. Peas.Cabbage. Beets. Broccoli. [place] sprouts. Cauliflower. Mushrooms. Onions. Peppers. Parsnips. Okra. Sauerkraut. Grains Whole-wheat, whole-grain, or multigrain breads, cereals, or crackers. [place] bread. Cereals with nuts,raisins, or coconut. Bran. Granola. High-fiber cereals. Cornmeal or corn bread. Whole-grain pasta. Wild or brown rice. Quinoa. Popcorn. Buckwheat. Wheat germ. Meats and other proteins Tough, fibrous meats with gristle. Fatty meat. Poultry with skin. Fried meat, poultry, or fish. Precooked or cured meat, such as sausages or meat loaves. Wei. Hot dogs. Nuts and chunky nut butter. Dried peas, beans, and lentils. Hummus. Dairy Yogurt with fruit, nuts, chocolate, or granola mixed in. Full-fat dairy such as whole milk, ice cream, or sour cream. Beverages Caffeinated coffee and teas. Fats and oils Avocado. Coconut. Butter. Sweets and desserts Desserts, cookies, or candies that contain nuts or coconut. Dried fruit. Jams and preserves with seeds. Marmalade. Any dessert made with fruits or grains that are not recommended. Seasonings and condiments Relish. Horseradish. Pickles. Olives. Other foods [place] tortilla chips. Soups made with vegetables or grains that are not recommended. The items listed above may not be all the foods and drinks you should avoid. Talk to a dietitian auroraearcody more. This information is not intended to replace advice given to you by your health care provider. Make sure you discuss any questions you have with your health care provider. Document Revised: 07/09/2023 Document Reviewed: 07/09/2023 [employer] Patient Education 2023 Wearable Intelligence. Note * DO Amos Alicia C: PERFORM Event Display: Brief Operative Note Authored Date: BRIEF OPERATIVE NOTE Name: RAJIV HALL Patient Number: [id number] : 1945 Date of Service: 01/31/2024 Pre-op Diagnosis: Diverticulitis with stricture Post-op Diagnosis: Same Procedure: Diagnostic laparoscopy, robotic-assisted LAR with splenic flexure mobilization, flexiblesigmoidoscopy, TAP blocks, drain placement Surgeon: Parris Assistants: Dandre Anesthesia: SARITA Estimated Blood Loss: _ 150cc Less than 50ml Drains: ERIN drain with tip in pelvis, ricci catheter Fluids: 3L uop Urinary Output: 510 cc crystalloid Condition: Stable to PACU Complications: None apparent Specimen: Sigmoid colon, anastomotic rings _ None Findings: scarred sigmoid colon with several diverticuli, sigmoid resected and iCG used to confirm viability of proximal limb, colorectal anastomosis with negative leak test. Check one _ Pharmacologic VTE prophylaxis not indicated X Standard VTE prophylactic regimen ordered _ Pharmacologic VTE prophylaxis contraindicated due to increased risk of intraoperative and / or postoperative bleeding Check one _ No antibiotics indicated X Standard prophylactic antibiotic regimen ordered _ Antibiotic regimen changed due to concern for infection Electronic Signature on File Electronically Reviewed/Signed by: Breana Amos DO Author Signature Dt/Tm:01/31/2024 08:31 PM Resident Division of General Surgery [facility] Patient Care team information Care Team Personnel Name: MD Darryl, Honey Chong Position: Resident Member Role: Lifetime Relationship Address: [address] [place] [id number] Name: Roxanne Hoffman Ann Position: Pharmacist Member Role: Pharmacy - Lifetime Name: MD Eric, Kamala Olivia Position: Referring DIRECT Member Role: Primary Care Provider Address: [address] [place] [id number] [place] Care Team Related Persons Name: ENIO YEPEZ Name: ENRIQUE CURTIS
--- OUTSIDE RECORDS SUMMARY | 2024-02-12 20:53 | External Medical Summary | Summary of Care ---
Author Name Unknown Organization [facility] Address [address] [place] [address] Phone [phone] Care Team Providers Care Developing Machine Operator Name Role Phone Kamala Reyes MD Primary Care Provider + Reason for Visit * Reason Onset Date Comments Films 01/11/2024 Encounter Details Date Type Department Care Team (Late st Contact Info) Description 01/11/2024 Telephone Radiology Film File [address] [place] [address] Support, Imaging Radiology [address], [place] [id number] Films Allergies Active Allergy Reactions Criticality Noted Date Comments Dust Mite Extract 05/11/2021 Other Reaction(s): sneezing Solidago (Michele Abdullahi) 01/09/2022 Sneezing,clear nose running, itchy eyes documented as of this encounter (statuses as of 01/11/2024) Medications Medication Sig Dispensed Refills Start Date [...] As needed 100 g 1 07/21/2019 Active Additional Information Patient not taking.Reported on 10/30/2023 Zoster Vac Recomb Adjuvanted 50 MCG/0.5ML Intramuscular Suspension Reconstituted (SHINGRIX)Indication s:Need for shingles vaccine Inject 0.5 mL into a large muscle now and repeat dose in 60 to 180 days 1 Each 1 01/29/2020 Active Additional Information Patient not taking.Reported on 07/03/2023 Rizatriptan Benzoate 10 MG Oral Tablet Disintegrating (Maxalt-STRUCTURAL IRON ERECTOR)Indicati ons:Migraine Place one pill on tongue and [...] for pain. 30 Capsule 5 09/14/2022 Active Celecoxib 200 MG Oral Capsule (CeleBREX) Start: 08/25/22 11:37:00 EDT, See Instructions, Disp# 90 cap, Refills: 2, TAKE 1 CAPSULE BY MOUTH DAILY NEEDED FOR PAIN, Pharmacy: [facility] 11/15/2021 Active Losartan Potassium 50 MG Oral Tablet (Cozaar)Indications: HTN, goal below 130/80 Take 1 Tablet by mouth in the morning. 90 Tablet 3 02/02/2023 Active Venlafaxine HCl ER 75 MG Oral Capsule Extended Release 24 Hour (Effexor XR)Indications:Anxie ty,Recurrent major depressive disorder, in partial remission (HCC) TAKE 1 CAPSULE BY MOUTH DAILY 90 Capsule 3 09/06/2023 Active Ciprofloxacin HCl 500 MG Oral Tablet (Cipro) Take 1 Tablet by mouth in the morning and 1 Tablet before bedtime. 10/29/2023 Active metroNIDAZOLE 500 MG Oral Tablet (Flagyl) Take 1 Tablet by mouth in the morning and 1 Tablet at noon and 1 Tablet before bedtime. 10/29/2023 Active Sennosides-Docusate Sodium 8.6-50 MG Oral Tablet (Senokot-S) Take 1 Tablet by mouth in the morning. 10/29/2023 Active buPROPion HCl ER (XL) 150 MG Oral Tablet Extended Release 24 Hour (Wellbutrin XL)Indications:Major depressive disorder with single episode, in partial remission (HCC) Take 1 Tablet by mouth in the morning. 90 Tablet 5 10/30/2023 Active Additional Information Patient not taking.Reported on 12/04/2023 Nystatin [id number] UNIT/ML Mouth/Throat SuspensionIndication s:Thrush Swish and swallow 5 mL in the morning and 5 mL at noon and 5 mL in the evening and 5 mL before bedtime. For thrush.. 240 mL 1 11/15/2023 Active Additional Information Patient not taking.Reported on 12/04/2023 Levothyroxine Sodium 25 MCG Oral Tablet (Levoxyl)Indications :Hypothyroidism TAKE 1 TABLET BY MOUTH DAILY AT LEAST 1/2 HOUR BEFORE BREAKFAST OR OTHER MEDS 90 Tablet 11/30/2023 Active Rosuvastatin Calcium 5 MG Oral Tablet (Crestor)Indications :Hyperlipidemia with target LDL less than 100 TAKE 1 TABLET BY MOUTH IN THE MORNING 90 Tablet 1 01/01/2024 Active documented as of this encounter (statuses as of 01/11/2024) Active Problems Problem Noted Date Diagnosed Date Melanoma in situ of left shoulder 07/03/2023 Hx of melanoma of skin 08/06/2022 Overview: Melanoma History: Location: Left shoulder Year: 01/2022 Depth: in situ Treatment: WLE Staging: Stage 0 - [id number] - Melanoma in situ Recurrent major depressive [...] as of this encounter (statuses as of 01/11/2024) Resolved Problems Problem Noted Date Diagnosed Date [...] as of this encounter (statuses as of 01/11/2024) Immunizations Name Administration Dates Next Due COVID-19 [...] No Preserve, IM 02/24/2016,02/05/2015 02/06/2016 Seasonal Influenza, Trivalen t, (IIV3), with Preserv, (Fluzone) 02/25/2014,01/24/2013,01/25/2012,06/2010,01/14/2010 Seasonal Influenza, Trivalen t, Adjuvanted, 65+ YRS, PF, (Fluad) 02/04/2019 TDAP (age 10 and older)(Boostrix) 07/07/2013 [...] encounter Miscellaneous Notes * Telephone Encounter - Deangelo Geiger, Epic Support - 01/11/2024 10:21 AM EDT [facility] requesting 11-15-2018 to 12-24-2023 images be pushed to their system. [place] Authorization to Release on file. Imaging pushed to [facility] external PACs connection Associated report(s) not needed. documented in this encounter Plan of Treatment Health Maintenance Due Date Last Done Comments Adult Wellness Visit 07/05/2022 07/05/2021 DTap/Tdap Vaccines (3 - Td or Tdap) 07/08/2023 07/07/2013, 04/04/2003 Depression Monitoring 09/15/2023 09/14/2022 TSH 09/15/2023 09/14/2022, 08/28, 01/27/2020, Additional history exists COVID-19 Vaccine ( season) 2023 04/18/2023, 03/15/2022, 08/26/2021, Additional history exists Influenza Vaccine (FLU shot) (#1) 2023 03/21/2023, 03/17/2022, 02/21/2022, Additional history exists GFR 07/02/2024 07/03/2023, 08/28, 09/09/2021, Additional history exists DXA Scan 10/30/2024 10/30/2022, 07/0 06/2022, 09/09/2018, Additional history exists Albumin/Creatinine Ratio 09/14/2025 09/14/2022, 0611/2014 Colonoscopy 12/03/2025 12/04/2023, 080 09/2023, 06/12/2022, Additional history exists Pneumococcal Vaccine: 65+ Years Completed 03/16/2015, 03/20/2011, 09/28/2004 Zoster Vaccines Completed 01/28/2021, 04/0 10/2020, 03/21/2013 RETIRED - COLONOSCOPY-EVERY 2 YRS AGES 18-100 Discontinued 12/04/2023, 12/04/2023, 06/12/2022, Additional history exists HPV (Gardasil) Vaccine Aged Out No lo nger eligible based on patient's age to complete this topic Hepatitis B Vaccine Aged Out No longe r eligible based on patient's age to complete this topic MENINGOCOCCAL (MENACTRA/MENVEO) Aged Out No longer eligible based on patient's age to complete this topic documented as of this encounter Medical Devices Not on filedocumented as of this encounter Care Teams Developing Machine Operator Relationship Specialty Start Date End Date Kamala Reyes MD [address] [facility] [place] [address] PCP - General 08/11/09 documented as of this encounter
--- OUTSIDE RECORDS SUMMARY | 2024-02-12 20:53 | External Medical Summary | Summary of Care ---
Author Name Unknown Organization [facility] Address [address] [facility] [address] Phone [phone] Care Team Providers Care Physical Education Specialist Name Role Phone Kamala Reyes MD Primary Care Provider + Reason for Visit * Reason Onset Date Comments Fax 01/09/2024 Encounter Details Date Type Department Care Team (Late st Contact Info) Description 01/09/2024 Telephone General Internal Medicine [facility] [address] [place] [address] Kamala Reyes MD [address] [place] [address] Fax Allergies Active Allergy Reactions Criticality Noted Date Comments Dust Mite Extract 05/11/2021 Other Reaction(s): sneezing Solidago (Michele Abdullahi) 01/09/2022 Sneezing,clear nose running, itchy eyes documented as of this encounter (statuses as of 01/09/2024) Medications Medication Sig Dispensed Refills Start Date [...] Rizatriptan Benzoate 10 MG Oral Tablet Disintegrating (Maxalt-HOME HEALTH SCHEDULER)Indicati ons:Migraine Place one pill on tongue and [...] NEEDED FOR PAIN, [facility] ([facility] 11/15/2021 Active Losartan Potassium [...] Information Patient not taking.Reported on 12/04/2023 Nystatin [id number] UNIT/ML Mouth/Throat SuspensionIndication s:Thrush Swish and swallow [...] as of this encounter (statuses as of 01/09/2024) Active Problems Problem Noted Date Diagnosed Date Melanoma in situ of left shoulder 07/03/2023 Hx of melanoma of skin 08/06/2022 Overview: Melanoma History: Location: Left shoulder Year: 01/2022 Depth: in situ Treatment: WLE Staging: Stage 0 - [id number] - Melanoma in situ Recurrent major depressive [...] as of this encounter (statuses as of 01/09/2024) Resolved Problems Problem Noted Date Diagnosed Date [...] as of this encounter (statuses as of 01/09/2024) Immunizations Name Administration Dates Next Due COVID-19 [...] encounter Miscellaneous Notes * Telephone Encounter - Shawnee Moe LPN - 01/09/2024 1:56 PM EDT faxed * Telephone Encounter - Joycelyn Valadez OSA - 01/09/2024 1:39 PM EDT Caller requesting the following information to be faxed: Name/Company of caller: [employer] [employer] Information requested to be faxed: [employer] [facility] Fax number: [phone] Attention to Name/Company: Attn: Dimple Nagy Any additional information?: Would also like to know what hospital patient was seen at. documented in this encounter Plan of Treatment [...] Additional history exists DXA Scan 10/30/2024 10/30/2022, 0706/2022, 09/09/2018, Additional history exists Albumin/Creatinine Ratio 09/14/2025 09/14/2022, 11/2014 Colonoscopy 12/03/2025 12/04/2023, 09/2023, 06/12/2022, Additional history exists Pneumococcal Vaccine: [...] filedocumented as of this encounter Care Teams Physical Education Specialist Relationship Specialty Start Date End Date Kamala Reyes MD [address] [place] [address] PCP - General 08/11/09 documented as of this encounter
--- OUTSIDE RECORDS SUMMARY | 2024-02-12 20:53 | External Medical Summary | Continuity of Care Document ---
Author Name Unknown Organization [id number] Address [address] [place] [id number] Care Team Providers Care Systems Integration Advisor Name Role Phone Kamala Reyes Corwin Primary Care Physician [phone] [facility] [id number] Date(s): 12/27/23 - 12/27/23 [facility] [address] [facility] [address] [facility] [address] [place] [address] Encounter Diagnosis Knee pain, left(Discharge Diagnosis) - 12/27/23 Left hip pain(Discharge Diagnosis) - 12/27/23 Discharge Disposition: Home or Self Care Attending Physician: MD Adelina, Wesley A Allergies, Adverse Reactions, Alerts No Known Allergies Medications amoxicillin 500 mg oral capsule Start: 07/12/22 4:45:00 PM EDT, 4 cap, PO, As indicated, Disp# 12 cap, Refills: 3, one hour before dental and other procedures as directed, Pharmacy: [facility] Start Date: 07/12/22 Status: Ordered B-Complex 50 oral tablet Start: 10/01/12 8:40:00 AM EDT, 1 tab, PO, Daily Start Date: 10/01/12 Status: Ordered Caltrate 600 + D oral tablet Start: 10/01/12 8:42:00 AM EDT, 1 tab, PO, bid Start Date: 10/01/12 Status: Ordered celecoxib 200 mg oral capsule Start: 08/25/22 11:37:00 AM EDT, See Instructions, Disp# 90 cap, Refills: 2, TAKE 1 CAPSULE BY MOUTHDAILY NEEDED FOR PAIN, [facility] ([facility] Start Date: 08/25/22 Status: Ordered Colace Start: 12/27/23 11:05:00 AM EDT Start Date: 12/27/23 Status: Ordered diclofenac 1% topical gel Start: 10/02/18 2:50:36 PM EDT, See Instructions, Disp# 100 g, Refills: 0, APPLY TOPICALLY 4 TIMES DAILY NEEDED FOR PAIN. NOT TO EXCEED 16 GRAMS DAILY ON A SINGLE JOINT OF LOWER EXTREMITIES. NOT TO EXCEED 32 GRAM, Pharmacy: [facility] Start Date: 10/02/18 Status: Ordered Effexor 75 mg oral tablet Start: 10/01/12 8:41:00 AM EDT, 0.5 tab, PO, bid Start Date: 10/01/12 Status: Ordered Euflexxa 10 mg/mL intra-articular solution Start: 09/04/19 1:24:00 PM EDT, 20 mg =, intra-articular, q7days, Disp# 2 mL, Refills: 0, Left knee OA Start Date: 09/04/19 Status: Ordered glucosamine-chondroitin oral kit Start: 10/01/12 8:40:00 AM EDT Start Date: 10/01/12 Status: Ordered lactulose Start: 12/27/23 11:05:00 AM EDT Start Date: 12/27/23 Status: Ordered Levothroid 50 mcg (0.05 mg) oral tablet Start: 10/01/12 8:42:00 AM EDT, 1 tab, PO, Daily Start Date: 10/01/12 Status: Ordered losartan 25 mg oral tablet Start: 10/01/12 8:40:00 AM EDT, 1 tab, PO, Daily Start Date: 10/01/12 Status: Ordered MiraLax Start: 12/27/23 11:05:00 AM EDT Start Date: 12/27/23 Status: Ordered PreserVision Start: 03/12/18 11:03:00 AM EST Start Date: 03/12/18 Status: Ordered Mental Status 12/27/23 Barriers to Learning one year None evide nt Mandatory Health Literacy Documentation Yes Health Literacy Communication Barriers N ever Primary Language Hungarian Problem List Condition Confirmation Course Effective Dates [...] Service Informant Knee pain, left Discharge Diagnosis 12/27/23 Left hip pain Discharge Diagnosis 12/27/23 Procedures Procedure Date Related Diagnosis Body Site Status knee surgery 02/15/09 Completed Discectomy 1999 Completed hand surgery 1997 Completed Hysterectomy 1979 Completed Tonsillectomy 1956 Completed Social History Social History Type Response Smoking Status Never smoked cigaret jaime Sex Female Sex Representation Female (finding) Ortho Outpt Note * MD Adelina, Wesley A: MODIFY MD Adelina, Wesley A: MODIFY, MODIFY Event Display: Ortho Outpt Note Authored Date: [id number] Name:RAJIV HALL Patient Number:[id number] :1945 Date of Service:12/27/2023 CHIEF COMPLAINT: 1) Left hip pain 2) Left knee pain HPI:[id number] yearoldFemalewho presents today fora f/u of left knee pain. Patient complains of left hip and left knee pain. She completed her most recent round ofEuflexxa inFebruary 2023 with the round before that completed in August 2019. Her most recent cortisone injection was 05/22/2023. She had significant relief from Euflexxa. She is also s/p right TKA completedce2017 and doing well. Today she rates her pain 3/10. PHYSICAL EXAM: Focusing on the patient'sleftknee: 2+ DP pulse, bilaterally Sensation to light touch is intact, bilaterally Motor to the gastroc soleus, tibialis anterior, and EHL is 5/5, bilaterally Able to perform straight leg raise, bilaterally -medial joint line tenderness. -Valdez's Ligamentous examination exhibits: Stable and unchanged Guille 0 mm anterior translation and firm endpoint Posterior drawer stable Varus stress at 0 and 30 stable Valgus stresshas pseudolaxity at0 and 30 less than 1 mm -Effusion Leftknee Range of motionhyperextends 5to 130 +Tenderness to palpation Medial patellar facet, Quad insertion, medial femoral condyle Focusing on the patient's left hip: 2+ DP pulse Sensation to light touch is intact Motor to the gastroc soleus, tibialis anterior, hip abduction/adduction, and EHL is 5/5. Able to perform straight leg raise. Hip range of motion Forward ; [id number]; [id number]; ER40; IR10 - ALY -FADIR +tenderness to palpation over greater trochanter Lumbar spine: NOtenderness to palpation NO step-offs DIAGNOSTIC REVIEW: I obtained and personally 3 views includingBilateral 45 degree flexion PA views, andleftknee lateral and sunrise views which show medial joint space narrowing, sclerosis bone on bone,and marginal osteophytes.Patient [id number] on left.Incidental finding of cemented right total knee components. No acute fracture I obtained and personally interpreted 3 views includingAP pelvis, left hip AP and lateral views, which shows mild degenerative changes. No acute fracture IMPRESSION: 1. Left hip pain secondary to trochanteric bursitis vsexacerbation of mild degenerative changes 2. Left knee pain secondary to mild exacerbation changes GOAL: Decrease pain PLAN: After a lengthy discussion with the patient today regarding my above clinical findings, - RICE. - They may use anti-inflammatories alternating with Tylenol as needed for pain. -In addition due to their significant amount of pain today, they were offered a cortisone injection. The risks of the injections were discussed and included but not limited to: Inflection, bleeding, nerve damage, continued pain, possible need for repeat injections, altered glucose levels, and permanent skin changes at the site of injection. They would like to proceed. They will keep track of how much pain relief they obtain and for how long. They will ice tonight and over the next several days and understands it may be more painful tomorrow due to a steroid flare. - Discussed she is eligible for repeat MONGE injections given her positive response vs cortisone injection - Discussed option of formal PT but patient has elected to hold off for now. Instead they were given HEP -Discussed possiblecortisone injection versus MONGE injectionsfor the left kneeif her symptoms were to worsen. Follow-up as needed The patient understood all my instructions and explanations; all their questions were satisfactorily addressed. PROCEDURE: After obtaining verbal consent and following a time-out indicating the left hip to be injected with cortisone into the trochanteric bursae. The point of maximum tenderness was identified and marked. The area was prepped with Betadine, followed by ethylene chloride spray, and an alcohol wipe. Then, a mixture of1 mL of 1% lidocaine plain plus 4 mL of 0.25%Bupivacaine plain plus 1 mL of 40 Mg of Depo-Medrol were easily injected into the lefttrochanteric bursae. The patient notedimmediate relief. The patient tolerated this well and will follow all of my above instructions. ATTESTATION: I, Isis Bradley, have scribed for, and in the presence of, Wesley Sahu, on this date,12/27/2023 10:47:00. I, Dr. Sahu, saw and examined the patient with Isis Bradley acting as my scribe. I reviewed the note and agree with the documented findings and the plan of care I developed. Electronic Signature on File Electronically Reviewed/Signed by: Isis Bradley Author Signature Dt/Tm:12/27/2023 12:04 PM Electronically Reviewed/Signed by: Wesley Sahu MD Cosigner Signature Dt/Tm: 12/27/2023 12:10 PM [facility] [address], [place] [address] CJD Patient Care team information Care Team Personnel Name: MD Reyes Manisha N Position: Referring DIRECT Member Role: Primary Care Provider Address: [address] [place] [address] [place] Care Team Related Persons Name: ENIO YEPEZ Name: NADJA YEPEZ
--- OUTSIDE RECORDS SUMMARY | 2024-02-12 20:53 | External Medical Summary | Summary of Care ---
Author Name Unknown Organization [facility] Address [address] [place] [address] Phone [phone] Care Team Providers Care Manufacturing Planner Name Role Phone Jaya Reyes MD Primary Care Provider + Reason for Visit * Reason Comments eRx-Medication Refill Encounter Details Date Type Department Care Team (Late st Contact Info) Description 12/29/2023 Refill General Internal Medicine [facility] [address] [place] [address] Jaya Reyes MD [address] [place] [address] Hyperlipidemia with target LDL less than 100 Allergies Active Allergy Reactions Criticality Noted Date Comments Dust Mite Extract 05/11/2021 Other Reaction(s): sneezing Solidago (Michele Abdullahi) 01/09/2022 Sneezing,clear nose running, itchy eyes documented as of this encounter (statuses as of 01/01/2024) Medications Medication Sig Dispensed Refills Start Date End Date Status OMEGA III EPA+DHA 1000 MG PO CAPS Take by mouth . Active VITAMIN B COMPLEX PO TABS 1 tab by mouth daily Active CALTRATE 600+D 600-400 MG-UNIT PO TABS 1 tablet by mouth twice daily 1 Active Ascorbic Acid 250 MG TABS Take 1 Tablet by mouth in the morning and 1 Tablet before bedtime. Active Multiple Vitamins-Minerals (EYE VITAMINS) Capsule Take 1 Cap by mouth daily. 9 Active Probiotic Product (PROBIOTIC ACIDOPHILUS BIOBEADS) Capsule Take 1 Cap by mouth 2 times a day. Active Vitamin D3 (CHOLECALCIFEROL) 400 UNIT Tablet Take 1 Tablet by mouth in the morning. Active Diclofenac Sodium 1 % gelIndications:Gene ralized OA Apply 2 g topically to affected area 4 times a day. As needed 100 g 1 0 Active Additional Information Patient not taking.Reported on 10/30/2023 Zoster Vac Recomb Adjuvanted 50 MCG/0.5ML Intramuscular Suspension Reconstituted (SHINGRIX)Indicatio ns:Need for shingles vaccine Inject 0.5 mL into a large muscle now and repeat dose in 60 to 180 days 1 Each 1 0 Active Additional Information Patient not taking.Reported on 07/03/2023 Rizatriptan Benzoate 10 MG Oral Tablet Disintegrating (Maxalt-KITCHEN HELP HANDYMAN)Indicat ions:Migraine Place one pill on tongue and [...] for pain. 30 Capsule 5 3 Active Celecoxib 200 MG Oral Capsule (CeleBREX) Start: 08/25/22 11:37:00 EDT, See Instructions, Disp# 90 cap, Refills: 2, TAKE 1 CAPSULE BY MOUTH DAILY NEEDED FOR PAIN, [facility] ([facility] ) 2 Active Losartan Potassium 50 MG Oral Tablet (Cozaar)Indications :HTN, goal below 130/80 Take 1 Tablet by mouth in the morning. 90 Tablet 3 3 Active Venlafaxine HCl ER 75 MG Oral Capsule Extended Release 24 Hour (Effexor XR)Indications:Anxi ety,Recurrent major depressive disorder, in partial remission (HCC) TAKE 1 CAPSULE BY MOUTH DAILY 90 Capsule 3 4 Active Ciprofloxacin HCl 500 MG Oral Tablet (Cipro) Take 1 Tablet by mouth in the morning and 1 Tablet before bedtime. 4 Active metroNIDAZOLE 500 MG Oral Tablet (Flagyl) Take 1 Tablet by mouth in the morning and 1 Tablet at noon and 1 Tablet before bedtime. 4 Active Sennosides-Docusate Sodium 8.6-50 MG Oral Tablet (Senokot-S) Take 1 Tablet by mouth in the morning. 4 Active buPROPion HCl ER (XL) 150 MG Oral Tablet Extended Release 24 Hour (Wellbutrin XL)Indications:Tala r depressive disorder with single episode, in partial remission (HCC) Take 1 Tablet by mouth in the morning. 90 Tablet 5 4 Active Additional Information Patient not taking.Reported on 12/04/2023 Nystatin [id number] UNIT/ML Mouth/Throat SuspensionIndicatio ns:Thrush Swish and swallow 5 mL in the morning and 5 mL at noon and 5 mL in the evening and 5 mL before bedtime. For thrush.. 240 mL 1 4 Active Additional Information Patient not taking.Reported on 12/04/2023 Levothyroxine Sodium 25 MCG Oral Tablet (Levoxyl)Indication s:Hypothyroidism TAKE 1 TABLET BY MOUTH DAILY AT LEAST 1/2 HOUR BEFORE BREAKFAST OR OTHER MEDS 90 Tablet 4 Active Rosuvastatin Calcium 5 MG Oral Tablet (Crestor)Indication s:Hyperlipidemia with target LDL less than 100 TAKE 1 TABLET BY MOUTH IN THE MORNING 90 Tablet 1 4 Active Rosuvastatin Calcium 5 MG Oral Tablet (Crestor)Indication s:Hyperlipidemia with target LDL less than 100 TAKE 1 TABLET BY MOUTH IN THE MORNING 90 Tablet 3 3 01/01/20 24 Discontinued documented as of this encounter (statuses as of 01/01/2024) Active Problems Problem Noted Date Diagnosed Date Melanoma in situ of left shoulder 07/03/2023 Hx of melanoma of skin 08/06/2022 Overview: Melanoma History: Location: Left shoulder Year: 01/2022 Depth: in situ Treatment: WLE Staging: Stage 0 - [id number] - Melanoma in situ Recurrent major depressive [...] as of this encounter (statuses as of 01/01/2024) Resolved Problems Problem Noted Date Diagnosed Date [...] as of this encounter (statuses as of 01/01/2024) Immunizations Name Administration Dates Next Due COVID-19 [...] encounter Miscellaneous Notes * Telephone Encounter - Octaviano Knight RPh - 01/01/2024 11:17 AM EDTSigned Prescriptions: Disp Refills Rosuvastatin Calcium 5 MG Oral Tablet (Cre*90 Tab*1 Sig: TAKE 1 TABLET BY MOUTH IN THE MORNINGAuthorizing Provider: JAYA REYES User: OCTAVIANO KNIGHT * Telephone Encounter - Octaviano Knight RPh - 01/01/2024 11:14 AM EDT Lipid panel due; ordered. Thank you, Octaviano Knight, PharmD Clinical Pharmacist [facility] 01/01/24 11:16 AM [phone] documented in this encounter Plan of Treatment Upcoming Encounters Date Type Department Care Team (Late st Contact Info) Description 01/14/2024 9:00 AM EDT Office Visit [facility]at[facility] [address] [place] [address] Joey Andres MD [address] [place] [address] Health Maintenance Due Date Last Done Comments [...] Additional history exists DXA Scan 10/30/2024 10/30/2022, 070 06/2022, 09/09/2018, Additional history exists Albumin/Creatinine Ratio 09/14/2025 09/14/2022, 06/0 11/2014 Colonoscopy 12/03/2025 12/04/2023, 08/0 09/2023, 06/12/2022, Additional history exists Pneumococcal Vaccine: [...] as of this encounter Visit Diagnoses Diagnosis Hyperlipidemia with target LDL less than 100 Other and unspecified hyperlipidemia documented in this encounter Care Teams Manufacturing Planner Relationship Specialty Start Date End Date Jaya Reyes MD [address] [facility] [place] [address] PCP - General 08/11/09 documented as of this encounter
--- OUTSIDE RECORDS SUMMARY | 2024-02-12 20:53 | External Medical Summary | Summary of Care ---
Author Name Unknown Organization [facility] Address [address] [place] [address] Phone [phone] Care Team Providers Care Gun Stocker Name Role Phone Kamala Reyes MD Primary Care Provider + Encounter Details Date Type Department Care Team (Late st Contact Info) Description 12/28/2023 Telephone Gastroenterology, [facility] [address] [facility] [place] [address] Meme Andrea MD [address] [facility] [place] [address] Allergies Active Allergy Reactions Criticality Noted Date Comments Dust Mite Extract 05/11/2021 Other Reaction(s): sneezing Solidago (Michele Abdullahi) 01/09/2022 Sneezing,clear nose running, itchy eyes documented as of this encounter (statuses as of 12/28/2023) Medications Medication Sig Dispensed Refills Start Date [...] Rizatriptan Benzoate 10 MG Oral Tablet Disintegrating (Maxalt-CLINICAL ADVISOR)Indicati ons:Migraine Place one pill on tongue and [...] THE MORNING 90 Tablet 3 10/18/2022 Active Celecoxib 200 MG Oral Capsule (CeleBREX) [...] Information Patient not taking.Reported on 12/04/2023 Nystatin [id number] UNIT/ML Mouth/Throat SuspensionIndication s:Thrush Swish and swallow [...] OR OTHER MEDS 90 Tablet 11/30/2023 Active documented as of this encounter (statuses as of 12/28/2023) Active Problems Problem Noted Date Diagnosed Date Melanoma in situ of left shoulder 07/03/2023 Hx of melanoma of skin 08/06/2022 Overview: Melanoma History: Location: Left shoulder Year: 01/2022 Depth: in situ Treatment: WLE Staging: Stage 0 - [id number] - Melanoma in situ Recurrent major depressive [...] as of this encounter (statuses as of 12/28/2023) Resolved Problems Problem Noted Date Diagnosed Date [...] as of this encounter (statuses as of 12/28/2023) Immunizations Name Administration Dates Next Due COVID-19 [...] encounter Miscellaneous Notes * Telephone Encounter - Meme Andrea MD - 12/28/2023 4:01 PM EDT I spoke to pt. She is taking multiple osmotic laxatives ( 6 caps Miralax daily, lactulose). Earlierthis week, she reports small volume BM's, abd discomfort; no n/v, + flatus. She had large BM today with relief. I reviewed indications for hospitalization or ER eval - if she has symptoms of recurrent LBO, she should be seen in ER. She should continue osmotic laxatives in the interim; I have encouraged her to use regular tap water enemas to help with stooling as well. I have texted surgeons to help expedite outpt surgical eval. She will call as needed. documented in this encounter Plan of Treatment Upcoming Encounters Date Type Department Care Team (Late st Contact Info) Description 01/14/2024 9:00 AM EDT Office Visit Dermatology [facility] [place] [address] [place] [address] [facility]res [facility] [address] [facility] [address] Health Maintenance Due Date Last Done Comments Adult Wellness Visit 07/05/2022 07/05/2021 DTap/Tdap Vaccines (3 - Td or Tdap) 07/08/2023 07/07/2013, 04/04/2003 COVID-19 Vaccine ( season) 2023 04/18/2023, 03/15/2022, 08/26/2021, Additional history exists Depression Monitoring 09/15/2023 09/14/2022 TSH 09/15/2023 09/14/2022, 08/28, 01/27/2020, Additional history exists Influenza Vaccine (FLU shot) (#1) 2023 03/21/2023, 03/17/2022, 02/21/2022, Additional history exists GFR 07/02/2024 07/03/2023, 08/28, 09/09/2021, Additional history exists DXA Scan 10/30/2024 10/30/2022, 0 06/2022, 09/09/2018, Additional history exists Albumin/Creatinine Ratio 09/14/2025 09/14/2022, 11/2014 Colonoscopy 12/03/2025 12/04/2023, 0 09/2023, 06/12/2022, Additional history exists Pneumococcal Vaccine: [...] filedocumented as of this encounter Care Teams Gun Stocker Relationship Specialty Start Date End Date Kamala Reyes MD [address] [place] [address] PCP - General 08/11/09 documented as of this encounter
--- OUTSIDE RECORDS SUMMARY | 2024-02-12 20:53 | External Medical Summary | Continuity of Care Document ---
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 Name Role Phone Kamala Reyes Primary Care Physician [phone] Encounter [facility] FINNBR [id number] Date(s): 01/28/24 - 01/28/24 [facility] 1300 [facility] [address], [address], [address] [place] [address] Encounter Diagnosis Pre-op exam(Discharge Diagnosis) - 01/28/24 Discharge Disposition: Home or Self Care Attending Physician: MD Verdugo Selina N Referring Physician: MD Parris, Freddie White Allergies, Adverse Reactions, Alerts No Known Allergies Medications amoxicillin 500 mg oral capsule Start: 07/12/22 4:45:00 PM EDT, 4 cap, PO, As indicated, Disp# 12 cap, Refills: 3, one hour before dental and other procedures as directed, Pharmacy: [facility] Start Date: 07/12/22 Status: Ordered B-Complex [...] NEEDED FOR PAIN, Pharmacy: [facility] ([facility] ) Start Date: 08/25/22 Status: Ordered Colace Start: 12/27/23 11:05:00 AM EDT, 100 mg =, PO, Daily Start Date: 12/27/23 Status: Ordered diclofenac 1% topical gel Start: 10/02/18 2:50:36 PM EDT, See Instructions, Disp# 100 g, Refills: 0, APPLY TOPICALLY 4 TIMES DAILY NEEDED FOR PAIN. NOT TO EXCEED 16 GRAMS DAILY ON A SINGLE JOINT OF LOWER EXTREMITIES. NOT TO EXCEED 32 GRAM, Pharmacy: [facility] Start Date: 10/02/18 Status: Ordered Effexor 75 [...] PO, Daily Start Date: 01/14/24 Status: Ordered metroNIDAZOLE 500 mg oral tablet Start: 01/28/24 11:01:00 AM EDT, See Instructions, Disp# 3 tab, Refills: 0, 1 tab PO at 5, 6 and 11 p.m. the evening before surgery, Pharmacy: [facility] Start Date: 01/28/24 Status: Ordered MiraLax Start: 12/27/23 11:05:00 AM EDT, 2.5 caps, PO, bid Start Date: 12/27/23 Status: Ordered multivitamin Start: 01/14/24 2:02:00 PM EDT, 1 tab, PO, Daily Start Date: 01/14/24 Status: Ordered neomycin 500 mg oral tablet Start: 01/28/24 11:01:00 AM EDT, See Instructions, Disp# 3 tab, Refills: 0, 1 tab PO at 5, 6 and 11 p.m. the evening before surgery, Pharmacy: [facility] Start Date: 01/28/24 Status: Ordered PreserVision Start: 03/12/18 11:03:00 AM [...] Start Date: 01/14/24 Status: Ordered Mental Status 01/25/24 Barriers to Learning one year None evide nt Mandatory Health Literacy Documentation Yes Health Literacy Communication Barriers N ever Primary Language Frisian Problem List Condition Confirmation Course Effective Dates [...] Diagnosis Diagnosis Type Effective Dates Health Status Clini cha Service Informant Pre-op exam Discharge Diagnosis 9/30/24 Procedures Procedure Date Related Diagnosis Body Site Status hand surgery 1997 Completed Hysterectomy 1979 Completed Tonsillectomy 1956 Completed ACDF Completed Efraín fundoplication Com pleted R TKA Completed Thyroidectomy Completed Social History Social History Type Response Smoking Status Never smoked cigaret jaime Sex Female Sex Representation Female (finding) Anes H&P * MD Lucina, Lyudmila N: MODIFY MD Verdugo Selina N: MODIFY, SIGN MD Verdugo Selina N: SIGN, VERIFY MD Verdugo Selina N: VERIFY, MODIFY, SIGN Event Display: Anes H&P Authored Date: [id number] Patient: RAJIV HALL Age: 78 years Sex: Female : 1945 Associated Diagnoses: None Author: JUAN C Hager Daniel Preoperative Information Anesthesia Preop Info: Procedure: diagnostic laparoscopy, laparoscopic possible open low anterior resection, possible stoma, flexible sigmoidoscopy Date: 01/31/24 09:40 Surgeons: MD Parris, Freddie White Diagnosis: diverticular stricture . History of Present Illness See above. Phone #: [phone]; Telehealth appointment scheduled d/t living a distance from [facility] [place] [place] and pts resistance to an in-person APOC appointment COVID vaccinated + boosted Anesthesia History PONV: [...] Anterior, Fusion, Discectomy. Orthopedics: S/P: Right TKA. BMI: 29 on 01/14/24 PSH vital signs Health Status Allergies: Allergic Reactions (Selected) NKA. Histories Procedure History: hand surgery in 1997 at 53 Years. Hysterectomy (126289737) in 1979 at 35 Years. Tonsillectomy (294474788) in 1956 at 12 Years. Efraín fundoplication ([id number]). Thyroidectomy (67016121). R TKA (231590680). ACDF ([id number]). . 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 Never smoked cigarettes Other Tobacco Use: Never used other tobacco products Alcohol: Denies Recreational Drugs: Denies . Assessment and Plan Medications: Pre-Surgery Medication Instructions It is very important we have an accurate list of your medications prior to your procedure. Please review this medication list with your home medications and call [phone] prior to your procedure with any changes to your prescription medications. Please bring this list with you the morning of surgery and note the date and time of the last dose taken of each medication before surgery. amoxicillin (amoxicillin 500 mg oral capsule) 4 cap by mouth As indicated .one hour before dental and other procedures as directed do not take morning of procedure ascorbic acid (Vitamin C 500 mg oral capsule) 1 cap by mouth once daily . do not take morning of procedure bacillus coagulans-inulin (Probiotic Formula (Bacillus Coagulans) oral capsule) 1 cap by mouth 2 times daily .5 billion CFU's. do not take morning of procedure buPROPion (buPROPion 150 mg/24 hours (XL) oral tablet, extended release) 1 tab by mouth once daily . continue as usual celecoxib (celecoxib 200 mg oral capsule) See Instructions .TAKE 1 CAPSULE BY MOUTH DAILY NEEDED FOR PAIN do not take morning of procedure cholecalciferol (Vitamin D3 50 mcg (2000 intl units) oral capsule) 1 cap by mouth once daily . do not take morning of procedure chondroitin-glucosamine (glucosamine-chondroitin oral kit) 1,100 mg by mouth once daily . do not take morning of procedure diclofenac topical (diclofenac 1% topical gel) See Instructions .APPLY TOPICALLY 4 TIMES DAILY NEEDED FOR PAIN. NOT TO EXCEED 16 GRAMS DAILY ON A SINGLE JOINT OF LOWER EXTREMITIES. NOT TO EXCEED 32 GRAM stop today docusate (Colace) 100 mg by mouth once daily . do not take morning of procedure levothyroxine (levothyroxine 25 mcg (0.025 mg) oral tablet) 1 tab by mouth once daily . continue as usual losartan (losartan 50 mg oral tablet) 1 tab by mouth once daily . do not take morning of procedure magnesium gluconate (magnesium gluconate 250 mg oral tablet) 1 tab by mouth once daily . do not take morning of procedure metroNIDAZOLE (metroNIDAZOLE 500 mg oral tablet) See Instructions .1 tab PO at 5, 6 and 11 p.m. the evening before surgery follow surgeon's instructions multivitamin (B-Complex 50 oral tablet) 1 tab by mouth once daily . do not take morning of procedure multivitamin 1 tab by mouth once daily . stop today multivitamin with minerals (PreserVision) . do not take morning of procedure neomycin (neomycin 500 mg oral tablet) See Instructions .1 tab PO at 5, 6 and 11 p.m. the evening before surgery follow surgeon's instructions polyethylene glycol 3350 (MiraLax) 2.5 caps by mouth 2 times daily . do not take morning of procedure rosuvastatin (rosuvastatin 5 mg oral tablet) 1 tab by mouth once daily . continue as usual venlafaxine (Effexor 75 mg oral tablet) 1 tab by mouth once daily . continue as usual . Does patient use aspirin?: No. Does patient use beta blockers?: No. Does patient use MARCO A- I/ARB drugs?: Yes. Does patient use narcotic analgesics for chronic pain? (>1 month AND >30mg morphine or equivalent daily): No. Anesthesiologist Assessment and Plan Problems: I tried calling patient three times - went to [employer] each time. Left message first time. Based on above information, pending a physical exam, I think pt can proceed with surgery. will needto talk to her about anesthesia on DOS.. ASA Classification: Class III. Review / Management Ordered Today: None. EKG: Not ordered secondary to Telehealth evaluation. May be ordered at the discretion of the attending anesthesiologist the morning of surgery. Orders placed for day of surgery: None. Pending issues: None. Patient Education Patient Education: [facility] ([facility] TeleHealth I have confirmed the patients name and date of . The patient has consented to this service,and I have advised the patient that this is a billable visit for which they may be subject to a copay.: Yes. The provider initiated this visit after explaining the need for this visit to the patient, who has consented to this virtual visit.Untitled: Yes. I am located at my: Home. The patient is located at: Home. This visit was conducted via Telephone, and was not related to a visit or procedure that occurred within the past 7 days.: Yes. Total time spent communicating with the patient: 17 minutes . Electronic Signature on File Electronically Reviewed/Signed by: Derek Hager PA-C Author Signature Dt/Tm:01/28/2024 12:47 PM Department of Anesthesia Electronically Reviewed/Signed by: Lyudmila Verdugo MD Cosigner Signature Dt/Tm: 01/28/2024 02:17 PM Department of Anesthesia DT Patient Care team information Care Team Personnel Name: MD Reyes Manisha N Position: Referring DIRECT Member Role: Primary Care Provider [address]: [address] [place] [address] [place] Care Team Related Persons Name: ENIO YEPEZ Name: ENRIQUE CURTIS
--- NOTE | 2024-02-12 22:19 | History & Physical Report ---
Date of Service February 12, 2024 Assessment & Plan (1) Orthostatic hypotension: Plan: 78-year-old female with past medical history significant for paraesophageal hernia, hypertension, reflux esophagitis, peptic ulcer disease, irritable bowel syndrome with constipation, melanoma in situ of left shoulder, iron deficiency anemia, recurrent major depression comes because of orthostatic hypotension and falls. Patient had a colon resection surgery on January 30 at [facility] for colon stricture thought to be from diverticulitis as per patient. As per patient 6 inches of colon was taken out. Per patient's from next day of surgery she developed orthostatic hypotension's. It was thought because her head was lowered for 6 hours during the surgery. She was discharged home last but still having the symptoms. Patient says she feels weird and she falls sideways mostly on the right side. No loss of consciousness. Did not hit her head. No chest pain or shortness of breath. No cough. No fevers. No nausea. No headache. Vision is okay. No runny nose no sore throat. Currently after surgery her constipation resolved. Denies any blood in the stools or black stools. Micturating okay. Ambulating with a cane because of these falls. Appetite is okay. Patient states she was discharged on Eliquis for 2 weeks from [facility]- possible for DVt prophylaxis. Patient has a rash around surgical site,but seems improving. Today in the ER also she was having orthostatic hypotension. Resting comfortably and able to give her history. Orthostatic hypotension Falls Since colon resection surgery in [facility] on January 30 Gentle fluids Follow labs Orthostatic vitals Echo CTA chest no PE CTA head and neck unremarkable Subcutaneous emphysema seen in the anterior chest wall mostly from recent surgery ER tried to do MRI scan but could not get records from [facility] if any clips used in recent surgery Consult cardiology in a.m. for further recommendations PT OT when stable Hypertension On losartan Will monitor Hyperlipidemia On statin Depression On bupropion, venlafaxine Hypothyroidism On Synthyroid Will follow TSH DVT prophylaxis Currently on Eliquis Disposition Telemetry Full code. History of Present Illness Chief Complaint: Orthostatic hypotension and falls Primary Care Provider: Kamala Reyes MD 78-year-old female with past medical history significant for paraesophageal hernia, hypertension, reflux esophagitis, peptic ulcer disease, irritable bowel syndrome with constipation, melanoma in situ of left shoulder, iron deficiency anemia, recurrent major depression comes because of orthostatic hypotension and falls. Patient had a colon resection surgery on January 30 at [facility] for colon stricture thought to be from diverticulitis as per patient. As per patient 6 inches of colon was taken out. Per patient's from next day of surgery she developed orthostatic hypotension's. It was thought because her head was lowered for 6 hours during the surgery. She was discharged home last but still having the symptoms. Patient says she feels weird and she falls sideways mostly on the right side. No loss of consciousness. Did not hit her head. No chest pain or shortness of breath. No cough. No fevers. No nausea. No headache. Vision is okay. No runny nose no sore throat. Currently after surgery her constipation resolved. Denies any blood in the stools or black stools. Micturating okay. Ambulating with a cane because of these falls. Appetite is okay. Patient states she was discharged on Eliquis for 2 weeks from [facility] for DVt prophylaxis. Patient has a rash around surgical site,but seems improving. Today in the ER also she was having orthostatic hypotension. Resting comfortably and able to give her history. Past medical history. As mentioned above. Past surgical history. Cervical disc arthroplasty. Colonoscopy. EGD. EGD with biopsy. Laparoscopic Efraín fundoplication repair of paraesophageal. Right knee arthroplasty. Appendectomy. Partial removal of thyroid lobe. Throat surgery as a child. Partial hysterectomy at age 41. Social history. No smoking. No alcohol use. No drug use. Family history. Mother had renal failure. Father had [place]. Brother has diabetes. Hypertension. Allergies Allergy/AdvReac Type Severity Reaction Status Date / Time No Known Drug Allergies Allergy Unknown NONE Verified 06/25/23 10:02 Home Medications Medication Instructions Recorded Confirmed Type acetaminophen 500 mg tablet 500 mg PO Q6H PRN Pain 03/05/18 02/12/24 History (Tylenol Extra Strength) calcium 600 mg (as 1 tab PO BID 03/05/18 02/12/24 History carbonate)-vitamin D3 5 mcg (200 unit) capsule (Calcium 600 + D(3)) [id number] C-Mn 500 2 tab PO BID 03/05/18 02/12/24 History mg-400 mg capsule (Glucosamine Chondroitin Maximum Strength) losartan 50 mg tablet 50 mg PO QAM 03/05/18 02/12/24 History magnesium 250 mg tablet 250 mg PO QAM 03/05/18 02/12/24 History multivitamin 1 tab PO QAM 03/05/18 02/12/24 History rizatriptan 10 mg tablet 10 mg PO UD PRN Migraine Headache 03/05/18 02/12/24 History vitamin B complex 1 cap PO QAM 03/05/18 02/12/24 History vitamins A,C,D-pfax-qdrnnr 2,148 1 tab PO QAM 03/05/18 02/12/24 History mcg-113 mg-45 mg-17.4 mg tablet (PreserVision AREDS) ascorbic acid (vitamin C) 250 mg 250 mg PO BID #28 tabs 04/04/18 02/12/24 Rx tablet (Vitamin C) cholecalciferol (vitamin D3) 25 25 mcg PO QAM 05/09/21 02/12/24 History mcg (1,000 unit) tablet (Vitamin D3) lactobacillus combination no.4 3 3,000 mmu cells PO QAM 05/09/21 02/12/24 History billion cell capsule (Probiotic) celecoxib 200 mg capsule 200 mg PO QAM PRN Pain 06/25/23 02/12/24 History levothyroxine 25 mcg tablet 25 mcg PO QAM 06/25/23 02/12/24 History rosuvastatin 5 mg tablet 5 mg PO HS 06/25/23 02/12/24 History venlafaxine 75 mg capsule,extended 75 mg PO QAM 06/25/23 02/12/24 History release 24 hr Eliquis 1 tab PO BID 02/12/24 02/12/24 History bupropion HCl 150 mg 24 hr tablet, 150 mg PO DAILY 02/12/24 02/12/24 History extended release Past Med/Surg History Problem List (Updated 02/12/24 @ 22:21 by Shaka Vazquez MD) Orthostatic hypotension Abdominal pain Constipation Nausea & vomiting (Acute) Abdominal pain, lower (Acute) Obesity (BMI 30.0-34.9) IBS (irritable bowel syndrome) Dehydration Nausea Abdominal pain Lumbar back pain with radiculopathy affecting right lower extremity (Acute) Encounter for pre-operative examination S/P total knee arthroplasty Acute blood loss anemia Osteoarthritis (Chronic) Chronic back pain (Chronic) LUMBAR AREA Esophageal hernia hx of GERD (gastroesophageal reflux disease) (Chronic) UNDER CONTROL Anxiety and depression (Chronic) Migraine headache (Chronic) HX Hypothyroidism (Chronic) HTN (hypertension) (Chronic) Medical History Norovirus Nausea vomiting and diarrhea Tachycardia Hypomagnesemia Abdominal distension SBO (small bowel obstruction) Nausea Acute upper abdominal pain History of IBS UNDER CONTROL Asthma MILD-NO INHALERS Anemia HX Surgical History History of Efraín fundoplication Family History Brother Family history of diabetes mellitus Social History Smoking Status: Never smoker Second Hand Exposure: No; Do You Dip or Chew Tobacco: No; Hx Alcohol Use: No Hx Substance Use: No Preferred Language: Upper Sorbian Communication Ability: Effective Visual Impairment: No Limitations Family Practice Md Required: No Beliefs That Will Affect Care: None Current Living Situation: Other Current Living Situation Comment: roommate/friend, Don current occupational status: retired Other Information That Helps Us Care for You: No Feels Safe at Home: Yes Safety Concerns: Feels Safe At This Time Assistive Devices: Cane and Contacts Review of Systems Review of Systems: All systems reviewed & are unremarkable except as noted in HPI & below Physical Exam Physical Exam: General- Not in distress Head- atraumatic Eyes- PERRL. ENT- oropharynx clear Neck- supple, no JVD. Lungs- clear to auscultation no wheezing or crackles. Heart- regular rate and rhythm; no murmur, no gallop. Abdomen- normal bowel sounds, soft, nontender, no distension. Recent surgery site mild rash seen Extremities- no pretibial edema, no erythema seen. Neuro- alert, oriented PERRL, no facial palsy; no dysarthria; moves extremities. Results & Data Results & Data Vital Signs (Past 12 Hours) Vital Signs Temp Pulse Pulse Resp BP BP Pulse Ox 02/12/24 21:09 144/74 H 02/12/24 21:09 144/74 H 02/12/24 21:07 102 H 16 144/74 H 98 02/12/24 21:03 95 H 17 99 02/12/24 20:54 98 H 14 02/12/24 20:30 94 H 17 95 02/12/24 20:30 132/83 02/12/24 20:30 132/83 02/12/24 20:06 90 17 96 02/12/24 20:00 138/77 02/12/24 19:51 88 20 95 02/12/24 19:36 93 H 18 96 02/12/24 19:33 90 16 149/82 H 96 02/12/24 19:21 97 H 16 119/87 94 02/12/24 19:01 178/88 H 02/12/24 19:01 178/88 H 02/12/24 19:01 178/88 H 02/12/24 17:36 100 H 18 138/89 97 02/12/24 14:08 93 H 02/12/24 13:15 94 H 19 96 02/12/24 13:15 92 H 19 131/85 97 02/12/24 12:42 36.8 C 93 H 16 116/60 98 O2 Del Method 02/12/24 21:09 02/12/24 21:09 02/12/24 21:07 02/12/24 21:03 02/12/24 20:54 02/12/24 20:30 02/12/24 20:30 02/12/24 20:30 02/12/24 20:06 02/12/24 20:00 02/12/24 19:51 02/12/24 19:36 02/12/24 19:33 02/12/24 19:21 02/12/24 19:01 02/12/24 19:01 02/12/24 19:01 02/12/24 17:36 Room Air 02/12/24 14:08 02/12/24 13:15 Room Air 02/12/24 13:15 Room Air 02/12/24 12:42 Room Air Diagnostic Findings Laboratory Results WBC 7.20 K/ul (4.8-10.8) 02/12/24 13:03 RBC 4.44 M/uL (4.20-5.40) 02/12/24 13:03 Hgb 13.0 g/dl (12.0-16.0) 02/12/24 13:03 Hct 39.6 % (37.0-47.0) 02/12/24 13:03 MCV 89.2 fL (80.0-100.0) 02/12/24 13:03 MCH 29.3 pg (25.0-34.0) 02/12/24 13:03 MCHC 32.8 g/dL (32.0-36.0) 02/12/24 13:03 RDW Std Deviation 44.8 fL (36.4-46.3) 02/12/24 13:03 RDW Coeff of Pito 13.8 % (11.5-14.5) 02/12/24 13:03 Plt Count 236 K/uL (130-400) 02/12/24 13:03 MPV 10.4 fL (9.4-12.4) 02/12/24 13:03 Immature Gran % (Auto) 0.6 % 02/12/24 13:03 Neut % (Auto) 69.7 % 02/12/24 13:03 Lymph % (Auto) 17.6 % 02/12/24 13:03 [place] % (Auto) 9.4 % 02/12/24 13:03 Eos % (Auto) 2.1 % 02/12/24 13:03 Baso % (Auto) 0.6 % 02/12/24 13:03 Neut # (Auto) 5.02 K/uL (1.40-6.50) 02/12/24 13:03 Lymph # (Auto) 1.27 K/uL (1.20-3.40) 02/12/24 13:03 [place] # (Auto) 0.68 K/uL (0.11-0.59) H 02/12/24 13:03 Eos # (Auto) 0.15 K/uL (0.00-0.50) 02/12/24 13:03 Baso # (Auto) 0.04 K/uL (0.00-0.20) 02/12/24 13:03 Immature Gran # (Auto) 0.04 K/uL (0.01-0.20) 02/12/24 13:03 PT 10.8 Seconds (9.0-12.0) 02/12/24 13:03 INR 1.0 (0.9-1.1) 02/12/24 13:03 APTT 26 Seconds (21-31) 02/12/24 13:03 PTT Ratio 1.0 02/12/24 13:03 Sodium 139 mmol/L (136-145) 02/12/24 13:03 Potassium 4.1 mmol/L (3.5-5.1) 02/12/24 13:03 Chloride 107 mmol/L (98-107) 02/12/24 13:03 Carbon Dioxide 25 mmol/L (21-32) 02/12/24 13:03 Anion Gap 7 (3-11) 02/12/24 13:03 BUN 23 mg/dl (6-23) 02/12/24 13:03 Creatinine 1.10 mg/dl (0.6-1.2) 02/12/24 13:03 Est Cr Clr Drug Dosing 53.3 ml/min 02/12/24 13:03 eGFR 51.75 02/12/24 13:03 BUN/Creatinine Ratio 20.9 (10-20) H 02/12/24 13:03 Glucose 84 mg/dl (70-99(Fasting)) 02/12/24 13:03 Calcium 9.3 mg/dl (8.6-10.3) 02/12/24 13:03 Total Bilirubin 0.5 mg/dl (0.2-1.0) 02/12/24 13:03 AST 18 U/L (13-39) 02/12/24 13:03 ALT 14 U/L (7-52) 02/12/24 13:03 Alkaline Phosphatase 62 U/L (34-104) 02/12/24 13:03 Troponin I High Sens 6.1 pg/ml (0-14) 02/12/24 13:03 Total Protein 6.8 gm/dl (6.0-8.3) 02/12/24 13:03 Albumin 3.9 gm/dl (3.4-5.0) 02/12/24 13:03 Globulin 2.9 gm/dl (2.5-4.0) 02/12/24 13:03 Albumin/Globulin Ratio 1.3 (0.9-2) 02/12/24 13:03 Impressions Chest X-Ray 02/12/24 12:48 XR chest 1V portable CLINICAL HISTORY: Chest pain, nonspecific TECHNIQUE: Single frontal radiograph of the chest was obtained. Comparison: Comparison is made to chest radiograph 06/15/2023 FINDINGS: ACDF is seen. The cardiomediastinal silhouette is normal. The lungs are clear. No evidence of pleural effusion or pneumothorax. IMPRESSION: No acute chest disease. ACT 112: Negative or not required by law. Electronically signed by: Kojo Morales M.D. 02/12/2024 1:49 PM Head CTA 02/12/24 17:06 Exam(s): CTA HEAD W/WO Contrast IV Amt: 117 cc opti 320 EXAM: CT Angiography Head Without and With Intravenous Contrast CLINICAL HISTORY: Reason for exam: dizziness, balance disturbance. TECHNIQUE: Axial computed tomographic angiography images of the head without and with intravenous contrast. CTDI is 30.68 mGy and DLP is 512 mGy-cm. Automated exposure control was utilized for the study. A dose lowering technique was utilized adhering to the principles of ALARA. MIP reconstructed images were created and reviewed. CONTRAST: Patient received 117 cc opti 320 of IV contrast COMPARISON: No relevant prior studies available. FINDINGS: VASCULATURE: Right internal carotid artery: No acute findings. Intracranial segment is patent with no significant stenosis. No aneurysm. Right anterior cerebral artery: Unremarkable. No occlusion or significant stenosis. No aneurysm. Right middle cerebral artery: Unremarkable. No occlusion or significant stenosis. No aneurysm. Right posterior cerebral artery: origin of the right ADDICTION MEDICINE PHYSICIAN. No occlusion or significant stenosis. No aneurysm. Right vertebral artery: Unremarkable as visualized. Left internal carotid artery: No acute findings. Intracranial segment is patent with no significant stenosis. No aneurysm. Left anterior cerebral artery: Unremarkable. No occlusion or significant stenosis. No aneurysm. Left middle cerebral artery: Unremarkable. No occlusion or significant stenosis. No aneurysm. Left posterior cerebral artery: Unremarkable. No occlusion or significant stenosis. No aneurysm. Left vertebral artery: Unremarkable as visualized. Basilar artery: Unremarkable. No occlusion or significant stenosis. No aneurysm. HEAD: Brain: Age-related parenchymal volume loss. Mild chronic small vessel ischemic change. Barfield-white matter differentiation maintained. No acute intracranial hemorrhage. No mass-effect or midline shift. Ventricles: Unremarkable. No ventriculomegaly. Bones/joints: No skull fracture. Soft tissues: Unremarkable. Sinuses: Unremarkable as visualized. No acute sinusitis. Mastoid air cells: Unremarkable as visualized. No mastoid effusion. IMPRESSION: Patent intracranial circulation. Electronically signed by: Thania Harmon M.D. 02/12/24 19:36 PM Neck CTA 02/12/24 17:06 Exam(s): CTA NECK With Contrast IV Amt: 117 cc opti 320 EXAM: CT Angiography Neck With Intravenous Contrast CLINICAL HISTORY: Reason for exam: dizziness, balance disturbance. TECHNIQUE: Routine carotid CT angiography protocol was performed with intravenous contrast. NASCET criteria using the distal ICAs for comparison were used for evaluation of stenoses. CTDI is 37.42 mGy and DLP is 156.1 mGy-cm. Automated exposure control was utilized for the study. A dose lowering technique was utilized adhering to the principles of ALARA. MIP reconstructed images were created and reviewed. CONTRAST: Patient received 117 cc opti 320 of IV contrast COMPARISON: None. FINDINGS: VASCULATURE: Right common carotid artery: Unremarkable. No occlusion or significant stenosis. No dissection. Right internal carotid artery: Unremarkable. Extracranial segment is patent with no occlusion or significant stenosis. No dissection. Right external carotid artery: Unremarkable. No occlusion. Right vertebral artery: Unremarkable. No occlusion or significant stenosis. No dissection. Left common carotid artery: Unremarkable. No occlusion or significant stenosis. No dissection. Left internal carotid artery: Unremarkable. Extracranial segment is patent with no occlusion or significant stenosis. No dissection. Left external carotid artery: Unremarkable. No occlusion. Left vertebral artery: Unremarkable. No occlusion or significant stenosis. No dissection. Aorta: Unremarkable as visualized. No intra-aortic arch branch anatomy. NECK: Bones/joints: Degenerative changes in the spine. ACDF C5-C7. No acute osseous findings. Soft tissues: Subcutaneous emphysema in the anterior chest wall. Thyroid: Subcentimeter thyroid nodules; no follow-up indicated based on size criteria. Lung apices: Clear. CAROTID STENOSIS REFERENCE USING NASCET CRITERIA: % ICA stenosis = (1 - narrowest ICA diameter/diameter of distal cervical ICA) x 100. Mild - <50% stenosis. Moderate - 50-69% stenosis. Severe - 70-94% stenosis. Near occlusion - 95-99% stenosis. Occluded - 100% stenosis. IMPRESSION: 1. No dissection, significant stenosis, or occlusion. 2. Subcutaneous emphysema in the anterior chest wall. Correlate for recent operative change or penetrating trauma to account for this finding. Electronically signed by: Thania Harmon M.D. 02/12/24 19:24 PM Chest CTA 02/12/24 17:18 Exam(s): CTA CHEST IV Amt: 117 ml opti 320 EXAM: CT Angiography Chest With Intravenous Contrast CLINICAL HISTORY: Reason for exam: hypotension, tachy, recent colon resection. ? pe. TECHNIQUE: Axial computed tomographic angiography images of the chest with intravenous contrast. CTDI is 16.44 mGy and DLP is 1147 mGy-cm. Automated exposure control was utilized for the study. A dose lowering technique was utilized adhering to the principles of ALARA. MIP reconstructed images were created and reviewed. COMPARISON: No relevant prior studies available. FINDINGS: Pulmonary arteries: Unremarkable. No evidence of pulmonary embolism. Aorta: No acute findings. No aortic aneurysm or dissection. Lungs: Unremarkable. No mass. No consolidation. Pleural space: Unremarkable. No significant effusion. No pneumothorax. Heart: Coronary artery atherosclerosis. No cardiomegaly or pericardial effusion. Mediastinum: Small hiatal hernia. Bones/joints: No acute fracture. No dislocation. Soft tissues: Subcutaneous emphysema anterior body wall related to recent abdominal surgery. Lymph nodes: Unremarkable. No enlarged lymph nodes. Liver: Benign right hepatic lobe cyst. Kidneys and ureters: Simple left kidney parapelvic cyst; no follow-up indicated. IMPRESSION: No evidence of pulmonary embolism. Electronically signed by: Thania Harmon M.D. 02/12/24 19:39 PM ECG Additional Comments: ECG. Normal sinus rhythm rate of 97. No significant change was found. QTc 429
[2024-02-12] MEDS ORDERED: ACETAMINOPHEN 325 MG TAB PO PRN (23:10)
[2024-02-12] MEDS ORDERED: RIZATRIPTAN BENZOATE 10 MG TAB PO PRN (23:10)
[2024-02-12] MEDS ORDERED: POLYETHYLENE (MIRALAX) 17 GM PACK PO PRN (23:10)
[2024-02-12] MEDS ORDERED: NITROGLYCERIN SL 0.4 MG/TAB TAB SL PRN (23:10)
[2024-02-13] MEDS: APIXABAN 5 MG TABLET PO ONE (00:16)
[2024-02-13] MEDS: ROSUVASTATIN CALCIUM 5 MG TAB PO STA (00:16)
[2024-02-13] MEDS: SODIUM CHLORIDE 0.9% 1,000 ML IV SCH (01:30)
[2024-02-13 07:20] LABS: Basophils # (auto) 0.04 K/uL (0.00-0.20); Basophils % (auto) 0.7 %; Eosinophils % (auto) 3.6 %; Hematocrit (blood only) 36.4 % (37.0-47.0); Hemoglobin 12.3 g/dl (12.0-16.0); Immature Granulocytes # (auto) 0.03 K/uL (0.01-0.20); Immature Granulocytes % (auto) 0.5 %; Lymphocytes # (auto) 1.21 K/uL (1.20-3.40); Lymphocytes % (auto) 21.8 %; Mean Corpuscular Hemoglobin 29.9 pg (25.0-34.0); Mean Corpuscular Hgb Conc 33.8 g/dL (32.0-36.0); Mean Corpuscular Volume 88.6 fL (80.0-100.0); Mean Platelet Volume 10.2 fL (9.4-12.4); Neutrophils # (auto) 3.58 K/uL (1.40-6.50); Neutrophils % (auto) 64.4 %; Platelet Count 194 K/uL (130-400); RDW Coefficient of Variation 13.6 % (11.5-14.5); Red Blood Count 4.11 M/uL (4.20-5.40); White Blood Count 5.56 K/ul (4.8-10.8)
[2024-02-13 07:33] LABS: Creatinine Clr Calc Pharmacy 58.7 ml/min; Magnesium 1.8 mg/dl (1.7-2.4); Potassium 3.8 mmol/L (3.5-5.1)
[2024-02-13 07:41] LABS: Troponin I High Sensitivity 8.3 pg/ml (0-14)
[2024-02-13] MEDS: LEVOTHYROXINE SODIUM 25 MCG TABLET PO SCH (07:42)
[2024-02-13 07:48] LABS: Thyroid Stimulating Hormone 0.672 uIu/ml (0.300-4.500)
[2024-02-13] MEDS ORDERED: NON-FORMULARY MEDICATION (Lactobacillus Combination No.4 [Probiotic] 3 billion cell Capsul PO SCH (09:00)
[2024-02-13] MEDS ORDERED: NON-FORMULARY MEDICATION (Multivitamin Tablet) PO SCH (09:00)
[2024-02-13] MEDS: CEROVITE ADV FORMULA TAB PO SCH (09:33)
[2024-02-13] MEDS: CALCIUM 600MG + VIT D 400 IU TAB PO SCH (09:33)
[2024-02-13] MEDS: ASCORBIC ACID 500 MG TAB PO SCH (09:33)
[2024-02-13] MEDS: buPROPion XL 150 MG TABCR PO SCH (09:34)
[2024-02-13] MEDS: VITAMIN B COMPLEX TAB PO SCH (09:34)
[2024-02-13] MEDS: VENLAFAXINE HCL XR 75 MG CAPXR PO SCH (09:34)
[2024-02-13] MEDS: APIXABAN 5 MG TABLET PO SCH (09:34)
[2024-02-13] MEDS: LOSARTAN POTASSIUM 50 MG TAB PO SCH (09:34)
[2024-02-13] MEDS: CHOLECALCIFEROL 25 MCG (1000 UNITS) TAB PO SCH (09:34)
[2024-02-13] MEDS: MAGNESIUM OXIDE 400 MG TAB PO SCH (09:34)
--- NOTE | 2024-02-13 12:20 | Electrocardiogram Report ---
Test Reason : Blood Pressure : */* mmHG Vent. Rate : 84 BPM Atrial Rate : 84 BPM P-R Int : 156 ms QRS Dur : 90 ms QT Int : 372 ms P-R-T Axes : 42 4 8 degrees QTcB Int : 439 ms Normal sinus rhythm Minimal voltage criteria for LVH, may be normal variant ( R in aVL ) Borderline ECG When compared with ECG of 12-Feb-2024 13:00, No significant change was found Confirmed by Jose Felix ([id number]) on 02/13/2024 12:19:38 PM Referred By: REFERRED SELF Confirmed By: Jose Felix
--- NOTE | 2024-02-13 19:36 | Hospitalist Progress Note ---
Date of Service February 13, 2024 Assessment & Plan (1) Orthostatic hypotension: Plan: 78-year-old female with past medical history significant for paraesophageal hernia, hypertension, reflux esophagitis, peptic ulcer disease, irritable bowel syndrome with constipation, melanoma in situ of left shoulder, iron deficiency anemia, recurrent major depression comes because of orthostatic hypotension and falls. Patient had a colon resection surgery on January 30 at [place] for colon stricture thought to be from diverticulitis as per patient. As per patient 6 inches of colon was taken out. Per patient's from next day of surgery she developed orthostatic hypotension's. It was thought because her head was lowered for 6 hours during the surgery. She was discharged home last but still having the symptoms. Patient says she feels weird and she falls sideways mostly on the right side. No loss of consciousness. Did not hit her head. No chest pain or shortness of breath. No cough. No fevers. No nausea. No headache. Vision is okay. No runny nose no sore throat. Currently after surgery her constipation resolved. Denies any blood in the stools or black stools. Micturating okay. Ambulating with a cane because of these falls. Appetite is okay. Patient states she was discharged on Eliquis for 2 weeks from [place]- possible for DVt prophylaxis. Patient has a rash around surgical site,but seems improving. Today in the ER also she was having orthostatic hypotension. Resting comfortably and able to give her history. Orthostatic hypotension Falls Since colon resection surgery in [place] on January 30 Gentle fluids Follow labs Orthostatic vitals CTA chest no PE CTA head and neck unremarkable Subcutaneous emphysema seen in the anterior chest wall mostly from recent surgery ER tried to do MRI scan but could not get records from [place] if any clips used in recent surgery Echo - LVEF 55 to 60%. There is mild concentric LVH. There is mild tricuspid regurg. Doppler findings do not suggest pulmonary hypertension. Discussed with cardiology further recommendations - decrease losartan, hydrate, Teds. cont. to monitor on tele. Repeat orthostatics this PM positive but pt asymptomatic Records from [place] requested by ER PT OT when stable Hypertension On losartan, as above Will monitor Hyperlipidemia On statin Depression On bupropion, venlafaxine Hypothyroidism On Synthyroid TSH 0.6 DVT prophylaxis Currently on Eliquis Disposition Telemetry Full code. Admission and Anticipated Discharge Date Admission Date: February 12, 2024 Subjective Pt seen in follow up of orthostatic hypotension Recent colon surgery at [facility] Currently laying in bed in [facility] Denies any fever, chills, chest pain, shortness of breath Reports she has been hydrating well, constantly drinking plenty of water Ordered TEDs - she reports she has been wearing compression stockings at home Also reports she was seen by cardiology and medicine team in [place] prior to discharge, records also requested in ER but not received yet Discussed with cardiology - echo findings reassuring, will decrease her losartan. continue hydration. Teds. will cont. to monitor, and will repeat orthostatics Orthostatics this PM still positive however pt was actually asymptomatic this time Review of Systems Review of Systems: All systems reviewed & are unremarkable except as noted in Subjective Physical Exam Physical Exam: General- WD/WN F in NAD Head- atraumatic Eyes- PERRL. ENT- oropharynx clear Neck- supple, no JVD. Lungs- clear to auscultation no wheezing or crackles. Heart- regular rate and rhythm; no murmur Abdomen- normal bowel sounds, soft, nontender, no distension. Extremities- no pretibial edema, no erythema seen. Neuro- alert, oriented PERRL, no facial palsy; no dysarthria; moves extremities. Results & Data Results & Data Vital Signs (Past 12 Hours) Vital Signs Temp Pulse Pulse Resp BP Pulse Ox Pulse Ox 02/13/24 18:34 102 H 02/13/24 15:44 36.6 C 98 H 16 161/83 H 97 02/13/24 12:21 91 H 146/102 H 02/13/24 09:30 101 H 14 146/80 H 02/13/24 07:58 95 02/13/24 07:58 95 02/13/24 07:43 90 18 130/84 95 O2 Del Method O2 Del Method 02/13/24 18:34 02/13/24 15:44 Room Air 02/13/24 12:21 02/13/24 09:30 02/13/24 07:58 Room Air 02/13/24 07:58 Room Air 02/13/24 07:43 Room Air Laboratory Results 02/13/24 Range/Units 06:43 WBC 5.56 (4.8-10.8) K/ul RBC 4.11 L (4.20-5.40) M/uL Hgb 12.3 (12.0-16.0) g/dl Hct 36.4 L (37.0-47.0) % MCV 88.6 (80.0-100.0) fL MCH 29.9 (25.0-34.0) pg MCHC 33.8 (32.0-36.0) g/dL RDW Std Deviation 44.0 (36.4-46.3) fL RDW Coeff of Pito 13.6 (11.5-14.5) % Plt Count 194 (130-400) K/uL MPV 10.2 (9.4-12.4) fL Immature Gran % (Auto) 0.5 % Neut % (Auto) 64.4 % Lymph % (Auto) 21.8 % Hardin % (Auto) 9.0 % Eos % (Auto) 3.6 % Baso % (Auto) 0.7 % Neut # (Auto) 3.58 (1.40-6.50) K/uL Lymph # (Auto) 1.21 (1.20-3.40) K/uL Hardin # (Auto) 0.50 (0.11-0.59) K/uL Eos # (Auto) 0.20 (0.00-0.50) K/uL Baso # (Auto) 0.04 (0.00-0.20) K/uL Immature Gran # (Auto) 0.03 (0.01-0.20) K/uL Sodium 140 (136-145) mmol/L Potassium 3.8 (3.5-5.1) mmol/L Chloride 109 H (98-107) mmol/L Carbon Dioxide 24 (21-32) mmol/L Anion Gap 7 (3-11) BUN 17 (6-23) mg/dl Creatinine 1.00 (0.6-1.2) mg/dl Est Cr Clr Drug Dosing 58.7 ml/min eGFR 58.02 BUN/Creatinine Ratio 17.0 (10-20) Glucose 104 H (70-99(Fasting)) mg/dl Calcium 9.0 (8.6-10.3) mg/dl Magnesium 1.8 (1.7-2.4) mg/dl Troponin I High Sens 8.3 (0-14) pg/ml TSH 0.672 (0.300-4.500) uIu/ml Medications Administered Current Inpatient Medications Acetaminophen (Acetaminophen 325 Mg Tab) 650 mg PO Q4H PRN PRN Reason: Pain or Fever Stop: 03/13/24 23:09 Apixaban (Apixaban 5 Mg Tablet) 5 mg PO BID [facility] Stop: 02/22/24 09:01 Last Admin: 02/13/24 09:34 Dose: 5 mg Ascorbic Acid (Ascorbic Acid 500 Mg Tab) 250 mg PO BID [facility] Stop: 03/14/24 08:59 Last Admin: 02/13/24 09:33 Dose: 250 mg Bupropion HCl (Bupropion Xl 150 Mg Tabcr) 150 mg PO DAILY [facility] Stop: 03/14/24 08:59 Last Admin: 02/13/24 09:34 Dose: 150 mg Calcium/Vitamin D (Calcium 600mg + Vit D 400 Iu Tab) 1 tab PO BID [facility] Stop: 03/14/24 08:59 Last Admin: 02/13/24 09:33 Dose: 1 tab Levothyroxine Sodium (Levothyroxine Sodium 25 Mcg Tablet) 25 mcg PO DAILYBB [facility] Stop: 03/14/24 06:29 Last Admin: 02/13/24 07:42 Dose: 25 mcg Losartan Potassium (Losartan Potassium 25 Mg Tab) 25 mg PO QAM [facility] Stop: 03/15/24 08:59 Magnesium Oxide (Magnesium Oxide 400 Mg Tab) 400 mg PO QAM [facility] Stop: 03/14/24 08:59 Last Admin: 02/13/24 09:34 Dose: 400 mg Multivitamins/Minerals (Cerovite Adv Formula Tab) 1 tab PO QAM [facility] Stop: 03/14/24 08:59 Last Admin: 02/13/24 09:33 Dose: 1 tab Nitroglycerin (Nitroglycerin Sl 0.4 Mg/Tab Tab) 0.4 mg SL Q5M PRN PRN Reason: Chest Pain Stop: 03/13/24 23:09 Polyethylene Glycol (Polyethylene (Miralax) 17 Gm Pack) 17 gm PO DAILY PRN PRN Reason: Constipation Stop: 03/13/24 23:09 Rizatriptan Benzoate (Rizatriptan Benzoate 10 Mg Tab) 10 mg PO UD PRN PRN Reason: Migraine Headache Stop: 03/13/24 23:09 Rosuvastatin Calcium (Rosuvastatin Calcium 5 Mg Tab) 5 mg PO [facility] Stop: 03/14/24 20:59 Venlafaxine HCl (Venlafaxine Hcl Xr 75 Mg Capxr) 75 mg PO QAM [facility] Stop: 03/14/24 08:59 Last Admin: 02/13/24 09:34 Dose: 75 mg Vitamin B Complex (Vitamin B Complex Tab) 1 tab PO QA [facility] Stop: 03/14/24 08:59 Last Admin: 02/13/24 09:34 Dose: 1 tab Vitamin D (Cholecalciferol 25 Mcg (1000 Units) Tab) 25 mcg PO QAM [facility] Stop: 03/14/24 08:59 Last Admin: 02/13/24 09:34 Dose: 25 mcg
[2024-02-13] MEDS: ROSUVASTATIN CALCIUM 5 MG TAB PO SCH (22:01)
[2024-02-13 23:02] VITALS: RESP 18
[2024-02-14 07:31] LABS: Hematocrit (blood only) 36.9 % (37.0-47.0); Hemoglobin 12.5 g/dl (12.0-16.0); Mean Corpuscular Hemoglobin 29.6 pg (25.0-34.0); Mean Corpuscular Hgb Conc 33.9 g/dL (32.0-36.0); Mean Corpuscular Volume 87.4 fL (80.0-100.0); Mean Platelet Volume 10.4 fL (9.4-12.4); Platelet Count 205 K/uL (130-400); RDW Coefficient of Variation 13.6 % (11.5-14.5); Red Blood Count 4.22 M/uL (4.20-5.40); White Blood Count 6.48 K/ul (4.8-10.8)
[2024-02-14 07:47] LABS: BUN Creatinine Ratio 15.8 (10-20); Calcium 9.5 mg/dl (8.6-10.3); Creatinine Clr Calc Pharmacy 57.3 ml/min; Magnesium 1.9 mg/dl (1.7-2.4); Phosphorus 3.8 mg/dl (2.5-4.9); Potassium 3.9 mmol/L (3.5-5.1)
[2024-02-14] MEDS: LOSARTAN POTASSIUM 25 MG TAB PO SCH (08:25)
--- NOTE | 2024-02-14 08:50 | Electrocardiogram Report ---
Test Reason : Blood Pressure : */* mmHG Vent. Rate : 84 BPM Atrial Rate : 84 BPM P-R Int : 162 ms QRS Dur : 98 ms QT Int : 382 ms P-R-T Axes : 73 46 45 degrees QTcB Int : 451 ms Sinus rhythm with frequent Premature ventricular complexes Incomplete right bundle branch block Moderate voltage criteria for LVH, may be normal variant Borderline ECG When compared with ECG of 13-Feb-2024 10:47, Premature ventricular complexes are now Present Confirmed by Jose Felix [id number] on 02/14/2024 8:50:23 AM Referred By: REFERRED SELF Confirmed By: Jose Felix
--- NOTE | 2024-02-14 14:01 | Discharge Summary ---
Discharge Summary Date of Service February 14, 2024 Principal Dx & Hospital Course #1 = Principal Diagnosis (1) Orthostatic hypotension: Plan Patient presented to the emergency room with a fall. Noted to be orthostatic. Patient recently had abdominal surgery at [facility]. Patient was cared for in the hospital. There is no significant arrhythmias on telemetry monitoring. She was given fluid resuscitation and her antihypertensive medications were held and doses decreased. The patient significantly improved. She no longer had severe hypotension with changes in position. She did have a fluctuation in her systolic blood pressure with changes in position but she was not lightheaded or dizzy. She had no difficulty with ambulation. On the day of discharge she quickly got up out of her chair and walked over to meet me when I entered the room. She walked steady. She had no lightheadedness or dizziness. She had no chest pain or shortness of breath. Her laboratory studies were stabilized. She will be discharged home with outpatient follow-up Notes For Next Care Provider As patient continues to recover from her recent surgery, patient may need to have her antihypertensive medications increased again if she starts becoming more hypertensive at all times. Medication Changes From Visit Losartan dose decreased Admission HPI Per Admitting Provider 78-year-old female with past medical history significant for paraesophageal hernia, hypertension, reflux esophagitis, peptic ulcer disease, irritable bowel syndrome with constipation, melanoma in situ of left shoulder, iron deficiency anemia, recurrent major depression comes because of orthostatic hypotension and falls. Patient had a colon resection surgery on January 30 at [place] for colon stricture thought to be from diverticulitis as per patient. As per patient 6 i nches of colon was taken out. Per patient's from next day of surgery she developed orthostatic hypotension's. It was thought because her head was lowered for 6 hours during the surgery. She was discharged home last but still having the symptoms. Patient says she feels weird and she falls sideways mostly on the right side. No loss of consciousness. Did not hit her head. No chest pain or shortness of breath. No cough. No fevers. No nausea. No headache. Vision is okay. No runny nose no sore throat. Currently after surgery her constipation resolved. Denies any blood in the stools or black stools. Micturating okay. Ambulating with a cane because of these falls. Appetite is okay. Patient states she was discharged on Eliquis for 2 weeks from [facility] for DVt prophylaxis. Patient has a rash around surgical site,but seems improving. Today in the ER also she was having orthostatic hypotension. Resting comfortably and able to give her history. Past medical history. As mentioned above. Past surgical history. Cervical disc arthroplasty. Colonoscopy. EGD. EGD with biopsy. Laparoscopic Efraín fundoplication repair of paraesophageal. Right knee arthroplasty. Appendectomy. Partial removal of thyroid lobe. Throat surgery as a child. Partial hysterectomy at age 41. Social history. No smoking. No alcohol use. No drug use. Family history. Mother had renal failure. Father had PA. Brother has diabetes. Hypertension. Admission Exam Per Admitting Provider See H&P Discharge Exam Constitutional: Alert HEENT: Mucous membranes moist. Lungs: Clear to auscultation, decreased, no wheezes rales or rhonchi CV: S1-S2, regular Abdomen: Soft, nontender, nondistended Extremities: No significant edema Neuro: No focal deficits Psych: Cooperative, normal mood Updated Medication List Medication Instructions Recorded Confirmed Type acetaminophen 500 mg tablet 500 mg PO Q6H PRN Pain 03/05/18 02/12/24 History (Tylenol Extra Strength) calcium 600 mg (as 1 tab PO BID 03/05/18 02/12/24 History carbonate)-vitamin D3 5 mcg (200 unit) capsule (Calcium 600 + D(3)) [id number]-[id number] C-Mn 500 2 tab PO BID 03/05/18 02/12/24 History mg-400 mg capsule (Glucosamine Chondroitin Maximum Strength) losartan 50 mg tablet 50 mg PO QAM 03/05/18 02/12/24 History magnesium 250 mg tablet 250 mg PO QAM 03/05/18 02/12/24 History multivitamin 1 tab PO QAM 03/05/18 02/12/24 History rizatriptan 10 mg tablet 10 mg PO UD PRN Migraine Headache 03/05/18 02/12/24 History vitamin B complex 1 cap PO QAM 03/05/18 02/12/24 History vitamins A,C,N-mjou-pyhlho 2,148 1 tab PO QAM 03/05/18 02/12/24 History mcg-113 mg-45 mg-17.4 mg tablet (PreserVision AREDS) ascorbic acid (vitamin C) 250 mg 250 mg PO BID #28 tabs 04/04/18 02/12/24 Rx tablet (Vitamin C) cholecalciferol (vitamin D3) 25 25 mcg PO QAM 05/09/21 02/12/24 History mcg (1,000 unit) tablet (Vitamin D3) lactobacillus combination no.4 3 3,000 mmu cells PO QAM 05/09/21 02/12/24 History billion cell capsule (Probiotic) celecoxib 200 mg capsule 200 mg PO QAM PRN Pain 06/25/23 02/12/24 History levothyroxine 25 mcg tablet 25 mcg PO QAM 06/25/23 02/12/24 History rosuvastatin 5 mg tablet 5 mg PO HS 06/25/23 02/12/24 History venlafaxine 75 mg capsule,extended 75 mg PO QAM 06/25/23 02/12/24 History release 24 hr Eliquis 1 tab PO BID 02/12/24 02/12/24 History bupropion HCl 150 mg 24 hr tablet, 150 mg PO DAILY 02/12/24 02/12/24 History extended release Hospital Stay Data Consultations 02/12/24 20:38 ED Decision to Admit Stat Diagnostic Imagining Performed 02/12/24 17:06 CTA head wo/w [CT angio head wo/w] Stat CTA neck with con [CT angio neck with con] Stat 02/12/24 17:18 CT angio chest PE protocol Stat Reviewed imaging, laboratory and diagnostic studies. Pertinent findings as below. CBC BMP within normal ranges Pending Results Patient Have Any Pending Studies at Discharge: No Discharge Instructions Given to Patient (Per Discharging Provider) Take your time when changing positions. Make sure you have no lightheadedness or dizziness before you stand up and walk away. Wear ESTEVAN hose compression stockings during the day while you are awake Total Time Total Time Spent Total Time Spent (In Minutes): 26
[2024-02-14 16:07] VITALS: BP 114/67; PULSE 92; TEMP 98.4; O2SAT 98
== END 2024-02-14 17:59 | disposition home or self-care (01) | DRG 312 ==
LOC: ED 12:32 → EDINP 22:00 → SUATTDRO 22:00 → 2S 23:11